=== PATIENT | male | born 1950 | race Caucasian/White ===

== ENCOUNTER 2018-08-04 08:08 | Day surgery (SDC) | payer OTHER ==
--- NOTE | 2018-08-01 14:08 | RAD REPORT ---
EXAM DESCRIPTION: RAD - Chest Pa And Lat (2 Views) - 08/01/2018 2:03 pm CLINICAL HISTORY: pre-op Chest pain. COMPARISON: ABDOMEN 1 VIEW KUB dated 06/11/2013 FINDINGS: A few small scattered benign granulomata are present. The lungs are otherwise clear. The h eart is mildly prominent size. No displaced fractures. IMPRESSION: No acute or concerning finding suspected.
[2018-08-01 14:10] LABS: Absolute Lymphocytes (CBC) 1.5 K/uL (0.7-4.9); Absolute Monocytes 0.4 K/uL (0.1-1.3); Absolute Neutrophil 3.7 K/uL (1.8-8.0); Basophils % 0.9 % (0-1.3); Eosinophils % 3.9 % (0-4.4); Hematocrit 36.4 % (39.6-49.0); Lymphocytes % 26.1 % (15.3-44.8); MCH 31.4 pg (27.0-35.0); MCV 89.2 fL (80-100); Monocytes % 7.3 % (3.3-12.3); RBC Red Blood Cell Count 4.08 M/uL (4.33-5.43)
[2018-08-01 14:17] LABS: Potassium 4.7 mmol/L (3.5-5.1)
--- NOTE | 2018-08-01 15:11 | EKG ---
Test Date: 2018-08-01 Test Time: 13:45:45 Newspaper Delivery Counselor: SILVIA MEASUREMENT RESULTS: Intervals: Rate: 79 MT: 166 QRSD: 104 QT: 386 QTc: 442 [place]: P: 55 MT: 166 QRS: 33 T: 47 INTERPRETIVE STATEMENTS: Normal sinus rhythm Normal ECG No previous ECG available for comparison Electronically Signed On 08-01-18 15:10:18 ELECTRONICS ENGINEERING TECHNICIAN by Brody Adams
[2018-08-04] MEDS ORDERED: CEFAZOLIN 1GM (PREMIX IV) 1 GM/50 ML BAG ONE (09:09)
[2018-08-04] MEDS ORDERED: NA CHLORIDE 0.9% 1,000 ML ONE (09:09)
[2018-08-04] MEDS ORDERED: PROPOFOL 200 MG/20 ML VIAL IV ONE (10:27)
[2018-08-04] MEDS ORDERED: FENTANYL CITR 100 MCG/2 ML ONE (10:28)
[2018-08-04] MEDS ORDERED: MIDAZOLAM HCL 2 MG/2 ML INJ ONE (10:28)
[2018-08-04] MEDS ORDERED: LIDOCAINE 2% MPF 5 ML VIAL ONE (10:28)
--- NOTE | 2018-08-04 11:31 | P.BOP ---
Preoperative diagnosis: infected back subcutaneous mass with abscess Postoperative diagnosis: same Primary procedure: Wide excision of infected back subcutaneous mass with abscess Estimated blood loss: <10cc Specimen: infected back subcutaneous mass with abscess Findings: infected back subcutaneous mass with abscess Anesthesia: General Complications: None Transferred to: Recovery Room Condition: Good
--- NOTE | 2018-08-20 12:36 | OP ---
Date of Procedure: 08/04/2018 Surgeon: Chad Winters MD Preoperative Diagnosis: Infected back subcutaneous mass with abscess. Postoperative Diagnosis: Infected back subcutaneous mass with abscess. Procedures: Wide excision of infected back subcutaneous mass with drainage of an abscess. Estimated Blood Loss: Less than 10 cc. Specimen: Infected back subcutaneous mass with pus. Findings: Infected back subcutaneous mass with abscess loculations. Anesthesia: General plus local. Indications: This is a case of a patient who comes to us with an infected back mass with cellulitis, purulent discharge, erythema, increased temperature. The patient was explained wide excision of inf ected subcutaneous mass with abscess drainage with benefits, alternatives, and risks including, but n ot limited to infection, bleeding, damage to adjacent structures, anesthesia complication, nonhealing of the wound, VT, and even . He also understands this may not relieve any symptoms. He might need more than one surgical intervention. He understands the possible need of packing in that area a nd the need for compliance with doctor's orders and antibiotics. He signed a consent. Description Of Procedure: The patient was brought to the operating room, placed in supine position. Anesthesia was done without complication. The patient was placed in lateral decubitus position in p ike protection. Previously in the holding room, this area of concern was marked. We prepped and d raped the area in the usual sterile fashion. A time-out was called. An incision was made on the ski n in a wedge fashion to include the devitalized skin all the way down to subcutaneous tissue. This g oes all way down to fascia of the muscle does not penetrate the muscle. Deep to this subcutaneous ma ss, there is an abscess cavity with loculations that was explored, opened, and drained. The area was profusely irrigated. Then, the area was packed with wet-to-dry dressing. The patient tolerated the procedure well. The patient was sent to Recovery in stable condition. DIMAS/ANNA Voice ID: [id number] Report ID: [id number]
--- NOTE | 2018-08-20 12:36 | DS ---
Date of Discharge: 08/04/2018 Diagnosis: Infected back subcutaneous mass with abscess. Procedure: Wide excision of infected back subcutaneous mass with drainage of an abscess. Disposition: Home. Discharge Instructions: Wet-to-dry dressing. Normal saline. Medications: See orders. Followup: Follow up in my office in 1 week. DIMAS/ANNA Voice ID: [id number] Report ID: [id number]
== END 2018-08-04 13:25 | disposition home or self-care (01) ==
LOC: OR 08:08
PROVIDERS: ATTEND Surgery
PROC: 0HB6XZZ Excision of Back Skin, External Approach (ICD-10-PCS; principal; 2018-08-04 10:30)
DX: L72.0 Epidermal cyst (principal); L02.212 Cutaneous abscess of back [any part, except buttock and flank]; E11.9 Type 2 diabetes mellitus without complications
CPT/HCPCS: 11406; 36415; 71046; 80048; 82962 ×2; 85025; 88304; 93005; J0690; J2250; J2704; J3010; J7030

== ENCOUNTER 2020-07-12 14:44 | Emergency (ER) | payer OTHER, BC ==
--- OUTSIDE RECORDS SUMMARY | 2020-07-12 14:47 | XMS REPORT | Clinical Summary ---
:1950 Author Organization [facility] Address [address] [place] [address] Care Team Providers Name Role Phone MD Sammi Primary Care Provider Allergies No Known Allergies Medications Medication Sig Dispensed Refills Start Date End Date Status insulin degludec Inject 60 Units 0 Active (Tresiba FlexTouch subcutaneously U-100) 100 unit/mL every morning . (3 mL) InPn pioglitazone (ACTOS) Take 30 mg by mouth 0 Active 30 MG tablet daily. lisinopriL Take 10 mg by mouth 0 Active (PRINIVIL,ZESTRIL) daily. 10 MG tablet metFORMIN Take 1,000 mg by 0 Act galileo (GLUCOPHAGE) 1000 MG mouth 2 (two) times tablet daily with breakfast and dinner. adult multiple Inject 0 Activ e vitamin (multiple intravenously. vitamin) 3,300 unit- 150 mcg/10 mL injection calcium Take 1 tablet by 0 Act galileo carbonate-vitamin D3 mouth daily. (OSCAL) 250-125 mg-unit Tab per tablet tamsulosin (FLOMAX) Take 1 capsule (0.4 10 capsule 0 0 Active 0.4 mg Cap 24 hr mg total) by mouth 0 capsule daily for 10 days. nitrofurantoin, Take 1 capsule (100 6 capsule 0 07/08/2020 macrocrystal-monohyd mg total) by mouth 0 rate, (MACROBID) 100 2 (two) times daily MG capsule for 3 days. phenazopyridine Take 1 tablet (100 10 tablet 0 07/08/202006/26 (PYRIDIUM) 100 MG mg total) by mouth 0 tablet 3 (three) times daily as needed for up to 3 days. Active Problems Problem Noted Date Bladder tumor 07/08/2020 Bladder cancer 07/08/2020 Encounters Date Type Specialty Care Team Description 07/08/2020 Surgery Nathanael Martin CYSTOSCOPY,EVA Hyman MD BIOPSY 07/08/2020 Anesthesia Event Yusuf Sim MD Fernandez, Cristina Margarita, MD 07/08/2020 - Hospital Encounter General Internal Nathanael Martin 07/10/2020 Medicine MD Ortiz 07/08/2020 Travel 07/06/2020 Hospital Encounter Pre-Admission Testing 07/06/2020 Travel after 07/12/2019 Social History Tobacco Use Types Packs/Day Years Used Date Former Smoker 1 12 Smokeless Tobacco: Never Used Comments: QUIT 35 YEARS AGO Alcohol Use Drinks/Week oz/Week Comments Yes OCCASIONAL Alcohol Habits Answer Date Recorded How often do you have a drink containing alcohol? Never 07/06/2020 How many drinks containing alcohol do you have on a typical Not asked day when you are drinking? How often do you have six or more drinks on one occasion? No t asked Sex Assigned at Date Recorded Not on file COVID-19 Exposure Response Date Recorded In the last month, have you been in contact with No / Unsure 07/08/2020 10:51 AM INSTALL TECHNICIAN someone who was confirmed or suspected to have Coronavirus / COVID-19? Last Filed Vital Signs Vital Sign Reading Time Taken Comments Blood Pressure 129/71 07/10/2020 11:24 AM INSTALL TECHNICIAN Pulse 89 07/10/2020 11:24 AM INSTALL TECHNICIAN Temperature 35.7 C (96.2 F) 07/10/2020 11:24 AM INSTALL TECHNICIAN Respiratory Rate 18 07/10/2020 11:24 AM INSTALL TECHNICIAN Oxygen Saturation 97% 07/10/2020 11:24 AM INSTALL TECHNICIAN Inhaled Oxygen Concentration - - Weight 103.7 kg (228 lb 9.6 oz) 07/08/2020 10:47 AM INSTALL TECHNICIAN Height 193 cm (6' 4") 07/08/2020 10:47 AM INSTALL TECHNICIAN Body Mass Index 27.83 07/08/2020 10:47 AM INSTALL TECHNICIAN Plan of Treatment Health Maintenance Due Date Last Done Comments COLON CANCER SCREENING COLONOSCOPY 1950 PNEUMOCOCCAL 65+ YRS (1 of 1 - [id number]) 01/11/2016 MEDICARE ANNUAL WELLNESS (YEAR 2 or FIRST YEAR if no 12/25/2016 IPPE) INFLUENZA VACCINE Completed 06/13/2020 Implants Implanted Type Area Nail Machine Operator Device Shelf Model / Identifier Expiration Serial / Date Lot Set Stent Injection 6x28cm [id number] - [id number] IMPLANTS Left: [place] 11/16/2021 [id number] / Implanted: Qty: 1 on 07/08/2020 by Nathanael Ash MD at [facility] [employer]:ONCOLOGY / [id number] Procedures Procedure Name Priority Date/Time Associated Comments Diagnosis POCT-GLUCOSE METER Routine 07/10/2020 11:26 Resul ts for this AM INSTALL TECHNICIAN procedure are i n the results section. POCT-GLUCOSE METER Routine 07/10/2020 7:32 Resul ts for this AM INSTALL TECHNICIAN procedure are i n the results section. CBC W/PLT COUNT & MARIAN 07/10/2020 5:47 Result s for this AUTO DIFFERENTIAL AM INSTALL TECHNICIAN procedure are in the results section. BASIC METABOLIC PANEL MARIAN 07/10/2020 5:47 Re sults for this (7) AM INSTALL TECHNICIAN procedure are i n the results section. CBC W/PLT COUNT & MARIAN 07/10/2020 5:47 Result s for this AUTO DIFFERENTIAL AM INSTALL TECHNICIAN procedure are in the results section. POCT-GLUCOSE METER Routine 07/09/2020 10:54 Resul ts for this PM INSTALL TECHNICIAN procedure are i n the results section. POCT-GLUCOSE METER Routine 07/09/2020 4:44 Resul ts for this PM INSTALL TECHNICIAN procedure are i n the results section. POCT-GLUCOSE METER Routine 07/09/2020 1:04 Resul ts for this PM INSTALL TECHNICIAN procedure are i n the results section. CBC W/PLT COUNT & MARIAN 07/09/2020 12:14 Result s for this AUTO DIFFERENTIAL PM INSTALL TECHNICIAN procedure are in the results section. BASIC METABOLIC PANEL MARIAN 07/09/2020 12:14 Re sults for this (7) PM INSTALL TECHNICIAN procedure are i n the results section. CBC W/PLT COUNT & MARIAN 07/09/2020 12:14 Result s for this AUTO DIFFERENTIAL PM INSTALL TECHNICIAN procedure are in the results section. POCT-GLUCOSE METER Routine 07/09/2020 8:17 Resul ts for this AM INSTALL TECHNICIAN procedure are i n the results section. POCT-GLUCOSE METER Routine 07/08/2020 9:33 Resul ts for this PM INSTALL TECHNICIAN procedure are i n the results section. POCT-GLUCOSE METER Routine 07/08/2020 5:28 Resul ts for this PM INSTALL TECHNICIAN procedure are i n the results section. FL FLUORO Routine 07/08/2020 4:04 Results for this NON-SPECIFIC UP TO 1 PM INSTALL TECHNICIAN procedu re are in HOUR the results section. TISSUE EXAM AP Routine 07/08/2020 3:03 Results for this PM INSTALL TECHNICIAN procedure are i n the results section. CYSTOSCOPY,INSERTION 07/08/2020 1:30 Malignant neopla sm URETERAL STENTS PM INSTALL TECHNICIAN of overlapping sites of bladder (HCC) CYSTOSCOPY,TURBT 07/08/2020 1:30 Malignant neoplasm PM INSTALL TECHNICIAN of overlapping sites of bladder (HCC) CYSTOSCOPY,BLADDER 07/08/2020 1:30 Malignant neoplasm BIOPSY PM INSTALL TECHNICIAN of overlapping sites of bladder (HCC) POCT-GLUCOSE METER Routine 07/08/2020 11:25 Resul ts for this AM INSTALL TECHNICIAN procedure are i n the results section. after 07/12/2019 Results POC-Glucose meter (07/10/2020 11:26 AM INSTALL TECHNICIAN)Only the most recent of9 results within the time period is included. POC-Glucose Meter 123 (H) 70 - 110 mg/dL [facility] Comment: [facility] : TESTED AT [address], [address] CENTER : Multiple Slide Operator/Welding Equipment Sales Representative ID = [id number] for JAMES DEGROOT Specimen Blood Performing Organization Address City/State/Zipcode Phone Number [address] [phone] CENTER CBC with platelet count + automated diff (07/10/2020 5:47 AM INSTALL TECHNICIAN)Only the most recent of2 resultswithin the time period is included. Pathologist Sig nature WBC 9.2 3.5 - 10.5 [facility] K/L [facility] [place] RBC 3.91 (L) 4.63 - 6.08 [facility] M/L [facility] [place] Hemoglobin 12.0 (L) 13.7 - 17.5 [facility] GM/DL [facility] [place] Hematocrit 37.4 (L) 40.1 - 51.0 % [facility] MCV 95.7 (H) 79.0 - 92.2 fL [facility] MCH 30.7 25.7 - 32.2 pg [facility] MCHC 32.1 (L) 32.3 - 36.5 [facility] GM/DL [facility] [place] RDW 14.6 (H) 11.6 - 14.4 % [facility] Platelets 203 150 - 450 K/CU [facility] MM [facility] [place] MPV 10.3 9.4 - 12.4 fL [facility] nRBC 0 0 - 0 /100 WBC [facility] % Neutros 74 % [facility] % Lymphs 15 % [facility] % Monos 9 % [facility] % Eos 2 % [facility] % Baso 0 % [facility] # Neutros 6.80 (H) 1.78 - 5.38 [facility] # Lymphs 1.37 1.32 - 3.57 [facility] # Monos 0.80 0.30 - 0.82 [facility] # Eos 0.21 0.04 - 0.54 [facility] # Baso 0.03 0.01 - 0.08 [facility] Immature 0 0 - 1 % [facility] Granulocytes-Relative [facility] [place] Specimen Blood Performing Organization Address City/State/Zipcode Phone Number [facility] [address] [place] [address] CENTER Basic Metabolic Panel (07/10/2020 5:47 AM INSTALL TECHNICIAN)Only the most recent of2 results within the time period is included. Sodium 139 136 - 145 meq/L [facility] Potassium 4.6 3.5 - 5.1 meq/L [facility] Chloride 109 (H) 98 - 107 meq/L [facility] CO2 25 22 - 29 meq/L [facility] BUN 22 (H) 7 - 21 mg/dL [facility] Creatinine 1.13 0.57 - 1.25 [facility] mg/dL [facility] [place] Glucose 102 70 - 105 mg/dL [facility] Calcium 8.5 8.4 - 10.2 [facility] mg/dL [facility] [place] EGFR 64Comment: ESTIMATED mL/min/1.73 sq [facility] GFR IS NOT m [facility] ACCURATE INDIANOLA CREATININE CLEARANCE IN PREDICTING GLOMERULAR FILTRATION RATE. ESTIMATED GFR IS NOT APPLICABLE FOR DIALYSIS PATIENTS. Specimen Blood Narrative Performed At Multiple Slide Operator ID - EDASI [facility] Performing Organization Address City/State/Zipcode Phone Number [facility] [address] [place] [address] CENTER FL fluoro non-specific up to 1 hour (07/08/2020 4:04 PM INSTALL TECHNICIAN) Specimen Narrative Performed At Fluoroscopic unit utilized for a procedure performed i n the OR. No GE RIS interpretation was requested. Refer to the operative report for findings. Refer to PACS for patient radiation dose i nformation. Procedure Note Interface, External Ris In - 07/08/2020 4:20 PM INSTALL TECHNICIAN Fluoroscopic unit utilized for a procedu re performed in the OR. No interpretation was requested. Refer to the operative r eport for findings. Refer to PACS for patient radiation dose information. Performing Organization Address City/State/Zipcode Phone Number GE RIS Tissue Exam (07/08/2020 3:03 PM INSTALL TECHNICIAN) Pathologist Sig nature Case Report Surgical Pathology Report Case: [id number] [facility] Authorizing Provider: Nathanael Maciel MD Collected: 07/08/2020 03:03 PM [facility] Ordering Location: [facility] PERIOPERATIVE Received: 07/08/2020 04:15 PM [facility] Pathologist: Harvey Caldwell MD Specimens: A) - Bladder T umor, 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 B) - Blad magdy Tumor, left trigone and left bladder neck C) - Blad magdy Tumor, 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) D) - Pros tatic, TUR prostatic urethra DIAGNOSIS A. 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 URINARY BLADDER, LEFT TRIGONE AND LEFT BLADDER NEC K, TURBT: - PAPILLARY UROTHELIAL CARCINOMA, HIGH GRADE (WHO GRADE 3), INVASIVE INTO MUSCULARIS [facility] - NEGATIVE FOR LYMPH/VASCULAR INVASION C. 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 PROSTATIC URETHRA, TUR BIOPSY: - FRAGMENTS OF BENIGN PROSTATIC STROMA WITH NO PATH OLOGIC CHANGES Signing Pathologist Direct Phone Line: CPT Code(s) 29509 X 3, [id number] [facility] CLINICAL HISTORY Preop diagnosis: [facility] Malignant neoplasm [facility] of overlapping site [facility] of bladder SPECIMEN SOURCE A to C: Bladder [facility] tumor; D. Prostatic [facility] GROSS DESCRIPTION A. Received in formalin labe led with the patient's name, accession number and "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" is a 5.3 x 2.0 x 0.4 cm aggregate of penny-pink rubbery tissue which is entirely submitted in A1-A3. [facility] B. Received in formalin labe led with the patient's name, accession number and "left trigone and left bladder neck tumor" is a 4.0 x 1.7 x 0.4 cm aggregate of penny-pink rubbery tissue which is entirely submitted in B1-B2. [facility] C. Received in formalin labe led with the patient's name, accession number and "low posterior wall bladder tumor with one piece of prostatic urethra" is a 1.9 x 0.7 x 0.3 cm aggregate of penny-pink rubbery tissue which is submitted in toto in C1. D. Received in formalin labe led with the patient's name, accession number and "prostatic urethral TUR" are two penny rubbery tissue measuring up to 0.8 cm in greatest dimension which are submitted in toto in D1. PA/pl MICROSCOPIC Performed. [facility] Specimen Tissue - Bladder Tumor Tissue specimen (specimen) - Bladder Jeannette or Tissue specimen (specimen) - Bladder Jeannette or Tissue specimen (specimen) - Prostatic u rethra stent (physical object) Performing Organization Address City/State/Zipcode Phone Number [facility] [address] [place] [address] CENTER after 07/12/2019 Insurance Payer Benefit Plan / Subscriber ID Effective Phone Address T ype Group Dates MEDICARE MEDICARE A B [id number] 2015-Prese Medicare nt BLUE BCBS INDEMNITY [id number] 2019-Prese [phone] PPO CROSS/BLUE [place] [id number] [place] [address] Advance Directives For more information, please contact: [phone] Code Status Date Activated Date Inactivated Comments Full Code 07/08/2020 9:39 PM 07/10/2020 2:27 PM This code status was determined by: Patient
--- OUTSIDE RECORDS SUMMARY | 2020-07-12 14:47 | XMS REPORT | Clinical Summary ---
:1950 Author Organization [facility] Address [address] [place] [address] Care Team Providers Name Role Phone MD Sammi Primary Care Provider Allergies No Known Active Allergies Medications Medication Sig Dispensed Refills Start Date End Date Status metFORMIN (GLUMETZA) Take 1,000 mg by 0 Active 1,000 mg 24 hr tablet mouth daily with breakfast. pioglitazone (ACTOS) 30 Take 30 mg by 0 Active MG tablet mouth daily. insulin degludec Inject under the 0 Active (TRESIBA FLEXTOUCH skin. U-100 SUBQ) atorvastatin (LIPITOR) Take 10 mg by 0 Active 10 MG tablet mouth daily. lisinopril Take 5 mg by 0 Active (PRINIVIL,ZESTRIL) 5 mg mouth daily. tablet Active Problems Problem Noted Date S/P lumbar laminectomy 04/21/2019 Encounters Date Type Specialty Care Team Description 01/27/2020 Office Visit Orthopedic Surgery Enrique Jones, Ri ght knee pain, unspecified chronicity (Primary Dx); Left knee pain, unspecified chronicity; Arthritis of kn ee, left; Arthritis of kn ee, right 01/27/2020 Travel 01/25/2020 Orders Only Orthopedic Surgery Amrita Sandhu Acut e pain of both MA knees (Primary Dx) 01/21/2020 Travel after 07/12/2019 Surgical History Surgery Date Site/Laterality Comments BACK SURGERY SHOULDER SURGERY Bilateral rotator cuff TONSILLECTOMY LAMINECTOMY, LUMBAR, WITH 04/21/2019 Back/Left Proced ure: REDO LUMBAR FORAMINOTOMY OR FACETECTOMY, 1 L AMINOTOMY, MEDIAL LEVEL FACETECTOMY AND FORAMINOTOMY FOR EXCISION OF SYNOVIAL CYST AT LEFT L4-L5; Surgeon: Isidro Scott MD; Location: [facility] OR ; Service: Neurosurgery; L aterality: Left; Medical History Medical History Date Comments Arthritis Cataract bilateral repair Diabetes mellitus (HCC) Type 2 diabetes mellitus (HCC) Hypercholesteremia Wears reading eyeglasses Wears dentures has implants asher vargas PONV (postoperative nausea and vomiting) once only Family History Medical History Relation Name Comments COPD Father Diverticulitis Father Heart disease Mother [place] Old age Mother 86 Relation Name Status Comments Father Mother Social History Tobacco Use Types Packs/Day Years Used Date Former Smoker 1 20 Quit: 1989 Smokeless Tobacco: Never Used Alcohol Use Drinks/Week oz/Week Comments Yes 2-3/month Sex Assigned at Date Recorded Male 04/18/2019 2:55 PM CDT Last Filed Vital Signs Vital Sign Reading Time Taken Comments Blood Pressure - - Pulse - - Temperature - - Respiratory Rate - - Oxygen Saturation - - Inhaled Oxygen Concentration - - Weight 104 kg (230 lb) 01/27/2020 1:10 PM CDT Height 162.6 cm (5' 4") 01/27/2020 1:10 PM CDT Body Mass Index 39.48 01/27/2020 1:10 PM CDT Plan of Treatment Health Maintenance Due Date Last Done Comments DIABETES: RETINAL EYE EXAM 1961 DIABETIC FOOT EXAM 1961 URINE MICROALBUMIN 1961 COLONOSCOPY SCREENING 2001 SHINGLES VACCINES (#1) 2001 65+ PNEUMOCOCCAL VACCINE (2 of 2 - PPSV23) 01/11/201610/17 INFLUENZA VACCINE 03/26/2020 Procedures Procedure Name Priority Date/Time Associated Comments Diagnosis MS ARTHROCENTESIS Routine 01/27/2020 2:15 Arthritis of knee, Results for this ASPIR&/INJ MAJOR PM CDT left procedure a re in JT/BURSA W/O US the results section. XR LEG LENGTH Routine 01/27/2020 1:12 Acute pain of both Resu lts for this EVALUATION PM CDT knees procedure are i n the results section. XR KNEE 4+ VW BILATERAL Routine 01/27/2020 1:11 Acute pain of both Results for this PM CDT knees procedure are i n the results section. after 07/12/2019 Results Large Joint Arthrocentesis: knee, L knee (01/27/2020 2:15 PM CDT) Narrative Performed At Enrique Jones MD 01/27/2020 2:11 PM Large Joint Arthrocentesis: knee, L knee Consent given by: patient Site marked: site marked Timeout: Immediately prior to procedure a time out was called to verify the correct patient, procedure, equipmen t, aviation support equipment repairer and site/side marked as required Supporting Documentation Indications: pain Procedure Details Preparation: Patient was prepped and rosalinda ped in the usual sterile fashion Ultrasound guided: no Platelet Rich Plasma Used: no PRP Used Location: knee - L knee Left side: Needle size: 22 G Approach: anterolateral Left knee medications administered: 2 mL bupivacaine 0 .5 % (5 mg/mL); 40 mg methylPREDNISolone acetate 40 mg/mL; 2 mL lidocaine 10 mg/mL (1 %) Patient tolerance: patient tolerated the procedure wel l with no immediate complications XR Leg Length Evaluation (01/27/2020 1:12 PM CDT) Specimen Narrative Performed At This result has an attachment that is no t available. Long leg radiographs demonstrate neutral alignment of the bilateral lower [facility] extremities. Performing Organization Address [facility] Phon e Number [facility] [address] [place] [address] XR Knee 4+ Vw Bilateral (01/27/2020 1:11 PM CDT) Specimen Narrative Performed At This result has an attachment that is no t available. Knee radiographs demonstrate severe knee arthritis, left worse than right, [facility] worse in the lateral views. There is medial compartmen t joint space narrowing, osteophytes, and sclerosis present. Performing Organization Address [facility] Phon e Number [facility] [address] [place] [address] after 07/12/2019 Insurance Payer Benefit Plan / Subscriber ID Effective Phone Address T ype Group Dates MEDICARE MEDICARE PART A [id number] 2015-Pres [place], [place] Medicare AND B ent BCBS COMMERCIAL BCBS MEDICARE [id number] 2019-Pres Commercial SUPPLEMENT ent Advance Directives For more information, please contact: [phone] Type Date Recorded Patient Pediatric Neuropsychologist Explanati on Advance Directives, Living Will 04/07/2019 2:18 PM and Medical Power of German Tutor
--- OUTSIDE RECORDS SUMMARY | 2020-07-12 14:48 | XMS REPORT | Summary of Care ---
:1950 Author Organization [facility] [place] [address] Care Team Providers Name Role Phone Unavailable Primary Care Provider Unavailable Reason for Referral Radiology Services (Routine) Status Reason Specialty Diagnoses / Referred By Contact Refe rred To Contact Procedures Pending Radiology Diagnoses Gross hematuria Nathanael Martin MD Procedures CT ABDOMEN PELVIS W WO CONTRAST [address] [place], [place] [address] Phone: Consult, Test & Treat (Routine) Status Reason Specialty Diagnoses / Referred By Contact Refe rred To Contact Procedures Pending Urology Diagnoses Gross hematuria [place] per Nathanael Montanez MD [facility] Procedures CYSTOSCOPY NM CYSTO,[id number], [address] [place], [place] [phone] Phone: Fax: Reason for Visit Reason Comments Initial Visit Encounter Details Date Type Department Care Team Description 06/16/2020 Office Visit [facility] Nathanael Martin MD Initial Visit Medicine Urology [address], [place] [address] [place] [address] [phone] Allergies No Known Allergiesdocumented as of this encounter (statuses as of 06/16/2020) Medications Medication Sig Dispensed Refills Start Date End Date Status TRESIBA FLEXTOUCH INJECT 60 UNITS 0 03/30/2020 Active 200 UNIT/ML SOPN SUBCUTANEOUSLY ONCE DAILY metformin TAKE 1 TABLET BY 0 03/29/2020 Ac tive (GLUCOPHAGE) 1000 MOUTH ONCE DAILY MG tablet pioglitazone Take 30 mg by mouth. 0 09/26/1999 Active (ACTOS) 30 MG tablet lisinopril Take 5 mg by mouth. 0 09/26/1999 Active (PRINIVIL, ZESTRIL) 5 MG tablet atorvastatin Take 10 mg by mouth. 0 Active (LIPITOR) 10 MG tablet metformin 0 09/26/1999 Active (GLUCOPHAGE) 500 MG tablet FLUAD QUADRIVALENT ADM 0.5ML IM UTD 0 06/13/2020 Active 0.5 ML PRSY documented as of this encounter (statuses as of 06/16/2020) Active Problems Problem Noted Date Diabetes mellitus (HCCode) documented as of this encounter (statuses as of 06/16/2020) Immunizations Name Administration Dates Next Due Influenza Hd 06/13/2020 documented as of this encounter Social History Tobacco Use Types Packs/Day Years Used Date Former Smoker 1 9 08/26/1970 - 0 08/26/1979 Smokeless Tobacco: Never Used Sex Assigned at Date Recorded Not on file documented as of this encounter Last Filed Vital Signs Vital Sign Reading Time Taken Comments Blood Pressure 129/71 06/16/2020 11:47 AM CDT Pulse 88 06/16/2020 11:47 AM CDT Temperature 36.8 C (98.2 F) 06/16/2020 11:47 AM CDT Respiratory Rate 16 06/16/2020 11:47 AM CDT Oxygen Saturation - - Inhaled Oxygen Concentration - - Weight 99.8 kg (220 lb) 06/16/2020 11:47 AM CDT Height 193 cm (6' 4") 06/16/2020 11:47 AM CDT Body Mass Index 26.78 06/16/2020 11:47 AM CDT documented in this encounter Patient Instructions Patient InstructionsStella Reilly RN - 06/16/2020 12:[address] appointment [address] scan. Once you know the date call the office to schedule the cystoscopy (you will probably have to speak to someone in the office) documented in this encounter Progress Notes Nathanael Martin MD - 06/16/2020 11:[address] Kirby Chapa Ronald Trinh is a 70 y.o. 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 No Known Allergies Current Outpatient Medications: atorvastatin (LIPITOR) 10 MG tablet, Take 10 mg by mouth., Disp: , Rfl: FLUAD QUADRIVALENT 0.5 ML PRSY, ADM 0.5ML IM UTD, Disp: , Rfl: lisinopril (PRINIVIL, ZESTRIL) 5 MG tablet, Take 5 mg by mouth., Disp: , Rfl: metformin (GLUCOPHAGE) 1000 MG tablet, TAKE 1 TABLET BY MOUTH ONCE DAILY, Disp: , Rfl: metformin (GLUCOPHAGE) 500 MG tablet, , Disp: , Rfl: pioglitazone (ACTOS) 30 MG tablet, Take 30 mg by mouth., Disp: , Rfl: TRESIBA FLEXTOUCH 200 UNIT/ML SOPN, INJECT 60 UNITS SUBCUTANEOUSLY ONCE DAILY, Disp: , Rfl: Past Medical History: Diagnosis Date Diabetes mellitus (HCCode) Prostate irregularity Past Surgical History: Procedure Laterality Date HX BACK SURGERY HX SHOULDER SURGERY ROS: GENERAL: Denies recent weight changes, fever, weakness, fatigue, headaches INTEGUMENTARY: Negative EYES: Negative EARS, NOSE, MOUTH AND THROAT: Negative MUSCULOSKELATAL: Negative RESPIRATORY: Negative NEUROLOGIC: Negative CARDIOVASCULAR: Negative ENDOCRINE: Negative GASTROINTESTINAL: Negative GENITOURINARY: As per HPI HEMATOLOGIC/LYMPHATIC: Negative PSYCHOLOGIC: Negative ALLERGY/IMMUNOLOGIC: Negative OTHER: Denies HIV/AIDS PE GENERAL: Well developed, well nourished, in no acute distress. BP 129/71 (BP Location: right arm, Patient Position: Sitting, Cuff Size: regular) | Pulse 88 | Temp 98.2 F (36.8 C) | Resp 16 | Ht 6' 4" (1.93 m) | Wt 220 lb (99.8 kg) | BMI 26.78 kg/m Impression: Gross hematuria Discussion: Disc: reviewed causes of hematuria including urinary tract cancer, stones, infection, inflammation, trauma and need for workup including CT and cystoscopy. I spent 30 minutes with patient, reviewing history and outside records and relevant imaging,conducting physical exam, plus discussion and coordination of care. More than 50% was spent counseling the patient on prognosis and treatment plan. Plan: BUN and creatinine CT Urogram at [facility] Office cystoscopy with cytology and FISH documented in this encounter Plan of Treatment Date Type Specialty Care Team Description 07/05/2020 Procedure visit Urology Nathanael Martin MD [address] [facility] [address] [place], [place] [address] [phone] Name Type Priority Associated Diagnoses Order S chedule CYSTOSCOPY Procedure Routine Gross hematuria 1 Occurrence s starting 2019 until 1 BUN Lab Routine Gross hematuria Ordered: CREATININE SERUM Lab Routine Gross hematuria Ordered: 06/16/2020 CT ABDOMEN PELVIS W Imaging Routine Gross hematuria 1 Occ urrences WO CONTRAST starting 2019 until 1 Health Maintenance Due Date Last Done Comments COLON CANCER SCREENING: COLONOSCOPY 1950 TETANUS SHOT (ADULT) 1966 HEPATITIS C SCREENING 1969 ZOSTER VACCINE (1 of 2) 2001 MEDICARE AWV (Initial) 12/25/2015 FALL SCREEN 01/11/2016 PNEUMOVAX >=65 (PPSV23) 01/11/2016 FLU VACCINE > 6 MONTHS Discontinued documented as of this encounter Results Not on filedocumented in this encounter Visit Diagnoses Diagnosis Gross hematuria - Primary documented in this encounter Insurance Payer Benefit Plan / Subscriber ID Effective Dates Phone Addre ss Type Group MEDICARE MEDICARE PART [id number] 2015-Pres[place] [address] [place] [id number] Medicare A & B - t [place], [place] MEDICARE [phone] BLUE CROSS OUT OF STATE [id number] 2019-Presen [address] [place] X [id number] PPO BLUE SHIELD BCBS - PPO - t [facility] [id number] documented as of this encounter
--- OUTSIDE RECORDS SUMMARY | 2020-07-12 14:48 | XMS REPORT | Continuity of Care Document ---
:1950 Author Organization [facility] t Address [address] [place] [place] [address] Care Team Providers Name Role Phone Sammi FERRARI Primary Care Physician ORTIZ GARCIA Attending Clinician Unavailable Ortiz Garcia MD Attending Clinician Korey Sim MD Attending Clinician Liana Phillips MD Attending Clinician Cecile Garcia MD Attending Clinician Michelle Jones MD Attending Clinician Edson JUNIOR Attending Clinician Unavailable ORTIZ GARCIA Admitting Clinician Unavailable Payers Payer Name Policy Type Policy Effective Date Expiration Date Sour ce Number MEDICAREMEDICARE A [id number] 2015 GRACE Martines [id number] 2015- 00:00:00 - M edical PresentMedicare Center BLUE CROSS/BLUE [id number] 2019 GRACE Germain ukes SHIELDBCBS INDEMNITY 1 00:00:00 - Me dical [place] [id number] [address], [place] [address]SVE MEDICAREMEDICARE PART [id number] 2015 Dustin Leiva AND 00:00:00 [facility] [id number] [place] 2019 [place] MED[place] 1 00:00:00 [facility] [id number] 2020-PresentComm ercial Problems Condition Condition Condition Status Onset Resolution Last Treating Co mments Source Name Details Category Date Date Treatment Clinician Date Bladder Bladder Disease Active 2019-[address] [facility] [place] Bladder Bladder Disease Active 2019-[address] [facility] cancer - [facility] Center S/P lumbar S/P lumbar Disease [place] laminectom laminectom 8-27 Me thodi y y 00:00: st 00 Allergies, Adverse Reactions, Alerts This patient has no known allergies or adverse reactions. Family History Family Member Diagnosis Comments Start Date Stop Date Source Natural father COPD [place] [facility] Natural father Diverticulitis [place] [facility] Natural mother Heart disease [place] [facility] Natural mother Old age [place] [facility] Social History Social Habit Start Date Stop Date Quantity Comments Source History of tobacco Current smoker [place] use [facility] History SDOH [facility] SD[facility] - Alcohol Binge Medical Anabela ter Sex Assigned At [facility] Exposure to Not sure [facility] - SARS-CoV-2 (event) [facility] Cigarettes smoked 2020-07-11 2020-07-[address] [facility] - current (pack per 00:00:00 00:00:00 Medical Center day) - Reported Cigarette 2020-07-11 2020-07-[address] [facility] - pack-years 00:00:00 00:00:00 [facility] Tobacco use and 2020-07-11 2020-07-[address] [facility] - exposure 00:00:00 00:00:00 [facility] Alcohol intake 2020-07-11 2020-07-11 [facility]00:00 of alcohol [facility] (finding) History SDOH 2020-07-06 2020-07-[address] [facility] - Alcohol Frequency 00:00:00 00:00:00 [facility] Tobacco Comment 2020-07-06 2020-07-06 QUIT [address] [facility] [facility] Center Alcohol Comment 2020-07-06 2020-07-[address] [facility] - 00:00:00 00:00:00 [facility] Smoking Status Start Date Stop Date Source Former smoker 2020-07-11 00:00:00 2020-07-11 00:00:[address] [facility] [facility] Center Medications Ordered Filled Start Stop Current Ordering Indication Dosage Frequency Signature Comments Components Source Medication Medication Date Date Medication? Clinician (SIG) Name Name insulin 2019-08 Yes 60U QD Inject 60 [facility] degludec 1-15 Units [facility] - (Tresiba 12:27: subcutaneo Med ical FlexTouch 03 usly every Cent er U-100) 100 morning . unit/mL (3 mL) InPn pioglitazon 2019-08 Yes 30mg QD Take [address] e (ACTOS) 1-15 by mouth [facility] - 30 MG 12:27: daily. Medical tablet 03 Center lisinopriL 2019-08 Yes 10mg QD Take [address] (PRINIVIL,Z 1-15 by mouth Luke s - ESTRIL) 10 12:27: daily. Medic al MG tablet 03 Center metFORMIN 2019-08 Yes 1000mg Take 1,[address] (GLUCOPHAGE 1-15 mg by [facility] - ) 1000 MG 12:27: mouth 2 Medic al tablet 03 (two) Center times daily with breakfast and dinner. adult 2019-[address] [facility] multiple 1-15 intravenou [facility] - vitamin 12:27: sly. Medical (multiple 03 Center vitamin) 3,300 unit- 150 mcg/10 mL injection calcium 2019-08 Yes 1{tbl} QD Take [address] carbonate-v 1-15 tablet by Andre es - itamin D3 12:27: mouth Medical (OSCAL) 03 daily. [place] 250-125 mg-unit Tab per tablet tamsulosin 2019-08 2020- Yes .4mg QD Take [address] (FLOMAX) 09-07 capsule [facility] - 0.4 mg Cap 00:00: 23:59 (0.4 mg Med ical 24 hr 00 :00 total) by Center capsule mouth daily for 10 days. nitrofurant 2019-08 2020- No 100mg Q.5D Take [address] oin, 09-07 capsule [facility] - macrocrysta 00:00: 23:59 (100 mg Me dical l-monohydra 00 :00 total) by [facility] ter te, mouth 2 (MACROBID) (two) 100 MG times capsule daily for 3 days. phenazopyri 2019-08 No 100mg Take [address] dine 09-07 tablet [facility] - (PYRIDIUM) 00:00: 23:59 (100 mg Med ical 100 MG 00 :00 total) by Center tablet mouth 3 (three) times daily as needed for up to 3 days. metFORMIN Yes 1000mg QD Take 1,000 [facility] (GLUMETZA) 8-28 mg by Methodi 1,000 mg 24 11:30: mouth st hr tablet 33 daily with breakfast. pioglitazon Yes 30mg QD Take 30 mg [facility] e (ACTOS) 8-28 by mouth Method i 30 MG 11:30: daily. st tablet 33 insulin Yes Inject [facility] degludec 8-28 under the Method i (TRESIBA 11:30: skin. st FLEXTOUCH 33 U-100 SUBQ) atorvastati Yes 10mg QD Take 10 mg [facility] n (LIPITOR) 8-28 by mouth Meth hesham 10 MG 11:30: daily. st tablet 33 lisinopril Yes 5mg QD Take 5 mg Ho mic[place]le (PRINIVIL,Z 8-28 by mouth Meth hesham ESTRIL) 5 11:30: daily. st mg tablet 33 Vital Signs Vital Name Observation Time Observation Value Comments Source Systolic blood 2020-07-10 11:24:00 129 mm[Hg] [facility] Diastolic blood 2020-07-10 11:24:00 71 mm[Hg] [facility] S [facility] Heart rate 2020-07-10 11:24:00 89 /min [facility] Body temperature 2020-07-10 11:24:00 35.67 Daniella [facility] Respiratory rate 2020-07-10 11:24:00 18 /min [facility] Oxygen saturation in 2020-07-10 11:24:00 97 /min [facility] Arterial blood by Medical Ce nter Pulse oximetry Body height 2020-07-08 10:47:[address] [facility] Body weight 2020-07-08 10:47:[address] [facility] BMI 2020-07-08 10:47:00 27.83 kg/m2 [facility] Body height 2020-01-27 13:10:00 162.6 cm [facility] Trin[facility] Body weight 2020-01-27 13:10:00 104.327 kg [facility] Trin[facility] BMI 2020-01-27 13:10:00 39.48 kg/m2 [facility] Procedures Procedure Date / Time Performing Clinician Source Performed POCT-GLUCOSE [facility]-07[facility]10 [facility] 2020-07-10 07:[facility]ABOLIC PANEL (7) 2020-07-10 05:47:00 Stepan Forrester [facility] CBC W/PLT COUNT & AUTO 2020-07-10 05:47:[address] [facility] S [facility] POCT-GLUCOSE METER 2020-07-09 22:54:[facility] POCT-[facility]UCOSE METER 2020-07-09 16:44:[facility] POCT-GLUCOSE METER 2020-07-09 13:04:00 Veronica [facility] BASIC METABOLIC PANEL (7) 2020-07-09 12:14:00 Stepan Forrester [facility] CBC W/PLT COUNT & AUTO 2020-07-09 12:14:00 Stepan Forrest[address] [facility] POCT-GLUCOSE METER 2020-07-09 08:17:00 Veronica [facility] POCT-GLUCOSE METER 2020-07-08 21:33:[facility] POCT-[facility]UCOSE METER 2020-07-08 17:28:[facility] [place] FLUORO NON-SPECIFIC UP 2020-07-08 16:04:00 [facility] TISSUE EXAM 2020-07-08 15:03:00 Veronica Nathanael Alcantar [facility] CYSTOSCOPY,BLADDER BIOPSY 2020-07-08 13:30:00 VeronicaSilash Ortiz [facility] CYSTOSCOPY,TURBT 2020-07-08 13:30:00 VeronicaNathanael [facility] CYSTOSCOPY,INSERTION 2020-07-08 13:30:00 Veronica Nathanael Ortiz [facility] S t [facility] - URETERAL STENTS [facility] POCT-GLUCOSE METER 2020-07-08 11:25:00 Veronica Nathanael Ortiz [facility] [place] ARTHROCENTESIS 2020-01-27 14:15:00 Enrique Jones ASPIR&/INJ MAJOR JT/BURSA W/O US XR LEG LENGTH EVALUATION 2020-01-27 13:12:00 Enrique Jones XR KNEE 4+ VW BILATERAL 2020-01-27 13:11:47 Enrique Jones Plan of Care Planned Activity Planned Date Details Comments Source Future Scheduled 2020-03-26 INFLUENZA VACCINE [place] [facility] Test 00:00:00 [code = INFLUENZA VACCINE] Future Scheduled 2016-12-[address] [facility] - Test 00:00:00 WELLNESS (YEAR 2 or Medical Center FIRST YEAR if no IPPE) [code = MEDICARE ANNUAL WELLNESS (YEAR 2 or FIRST YEAR if no IPPE)] Future Scheduled 2016-01-11 65+ PNEUMOCOCCAL [facility] Test 00:00:00 VACCINE (2 of 2 - PPSV23) [code = 65+ PNEUMOCOCCAL VACCINE (2 of 2 - PPSV23)] Future Scheduled 2016-01-11 PNEUMOCOCCAL 65+ [facility] - Test 00:00:00 (1 of 1 - Medical Center [id number] PCV13) [code = PNEUMOCOCCAL 65+ YRS (1 of 1 - [id number] PCV13)] Future Scheduled 2001 COLONOSCOPY SCREENING [place] [facility] Test 00:00:00 [code = COLONOSCOPY SCREENING] Future Scheduled 2001 SHINGLES VACCINES (#1) H [place] [facility] Test 00:00:00 [code = SHINGLES VACCINES (#1)] Future Scheduled 1961 DIABETES: RETINAL EYE [place] [facility] Test 00:00:00 EXAM [code = DIABETES: RETINAL EYE EXAM] Future Scheduled 1961 DIABETIC FOOT EXAM [place] [facility] Test 00:00:00 [code = DIABETIC FOOT EXAM] Future Scheduled 1961 URINE MICROALBUMIN [place] [facility] Test 00:00:00 [code = URINE MICROALBUMIN] Future Scheduled [address] [facility] - Test 00:00:00 malignant neoplasm of [facility] colon (procedure) [code = 151419718] Encounters Start End Encounter Admission Attending Care Care Encounter Source Date/Time Date/Time Type Type Clinicians Facility Department ID 2020-06-16 2020-06-16 Office CLEMENTE Garcia [id number] 10:07:46 13:28:37 Visit Nathanael Huber AMBULATOR [id number] Y [id number] 2020-01-27 2020-01-27 Outpatient INCAVO, [facility] [id number] [place] 00:00:00 00:00:[address] 2020-01-27 2020-01-27 Outpatient INCAVO, [facility] [id number] [place] 00:00:00 00:00:00 ENRIQUE [address] 2020-01-27 2020-01-27 Outpatient INCAVO, [facility] [id number] [address] [place] 00:00:00 00:00:00 ENRIQUE [address] Results Test Description Test Time Test Comments Results Result Comments Source Tissue Exam 2020-07-12 09:33:00 Test Item Value Reference Range Interpretation Comme nts Case Report (test code = 104) Surgical Pathology Report Case: [id number] Authorizing Provider: Nathanael Garcia MD Collected: 07/08/2020 03:03 PM Ordering Location: [facility] Received: 07/08/2020 04:15 PM SERVICES Pathologist: Harvey Caldwell MD Specimens: A) - Bladder Tumor, 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 B) - Bladder Tumor, left trigone and left bladder neck C) - Bladder Tumor, 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) D) - Prostatic, TUR prostatic urethra DIAGNOSIS (test code = 3220) c6grtKDoAGMng1wjEDAmqZIgQqDuJoHeRuFkYb pc dWMxIHtccnRmMVxlcGljOTIwMFxhbnNpXHNwbHRw V0RcsjndYBjjOS1fQH0vtMiweKWgfPBiKDYkDlVh y2khf082mZLpa9raFRPUfbdhjXx5vHyjR15of5P7 LpngY49pyENgCLhmoJGnesfgpyCzCUXwVPZLHdjX RBCWVDKCJFPGXPMbASKCQ8yLHXkVJVOTLIssZ9MP TCBBTkQgUklHSFQgQkxBRERFUiBORUNLLCBUVVJC JWlqgXUgGCOcKZ9bMJUYSMhLNSEHCZNBV1ANVNcW GNzoN7LTU6eLY11ZFDIBTFeAKJhTDPMMBUtIPB2p H0QTRITsSkezZSvhZWAiRNGfRXYzCDHtUS3RQPZV AqSfVL5PCmBGZSUENUbXGvrLBUVFR5EMWTCdbCNy FUCkAW6nSdYALYGSEkVvNy9AQOlWROVOI0NJJ9QO WHVSAHgZLxNJTK8UERDrbggdQWYmPq8xUIVBUV9Q BwinZoqWVQYYEwmgWKLABCJJMqhOA62QFKASYWYT ZIIDIQWQXEZEZKSvIiYKDvufQOIMZlE0WTZvhdUk ICAgLSBQQVBJTExBUlkgVVJPVEhFTElBTCBDQVJD VI4IDNFeFSmLH5ewD0QHPEHxEYhONqGVZgJETSHi AIqaPYGubzWkZDAlYXTuUPLZBqXHS2hBTNISAoAO YS7FG4BAQFLEHKCwOICIIBUPBRuvFNFnARAvYPHD KKdAAFjWFXOWO2VnEEuCJOpbArXHJ4HQFQKuKY7J OONDI10tkAPeKRYkecZVJeVaJBGZFjAPCGMCTZPN SMWPNIQJX9nxRV1NYIYUCF9HXByFCJhzYRiTBAlf J48DZXEJMBFOJH9XRHWBO4UQMPVPEoGUAiLUOBDS PGOOSZJHCMxmlGOvUOGsFD3lSZNJCFtRGFHVJFVF C6XDHMfFPTnhZ2DGH2xRB29OXPUMXYcFCPxWHHWX OSpDBS3jY1SXPKIwUtgfBUedFUWxMLTuEPIhCOXz IE5MRFOVNtSrXC6HRyIHSA3WIsSjINQXVETABJdv CZDeGKLeEPYNDPZWZCxWFphNKAPJC8JOGJIhHCHb Le0OHGLBPGZTSpBudTYeZBNqFS1dPpNDVLKNDlRq Ri3FJDvGQGSWP1UZS7WIFLBOXPlDAgEZEM3CDZWt ilWpZILdIZ1CWKNWZOcUYHBLSt9WFEAGZDRnB0DW C86GWRyGTCgaBl5zMNLWZX0YV2sGHxCSPDNUW7UQ UDNsiyyuKAYyNL5dZAZRU5FRVJLXVnXPNbGFLDDF LCBUVVIgQklPUFNZOlxwYXIgICAgLSBGUkFHTUVO RAIoJ5ZrStLOZYuOIMYKZ2CFXORTLaPUUEZGZFQx X8oMTKWLRaVJYWMSD7xRH0mVVSYFFA9GYCLwdYAf nVvzwsXoSTzjr6YqOFvvIQMyAI7olMdqHNZbLG0j UEClV8gloQ8hukd6WqTiGVPdNaQ6ERXlqoI0Sas7 RLKxETspx0xmu7NxTAUnVXc1eGgsNsLaYRPbw5qv llIcPaLwZHAiVDPnWOSziTVdT187a9yvl7wkqhSc jHC2WLIaUFI9MCtftrOzqqR1PYsexKCiQrE5PHun dhKcHJvjvaWpfsGiYta9VJFkD993HNC1iYyfw3qh JSE4JTTiYMPlElFzXk9hgGPwQ460KUKdWWUZEHKk mNu2DXPlbmGzagFefYNTw834A317d9dlYDEuozVd nHnOgeyqy4hwY818VKWrgLYjthDpPfOiTTVtdFWa qWP0UDXjIU0kytuyMVcpUKqwZMCgeoQ1FBYerRYd A9TnJQNqMK1slvfyTRV4RSqhFEFhIFZ0KjEtJYRr y8Wdhdg0ZaWsqy4feg13LUN0w6BtzOohKYA7EVH1 NeSlNm7qaIUmKQQcMY0rBfNehLTbRNYtee57fYqe OCutGWU0VKOwonZyo9Kzf2waWeBslrFyQ0cjA7Nt AXErNZKsWNCrIqHdyiDqu0Lfv2MleULcyFr8o5tc JOIlJTZonMscm7koJIT0RDLvmLIbF8jluG0xWWGc RF2brxswo4wqDMnwDJspDQSlsKG9toQ6MGCdeNTl R3DtjN9vOVUiFGkeAWJsevb1EpZwRx5izPSrzOkj MFxzYmtwYWdlXHBnbmNvbnRccGduZGVjXHBsYWlu XHBsYWluXGYwXGZzMjRccWxcbGFuZzEwMzNcaGlj sPulDHghTaQhWFHyCClmF9gkDcJmYuMuQtc2IEBt iEJjNPKzLzb7BEQpkLZzNVFCzPzbsO5eDUWyaWzi fC0wmNG4ZDEisfTgsCXKkM1gDIUOqZ9wWcQ9PgYo JoW7QNE7AOLmrVLzmS9= CPT Code(s) (test code = 3357) o2ftnRKnRIZavPP9YvRkVAYgg8iza6GquXXr cGFy AYzebGLbstYowa25rBZ0wW29OE3pHUDhIgL5BWEm yxK6Bax9TMMfEFTduKHpC574q0kyw6nvjvYtmEQ4 fVxwYXJkXHBsYWluXGZzMjAgODgzMDcgWCAzLCA4 ODMwNVxwYXJ9 CLINICAL HISTORY (test code = 3356) u1ztrSQzJTHaqFS4UlKoPCJcp6ame8K sdHBncGFy JFqmvNWpkeIctj07lDU9tK35FV1pTKCpIxU7OSKx ufR0Nsv4RHPuBSBylILtV527j3nzu1whnaKavNF6 yBkwZPGnKOUkMVduNMAeOuIdUPQdy9AmQQuxF56c j8hqFhXnCIWfcBadRH51EH5of9UbYNCnDT3lYP50 LGAtFYEmhP4pVDFzmUUfy0VaClxrYYGpvjztUOR3 SPECIMEN SOURCE (test code = 3377) q0ikvYYjVRSbxKU8XiIaEZKjx7ghv8Uq dHBncGFy NHgcgTIqtyFmun06fVS3aL33JZ5tQVYmIaC3UVHo nuS2Qdn4GPYeSRLzrPGaB654n3mid2jtfjOktXF4 rYopGCDeAHJaKQqqOZDcTjLkAYC4wbBQSnMNmINx YRGgTGS7sS7iJzNCSkXTyf3geZH2zXSymKSohA== GROSS DESCRIPTION (test code = 3366) l4sazMZxPDPabNE6GwGqDMWia1bba5 BsdHBncGFy QPpbvAEnhlUfij53gIA7jL74XE0uJMJlUtM9BXWu ieZ8Wuk0ANTwDYFxgUPqE497m1xaj3rioeOigNK1 rWfmVTZnRBBzZDrjDXSnNxSwNC3kDiQxOIg1USEa qD5vKx6mzTGmyA6ybPMpUBppAKK3eQUyCQZgZAZg IGMsDV18T2LdmlQaCMvzPJErYQCpsQ9qSV73nJEx nqZpivOaYmTiL3z8WAclgQLyQPbhj2GtkYLvbtDz exydzANsEjvzSEYuknXrXZMeMAG6xK3aFxOsvtXm MZMwDdW2NVNsMMC3KVDjVYSczFZyV4tvMDehnDLk w7EvaCMxKMVbhefviaTjZyIzeZA9oREzpPRik8vm B6vduQNqYU22yLHqtTkgx2KbuOl7iXKrYKzoVEEi LUEzLiBccGFyXHBhciBCLiBSZWNlaXZlZCBpbiBm j0RhDJffsaWxZPZhrJOhTAfstZvikTjgSZAofJpt luBqyvKgNR5eIAYjS5Bvd2Dpm60zgzYaVwXtHTZf YRLxnEXxjBS5pmvqg20yAUDrYRYkAOU8BWEmQNAd VDYcmvUstnB6hC8zvbJbkNHcQRD0CbNbgDTgYzuy hPEmEbRaT11uQChkbeBuMRMaYO6sVWEcai4xlN5d MJA2WfZiryixfIyjt8DcOQuhfLOwUWvaJVJpfPus ZAt1HHN9Ho9vqOAgUSOxyyQPDD0WCd0zSHKmarul GHRbKn7bClKkCSl5QEXybC9wXr5yrLXbtM8uhGCj WJgxKYY1wQArAHQlXHQvAHYwBK54A2LjccUiFDie VTBaIOPsxG6aWA12iZTvhaMucqAbItbiaaHkg7J9 NCQmv9Sux5EwaMHifQRuZCTvFAB1xI3cKFaitUev b71oHWFxIGTaKH1jVWWyc3M6JFAyElN5psC2zFPn YiBshvFwPUGtVUS0EHTdBsT3YRAdKmNbdLQqC5zs ILrqgCCad1EmuLBxBBYtwimelnKiQgZddWV4gRPs pVDki2akA9kuvQSrr6RfaQh7cMUtKEkmUSSgeS8m nQ1fJgXrGUvgFNPfkXFvMVJfINNmM6BmabKuUJbr VWRwmx1imSwzYDtaDdZnTYIkr2m8dGQ4sTVbpTA6 aZYxyRqhQH3gcXMnSEEzR0Nku0ynbwVjkT2iCVEu WK4lTLGsso2jlUR9gNTceSUdwPbyFKctFMQBQrQj zuXqyQisPLWiwtNodXBiJOC7SBHbw4E2UGMjUFJw kXSnqdurcIPvnI3tDX98MIKgHYfrXOgbHCZ0HTT1 OHTkgKTki5tzzzL9sWcnaVBfghRsp8YwdOr7aOLs QFgbQCZvnP9cyS9fKITsDCRUAP1kkCCikWAncE== MICROSCOPIC DESCRIPTION (test code = j0sxdRPvLJEttAH2AsTlIQCbp9eup4 BsdHBncGFy 3371) VDrspEOztxKlne22tDR8wC54EQ8nKIEyQfG5BTSw epY4Knz5NZWvAEQsoXHhS115h9odt6vimfYquCU8 sBtgHRKyWNJzIDtmKONuSjLrMNSuRu0uaLEgCwau YXJ9 [id number] 09:33:00Surgical Pathology Report Case: [id number] Authorizing Provider: Nathanael Garcia MD Collected: 07/08/2020 03:03 PM Ordering Location: [facility] Received: 07/08/2020 04:15 PM SERVICES Pathologist: Harvey Caldwell MD Specimens: A) -Bladder Tumor, 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 B) - Bladder Tumor, left trigone and left bladder neck C) - Bladder Tumor, 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) D) - Prostatic, TUR prostatic urethra A. URINARY BLADDER, RIGHT LATERAL WALL AND RIGHT BLADDER NECK, TURBT: - PAPILLARY UROTHELIAL CARCINOMA, HIGH GRADE (WHO GRADE 3), INVASIVE INTO MUSCULARIS PROPRIA - NEGATIVE FOR LYMPH/VASCULAR INVASIONB. URINARY BLADDER, LEFT TRIGONE AND LEFT BLADDER NECK, TURBT: - PAPILLARY UROTHELIAL CARCINOMA, HIGH GRADE (WHO GRADE 3), INVASIVE INTO MUSCULARIS PROPRIA - NEGATIVE FOR LYMPH/VASCULAR INVASIONC. URINARY BLADDER, LOW POSTERIOR WALL (WITH ONE PIECE OF PROSTATIC URETHRA, TURBT: - PAPILLARY UROTHELIAL CARCINOMA, HIGH GRADE (WHO GRADE 3), INVASIVE INTO LAMINA PROPRIA - MUSCULARIS PROPRIA IS NOT PRESENT - NEGATIVE FOR LYMPH/VASCULAR INVASION - ONE CHIP, PROSTATIC STROMA WITH NO PATHOLOGIC CHANGESD. PROSTATIC URETHRA, TUR BIOPSY: - FRAGMENTS OF BENIGN PROSTATIC STROMA WITH NO PATHOLOGIC CHANGES Signing Pathologist Direct Phone Line: [phone] signed by Harvey Caldwell MD on 07/12/2020 at 9:33 [id number], [id number] diagnosis: Malignant neoplasm of overlapping site of bladderA to C: Bladder tumor; D. ProstaticA. Received in formalin labeled with thepatient's name, accession number and "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" is a 5.3 x 2.0 x 0.4 cm aggregate of penny-pink rubbery tissue which is entirely submitted in A1-A3. B. Received in formalin labeled with the patient's name, accession number and "left trigone and left bladder neck tumor" is a 4.0 x 1.7 x 0.4 cm aggregate of penny-pink rubbery tissue which is entirely submitted in B1-B2 . C. Received in formalin labeled with the patient's name, accession number and "low posterior wall bladder tumor with one piece of prostatic urethra" is a 1.9 x 0.7 x 0.3 cm aggregate of penny-pink rubbery tissue which is submitted in toto in C1. D. Received in formalin labeled with the patient's name,accession number and "prostatic urethral TUR" are two penny rubbery tissue measuring up to 0.8 cm in greatest dimension which are submitted in toto in D1. PA/pl Performed.POC- Glucose [id number] 11:38:00 Test Item Value Reference Range Interpretation Comments POC-Glucose Meter (test 123 mg/dL 70-110 H : TE STED AT [facility] code = 1538) [address] [facility], 770 30: Dry Yard Worker/Techni lyn ID = [id number] for JAMES DEGROOT Lab Interpretation (test Abnormal code = 12876-4) [facility] [id number] 11:38:00 Test Item Value Reference Range Interpretation Comments POC-GLUCOSE METER 123 mg/dL 70-110 H [facility] (test code = [facility], 1538) [address]: Dry Yard Worker/Techni lyn ID = [id number] for JAMES URIARTE POCT-GLUCOSE [id number] 07:44:00 Test Item Value Reference Range Interpretation Comments POC-GLUCOSE METER 108 mg/dL 70-110 : [facility] ([facility] (test code = [facility], 1538) 18242: Dry Yard Worker/Techni lyn ID = [id number] for JAMES URIARTE Basic Metabolic [id number] 07:13:00 Test Item Value Reference Range Interpretation Comments Sodium (test code = 139 meq/L 288-001 0208-2) Potassium (test code = 4.6 meq/L 3.5-5.1 2823-3) Chloride (test code = 109 meq/L 98-107 H 2075-0) CO2 (test code = 25 meq/L 22-29 2028-9) BUN (test code = 22 mg/dL 7-21 H 3094-0) Creatinine (test code 1.13 mg/dL 0.57-1.25 = 2160-0) Glucose (test code = 102 mg/dL 70-105 2345-7) Calcium (test code = 8.5 mg/dL 8.4-10.2 47190-4) EGFR (test code = 64 mL/min/1.73 [place] [address]-8) NOT ACCURATE CREATININE CLEARANCE IN PREDICTING GLOMERULAR FILTRATION RATE . ESTIMATED GFR I S NOT APPLICABLE FOR DIALYSIS PATIENTS. ASHA (test code = ASHA) Dry Yard Worker ID - [id number] Lab Interpretation Abnormal (test code = 52845-8) [facility] [id number] 07:13:00 Test Item Value Reference Range Interpretation Comments SODIUM (BEAKER) 139 meq/L 136-145 (test code = 381) POTASSIUM (BEAKER) 4.6 meq/L 3.5-5.1 (test code = 379) CHLORIDE (BEAKER) 109 meq/L 98-107 H (test code = 382) CO2 (BEAKER) (test 25 meq/L 22-29 code = 355) BLOOD UREA NITROGEN 22 mg/dL 7-21 H (BEAKER) (test code = 354) CREATININE (BEAKER) 1.13 mg/dL 0.57-1.25 (test code = 358) GLUCOSE RANDOM 102 mg/dL 70-105 (BEAKER) (test code = 652) CALCIUM (BEAKER) 8.5 mg/dL 8.4-10.2 (test code = 697) EGFR (BEAKER) (test 64 mL/min/1.73 ESTIMA KUSHAL GFR IS code = 1092) sq m NOT ACCURATE CREATININE CLEARANCE IN PREDICTING GLOMERULAR FILTRATION RATE . ESTIMATED GFR I S NOT APPLICABLE FOR DIALYSIS PATIEN TS. Dry Yard Worker ID - [id number] with platelet count + automated [id number] 06:20:00 Test Item Value Reference Range Interpretation Comments WBC (test code = 6690-2) 9.2 3.5- 10.5 K/L RBC (test code = 789-8) 3.91 4.63- 6.08 M/L L MCHC (test code = 786-4) 32.1 32.3- 36.5 GM/DL L Hematocrit (test code = 4544-3) 37.4 % 40.1-51 L MCV (test code = 787-2) 95.7 fL 79-92.2 H MCH (test code = 785-6) 30.7 pg 25.7-32.2 RDW (test code = 788-0) 14.6 % 11.6-14.4 H Platelets (test code = 777-3) 203 150- 450 K/CU MM MPV (test code = 08306-6) 10.3 fL 9.4-12.4 nRBC (test code = 413) 0 0- 0 /100 WBC % Neutros (test code = 429) 74 % % Lymphs (test code = 430) 15 % % Monos (test code = 431) 9 % % Eos (test code = 432) 2 % % Baso (test code = 437) 0 % # Neutros (test code = 670) 6.80 1.78- 5.38 K/L H # Lymphs (test code = 414) 1.37 1.32- 3.57 K/L # Monos (test code = 415) 0.80 0.30- 0.82 K/L # Eos (test code = 416) 0.21 0.04- 0.54 K/L # Baso (test code = 417) 0.03 0.01- 0.08 K/L Immature Granulocytes-Relative 0 % 0-1 (test code = 2801) Lab Interpretation (test code = Abnormal 20851-6) [facility] W/PLT COUNT & AUTO [id number] 06:20:00 Test Item Value Reference Range Interpretation Comments WHITE BLOOD CELL COUNT (BEAKER) 9.2 K/ L 3.5-10.5 (test code = 775) RED BLOOD CELL COUNT (BEAKER) 3.91 M/ L 4.63-6.08 L (test code = 761) HEMOGLOBIN (BEAKER) (test code = 12.0 GM/DL 13.7-17.5 L 410) HEMATOCRIT (BEAKER) (test code = 37.4 % 40.1-51.0 L 411) MEAN CORPUSCULAR VOLUME (BEAKER) 95.7 fL 79.0-92.2 H (test code = 753) MEAN CORPUSCULAR HEMOGLOBIN 30.7 pg 25.7-32.2 (BEAKER) (test code = 751) MEAN CORPUSCULAR HEMOGLOBIN CONC 32.1 GM/DL 32.3-36.5 L (BEAKER) (test code = 752) RED CELL DISTRIBUTION WIDTH 14.6 % 11.6-14.4 H (BEAKER) (test code = 412) PLATELET COUNT (BEAKER) (test 203 K/CU MM 150-450 code = 756) MEAN PLATELET VOLUME (BEAKER) 10.3 fL 9.4-12.4 (test code = 754) NUCLEATED RED BLOOD CELLS 0 /100 WBC 0-0 (BEAKER) (test code = 413) NEUTROPHILS RELATIVE PERCENT 74 % (BEAKER) (test code = 429) LYMPHOCYTES RELATIVE PERCENT 15 % (BEAKER) (test code = 430) MONOCYTES RELATIVE PERCENT 9 % (BEAKER) (test code = 431) EOSINOPHILS RELATIVE PERCENT 2 % (BEAKER) (test code = 432) BASOPHILS RELATIVE PERCENT 0 % (BEAKER) (test code = 437) NEUTROPHILS ABSOLUTE COUNT 6.80 K/ L 1.78-5.38 H (BEAKER) (test code = 670) LYMPHOCYTES ABSOLUTE COUNT 1.37 K/ L 1.32-3.57 (BEAKER) (test code = 414) MONOCYTES ABSOLUTE COUNT (BEAKER) 0.80 K/ L 0.30-0.82 (test code = 415) EOSINOPHILS ABSOLUTE COUNT 0.21 K/ L 0.04-0.54 (BEAKER) (test code = 416) BASOPHILS ABSOLUTE COUNT (BEAKER) 0.03 K/ L 0.01-0.08 (test code = 417) IMMATURE GRANULOCYTES-RELATIVE 0 % 0-1 PERCENT (BEAKER) (test code = 2801) POCT-GLUCOSE [id number] 23:07:00 Test Item Value Reference Range Interpretation Comments POC-GLUCOSE METER 161 mg/dL 70-110 H : TESTED A T [facility] 6720 (BEAKER) (test code = [facility], 153) 13823: Dry Yard Worker/Techni lyn ID = [id number] for SE CATHERINE MRYA POCT-GLUCOSE [id number] 16:56:00 Test Item Value Reference Range Interpretation Comments POC-GLUCOSE METER 181 mg/dL 70-110 H : TESTED A T [facility] 6720 (BEAKER) (test code = [facility], 153) 26330: Dry Yard Worker/Techni lyn ID = [id number] for CA JAMES MUHAMMAD POCT-GLUCOSE [id number] 13:16:00 Test Item Value Reference Range Interpretation Comments POC-GLUCOSE METER 95 mg/dL 70-110 : TESTED A T [facility] 6720 (BEAKER) (test code = [facility], 153) 02740: Dry Yard Worker/Techni lyn ID = [id number] for ARCHIEJAMES SUNSHINE BASIC METABOLIC [id number] 13:11:00 Test Item Value Reference Range Interpretation Comments SODIUM (BEAKER) 135 meq/L 136-145 L (test code = 381) POTASSIUM (BEAKER) 4.7 meq/L 3.5-5.1 (test code = 379) CHLORIDE (BEAKER) 106 meq/L 98-107 (test code = 382) CO2 (BEAKER) (test 20 meq/L 22-29 L code = 355) BLOOD UREA NITROGEN 26 mg/dL 7-21 H (BEAKER) (test code = 354) CREATININE (BEAKER) 1.57 mg/dL 0.57-1.25 H (test code = 358) GLUCOSE RANDOM 156 mg/dL 70-105 H (BEAKER) (test code = 652) CALCIUM (BEAKER) 8.3 mg/dL 8.4-10.2 L (test code = 697) EGFR (BEAKER) (test 44 mL/min/1.73 ESTIMA KUSHAL GFR IS code = 1092) sq m NOT ACCURATE CREATININE CLEARANCE IN PREDICTING GLOMERULAR FILTRATION RATE . ESTIMATED GFR I S NOT APPLICABLE FOR DIALYSIS PATIEN TS. Dry Yard Worker ID - IVANIA [facility] W/PLT COUNT & AUTO [id number] 12:52:00 Test Item Value Reference Range Interpretation Comments WHITE BLOOD CELL COUNT (BEAKER) 13.6 K/ L 3.5-10.5 H (test code = 775) RED BLOOD CELL COUNT (BEAKER) 4.03 M/ L 4.63-6.08 L (test code = 761) HEMOGLOBIN (BEAKER) (test code = 12.4 GM/DL 13.7-17.5 L 410) HEMATOCRIT (BEAKER) (test code = 37.7 % 40.1-51.0 L 411) MEAN CORPUSCULAR VOLUME (BEAKER) 93.5 fL 79.0-92.2 H (test code = 753) MEAN CORPUSCULAR HEMOGLOBIN 30.8 pg 25.7-32.2 (BEAKER) (test code = 751) MEAN CORPUSCULAR HEMOGLOBIN CONC 32.9 GM/DL 32.3-36.5 (BEAKER) (test code = 752) RED CELL DISTRIBUTION WIDTH 14.2 % 11.6-14.4 (BEAKER) (test code = 412) PLATELET COUNT (BEAKER) (test 211 K/CU MM 150-450 code = 756) MEAN PLATELET VOLUME (BEAKER) 10.5 fL 9.4-12.4 (test code = 754) NUCLEATED RED BLOOD CELLS 0 /100 WBC 0-0 (BEAKER) (test code = 413) NEUTROPHILS RELATIVE PERCENT 82 % (BEAKER) (test code = 429) LYMPHOCYTES RELATIVE PERCENT 10 % (BEAKER) (test code = 430) MONOCYTES RELATIVE PERCENT 7 % (BEAKER) (test code = 431) EOSINOPHILS RELATIVE PERCENT 0 % (BEAKER) (test code = 432) BASOPHILS RELATIVE PERCENT 0 % (BEAKER) (test code = 437) NEUTROPHILS ABSOLUTE COUNT 11.10 K/ L 1.78-5.38 H (BEAKER) (test code = 670) LYMPHOCYTES ABSOLUTE COUNT 1.42 K/ L 1.32-3.57 (BEAKER) (test code = 414) MONOCYTES ABSOLUTE COUNT (BEAKER) 0.99 K/ L 0.30-0.82 H (test code = 415) EOSINOPHILS ABSOLUTE COUNT 0.03 K/ L 0.04-0.54 L (BEAKER) (test code = 416) BASOPHILS ABSOLUTE COUNT (BEAKER) 0.02 K/ L 0.01-0.08 (test code = 417) IMMATURE GRANULOCYTES-RELATIVE 0 % 0-1 PERCENT (BEAKER) (test code = 2801) POCT-GLUCOSE [id number] 08:29:00 Test Item Value Reference Range Interpretation Comments POC-GLUCOSE METER 187 mg/dL 70-110 H : TESTED A T [facility] 6720 [facility] (test code = [facility], 153) 80726: Dry Yard Worker/Techni lyn ID = [id number] for JAMES URIARTE POCT-GLUCOSE [id number] 21:48:00 Test Item Value Reference Range Interpretation Comments POC-GLUCOSE METER 124 mg/dL 70-110 H : TESTED A T [facility] 6720 ([employer]) (test code = [facility], 153) 34625: Dry Yard Worker/Techni lyn ID = [id number] for MYRA ADAMSON POCT-GLUCOSE [id number] 17:40:00 Test Item Value Reference Range Interpretation Comments POC-GLUCOSE METER 118 mg/dL 70-110 H : Notified RN/MD: (LORI) (test code = TESTED AT [facility] 6720 1538) [facility], [address]: Dry Yard Worker/Techni lyn ID = [id number] for Jannette Weeks res FL, FLUORO, NON-SPECIFIC, UP TO 1 [id number] 16:04:00Reason for exam:- >ureteral stent placement [facility] : 1950 Sex: MFluoroscopic unit utilized for a procedure performed in the OR. No interpretation was requested. Refer to the operative report for findings. Refer to PACS for patient radiation dose information.FL fluoro non-specific up to 1 [id number] 16:04:00 Interface, External Ris In - 07/08/2020 4:20 PM CSTFluoroscopic unit utilized for a procedure performed in the OR. No interpretation was requested. Refer to the operative report for findings. Referto PACS for patient radiation dose information.[facility] [id number] 11:36:00 Test Item Value Reference Range Interpretation Comments POC-GLUCOSE METER 90 mg/dL 70-110 : TESTED A T [facility] 6720 (LORI) (test code = MAURICIO Arias [facility], 1538) 59519: Dry Yard Worker/Techni lyn ID = [id number] for CHRISTA HERRERA Large Joint Arthrocentesis: knee, L [id number] 14:15:00Enrique Jones MD 01/27/2020 2:11 PMLarge Joint Arthrocentesis: knee, L kneeConsent given by: patientSite marked: site markedTimeout: Immediately prior to procedure a time out was called to verify the correct patient, procedure, equipment, business support manager and site/side marked as required Supporting DocumentationIndications: pain Procedure DetailsPreparation: Patient was prepped and draped in the usual sterile fashionUltrasound guided: noPlatelet Rich Plasma Used: no PRP UsedLocation: knee - L knee Left side:Needle size: 22 GApproach: anterolateralLeft knee medications administered: 2 mL bupivacaine 0.5 % (5 mg/mL); 40 mg methylPREDNISolone acetate 40 mg/mL; 2 mL lidocaine 10 mg/mL (1 %)Patient tolerance: patient tolerated the procedure well with no immediate complicationsChao Trinh
[2020-07-12] MEDS ORDERED: LIDOCAINE VISCOUS 2% SOLN 15 ML UDC ONE (15:32)
[2020-07-12] MEDS ORDERED: NA CHLORIDE 0.9% 1,000 ML ONE (15:46)
--- NOTE | 2020-07-12 16:47 | EDPHYS ---
Physician Documentation [facility] Name: Ronald Trinh Age: 70 yrs Sex: Male : 1950 Arrival Date: 07/12/2020 Time: 14:46 Bed 15 Private MD: Linwood Chapa ED Physician Indio Gaytan HPI: 07/12 18:14 This 70 yrs old Male presents to ER via Wheelchair with complaints of Urinary kdr Retention. 18:40 The patient presents with urinary symptoms, retention, The patient had his Azar kdr removed this morning and has not urinated since. Onset: The symptoms/episode began/occurred gradually, today. Modifying factors: The symptoms are alleviated by nothing, the symptoms are aggravated by movement, pressure. Associated signs and symptoms: The patient has no apparent associated signs or symptoms. Severity of symptoms: At their worst the symptoms were severe, incapacitating, in the emergency department the symptoms are unchanged. The patient has not experienced similar symptoms in the past. The patient has been recently seen by a physician: the patient's primary care provider. Historical: - Allergies: 14:53 No Known Allergies; ll1 - PMHx: 14:53 bladder CA; ll1 - Immunization history:: Flu vaccine is up to date. - Social history:: Smoking status: Patient denies any tobacco usage or history of. ROS: 18:40 Constitutional: Negative for fever, chills, and weight loss, Eyes: Negative for injury, kdr pain, redness, and discharge, ENT: Negative for injury, pain, and discharge, Neck: Negative for injury, pain, and swelling, Cardiovascular: Negative for chest pain, palpitations, and edema, Respiratory: Negative for shortness of breath, cough, wheezing, and pleuritic chest pain, Back: Negative for injury and pain, MS/Extremity: Negative for injury and deformity, Skin: Negative for injury, rash, and discoloration, Neuro: Negative for headache, weakness, numbness, tingling, and seizure activity. Psych: Negative for depression, anxiety, suicide ideation, homicidal ideation, and hallucinations, Allergy/Immunology: Negative for hives, rash, and allergies, Endocrine: Negative for neck swelling, polydipsia, polyuria, polyphagia, and marked weight changes, Hematologic/Lymphatic: Negative for swollen nodes, abnormal bleeding, and unusual bruising. 18:40 Abdomen/GI: Positive for abdominal pain, Negative for nausea, vomiting, and diarrhea. 18:40 : Positive for urinary symptoms, difficulty urinating. Exam: 18:40 Constitutional: This is a well developed, well nourished patient who is awake, alert, kdr and in no acute distress. Head/Face: Normocephalic, atraumatic. Eyes: Pupils equal round and reactive to light, extra-ocular motions intact. Lids and lashes normal. Conjunctiva and sclera are non-icteric and not injected. Cornea within normal limits. Periorbital areas with no swelling, redness, or edema. Neck: Trachea midline, no thyromegaly or masses palpated, and no cervical lymphadenopathy. Supple, full range of motion without nuchal rigidity, or vertebral point tenderness. No Meningismus. Chest/axilla: Normal chest wall appearance and motion. Nontender with no deformity. No lesions are appreciated. Cardiovascular: Regular rate and rhythm with a normal S1 and S2. No gallops, murmurs, or rubs. Normal PMI, no JVD. No pulse deficits. Respiratory: Lungs have equal breath sounds bilaterally, clear to auscultation and percussion. No rales, rhonchi or wheezes noted. No increased work of breathing, no retractions or nasal flaring. Back: No spinal tenderness. No costovertebral tenderness. Full range of motion. Skin: Warm, dry with normal turgor. Normal color with no rashes, no lesions, and no evidence of cellulitis. MS/ Extremity: Pulses equal, no cyanosis. Neurovascular intact. Full, normal range of motion. Neuro: Awake and alert, GCS 15, oriented to person, place, time, and situation. Cranial nerves II-XII grossly intact. Motor strength 5/5 in all extremities. Sensory grossly intact. Cerebellar exam normal. Normal gait. Psych: Awake, alert, with orientation to person, place and time. Behavior, mood, and affect are within normal limits. 18:40 Abdomen/GI: Inspection: abdomen appears normal, Bowel sounds: active, Palpation: soft, moderate abdominal tenderness, in the suprapubic area, mass, is not appreciated, rebound tenderness, is not appreciated. Vital Signs: 14:52 BP 145 / 83; Pulse 108; Resp 18; Temp 98.3; Pulse Ox 98% ; Pain 10/10; ll1 16:30 BP 138 / 78; Pulse 98; Resp 18; Pulse Ox 98% on R/A; em MDM: 16:46 Patient medically screened. kdr 18:40 Data reviewed: vital signs, nurses notes. Counseling: I had a detailed discussion with kdr the patient and/or guardian regarding: the historical points, exam findings, and any diagnostic results supporting the discharge/admit diagnosis, the presence of at least one elevated blood pressure reading (>120/80) during this emergency department visit, the need for outpatient follow up. ED course: The patient had complete relief after Azar was allowed to drain. He asked the the Azar be left in place until he could follow-up with his urologist tomorrow. Administered Medications: No medications were administered Disposition: 07/12/20 16:46 Discharged to Home. Impression: Urinary Retention: s/p bladder surgery on Saturday. - Condition is Stable. - Prescriptions for Tylenol- Codeine #3 300-30 mg Oral Tablet - take 2 tablets by ORAL route every 4-6 hours As needed; 12 tablet. Zofran 4 mg Oral Tablet - take 1 tablet by ORAL route every 4-6 hours As needed; 12 tablet. - Medication Reconciliation Form, Thank You Letter, Prescription Opioid Use form. - Follow up: Linwood Chapa MD; When: 2 - 3 days; Reason: If symptoms return, Further diagnostic work-up, Recheck today's complaints, Continuance of care, Re-evaluation by your physician. - Problem is an acute exacerbation. - Symptoms have improved. Signatures: Indio Gaytan MD MD [facility] Satish Albrecht, HILLARY RN Ara Quintero RN RN ll1 Corrections: (The following items were deleted from the chart) 15:29 14:53 Bladder Scanner ordered. kdr em 16:25 14:53 Urine Dipstick-Ancillary ordered. kdr em 17:22 16:46 07/12/2020 16:46 Discharged to Home. Impression: Urinary Retention: s/p bladder em surgery on Saturday. Condition is Stable. Forms are Medication Reconciliation Form, Thank You Letter, Antibiotic Education, Prescription Opioid Use. Follow up: Linwood Chapa; When: 2 - 3 days; Reason: If symptoms return, Further diagnostic work-up, Recheck today's complaints, Continuance of care, Re-evaluation by your physician. Problem is an acute exacerbation. Symptoms have improved. kdr
--- NOTE | 2020-07-12 16:47 | ER ---
Nurse's Notes [facility] Name: Ronald Trinh Age: 70 yrs Sex: Male : 1950 Arrival Date: 07/12/2020 Time: 14:46 Bed 15 Private MD: Linwood Chapa Diagnosis: Urinary Retention: s/p bladder surgery on Saturday Presentation: 07/12 14:52 Chief complaint: Patient states: Had bladder CA surgery last Saturday. Azar cath was ll1 removed today. Unable to urinate since, + pelvic pain/pressure. Coronavirus screen: Client denies travel out of the [place] in the last 14 days. At this time, the client does not indicate any symptoms associated with coronavirus-19. The client reports previous COVID testing was negative. Ebola Screen: Patient denies travel to an Ebola-affected area in the 21 days before illness onset. Initial Sepsis Screen: Does the patient meet any 2 criteria? HR > 90 bpm. No. Patient's initial sepsis screen is negative. Does the patient have a suspected source of infection? Yes: Dysuria/Frequency/Urgency/UTI. Risk Assessment: Do you want to hurt yourself or someone else? Patient reports no desire to harm self or others. Onset of symptoms was July 12, 2020. 14:52 Method Of Arrival: Wheelchair ll1 14:52 Acuity: SAVANA 2 ll1 Historical: - Allergies: 14:53 No Known Allergies; ll1 - PMHx: 14:53 bladder CA; ll1 - Immunization history:: Flu vaccine is up to date. - Social history:: Smoking status: Patient denies any tobacco usage or history of. Screenin:20 Abuse screen: Denies threats or abuse. Nutritional screening: No deficits noted. em Tuberculosis screening: No symptoms or risk factors identified. Fall Risk None identified. Assessment: 15:20 General: Appears uncomfortable, Behavior is calm, cooperative. Pain: Complains of pain em in pelvis Pain currently is 10 out of 10 on a pain scale. Pain began 0900 this morning. Neuro: Level of Consciousness is awake, alert, obeys commands, Oriented to person, place, time, situation, Appropriate for age. Cardiovascular: Capillary refill < 3 seconds Patient's skin is warm and dry. Respiratory: Airway is patent Respiratory effort is even, unlabored, Respiratory pattern is regular, symmetrical. GI: Reports nausea, Patient currently denies vomiting. : Reports inability to void, since 0900 this morning. Derm: Skin is intact, is healthy with good turgor, Skin is pink, warm \T\ dry. Musculoskeletal: Capillary refill < 3 seconds, Range of motion: intact in all extremities. 16:30 Reassessment: Patient appears in no apparent distress at this time. Patient and/or em family updated on plan of care and expected duration. Pain level reassessed. Patient is alert, oriented x 3, equal unlabored respirations, skin warm/dry/pink. Patient states symptoms have improved. 17:10 Reassessment: Patient appears in no apparent distress at this time. Patient is alert, em oriented x 3, equal unlabored respirations, skin warm/dry/pink. leg bag applied. Vital Signs: 14:52 BP 145 / 83; Pulse 108; Resp 18; Temp 98.3; Pulse Ox 98% ; Pain 10/10; ll1 16:30 BP 138 / 78; Pulse 98; Resp 18; Pulse Ox 98% on R/A; em ED Course: 14:46 Patient arrived in ED. ag5 14:46 Linwood Chapa MD is Private Physician. ag5 14:53 Triage completed. ll1 14:53 Indio Gaytan MD is Attending Physician. kdr 14:53 Arm band placed on Patient placed in an exam room, on a stretcher. ll1 14:56 Satish Albrecht, HILLARY is Primary Nurse. em 15:20 Patient has correct armband on for positive identification. Placed in gown. Bed in low em position. Call light in reach. Side rails up X2. Adult w/ patient. 15:20 3-way catheter inserted, using sterile technique, 20 Fr. Specimen obtained. em 16:02 Bladder irrigated via Azar with 1 liter normal saline returned clear fluid Patient em tolerated well. 16:45 Linwood Chapa MD is Referral Physician. kdr 17:18 No provider procedures requiring assistance completed. Patient did not have IV access em during this emergency room visit. Administered Medications: No medications were administered Outcome: 16:46 Discharge ordered by MD. kdr 17:18 Discharged to home ambulatory, with family. em 17:18 Condition: improved 17:18 Discharge instructions given to patient, family, Instructed on discharge instructions, follow up and referral plans. medication usage, Demonstrated understanding of instructions, follow-up care, medications, Prescriptions given X 2. 17:22 Patient left the ED. em Signatures: Indio Gaytan MD MD kdr Munoz, Edgar, RN RN Brady Duffy 5 Ara Quintero RN RN ll1
[2020-07-13 00:36] VITALS: TEMP 98.3; O2SAT 98
[2020-07-13 00:38] VITALS: BP 138/78
== END 2020-07-12 17:22 | disposition home or self-care (01) ==
LOC: ER 14:44
DX: R33.9 Retention of urine, unspecified (principal); Z98.890 Other specified postprocedural states; Z85.51 Personal history of malignant neoplasm of bladder
CPT/HCPCS: 51700; 99284; J7030

== ENCOUNTER 2020-10-01 19:30 | Emergency (ER) | payer OTHER, BC ==
--- OUTSIDE RECORDS SUMMARY | 2020-10-01 19:32 | XMS REPORT | Clinical Summary ---
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 L4-L5; Surgeon: Isidro Scott MD; Location: [facility] OR ; Service: Neurosurgery; L aterality: Left; Medical History Medical History Date Comments Arthritis Cataract bilateral repair Diabetes mellitus (HCC) Type 2 diabetes mellitus (HCC) Hypercholesteremia Wears reading eyeglasses Wears dentures has implants asher vargas PONV (postoperative nausea and vomiting) once only Family History Medical History Relation Name Comments COPD Father Diverticulitis Father Heart disease Mother [place] Old age Mother 86 Relation Name Status [...] DIABETIC FOOT EXAM 1961 URINE MICROALBUMIN 1961 COVID-19 VACCINE (1 of 2) 1967 HEPATITIS C SCREENING 1969 COLONOSCOPY SCREENING 2001 SHINGLES VACCINES (#1) 2001 65+ PNEUMOCOCCAL VACCINE (2 of 2 - PPSV23) 01/11/201610/17 INFLUENZA VACCINE 03/26/2020 Procedures Procedure Name Priority Date/Time Associated Comments Diagnosis ID ARTHROCENTESIS Routine 01/27/2020 2:15 Arthritis of knee, [...] are i n the results section. after 10/01/2019 Results Large Joint Arthrocentesis: knee, L knee (01/27/2020 2:15 PM CDT) Narrative Performed At Enrique Jones MD 01/27/2020 2:11 PM Large Joint Arthrocentesis: knee, L knee Consent given by: patient Site marked: site marked Timeout: Immediately prior to procedure a time out was called to verify the correct patient, procedure, equipmen t, instructional support services director and site/side marked as required Supporting Documentation [...] lower [facility] extremities. Performing Organization Address [facility] Phon e Number [facility] [address] [place] [address] XR Knee 4+ Vw Bilateral (01/27/2020 1:11 PM CDT) Specimen Narrative Performed At This result has an attachment that is no t available. Knee radiographs demonstrate severe knee arthritis, left worse than right, HM RADIANT worse in the lateral views. There is medial compartmen t joint space narrowing, osteophytes, and sclerosis present. Performing Organization Address [facility] Phon e Number [facility] [address] [place] [address] after 10/01/2019 Insurance Payer Benefit Plan / Subscriber ID Effective Phone Address T ype Group Dates MEDICARE MEDICARE PART A [id number] 2015-Pres [place], [place] Medicare AND B ent BCBS COMMERCIAL BCBS MEDICARE [id number] 2019-Pres Commercial SUPPLEMENT ent Advance Directives For more information, please contact: [phone] Type Date Recorded Patient Formwork Carpenter Explanati on Advance Directives, Living Will 04/07/2019 2:18 PM and Medical Power of Appliquer
--- OUTSIDE RECORDS SUMMARY | 2020-10-01 19:32 | XMS REPORT | Clinical Summary ---
:1950 Author Organization [facility] Address [address] [place] [address] Care Team Providers Name Role Phone MD [...] daily. (OSCAL) 250-125 mg-unit Tab per tablet nitrofurantoin, Take 1 capsule (100 6 capsule 0 07/08/2020 macrocrystal-monohyd mg total) by mouth 0 rate, (MACROBID) 100 2 (two) times daily MG capsule for 3 days. phenazopyridine Take 1 tablet (100 10 tablet 0 07/08/202006/26 (PYRIDIUM) 100 MG mg total) by mouth 0 tablet 3 (three) times daily as needed for up to 3 days. tamsulosin (FLOMAX) Take 1 capsule (0.4 10 capsule 0 0 0.4 mg Cap 24 hr mg total) by mouth 0 capsule daily for 10 days. Active Problems Problem Noted Date Bladder tumor 07/08/2020 Bladder cancer 07/08/2020 Encounters Date Type Specialty Care Team Description 07/08/2020 Surgery Nathanael Martin CYSTOSCOPY,EVA Hyman MD BIOPSY 07/08/2020 Anesthesia Event Yusuf Sim MD Fernandez, Cristina Margarita, MD 07/08/2020 - Hospital Encounter General Internal Nathanael Martin 07/10/2020 Medicine MD Ortiz 07/08/2020 Travel 07/06/2020 Hospital Encounter Pre-Admission Testing 07/06/2020 Travel after 10/01/2019 Social History Tobacco Use Types Packs/Day Years [...] Assigned at Date Recorded Not on file Last Filed Vital Signs Vital Sign Reading Time Taken Comments Blood Pressure 129/71 07/10/2020 11:24 [facility] Pulse 89 07/10/2020 11:24 [facility] Temperature 35.7 C (96.2 F) 07/10/2020 11:24 [facility] Respiratory Rate 18 07/10/2020 11:24 AM [facility] Oxygen Saturation 97% 07/10/2020 11:24 AM [facility] Inhaled Oxygen Concentration - - Weight 103.7 kg (228 lb 9.6 oz) 07/08/2020 10:47 [facility] Height 193 cm (6' 4") 07/08/2020 10:47 [facility] Body Mass Index 27.83 07/08/2020 10:47 AM [facility] Plan of Treatment Health Maintenance Due Date Last Done Comments COLON CANCER SCREENING COLONOSCOPY 1950 DTAP/TDAP/TD VACCINES (1 - Tdap) 1958 HEPATITIS C SCREENING 1969 PNEUMOCOCCAL 65+ YRS (1 of 1 - [id number]) 01/11/2016 MEDICARE ANNUAL WELLNESS (YEAR 2 or FIRST YEAR if no 12/25/2016 IPPE) DEPRESSION SCREENING (12+) 08/26/2020 INFLUENZA VACCINE Completed 06/13/2020 Implants Implanted Type Area Rn Mental Health Device Shelf Model / Identifier Expiration Serial / Date Lot Set Stent Injection 6x28cm [id number] - [id number] IMPLANTS Left: [employer] 11/16/2021 [id number] / Implanted: Qty: 1 on 07/08/2020 by Nathanael Ash MD at [facility] [employer]OG[employer] / [id number] Procedures Procedure Name Priority Date/Time Associated Comments Diagnosis POCT-GLUCOSE METER Routine 07/10/2020 11:26 Resul ts for this AM [facility] procedure are i n the results section. POCT-GLUCOSE METER Routine 07/10/2020 7:32 Resul ts for this AM [facility] procedure are i n the results section. CBC W/PLT COUNT & MARIAN 07/10/2020 5:47 Result s for this AUTO DIFFERENTIAL AM [facility] procedure are in the results section. BASIC METABOLIC PANEL MARIAN 07/10/2020 5:47 Re sults for this (7) AM [facility] procedure are i n the results section. CBC W/PLT COUNT & MARIAN 07/10/2020 5:47 Result s for this AUTO DIFFERENTIAL AM [facility] procedure are in the results section. POCT-GLUCOSE METER Routine 07/09/2020 10:54 Resul ts for this PM [facility]IST procedure are i n the results section. POCT-GLUCOSE METER Routine 07/09/2020 4:44 Resul ts for this PM [facility] procedure are i n the results section. POCT-GLUCOSE METER Routine 07/09/2020 1:04 Resul ts for this PM [facility] procedure are i n the results section. CBC W/PLT COUNT & MARIAN 07/09/2020 12:14 Result s for this AUTO DIFFERENTIAL PM [facility] procedure are in the results section. BASIC METABOLIC PANEL MARIAN 07/09/2020 12:14 Re sults for this (7) PM [facility] procedure are i n the results section. CBC W/PLT COUNT & MARIAN 07/09/2020 12:14 Result s for this AUTO DIFFERENTIAL PM [facility] procedure are in the results section. POCT-GLUCOSE METER Routine 07/09/2020 8:17 Resul ts for this AM [facility] procedure are i n the results section. POCT-GLUCOSE METER Routine 07/08/2020 9:33 Resul ts for this PM [facility] procedure are i n the results section. POCT-GLUCOSE METER Routine 07/08/2020 5:28 Resul ts for this PM [facility] procedure are i n the results section. FL FLUORO Routine 07/08/2020 4:04 Results for this NON-SPECIFIC UP TO 1 PM [facility] procedu re are in HOUR the results section. TISSUE EXAM AP Routine 07/08/2020 3:03 Results for this PM [facility] procedure are i n the results section. CYSTOSCOPY,INSERTION 07/08/2020 1:30 Malignant neopla sm URETERAL STENTS PM HE[facility] SPECIALIST of overlapping sites of bladder (HCC) CYSTOSCOPY,TURBT 07/08/2020 1:30 Malignant neoplasm PM [facility]IST of overlapping sites of bladder (HCC) CYSTOSCOPY,BLADDER 07/08/2020 1:30 Malignant neoplasm BIOPSY PM [facility]IST of overlapping sites of bladder (HCC) POCT-GLUCOSE METER Routine 07/08/2020 11:25 Resul ts for this AM [facility] procedure are i n the results section. after 10/01/2019 Results POC-Glucose meter (07/10/2020 11:26 AM HE[facility]IST)Only the most recent of9 results within the time period is included. POC-Glucose Meter 123 (H) 70 - 110 mg/dL [facility] Comment: [facility] [place] : TESTED AT [address], [address] CENTER : Senior Web Engineer/Auction Clerk ID = [id number] for JAMES DEGROOT Specimen Blood Performing Organization Address City/State/Zipcode Phone Number [place] [phone] CENTER CBC with platelet count + automated diff (07/10/2020 5:47 AM HEALTH SPECIALIST)Only the most recent of2 resultswithin the time period is included. Pathologist Sig nature WBC 9.2 3.5 - 10.5 [facility] K/L [facility] RBC 3.91 (L) 4.63 - 6.08 [facility] M/L [facility] Hemoglobin 12.0 (L) 13.7 - 17.5 [facility] GM/DL [facility] Hematocrit 37.4 (L) 40.1 - 51.0 % [facility] MCV 95.7 (H) 79.0 - 92.2 fL [facility] MCH 30.7 25.7 - 32.2 pg [facility] MCHC 32.1 (L) 32.3 - 36.5 [facility] GM/DL [facility] RDW 14.6 (H) 11.6 - 14.4 % [facility] Platelets 203 150 - 450 K/CU [facility] MM [facility] MPV 10.3 9.4 - 12.4 fL [facility] nRBC 0 0 - 0 /100 WBC [facility] % Neutros 74 % [facility] % Lymphs 15 % [facility] % Monos 9 % [facility] % Eos 2 % [facility] % Baso 0 % [facility] # Neutros 6.80 (H) 1.78 - 5.38 [facility] # Lymphs 1.37 1.32 - 3.57 [facility] # Monos 0.80 0.30 - 0.82 [facility] # Eos 0.21 0.04 - 0.54 [facility] # Baso 0.03 0.01 - 0.08 [facility] Immature 0 0 - 1 % [facility] Granulocytes-Relative [facility] Specimen Blood Performing Organization Address City/State/Zipcode Phone Number [facility] [address] [place] [address] CENTER Basic Metabolic Panel (07/10/2020 5:47 AM HEALTH SPECIALIST)Only the most recent of2 results within the time period is included. Sodium 139 136 - 145 meq/L [facility] Potassium 4.6 3.5 - 5.1 meq/L [facility] Chloride 109 (H) 98 - 107 meq/L [facility] CO2 25 22 - 29 meq/L [facility] BUN 22 (H) 7 - 21 mg/dL [facility] Creatinine 1.13 0.57 - 1.25 [facility] mg/dL [facility] Glucose 102 70 - 105 mg/dL [facility] Calcium 8.5 8.4 - 10.2 [facility] mg/dL [facility] EGFR 64Comment: ESTIMATED mL/min/1.[address] [facility] GFR IS NOT m [facility] [place] ACCURATE GOLDFIELD CREATININE CLEARANCE IN PREDICTING GLOMERULAR FILTRATION RATE. ESTIMATED GFR IS NOT APPLICABLE FOR DIALYSIS PATIENTS. Specimen Blood Narrative Performed At Senior Web Engineer ID - [facility] Performing Organization Address City/State/Zipcode Phone Number [facility] [address] [place] [address] CENTER FL fluoro non-specific up to 1 hour (07/08/2020 4:04 PM [facility]ALTH [facility]IST) Specimen Narrative Performed At Fluoroscopic unit utilized for a procedure performed i n the OR. No GE RIS interpretation was requested. Refer to the operative report for findings. Refer to PACS for patient radiation dose i nformation. Procedure Note Interface, External Ris In - 07/08/2020 4:20 PM HEALTH SPECIALIST Fluoroscopic unit utilized for a procedu re performed in the OR. No interpretation was requested. Refer to the operative r eport for findings. Refer to PACS for patient radiation dose information. Performing Organization Address City/State/Zipcode Phone Number GE RIS Tissue Exam (07/08/2020 3:03 PM HEALTH SPECIALIST) Pathologist Sig nature Case Report Surgical Pathology Report Case: [id number] [facility] Authorizing Provider: Nathanael Maciel MD Collected: 07/08/2020 03:03 PM [facility] Ordering Location: [facility] PERIOPERATIVE Received: 07/08/2020 04:15 PM [...] ATERAL WALL AND RIGHT BLADDER NECK, TURBT: 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 Malignant neoplasm [facility] of overlapping site [facility]ENTER of bladder SPECIMEN SOURCE A to C: Bladder [facility] tumor; D. [facility] GROSS DESCRIPTION A. Received in formalin labe led with the patient's name, accession number and "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" is a 5.3 x 2.0 x 0.4 cm aggregate of penny-pink rubbery tissue which is entirely submitted in A1-A3. [facility] B. Received in formalin labe led with [...] in toto in D1. PA/pl MICROSCOPIC Performed. [facility] CENTER Specimen Tissue - Bladder Tumor Tissue specimen (specimen) - Bladder Jeannette or Tissue specimen (specimen) - Bladder Jeannette or Tissue specimen (specimen) - Prostatic u rethra stent (physical object) Performing Organization Address City/State/Zipcode Phone Number [facility] [address] [place] [address] CENTER after 10/01/2019 Insurance Payer Benefit Plan / Subscriber ID Effective Phone Address T ype Group Dates MEDICARE MEDICARE A B [id number] 2015-Prese Medicare nt BLUE BCBS INDEMNITY [id number] 2019-Prese [phone] PPO CROSS/BLUE [place] OS nt 12 [id number] [place] [address] Advance Directives For more information, please contact: [phone] Code Status Date Activated Date Inactivated Comments Full Code 07/08/2020 9:39 PM 07/10/2020 2:27 PM This code status was determined by: Patient
--- OUTSIDE RECORDS SUMMARY | 2020-10-01 19:37 | XMS REPORT | Continuity of Care Document ---
:1950 Author Organization [facility] t Address [address] [place] [address] Care Team Providers Name Role Phone RYAN Primary Care Physician Unavailable SYSTEM, NOT IN Attending Clinician Unavailable RYAN Attending Clinician Unavailable MARCELLE Attending Clinician Unavailable Marcelle FERRARI Attending Clinician Autumn FERRARI Attending Clinician AUTUMN Attending Clinician Unavailable Arturo BOYLE Attending Clinician ARTURO Attending Clinician Unavailable Corey THORNTON, Enrique Attending Clinician Unavailable Karen THORNTON, Eg Attending Clinician Unavailable Cedrick FERRARI Attending Clinician ROMARIO Attending Clinician Unavailable Romario FERRARI Attending Clinician Tra THORNTON, W Attending Clinician Unavailable Gary THORNTON Attending Clinician Unavailable Bertha TRACEY Attending Clinician Unavailable Bertha Tracey MD Attending Clinician Lauri THORNTON, L Attending Clinician Unavailable Lenka VALLECILLO, K Attending Clinician Unavailable Bernard ALLEN Attending Clinician Ryan FERRARI Attending Clinician Hernán JUNIOR Attending Clinician Unavailable Bertha Shore MD Attending Clinician Uday Caldwell MD Attending Clinician Alistair THORNTON, RPrince Attending Clinician Unavailable ORTIZ GARCIA Attending Clinician Unavailable Ortiz Garcia MD Attending Clinician Korey Sim MD Attending Clinician Liana Phillips MD Attending Clinician Veronica FERRARI P Attending Clinician Michelle Jones MD Attending Clinician Edson JUNIOR Attending Clinician Unavailable RYAN Admitting Clinician Unavailable AUTUMN Admitting Clinician Unavailable MARCELLE Admitting Clinician Unavailable ORTIZ GARCIA Admitting Clinician Unavailable Payers Payer Name Policy Type Policy Effective Date Expiration Date Sour ce Number MEDICARE PART A AND B [id number] 2015 00:00:00 BCBS NON CONTRACTED [id number] 2019 1 00:00:00 MEDICAREMEDICARE A [id number] [facility] Samiayonatan [id number] 2015- 00:00:00 - M edical [facility]icare Center BLUE CROSS/BLUE [id number] 2019 [facility] Diallo L ukes SHIELDBCBS INDEMNITY 1 00:00:00 - Mi dical PA Center [id number] [id number], [place] [address]UIC MEDICAREMEDICARE PART [id number] michelle A AND 00:00:00 Gnosticist [id number] 2015- [facility] [place] COMMERCIALBCBS [id number] 2019 [place] MEDICARE 1 00:00:00 Gnosticist [id number] 2020-PresentComm ercial Problems Condition Condition Condition Status Onset Resolution Last Treating Co mments Source Name Details Category Date Date Treatment Clinician Date Hypomagnes Hypomagnes Disease Active M D emia emia 09-26 Anderso 00:00: n 00 Adverse Adverse Disease Active MD effect of effect of 1-20 Rick rso glucocorti glucocorti 00:00: n coids and coids and 00 synthetic synthetic analogues analogues Hyperkalem Hyperkalem Disease Active M D ia ia 1-20 Anderso 00:00: n 00 Hyposmolal Hyposmolal Disease Active M D ity and/or ity and/or 1-20 An derso hyponatrem hyponatrem 00:00: n ia ia 00 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 2-31 Gage o mellitus mellitus 00:00: n with with 00 hyperglyce hyperglyce blessing blessing Current Current Disease Active 2019-08 use of use of - Anderso insulin insulin 00:00: n 00 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 current - Anderso use of use of 00:00: n systemic systemic 00 steroid steroid Renal Renal Disease Active 2019-08 insufficie insufficie 2-22 An derso ncy ncy 00:00: n 00 Encounter Encounter Disease Active 2019-08 for for 2-16 Anderso chemothera chemothera 00:00: n py py 00 Gross Gross Disease Active 2019-08 hematuria hematuria 2-16 Rick rso 00:00: n 00 Urinary Urinary Disease Active 2019-08 tract tract 2-16 Anderso infection infection 00:00: n 00 Malignant Malignant Disease Active 2019-08 Overview: neoplasm neoplasm -23 Added Gage o of of 00:00: automatic n overlappin overlappin 00 ally from g sites of g sites of request bladder bladder for surgery [id number] Bladder Bladder Disease Active 2019-[address] [facility] [facility] Bladder Bladder Disease Active 2019-[address] [facility] [facility] 09[facility] S/P lumbar S/P lumbar Disease Active [place] laminectom laminectom 8-27 [facility]: st 00 Allergies, Adverse Reactions, Alerts This patient has no known allergies or adverse reactions. Family History Family Member Diagnosis Comments Start Date Stop Date Source Natural father COPD [place] [facility] Natural father Diverticulitis [place] Gn[facility] Natural mother Heart disease [place] [facility] Natural mother Old age [facility] thodist Social History Social Habit Start Date Stop Date Quantity Comments Source History SDOH [facility] Std Drinks [facility] History SDOH [facility] - Alcohol Binge Medical [address]abel[address] ter Sex Assigned At M MD [place] on Exposure to Not sure MD Luo SARS-CoV-2 (event) Cigarettes smoked 2020-09-26 2020-09-26 MD Rick henson current (pack per 00:00:00 00:00:00 day) - Reported Cigarette 2020-09-26 2020-09-26 MD Luo pack-years 00:00:00 00:00:00 Tobacco use and 2020-09-26 2020-09-26 Never used MD [place] on exposure 00:00:00 00:00:00 Alcohol intake 2020-09-26 2020-09-26 Ex-drinker MD Red ruby 00:00:00 00:00:00 (finding) Alcohol Comment 2020-08-02 2020-08-02 1 or 2 drinks a MD Cali romano 00:00:00 00:00:00 month History SDOH 2020-07-06 2020-07-[address] [facility] - Alcohol Frequency 00:00:00 00:00:00 [facility] Tobacco Comment 2020-07-06 2020-07-06 QUIT [address] [facility] - 00:00:00 00:00:00 AGO [facility] History of tobacco 1969-09-26 1983-12-25 Current smoker MD Luo use 00:00:00 00:00:00 Smoking Status Start Date Stop Date Source Former smoker 2020-09-26 00:00:00 2020-09-26 00:00:00 MD Sami begum Medications Ordered Filled Start Stop Current Ordering Indication Dosage Frequency Signature Comments Components Source Medication Medication Date Date Medication? Clinician (SIG) Name Name calcium Yes 1{tbl} Take 1 MD carbonate-v 2-05 tablet by And erso itamin D3 02:51: mouth n 250-125 40 daily. mg-unit tab mv,Ca,min-i Yes 1{tbl} Take 1 MD sharron-FA-lyco 2-05 tablet by And erso pene 8 mg 02:51: mouth n iron- 200 40 daily. mcg-600 mcg tab magnesium Yes Hypomagnese 500mg Take 1 MD oxide 500 2-04 blessing tablet Anderso mg tablet 00:00: (500 mg) n 00 by mouth twice daily. potassium 2021- Yes Hypokalemia 10meq Take 1 MD chloride 09-20 tablet (10 Rick rso (KLOR-CON) 00:00: 05:59 mEq) by n 10 mEq CR 00 :00 mouth tablet twice daily. amLODIPine Yes Hypertensio 5mg Take 1 MD (NORVASC) 5 09-16 n tablet (5 And erso mg tablet 00:00: mg) by n 00 mouth daily. insulin Yes Type 2 5U Inject MD aspart 09-15 diabetes 5-30 Units And erso U-100 00:00: mellitus under the n (NovoLOG 00 with skin 3 Flexpen hyperglycem (three) U-100 ia times a Insulin) day before 100 unit/mL meals. 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 unit/mL (3 mL) insulin pen magic Yes Malignant 10mL Swish and mouthwash 09-15 neoplasm of swallow 10 Anderso (sucralfate 00:00: overlapping mL 4 n /maalox/dip 00 sites of (four) henhydramin bladder times a e) day. (AMB-CMPD) blood sugar 2020- Yes Type 2 1{strip 1 strip by MD diagnostic 09-15 diabetes } miscellane Anderso (glucose 00:00: 05:59 mellitus ous route n blood) strp 00 :00 with 5 (five) hyperglycem times a ia day for 30 days. Check blood sugars before meals, at bedtime, and PRN hypoglycem ia ampicillin 2020- No Bladder 250mg Take 1 MD (PRINCIPEN) 09-10 cancer capsule An derso 250 mg 00:00: 05:59 (250 mg) n capsule 00 :00 by mouth 4 (four) times a day for 7 days. pantoprazol Yes Bladder 40mg Take 1 M D e 12 cancer tablet (40 Anderso (Protonix) 00:00: mg) by n 40 mg EC 00 mouth tablet daily with breakfast. dexamethaso 2020- No Malignant 4mg Take 1 MD ne 08-26 neoplasm of tablet (4 An derso (DECADRON) 00:00: 05:59 overlapping mg) by n 4 mg tablet 00 :00 sites of mouth bladder twice daily for 5 doses. insulin 2019-08- No Inject MD degludec 08-25 under the Sami so (TRESIBA 22:28: 00:00 skin n FLEXTOUCH 33 :00 daily. 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 mL) insulin See pen discharge instructio ns for steroid vs non-steroi d dosing. insulin 2019-08- No Inject 16 MD aspart 09-15 to Anderso U-100 00:00: 00:00 units with n (NovoLOG 00 :00 meals, Flexpen based on U-100 discharge Insulin) instructio 100 unit/mL ns. For (3 mL) days you insulin pen take steroids and the day after. acyclovir 2019-08- No Encounter 1{appli Apply 0.5 MD (ZOVIRAX) 09-02 for cation} inches (1 A nderso 5% ointment 00:00: 05:59 antineoplas applicatio n 00 :00 tic n) chemotherap topically y to affected area(s) 5 (five) times a day for 31 doses. insulin 2019-08- No [facility] Inject 16 MD lispro 08-25 current use to Rick rso (HumaLOG 00:00: 00:00 of systemic units with n KwikPen 00 :00 steroid meals, Insulin) based on 100 unit/mL discharge insulin pen instructio ns. For days you take steroids and the day after. sodium 2019-08 Yes Malignant 10mL Swish and M D chloride-so 2-16 neoplasm of spit 10 mL Anderso dium 00:00: overlapping 4 (four) n bicarbonate 00 sites of times a (SALT AND bladder day. Use SODA) 2 mouthwash teaspoonfu ls and dissolve in 1 quart (960 mL) of warm water. dexamethaso 2019-08 Yes Malignant 4mg Take 1 MD ne 2-16 neoplasm of tablet (4 And erso (DECADRON) 00:00: overlapping mg) by n 4 mg tablet 00 sites of mouth bladder twice daily. For 3 days starting the day after chemothera py. ondansetron 2019-08 Yes Malignant 8mg Dissolve 1 MD (ZOFRAN-ODT 2-16 neoplasm of tablet (8 Anderso ) 8 mg 00:00: overlapping mg) on the n disintegrat 00 sites of tongue ing tablet bladder every 8 (eight) hours as needed for nausea or vomiting. polyethylen 2019-08 Yes Malignant 17g Take 17 g MD e glycol 2-16 neoplasm of by mouth Anderso (Miralax) 00:00: overlapping daily as n 17 00 sites of needed gram/dose bladder (constipat powder ion). hyoscyamine 2019-08 Yes Painful .125mg Dissolve 1 MD sulfate 2-15 bladder tablet Anderso (ANASPAZ) 00:00: spasm (0.125 mg) n 0.125 mg 00 on the disintegrat tongue ing tablet every 6 (six) hours as needed for cramping. amoxicillin 2019-08 No Acute 875mg Take 1 M D -clavulanat 2-15 08-26 pyelonephri tablet Anderso e 00:00: 00:00 tis (875 mg) n (Augmentin) 00 :00 by mouth 875 mg-125 twice mg per daily. tablet For UTI. nitrofurant 2019-08- No Acute 100mg Take 1 M D oin 2-14 12-15 pyelonephri capsule Rick rso monohyd/m-c 00:00: 00:00 tis (100 mg) n ryst 00 :00 by mouth (Macrobid) twice 100 mg daily. capsule tamsulosin 2019-08 Yes .4mg Take 0.4 MD (FLOMAX) 1-24 mg by Anderso 0.4 mg 24 00:00: mouth n hr capsule 00 daily. insulin 2019-08 Yes 60U QD Inject 60 [facility]ec 1[facility]15 Units [facility] - (Tresiba 12:27: subcutaneo Med ical FlexTouch 03 usly every Cent er U-100) 100 morning . unit/mL (3 mL) InPn pioglitazon 2019-08 Yes 30mg QD Take [address] [facility] (ACTOS) 1-15 by mouth [facility] - 30 MG 12:27: daily. Medical tablet 03 [place] lisinopriL 2019-08 Yes 10mg QD Take [address] (PRINIVIL,Z 1-15 by mouth Luke s - ESTRIL) 10 12:27: daily. Medic al MG tablet 03 [place] metFORMIN 2019-08 Yes 1000mg Take 1,000 [facility] [...] [address] [facility] carbonate-v 1-15 tablet by [facility] es - itamin D3 12:27: mouth Medical (OSCAL) 03 daily. [place] 250-125 mg-unit Tab per tablet tamsulosin 2019-08 2020- No .4mg QD Take [address] (FLOMAX) 09-07 capsule [facility] - 0.4 mg Cap 00:00: 23:59 (0.4 mg Med ical 24 hr 00 :00 total) by [place] capsule mouth daily for 10 days. nitrofurant 2019-08 2020- No 100mg Q.5D Take [address] oin, 09-07 capsule [facility] - macrocrysta 00:00: 23:59 (100 mg Me dical l-monohydra 00 :00 total) by [facility] ter te, mouth 2 (MACROBID) (two) 100 MG times capsule daily for 3 days. phenazopyri 2019-08 2020- No 100mg Take [address] dine 09-07 tablet [facility] - (PYRIDIUM) 00:00: 23:59 (100 mg Med ical 100 MG 00 :00 total) by Center tablet mouth 3 (three) times daily as needed for up to 3 days. pioglitazon 2019-08 30mg Take 30 mg MD e (ACTOS) 08-27 by mouth Sami so 30 mg 00:00: 00:00 daily. n tablet 00 :00 metFORMIN 2019-08 No 1000mg Take 1,000 MD (GLUCOPHAGE 08-27 12-31 mg by Gage o ) 1000 mg 00:00: 00:00 mouth n tablet 00 :00 daily. pitavastati Yes 2mg Take 2 mg M D n calcium 08-26 by mouth [facility]age o (LIVALO 00:00: daily. n ORAL) 00 metFORMIN Yes 1000mg QD Take 1,000 [facility] [...] QD Take 10 mg [place] n (LIPITOR) 828 by mouth Meth hesham 10 MG 11:30: daily. st tablet 33 lisinopril Yes 5mg QD Take 5 mg [place] (PRINIVIL,Z 8-28 by mouth Meth hesham ESTRIL) 5 11:30: daily. st mg tablet 33 lisinopril 5mg Take 5 mg M D (PRINIVIL,Z -09-15 by mouth And erso ESTRIL) 5 00:00: 00:00 daily. n mg tablet 00 :00 Vital Signs Vital Name Observation Time Observation Value Comments Source WEIGHT 2020-09-29 05:32:08 104.9 kg HEIGHT 2020-09-27 18:25:00 187 cm WEIGHT 2020-09-29 05:32:08 104.9 kg HEIGHT 2020-09-27 18:25:00 187 cm WEIGHT 2020-09-27 11:21:00 105.7 kg HEIGHT 2020-09-27 11:20:00 185.5 cm WEIGHT 2020-09-27 11:21:00 105.7 kg HEIGHT 2020-09-27 11:20:00 185.5 cm WEIGHT 2020-09-26 18:45:26 105.4 kg WEIGHT 2020-09-26 18:45:26 105.4 kg WEIGHT 2020-09-20 08:38:51 102.8 kg WEIGHT 2020-09-20 08:38:51 102.8 kg WEIGHT 2020-09-15 06:19:00 103.9 kg HEIGHT 2020-09-13 10:28:00 185.5 cm WEIGHT 2020-09-15 06:19:00 103.9 kg HEIGHT 2020-09-13 10:28:00 185.5 cm HEIGHT 2020-09-13 07:37:00 186 cm WEIGHT 2020-09-13 07:37:00 103 kg HEIGHT 2020-09-13 07:37:00 186 cm WEIGHT 2020-09-13 07:37:00 103 kg WEIGHT 2020-09-06 15:10:14 104.5 kg WEIGHT 2020-09-06 15:10:14 104.5 kg HEIGHT 2020-09-06 11:55:00 186 cm WEIGHT 2020-09-06 11:55:00 104 kg HEIGHT 2020-09-06 11:55:00 186 cm WEIGHT 2020-09-06 11:55:00 104 kg WEIGHT 2020-08-30 17:31:35 103.5 kg WEIGHT 2020-08-30 17:31:35 103.5 kg WEIGHT 2020-08-26 04:03:54 107.5 kg HEIGHT 2020-08-23 17:48:00 186 cm WEIGHT 2020-08-26 04:03:54 107.5 kg HEIGHT 2020-08-23 17:48:00 186 cm HEIGHT 2020-08-23 11:06:00 185.5 cm WEIGHT 2020-08-23 11:06:00 103 kg HEIGHT 2020-08-23 11:06:00 185.5 cm WEIGHT 2020-08-23 11:06:00 103 kg WEIGHT 2020-08-11 04:51:10 106.6 kg HEIGHT 2020-08-09 19:18:00 185.5 cm WEIGHT 2020-08-11 04:51:10 106.6 kg HEIGHT 2020-08-09 19:18:00 185.5 cm HEIGHT 2020-08-09 08:51:00 193 cm WEIGHT 2020-08-09 08:51:00 106 kg HEIGHT 2020-08-09 08:51:00 193 cm WEIGHT 2020-08-09 08:51:00 106 kg HEIGHT 2020-08-02 09:02:00 193 cm WEIGHT 2020-08-02 09:02:00 103.42 kg HEIGHT 2020-08-02 09:02:00 193 cm WEIGHT 2020-08-02 09:02:00 103.42 kg Systolic blood 2020-09-30 01:45:31 151 mm[Hg] pressure Diastolic blood 2020-09-30 01:45:31 75 mm[Hg] MD Muñoz derson pressure Heart rate 2020-09-30 01:45:31 87 /min Sami begum Body temperature 2020-09-30 01:45:31 36.89 Daniella MD Leiva nderson Respiratory rate 2020-09-30 01:45:31 18 /min MD Cali javieron Oxygen saturation in 2020-09-30 01:45:31 98 /min MD Luo Arterial blood by Pulse oximetry Body weight 2020-09-29 11:32:08 104.9 kg Sami son BMI 2020-09-29 11:32:08 30.00 kg/m2 Sami kel Body height 2020-09-28 00:25:00 187 cm Sami begum Systolic blood 2020-07-10 11:24:00 129 mm[Hg] [facility] Diastolic blood 2020-07-10 11:24:00 71 mm[Hg] [facility] Heart rate 2020-07-10 11:24:00 89 /min [facility] Body temperature 2020-07-10 11:24:00 35.67 Daniella [facility] Respiratory rate 2020-07-10 11:24:00 18 /min [facility] Oxygen saturation in 2020-07-10 11:24:00 97 /min [facility] - Arterial blood by Medical Ce nter Pulse oximetry Body height 2020-07-08 10:47:00 193 cm [facility] Body weight 2020-07-08 10:47:00 103.692 kg [facility] BMI 2020-07-08 10:47:00 27.83 kg/m2 [facility] Body height 2020-01-27 13:10:00 162.6 cm Chao Trinh Body weight 2020-01-27 13:10:00 104.327 kg Chao Trinh BMI 2020-01-27 13:10:00 39.48 kg/m2 Chao Trinh Procedures Procedure Date / Time Performing Clinician Source Performed POC GLUCOSE SCREEN 2020-09-29 19:33:00 Tim Ibanez MD on POC GLUCOSE SCREEN 2020-09-29 12:56:00 Tim Ibanez MD on ELECTROLYTE PANEL 2020-09-29 10:33:00 Rose Morris MD BLOOD UREA NITROGEN 2020-09-29 10:33:00 Rose Morris MD son SERUM CREATININE 2020-09-29 10:33:00 Rose Morris MD GLUCOSE, RANDOM 2020-09-29 10:33:00 Rose Morris MD MAGNESIUM LEVEL 2020-09-29 10:33:00 Rose Morris MD PHOSPHORUS LEVEL 2020-09-29 10:33:00 Rose Morris MD SERUM CREATININE 2020-09-29 10:33:00 Rose Morris MD .GLOMERULAR FILTRATION RATE 2020-09-29 10:33:00 Rose Morris MD POC GLUCOSE SCREEN 2020-09-29 04:00:00 Tim Ibanez MD on POC GLUCOSE SCREEN 2020-09-29 01:26:00 Tim Ibanez MD on POC GLUCOSE SCREEN 2020-09-28 18:40:00 Tim Ibanez MD on POC GLUCOSE SCREEN 2020-09-28 13:28:00 Tim Ibanez MD on ELECTROLYTE PANEL 2020-09-28 10:03:00 Rose Morris MD BLOOD UREA NITROGEN 2020-09-28 10:03:00 Rose Morris MD son SERUM CREATININE 2020-09-28 10:03:00 Rose Morris MD GLUCOSE, RANDOM 2020-09-28 10:03:00 Rose Morris MD MAGNESIUM LEVEL 2020-09-28 10:03:00 Rose Morris MD PHOSPHORUS LEVEL 2020-09-28 10:03:00 Rose Morris MD SERUM CREATININE 2020-09-28 10:03:00 Rose Morris MD .GLOMERULAR FILTRATION RATE 2020-09-28 10:03:00 Rose Morris MD POC GLUCOSE SCREEN 2020-09-28 04:37:00 Tim Ibanez MD on POC GLUCOSE SCREEN 2020-09-28 01:53:00 Tim Ibanez MD on CT CHEST ABDOMEN PELVIS W 2020-09-26 23:45:45 Rose Morris MD CONTRAST COMPLETE BLOOD COUNT W/ 2020-09-26 20:40:00 Rose Morris MD DIFFERENTIAL COMPREHENSIVE METABOLIC 2020-09-26 20:40:00 Rose Morris MD nderson PANEL FREE THYROXINE 2020-09-26 20:40:00 Rose Morris MD MAGNESIUM LEVEL 2020-09-26 20:40:00 Rose Morris MD THYROID STIMULATING HORMONE 2020-09-26 20:40:00 Rose Morris MD Results CBC 2020-09-26 20:40:00 Rose Morris MD MANUAL DIFFERENTIAL 2020-09-26 20:40:00 Rose Morris MD GLUCOSE LEVEL 2020-09-26 20:40:00 Rose Morris MD BLOOD UREA NITROGEN 2020-09-26 20:40:00 Rose Morris MD son ELECTROLYTE PANEL 2020-09-26 20:40:00 Rose Morris MD SERUM CREATININE 2020-09-26 20:40:00 Rose Morris MD .GLOMERULAR FILTRATION RATE 2020-09-26 20:40:00 Rose Morris MD CALCIUM LEVEL TOTAL 2020-09-26 20:40:00 Rose Morris MD ALBUMIN LEVEL 2020-09-26 20:40:00 Rose Morris MD ALKALINE PHOSPHATASE 2020-09-26 20:40:00 Rose Morris MD rson ALANINE AMINOTRANSFERASE 2020-09-26 20:40:00 Rose Morris MD ASPARTATE AMINOTRANSFERASE 2020-09-26 20:40:00 Rose Morris TOTAL PROTEIN 2020-09-26 20:40:00 Rose Morris MD FRACTIONATED BILIRUBIN 2020-09-26 20:40:00 Rose Morris MD derson COMPLETE BLOOD COUNT W/ 2020-09-20 13:06:00 Rose Morris MD DIFFERENTIAL COMPREHENSIVE METABOLIC 2020-09-20 13:06:00 Rose Morris MD PANEL FREE THYROXINE 2020-09-20 13:06:00 Rose Morris MD MAGNESIUM LEVEL 2020-09-20 13:06:00 Rose Morris MD THYROID STIMULATING HORMONE 2020-09-20 13:06:00 Rose Morris MD Results CBC 2020-09-20 13:06:00 Rose Morris MD MANUAL DIFFERENTIAL 2020-09-20 13:06:00 Rose Morris MD son GLUCOSE LEVEL 2020-09-20 13:06:00 Rose Morris MD BLOOD UREA NITROGEN 2020-09-20 13:06:00 Rose Morris MD [facility] ELECTROLYTE PANEL 2020-09-20 13:06:00 Rose Morris MDo n SERUM CREATININE 2020-09-20 13:06:00 Rose Morris MD .GLOMERULAR FILTRATION RATE 2020-09-20 13:06:00 Rose Morris MD CALCIUM LEVEL TOTAL 2020-09-20 13:06:00 Rose Morris MD son ALBUMIN LEVEL 2020-09-20 13:06:00 Rose Morris MD ALKALINE PHOSPHATASE 2020-09-20 13:06:00 Rose Morris MD rson ALANINE AMINOTRANSFERASE 2020-09-20 13:06:00 Rose Morris MD ASPARTATE AMINOTRANSFERASE 2020-09-20 13:06:00 Rose Morris TOTAL PROTEIN 2020-09-20 13:06:00 Rose Morris MD FRACTIONATED BILIRUBIN 2020-09-20 13:06:00 Rose Morris MD POC GLUCOSE SCREEN 2020-09-15 18:29:00 Harry Doss MD on POC GLUCOSE SCREEN 2020-09-15 12:56:00 Harry Dossers on ELECTROLYTE PANEL 2020-09-15 09:14:00 Rose Morris MD BLOOD UREA NITROGEN 2020-09-15 09:14:00 Rose Morris MD Sami son SERUM CREATININE 2020-09-15 09:14:00 Rose Morris MD GLUCOSE, RANDOM 2020-09-15 09:14:00 Rose Morris MD MAGNESIUM LEVEL 2020-09-15 09:14:00 Rose Morris MD PHOSPHORUS LEVEL 2020-09-15 09:14:00 Rose Morris MD SERUM CREATININE 2020-09-15 09:14:00 Rose Morris MD .GLOMERULAR FILTRATION RATE 2020-09-15 09:14:00 Rose Morris MD POC GLUCOSE SCREEN 2020-09-15 03:53:00 Harry Doss MD on POC GLUCOSE SCREEN 2020-09-15 01:28:00 Harry Doss MD on POC GLUCOSE SCREEN 2020-09-14 18:59:00 Harry Doss MD on POTASSIUM LEVEL 2020-09-14 17:00:00 Laina Dumont MD POC GLUCOSE SCREEN 2020-09-14 13:39:00 Harry Doss MD on SODIUM LEVEL 2020-09-14 13:09:00 Isidro Azevedo MD Sami son POTASSIUM LEVEL 2020-09-14 13:09:00 Isidro Azevedo MD Sami son ELECTROLYTE PANEL 2020-09-14 09:36:00 Rose Morris MD BLOOD UREA NITROGEN 2020-09-14 09:36:00 Rose Morris MD Sami son SERUM CREATININE 2020-09-14 09:36:00 Rose Morris MD GLUCOSE, RANDOM 2020-09-14 09:36:00 Rose Morris MD MAGNESIUM LEVEL 2020-09-14 09:36:00 Rose Morris MD PHOSPHORUS LEVEL 2020-09-14 09:36:00 Rose Morris MD SERUM CREATININE 2020-09-14 09:36:00 Rose Morris MD .GLOMERULAR FILTRATION RATE 2020-09-14 09:36:00 Rose Morris MD POC GLUCOSE SCREEN 2020-09-14 04:12:00 Harry Doss MD on POC GLUCOSE SCREEN 2020-09-14 01:24:00 Harry Doss MD on POC GLUCOSE SCREEN 2020-09-13 19:05:00 Harry Doss MD on HEPATITIS C VIRUS ANTIBODY 2020-09-13 17:28:00 Rose Morris HEPATITIS C VIRUS AB SCREEN 2020-09-13 17:28:00 Rose Morris MD W/REFLEX HCV PCR INFLUENZA A/B + COVID-19 2020-09-13 16:58:00 Harry Doss MD ASYMPTOMATIC-L COMPLETE BLOOD COUNT W/ 2020-09-13 12:26:00 Rose Morris MD nderson DIFFERENTIAL COMPREHENSIVE METABOLIC 2020-09-13 12:26:00 Rose Morris MD nderson PANEL FREE THYROXINE 2020-09-13 12:26:00 Rose Morris MD MAGNESIUM LEVEL 2020-09-13 12:26:00 Rose Morris MD THYROID STIMULATING HORMONE 2020-09-13 12:26:00 Rose Morris MD Results CBC 2020-09-13 12:26:00 Rose Morris MD MANUAL DIFFERENTIAL 2020-09-13 12:26:00 Rose Morris MD GLUCOSE LEVEL 2020-09-13 12:26:00 Rose Morris MD BLOOD UREA NITROGEN 2020-09-13 12:26:00 Rose Morris MD son ELECTROLYTE PANEL 2020-09-13 12:26:00 Rose Morris MD SERUM CREATININE 2020-09-13 12:26:00 Rose Morris MD .GLOMERULAR FILTRATION RATE 2020-09-13 12:26:00 Rose Morris MD CALCIUM LEVEL TOTAL 2020-09-13 12:26:00 Rose Morris MD ALBUMIN LEVEL 2020-09-13 12:26:00 Rose Morris MD ALKALINE PHOSPHATASE 2020-09-13 12:26:00 Rose Morris MD james ALANINE AMINOTRANSFERASE 2020-09-13 12:26:00 Rose Morris MD ASPARTATE AMINOTRANSFERASE 2020-09-13 12:26:00 Rose Morris TOTAL PROTEIN 2020-09-13 12:26:00 Rose Morris MD FRACTIONATED BILIRUBIN 2020-09-13 12:26:00 Rose Morris MD EKG, 12-LEAD (PORTABLE) 2020-09-13 00:00:00 MD Valerio Garcia Anishia URINE CULTURE 2020-09-06 19:48:00 Rose Morris MD URINALYSIS WITH MICROSCOPIC 2020-09-06 19:48:00 Rose Morris MD IF INDICATED URINALYSIS MICROSCOPIC 2020-09-06 19:48:00 Rose Morris MD COMPLETE BLOOD COUNT W/ 2020-09-06 16:49:00 Rose Morris MDrson DIFFERENTIAL COMPREHENSIVE METABOLIC 2020-09-06 16:49:00 Rose Morris MD nderson PANEL FREE THYROXINE 2020-09-06 16:49:00 Rose Morris MD MAGNESIUM LEVEL 2020-09-06 16:49:00 Rose Morris MD THYROID STIMULATING HORMONE 2020-09-06 16:49:00 Rose Morris MD Results CBC 2020-09-06 16:49:00 Rose Morris MD MANUAL DIFFERENTIAL 2020-09-06 16:49:00 Rose Morris MD GLUCOSE LEVEL 2020-09-06 16:49:00 Rose Morris MD BLOOD UREA NITROGEN 2020-09-06 16:49:00 Rose Morris MD ELECTROLYTE PANEL 2020-09-06 16:49:00 Rose Morris MD SERUM CREATININE 2020-09-06 16:49:00 Rose Morris MD .GLOMERULAR FILTRATION RATE 2020-09-06 16:49:00 Rose Morris MD CALCIUM LEVEL TOTAL 2020-09-06 16:49:00 Rose Morris MD [facility] ALBUMIN LEVEL 2020-09-06 16:49:00 Rose Morris MD ALKALINE PHOSPHATASE 2020-09-06 16:49:00 Rose Morrise rson ALANINE AMINOTRANSFERASE 2020-09-06 16:49:00 Rose Morris MD ASPARTATE AMINOTRANSFERASE 2020-09-06 16:49:00 Rose Morris TOTAL PROTEIN 2020-09-06 16:49:00 Rose Morris MD FRACTIONATED BILIRUBIN 2020-09-06 16:49:00 Rose Morris MD COMPLETE BLOOD COUNT W/ 2020-08-30 15:34:00 Rose Morris MD nderson DIFFERENTIAL COMPREHENSIVE METABOLIC 2020-08-30 15:34:00 Rose Morris MD nderson PANEL MAGNESIUM LEVEL 2020-08-30 15:34:00 Rose Morris MD PHOSPHORUS LEVEL 2020-08-30 15:34:00 Rose Morris MD Results CBC 2020-08-30 15:34:00 Rose Morris MD MANUAL DIFFERENTIAL 2020-08-30 15:34:00 [facility] GLUCOSE LEVEL 2020-08-30 15:34:00 Rose Morris MD BLOOD UREA NITROGEN 2020-08-30 15:34:00 [facility] ELECTROLYTE PANEL 2020-08-30 15:34:00 Rose Morris MD SERUM CREATININE 2020-08-30 15:34:00 Rose Morris MD .GLOMERULAR FILTRATION RATE 2020-08-30 15:34:00 Rose Morris MD CALCIUM LEVEL TOTAL 2020-08-30 15:34:00 [facility] ALBUMIN LEVEL 2020-08-30 15:34:00 Rose Morris MD ALKALINE PHOSPHATASE 2020-08-30 15:34:00 Rose Morris MD fabijames ALANINE AMINOTRANSFERASE 2020-08-30 15:34:00 Rose Morris MD ASPARTATE AMINOTRANSFERASE 2020-08-30 15:34:00 Rose Morris TOTAL PROTEIN 2020-08-30 15:34:00 Rose Morris MD FRACTIONATED BILIRUBIN 2020-08-30 15:34:00 Rose Morris MD POC GLUCOSE SCREEN 2020-08-26 12:53:00 Chidi Tracey MD Sami kel ELECTROLYTE PANEL 2020-08-26 12:06:00 Rose Morris MD BLOOD UREA NITROGEN 2020-08-26 12:06:00 [facility] SERUM CREATININE 2020-08-26 12:06:00 Rose Morris MD GLUCOSE, RANDOM 2020-08-26 12:06:00 Rose Morris MD MAGNESIUM LEVEL 2020-08-26 12:06:00 Rose Morris MD PHOSPHORUS LEVEL 2020-08-26 12:06:00 Rose Morris MD SERUM CREATININE 2020-08-26 12:06:00 Rose Morris MD .GLOMERULAR FILTRATION RATE 2020-08-26 12:06:00 Rose Morris MD POC GLUCOSE SCREEN 2020-08-26 04:45:00 [facility] POC GLU[facility]SE SCREEN 2020-08-26 01:23:00 [facility] POC GLUCOSE SCREEN 2020-08-25 19:10:00 [facility] POC GLUCOSE SCREEN 2020-08-25 13:44:00 [facility] ELECTROLYTE PANEL 2020-08-25 10:17:00 Rose Morris MD BLOOD UREA NITROGEN 2020-08-25 10:17:00 [facility] SERUM CREATININE 2020-08-25 10:17:00 Rose Morris MD GLUCOSE, RANDOM 2020-08-25 10:17:00 Rose Morris MD MAGNESIUM LEVEL 2020-08-25 10:17:00 Rose Morris MD PHOSPHORUS LEVEL 2020-08-25 10:17:00 Rose Morris MD SERUM CREATININE 2020-08-25 10:17:00 Rose Morris MD .GLOMERULAR FILTRATION RATE 2020-08-25 10:17:00 Rose Morris MD POC GLUCOSE SCREEN 2020-08-25 06:10:00 [facility] POC GLU[facility]SE SCREEN 2020-08-25 04:15:00 [facility] POC GLUCOSE SCREEN 2020-08-25 01:13:00 [facility] POC GLUCOSE SCREEN 2020-08-24 19:26:00 [facility] POC GLUCOSE SCREEN 2020-08-24 14:09:00 [facility] ELECTROLYTE PANEL 2020-08-24 08:26:00 Rose Morris MD n BLOOD UREA NITROGEN 2020-08-24 08:26:00 Rose Morris MD [facility] SERUM CREATININE 2020-08-24 08:26:00 Rose Morris MD GLUCOSE, RANDOM 2020-08-24 08:26:00 Rose Morris MD MAGNESIUM LEVEL 2020-08-24 08:26:00 Rose Morris MD PHOSPHORUS LEVEL 2020-08-24 08:26:00 Rose Morris MD SERUM CREATININE 2020-08-24 08:26:00 Rose Morris MD .GLOMERULAR FILTRATION RATE 2020-08-24 08:26:00 Rose Morris MD POC GLUCOSE SCREEN 2020-08-24 05:23:00 Horace Leyva MD COMPLETE BLOOD COUNT W/ 2020-08-23 16:46:00 Rose Morris MDon DIFFERENTIAL COMPREHENSIVE METABOLIC 2020-08-23 16:46:00 Rose Morris MDrson PANEL FREE THYROXINE 2020-08-23 16:46:00 Rose Morris MD MAGNESIUM LEVEL 2020-08-23 16:46:00 Rose Morris MD THYROID STIMULATING HORMONE 2020-08-23 16:46:00 Rose Morris MD Results CBC 2020-08-23 16:46:00 Rose Morris MD MANUAL DIFFERENTIAL 2020-08-23 16:46:00 Rose Morris MD son GLUCOSE LEVEL 2020-08-23 16:46:00 Rose Morris MD BLOOD UREA NITROGEN 2020-08-23 16:46:00 Rose Morris MD Sami son ELECTROLYTE PANEL 2020-08-23 16:46:00 Rose Morris MDo n SERUM CREATININE 2020-08-23 16:46:00 Rose Morris MD .GLOMERULAR FILTRATION RATE 2020-08-23 16:46:00 Rose Morris MD CALCIUM LEVEL TOTAL 2020-08-23 16:46:00 Rose Morris MD [facility] ALBUMIN LEVEL 2020-08-23 16:46:00 Rose Morirs MD ALKALINE PHOSPHATASE 2020-08-23 16:46:00 Rose Morris MD Rick rson ALANINE AMINOTRANSFERASE 2020-08-23 16:46:00 Rose Morris MD ASPARTATE AMINOTRANSFERASE 2020-08-23 16:46:00 Rose Morris TOTAL PROTEIN 2020-08-23 16:46:00 Rose Morris MD FRACTIONATED BILIRUBIN 2020-08-23 16:46:00 Rose Morris MDson COMPLETE BLOOD COUNT W/ 2020-08-16 16:19:00 Rose Morris MDrson DIFFERENTIAL COMPREHENSIVE METABOLIC 2020-08-16 16:19:00 Rose Morris MD nderson PANEL FREE THYROXINE 2020-08-16 16:19:00 Rose Morris MD MAGNESIUM LEVEL 2020-08-16 16:19:00 Rose Morris MD THYROID STIMULATING HORMONE 2020-08-16 16:19:00 Rose Morris MD Results CBC 2020-08-16 16:19:00 Rose Morris MD MANUAL DIFFERENTIAL 2020-08-16 16:19:00 Rose Morris MD Sami son GLUCOSE LEVEL 2020-08-16 16:19:00 Rose Morris MD BLOOD UREA NITROGEN 2020-08-16 16:19:00 Rose Morris MD Sami son ELECTROLYTE PANEL 2020-08-16 16:19:00 Rose Morris MD SERUM CREATININE 2020-08-16 16:19:00 Rose Morris MD .GLOMERULAR FILTRATION RATE 2020-08-16 16:19:00 Rose Morris MD CALCIUM LEVEL TOTAL 2020-08-16 16:19:00 Rose Morris MD Sami son ALBUMIN LEVEL 2020-08-16 16:19:00 Rose Morris MD ALKALINE PHOSPHATASE 2020-08-16 16:19:00 Rose Morris MD Rick rson ALANINE AMINOTRANSFERASE 2020-08-16 16:19:00 Rose Morris MD ASPARTATE AMINOTRANSFERASE 2020-08-16 16:19:00 Rose Morris TOTAL PROTEIN 2020-08-16 16:19:00 Rose Morris MD FRACTIONATED BILIRUBIN 2020-08-16 16:19:00 Rose Morris MD POC GLUCOSE SCREEN 2020-08-11 13:44:00 Tim Ibanez MD on POC GLUCOSE SCREEN 2020-08-11 04:13:00 Tim Ibanez MD on POC GLUCOSE SCREEN 2020-08-11 01:21:00 Tim Ibanez MD on POC GLUCOSE SCREEN 2020-08-10 19:18:00 Horace Leyva MD Rick rson POC GLUCOSE SCREEN 2020-08-10 14:02:00 Horace Leyva MD Rick rson ELECTROLYTE PANEL 2020-08-10 10:12:00 Rose Morris MD BLOOD UREA NITROGEN 2020-08-10 10:12:00 Rose Morris MD Sami son SERUM CREATININE 2020-08-10 10:12:00 Rose Morris MD GLUCOSE, RANDOM 2020-08-10 10:12:00 Rose Morris MD MAGNESIUM LEVEL 2020-08-10 10:12:00 Rose Morris MD PHOSPHORUS LEVEL 2020-08-10 10:12:00 Rose Morris MD SERUM CREATININE 2020-08-10 10:12:00 Rose Morris MD .GLOMERULAR FILTRATION RATE 2020-08-10 10:12:00 Rose Morris MD COVID-19 (SARS-COV-2) 2020-08-10 04:17:00 Horace Leyva MD PCR-ASYMPTOMATIC MC ECHOCARDIOGRAM 2D COMPLETE 2020-08-09 19:40:40 Rose Morris COMPLETE BLOOD COUNT W/ 2020-08-09 13:30:00 Rose Morris MDon DIFFERENTIAL COMPREHENSIVE METABOLIC 2020-08-09 13:30:00 Rose Morris MDon PANEL FREE THYROXINE 2020-08-09 13:30:00 Rose Morris MD MAGNESIUM LEVEL 2020-08-09 13:30:00 Rose Morris MD THYROID STIMULATING HORMONE 2020-08-09 13:30:00 Rose Morris MD Results CBC 2020-08-09 13:30:00 Rose Morris MD MANUAL DIFFERENTIAL 2020-08-09 13:30:00 [facility] GLUCOSE LEVEL 2020-08-09 13:30:00 Rose Morris MD BLOOD UREA NITROGEN 2020-08-09 13:30:00 [facility] ELECTROLYTE PANEL 2020-08-09 13:30:00 Rose [facility] MD [facility] SERUM CREATININE 2020-08-09 13:30:00 Rose Morris MD .GLOMERULAR FILTRATION RATE 2020-08-09 13:30:00 Rose Morris MD CALCIUM LEVEL TOTAL 2020-08-09 13:30:00 Rose Morris MD Sami son ALBUMIN LEVEL 2020-08-09 13:30:00 Rose Morris MD ALKALINE PHOSPHATASE 2020-08-09 13:30:00 Rose Morris MD rson ALANINE AMINOTRANSFERASE 2020-08-09 13:30:00 Rose Morris MD ASPARTATE AMINOTRANSFERASE 2020-08-09 13:30:00 Rose Morris TOTAL PROTEIN 2020-08-09 13:30:00 Rose Morris MD FRACTIONATED BILIRUBIN 2020-08-09 13:30:[address] CHEST ABDOMEN PELVIS W 2020-08-02 23:31:00 Rose Morris MD WO CONTRAST PARTIAL THROMBOPLASTIN TIME 2020-08-02 21:41:00 Rose Morris MD XR CHEST 2 VW 2020-08-02 20:57:48 Daysi Wagner MD TOTAL PROTEIN 2020-08-02 18:49:00 Rose Morris MD ALBUMIN LEVEL 2020-08-02 18:49:00 Rose Morris MD CALCIUM LEVEL TOTAL 2020-08-02 18:49:00 Rose Morris MD son PHOSPHORUS LEVEL 2020-08-02 18:49:00 Rose Morris MD GLUCOSE, RANDOM 2020-08-02 18:49:00 Rose Morris MD BLOOD UREA NITROGEN 2020-08-02 18:49:00 Rose Morris MD son SERUM CREATININE 2020-08-02 18:49:00 Rose Morris MD URIC ACID 2020-08-02 18:49:00 Rose Morris MD FRACTIONATED BILIRUBIN 2020-08-02 18:49:00 Rose Morris MDson ALKALINE PHOSPHATASE 2020-08-02 18:49:00 Rose Morris MD rson ALANINE AMINOTRANSFERASE 2020-08-02 18:49:00 Rose Morris MD MAGNESIUM LEVEL 2020-08-02 18:49:00 Rose Morris MD ASPARTATE AMINOTRANSFERASE 2020-08-02 18:49:00 Rose Morris ELECTROLYTE PANEL 2020-08-02 18:49:00 Rose Morris MDo n HC BETA HCG TUMOR MARKER 2020-08-02 18:49:00 Rose Morris MD (BHCG T) CANCER ANTIGEN 125 2020-08-02 18:49:00 Rose Morris MD on PROTHROMBIN TIME 2020-08-02 18:49:00 Rose Morris MD CARCINOEMBRYONIC ANTIGEN 2020-08-02 18:49:00 Rose Morris MD CANCER ANTIGEN 19-9 2020-08-02 18:49:00 Rose Morris MD son SERUM CREATININE 2020-08-02 18:49:00 Rose Morris MD .GLOMERULAR FILTRATION RATE 2020-08-02 18:49:00 Rose Morris MD URINE CULTURE 2020-08-02 17:25:00 Constantine Ford MD COMPLETE BLOOD COUNT W/ 2020-08-02 17:25:00 Bernard, Daysi romano DIFFERENTIAL COMPREHENSIVE METABOLIC 2020-08-02 17:25:00 Daysi Wagner MD PANEL LACTATE DEHYDROGENASE 2020-08-02 17:25:00 Bernard, Daysi Jacob GUA 2020-08-02 17:25:00 Constantine Ford MD Results CBC 2020-08-02 17:25:00 Bernard, Daysi uLo MANUAL DIFFERENTIAL 2020-08-02 17:25:00 Bernard, Daysi FERRARI Sami son GLUCOSE LEVEL 2020-08-02 17:25:00 Bernard, Daysi Luo BLOOD UREA NITROGEN 2020-08-02 17:25:00 Bernard, Daysi FERRARI Sami begum ELECTROLYTE PANEL 2020-08-02 17:25:00 Bernard, Daysi Moon n SERUM CREATININE 2020-08-02 17:25:00 Daysi Wagner MD .GLOMERULAR FILTRATION RATE 2020-08-02 17:25:00 Daysi Wagner MD CALCIUM LEVEL TOTAL 2020-08-02 17:25:00 Bernard, Daysi FERRARI Sami begum ALBUMIN LEVEL 2020-08-02 17:25:00 Daysi Wagner MD ALKALINE PHOSPHATASE 2020-08-02 17:25:00 Bernard, Daysi henson ALANINE AMINOTRANSFERASE 2020-08-02 17:25:00 BernardDaysi membreno MD ASPARTATE AMINOTRANSFERASE 2020-08-02 17:25:00 Daysi Wagner TOTAL PROTEIN 2020-08-02 17:25:00 Daysi Wagner MD FRACTIONATED BILIRUBIN 2020-08-02 17:25:00 Daysi Wagner MD derson GUA MICROSCOPIC 2020-08-02 17:25:00 Constantine Ford MD COVID-19 (SARS-COV-2) 2020-07-31 17:38:00 Rhonda Dawn MD PCR-ASYMPTOMATIC MC POCT-GLUCOSE METER 2020-07-10 11:26:[facility] 2020-07-10 07:32:00 [facility] BASIC METABOLIC PANEL (7) 2020-07-10 05:47:00 Stepan Forrester [facility] CBC W/PLT COUNT & AUTO 2020-07-10 05:47:00 Stepan Forrester [facility] POCT-GLUCOSE METER 2020-07-09 22:54:00 [facility] PO[facility]UCOSE METER 2020-07-09 16:44:00 [facility] PO[facility]-GLUCOSE METER 2020-07-09 13:04:00 [facility] BASIC METABOLIC PANEL (7) 2020-07-09 12:14:00 Stepan Forrester [facility] CBC W/PLT COUNT & AUTO 2020-07-09 12:14:00 Stepan Forrester [facility] POCT-GLUCOSE METER 2020-07-09 08:17:00 [facility] PO[facility]-GLUCOSE METER 2020-07-08 21:33:00 [facility] POCT-GLUCOSE METER 2020-07-08 17:28:00 [facility] [place] FLUORO NON-SPECIFIC UP 2020-07-08 16:04:00 Veronica [facility] TISSUE EXAM 2020-07-08 15:03:00 [facility] CYSTOS[facility],BLADDER BIOPSY 2020-07-08 13:30:00 [facility] CYSTOS[facility],TURBT 2020-07-08 13:30:00 [facility] CYSTOSCOPY,INSERTION 2020-07-08 [facility]:30[facility] POCT-GLUCOSE METER 2020-07-08 11:25:00 [facility] PATHOLOGY OUTSIDE 2020-07-08 00:00:00 Harvey Caldwell MD [facility]SI CT ABDOMEN AND PELVIS 2020-06-24 21:38:54 Rose Morris MD O[facility] US RENAL 2020-06-06 21:39:18 Rose Morris MD [facility] MRI SPINE 2020-03-05 21:39:08 Rose Morris MD AL ARTHROCENTESIS 2020-01-27 14:15:00 Enrique Jones ASPIR&/INJ MAJOR JT/BURSA W/O US XR LEG LENGTH EVALUATION 2020-01-27 13:12:00 Enrique Jones XR KNEE 4+ VW BILATERAL 2020-01-27 13:11:47 Enrique Jones Plan of Care Planned Activity Planned Date Details Comments Source Future Scheduled 2020-08-[address] [facility] - Test 00:00:00 (12+) [code = Medical Center DEPRESSION SCREENING (12+)] Future Scheduled 2020-03-26 INFLUENZA VACCINE [place] [facility] 00:00:00 [code = INFLUENZA VACCINE] Future Scheduled 2016-12-[address] [facility] Test 00:00:00 WELLNESS (YEAR 2 or Medical Center FIRST YEAR if no IPPE) [code = MEDICARE ANNUAL WELLNESS (YEAR 2 or FIRST YEAR if no IPPE)] Future Scheduled 2016-01-11 65+ PNEUMOCOCCAL [place] [facility] 00:00:00 VACCINE (2 of 2 - PPSV23) [code = 65+ PNEUMOCOCCAL VACCINE (2 of 2 - PPSV23)] Future Scheduled 2016-01-11 PNEUMOCOCCAL 65+ YRS [facility] - Test 00:00:00 (1 of 1 - Medical Center [id number] PCV13) [code = PNEUMOCOCCAL 65+ YRS (1 of 1 - [id number] PCV13)] Future Scheduled 2001 COLONOSCOPY SCREENING [place] [facility] 00:00:00 [code = COLONOSCOPY SCREENING] Future Scheduled 2001 SHINGLES VACCINES (#1) [place] [facility] 00:00:00 [code = SHINGLES VACCINES (#1)] Future Scheduled 1969 Hepatitis C screening [place] [facility] 00:00:00 (procedure) [code = 287387105] Future Scheduled 1969 HEPATITIS C [facility]CRE[facility]ING [facility] 00:[facility]:00 [code = HEPATITIS C Medical Center SCREENING] Future Scheduled 1967 COVID-19 VACCINE (1 of [place] [facility] 00:00:00 2) [code = COVID-19 VACCINE (1 of 2)] Future Scheduled 1961 DIABETES: RETINAL EYE [place] [facility] 00:00:00 EXAM [code = DIABETES: RETINAL EYE EXAM] Future Scheduled 1961 DIABETIC FOOT EXAM [place] [facility] 00:00:00 [code = DIABETIC FOOT EXAM] Future Scheduled 1961 URINE MICROALBUMIN [place] [facility] 00:00:00 [code = URINE MICROALBUMIN] Future Scheduled 1958 DTAP/TDAP/TD VACCINES [facility] Test 00:[facility]:00 (1 - Tdap) [code = Medical C enter DTAP/TDAP/TD VACCINES (1 - Tdap)] Future Scheduled [address] [facility] 00:[facility]:00 malignant neoplasm of [facility]ica l Center colon (procedure) [code = 630893618] Encounters Start End Encounter Admission Attending Care Care Encounter Source Date/Time Date/Time Type Type Clinicians Facility Department ID 2020-09-05 Outpatient SYSTEM, LORI SANDOVAL [id number] 07:50:39 PROVIDER Gage ruby 2020-08-02 Outpatient SYSTEM, LORI SANDOVAL [id number] 08:51:13 PROVIDER Gage ruby 2020-07-28 [facility] [id number] 09:57:29 CONSTANTINE ruby 2020-09-27 2020-09-29 Outpatient [facility]ANDA IBANEZ [facility] [id number] 18:03:00 20:24:00 TIM ruby 2020-09-27 2020-09-27 Outpatient AMANDA IBANEZ MDA MDA [id number] 18:45:17 18:59:59 TIM ruby 2020-09-27 2020-09-27 Outpatient AMANDA AUTUMNLORI MDA [id number] 10:58:00 13:51:54 HORACE ruby 2020-09-26 2020-09-26 Outpatient AMANDA MORRIS MDA MDA [id number] 17:58:13 23:59:00 ROSE ruby 2020-09-26 2020-09-26 Outpatient AMANDA MORRIS, MDA MDA [id number] MD 14:26:43 17:57:00 ROSE Gage o n 2020-09-26 2020-09-26 Outpatient AMANDA MORRIS, MDA MDA [id number] MD 14:46:44 14:46:44 ROSE Gage o n 2020-09-20 2020-09-20 Outpatient AMANDA MORRIS, MDA MDA [id number] MD 06:57:31 23:59:00 ROSE Gage o n 2020-09-20 2020-09-20 Outpatient AMANDA MORRIS, MDA MDA [id number] MD 08:28:39 15:12:48 ROSE Rodriguezers o n 2020-09-13 2020-09-15 Inpatient AMANDA DOSS, [facility] [id number] 10:11:00 16:07:00 HARRY Rodriguezers o n 2020-09-13 2020-09-13 Inpatient AMANDA DOSS, MDA MDA [id number] MD 11:42:35 12:36:17 HARRY Rodriguezers o n 2020-09-13 2020-09-13 Outpatient AMANDA MORRIS, MDA MDA [id number] MD 06:15:38 10:10:00 ROSE Rodriguezers o n 2020-09-13 2020-09-13 Outpatient AMANDA MORRIS, MDA MDA [id number] MD 07:27:39 09:56:08 ROSE Rodriguezers o n 2020-09-06 2020-09-06 Outpatient AMANDA MORRIS, MDA MDA [id number] MD 14:19:36 23:59:00 ROSE Gage o n 2020-09-06 2020-09-06 Outpatient AMANDA MORRIS, MDA MDA [id number] MD 13:40:31 14:18:00 ROSE Rodriguezers o n 2020-09-06 2020-09-06 Outpatient AMANDA BARRYVIOS, MDA MDA [id number] MD 10:34:43 13:39:00 ROSE Rodriguezers o n 2020-09-06 2020-09-06 Outpatient AMANDA LEYVA, MDA MDA [id number] MD 11:29:34 13:21:37 HORACE Gallardo so n 2020-08-30 2020-08-30 Outpatient EL AUTUMN, MDA MDA [id number] 17:15:04 23:59:00 HORACE Gallardo so n 2020-08-30 2020-08-30 Outpatient EL NARVIOS, MDA MDA [id number] 09:21:02 17:14:00 ROSE ruby 2020-08-23 2020-08-26 Inpatient EL ALEXY, [facility] [id number] 17:35:00 12:30:00 CHIDI ruby 2020-08-23 2020-08-23 Outpatient EL AUTUMN, MDA MDA [id number] 23:32:39 23:49:09 HORACE Gallardo so flori 2020-08-23 2020-08-23 Outpatient EL NARVIOS, MDA MDA [id number] 10:24:48 17:34:00 ROSE ruby 2020-08-23 2020-08-23 Outpatient EL AUTUMN, MDA MDA [id number] 11:02:42 11:42:17 HORACE Gallardo so n 2020-08-16 2020-08-16 Outpatient EL NARVIOS, MDA MDA [id number] 09:45:00 23:59:00 ROSE ruby 2020-08-16 2020-08-16 Outpatient EL NARVIOS, MDA MDA [id number] 16:27:42 16:27:42 ROSE ruby 2020-08-09 2020-08-11 Outpatient EL IBANEZ, [facility] [id number] 18:29:00 08:11:00 TIM ruby 2020-08-09 2020-08-09 Outpatient EL AUTUMN, MDA MDA [id number] 20:28:12 21:02:23 HORACE Gallardo so flori 2020-08-09 2020-08-09 Outpatient EL NARVIOS, MDA MDA [id number] 11:24:03 18:28:00 ROSE ruby 2020-08-09 2020-08-09 Outpatient EL NARVIOS, MDA MDA [id number] 07:20:12 11:23:00 ROSE ruby 2020-08-09 2020-08-09 Outpatient EL AUTUMN, MDA MDA [id number] 08:41:36 10:34:28 HORACE augustine n 2020-08-05 2020-08-05 Outpatient NARVIOS, MDA MDA [id number] 13:41:56 13:41:56 ROSE villavicencio n 2020-08-05 2020-08-05 Outpatient NARVIOS, MDA MDA [id number] 13:41:54 13:41:54 ROSE villavicencio n 2020-08-05 2020-08-05 Outpatient NARVIOS, MDA MDA [id number] MD 13:41:52 13:41:52 ROSE Almonte o n 2020-08-02 2020-08-02 Outpatient EL RYAN, MDA MDA [id number] MD 14:56:45 23:59:00 CONSTANTINE villavicencio n 2020-08-02 2020-08-02 Outpatient RYAN, MDA MDA [id number] 14:27:27 14:55:00 CONSTANTINE villavicencio n 2020-08-02 2020-08-02 Outpatient EL ASHAVIOS, MDA MDA [id number] 13:11:17 14:26:00 ROSE ruby 2020-08-02 2020-08-02 Outpatient EL [facility], MDA MDA [id number] 11:26:32 12:41:59 HORACE augustine n 2020-08-02 2020-08-02 Outpatient [facility] MDA MDA [id number] 11:17:12 11:52:34 CONSTANTINE villavicencio n 2020-08-02 2020-08-02 Outpatient [facility], MDA MDA [id number] 08:52:06 11:33:00 CONSTANTINE villavicencio n 2020-08-02 2020-08-02 Outpatient MDA MDA [id number] 08:45:07 08:45:17 Gage o flroi 2020-07-31 2020-07-31 Outpatient RYAN, MDA MDA [id number] 11:30:23 12:16:19 CONSTANTINE villavicencio n 2020-06-16 2020-06-16 Office Veronica [facility] [id number] 10:07:46 13:28:37 Visit Nathanael P AMBULATOR [id number] 2020-01-27 2020-01-27 Outpatient INCAVO, [facility] [id number] [address] [place] 00:00:00 00:00:00 ENRIQUE [address] 2020-01-27 2020-01-27 Outpatient INCAVO, [facility] [id number] [address] [place] 00:00:00 00:00:00 ENRIQUE [address] 2020-01-27 2020-01-27 Outpatient INCAVO, [facility] [id number] [address] [place] 00:00:00 00:00:00 ENRIQUE [address] Results Test Description Test Time Test Comments Results Result Comments Source POC Glucose Screen 2020-09-29 21:13:04 Test Item Value Reference Range Interpretation Comme nts POC Glucose (test code = 140 mg/dL 70-99 H RN NotifiedCapillary blood samples, 20470-3) e.g. obtained b y fingerstick, may have inaccurate results in patients with decreased peripheral blood flow. Method de scription: All results are truong sured using Electrochemistr y test methodology. The glucose in the sample mixes with the reagen ts on the test strip. The reac tion produces an electric curren t. The amount of current produce d is proportional to the glucose con centration in the blood. PO Sample Type (test code = Capillary 9554) Lab Interpretation (test code = Abnormal 62065-2) MD LuoGlomerular Filtration [id number] 11:41:49 Test Item Value Reference Range Interpretation Comments eGFR-AA (test 86 >=60 mL/min/1.73 sq. Normal eGFR: >= 60 code = 8062) m mL/min/1.73 m2N ote: The eGFR is calcula tyrell using the CKD-EPI equ ation. The eGFR declines w ith age. eGFR <60 mL/min /1.73 m2 is considered as " decreased". This equation s hould only be used for pat ients 18 and older. Acco rding to the National Ki dney Foundation's dney Disease Outcome Quality Initiative (KDO QI) classification and 2012 Kidney Disease Improving Global Outcomes (KDIGO) Clinical Practi ce Guideline, the stage of CKD should be c ategorized based on estima tyrell GFR. Stage Descripti on GFR mL/min/1.73 m21 Normal or high GFR >=902 Mildly de creased GFR 60-893a Mildly to moder ately decreased GFR 45-593b Moderately to s everely decreased GFR 30-444 Severely decrea sed GFR 15-295 Kidney failure <15 eGFR-ASTON (test 75 >=60 mL/min/1.73 sq. Elsi l eGFR: >= 60 code = 8063) m mL/min/1.73 m2N ote: The eGFR is calcula tyrell using the CKD-EPI equ ation. The eGFR declines w ith age. eGFR <60 mL/min /1.73 m2 is considered as " decreased". This equation s hould only be used for pat ients 18 and older. Acco rding to the National Ki dney [employer]'s dney Disease Outcome Quality Initiative (KDO QI) classification and 2012 Kidney Disease Improving Global Outcomes (KDIGO) Clinical Practi ce Guideline, the stage of CKD should be c ategorized based on estima tyrell GFR. Stage Descripti on GFR mL/min/1.73 m21 Normal or high GFR >=902 Mildly de creased GFR 60-893a Mildly to moder ately decreased GFR 45-593b Moderately to s everely decreased GFR 30-444 Severely decrea sed GFR 15-295 Kidney failure <15 MD LuoGlucose, [id number] 11:41:48 Test Item Value Reference Range Interpretation Comments Glucose Random (test 190 mg/dL 70-199 Effecti ve 03/21/16, the code = 9360) glucose referen ce intervals have been updated based o n [place] [employer] rocael delines (Standards of M edical Care in Diabete s 2016. Diabetes Care 2 016; 39: S13-S22).Fastin g blood glucose:Normal: 70 99 mg/dLImpaire d fasting glucose (increa sed risk for diabetes or pre-diabetes): 100 125 mg/dLDiabet es mellitus: >/=1 26 mg/dL Random blood glucose:Normal: 70 199 mg/dLNote: Random glucose >100 mg /dL is associated with increased risk for diabetes MD LuoMagnesium [id number] 11:41:47 Test Item Value Reference Range Interpretation Comments Magnesium (test code = 6359) 1.3 mg/dL 1.6-2.6 L Lab Interpretation (test code = Abnormal 40620-7) MD LuoPhosphorus [id number] 11:41:46 Test Item Value Reference Range Interpretation Comments Phosphorus (test code = 6817) 3.0 mg/dL 2.5-4.5 MD Luo.Serum [id number] 11:41:45 Test Item Value Reference Range Interpretation Comments Creatinine (test code = 5399) 1.02 mg/dL 0.67-1.17 MD LuoElectrolyte [id number] 11:41:44 Test Item Value Reference Range Interpretation Comments Sodium Lvl (test code = 7355) 137 136- 145 mEq/L Potassium Lvl (test code = 6854) 4.1 3.5- 5.1 mEq/L Chloride (test code = 5279) 100 98- 107 mEq/L CO2 (test code = 5227) 22 22- 29 mEq/L Anion Gap (test code = 9325) 15 4- 14 mEq/L H Lab Interpretation (test code = Abnormal 95075-9) MD LuoBlood Urea [id number] 11:41:43 Test Item Value Reference Range Interpretation Comments BUN (test code = 5055) 13 mg/dL 6-23 MD LuoCT Chest Abdomen Pelvis with [id number] 16:23:35The mediastinal and abdominal adenopathy is seen on the prior study have resolved.Previously seen subcentimeter pulmonary nodules are unchanged. These are indeterminate and can be followedThe tumor along the left posterior bladder wall is unchanged. There is no evidence of extravesical extension. Mildwall thickening is seen in the wall of the left renal pelvis. This may be inflammatory due to the presence of the ureteric stent but it should be followed to exclude a metachronous urothelial neoplasm.No liver or bone metastases. Interface, Radiology Results In - 09/27/2020 10:25 AM CSTFULL RESULT:Exam ination: CT CHEST ABDOMEN PELVIS W CONTRAST, 09/26/2020 5:45 PMClinical History: Bladder cancerIndication: Response assessment - post-chemotherapy, induction, restagingComparison: 08/02/2020Technique: CT of the chest, abdomen, and pelvis was performed with intravenous contrast.Findings: CHEST:A calcifiedthyroid nodule is unchanged.There is no mediastinal or hilar adenopathy. A 7 mm left hilar node is smaller compared to the prior study.Multiple pulmonary bullae are seen consistent with COPD.5 mm nodules in the left upper lobe (4:64) and lingula (4:84) are stable and be followed.There are multiple subcentimeter calcified nodules that likely represent granulomata.ABDOMEN and PELVIS:There is focal thickening of the left posterior bladder wall is persistent with the primary tumor. This is unchanged.Theliver is unremarkable.The gallbladder and biliary tree is unremarkable.. Calcified splenic granulomata are seen. There is a left ureteric stent extending into the bladder. There is slight thickening of the renal pelvis wall with associated soft tissue stranding in the periureteric fat. This probably inflammatory due to the stent, but it should be followed to exclude urothelial neoplasm. There is no hydronephrosis. A left renal cyst is seen.No suspicious renal masses are seen are seen in the right kidney.The adrenals are mildly nodular, this is unchanged. The pancreas is unremarkable.There is no retroperitoneal or pelvic adenopathy. Previously seen enlarged and retroperitoneal pelvic nodes have resolved.The prostate is enlarged.Degenerative changes only are seen in the skeleton. No bone metastases are seen.IMPRESSION:The mediastinal and abdominal adenopathy is seen on the prior study have resolved.Previously seen subcentimeter pulmonary nodules are unchanged. These are indeterminate and can be followedThe tumor along the left posterior bladder wall is unchanged. There is no evidence of extravesical extension. Mild wall thickening is seen in the wall of the left renal pelvis. This may be inflammatory due to the presence of the ureteric stent but it should be followed to exclude a metachronousurothelial neoplasm.No liver or bone metastases.MD Terrazas [id number] 21:40:56 Test Item Value Reference Range Interpretation Comments T4 Free (test code 1.26 ng/dL 0.93-1.7 Testing P erformed at [facility] = 7502) Lab [facility]uene Operator Bld[facility], [address], [address], [place] [address] MD [id number] 21:40:55 Test Item Value Reference Range Interpretation Comments TSH (test code = 1.10 0.27- 4.20 mcunit/mL Not e: New Methodology 7578) and Reference R kenn change effectiv e 12/12/2017 at 14 00 Testing Performed at [facility] Lab Mononitrotoluene Operator [facility], [address], [place] [address] MD LuoFractionated [id number] 21:26:29 Test Item Value Reference Range Interpretation Comments Bili Total (test 0.3 mg/dL <=1.2 Indocyanine Green (ICG) code = 5096) may cause false ly elevated biliru bin results. Total and direct bilirubin must not be measured from s amples containing indo cyanine green. False el evation of total bilirubin can be seen in patient s with IgG concentrations above 28 g/L.Testing Per formed at [facility] Lab [facility], [address], [address], [place] [address] Bili Direct (test <0.2 <=0.3 mg/dL Indocyanin e Green (ICG) code = 5094) may cause false ly elevated biliru bin results. Total and direct bilirubin must not be measured from s amples containing indo cyanine green. Testing Performed at [facility] Lab Ambu latory [facility], [address] [facility] [[email or web address]], [address], [place] [address] Bili Indirect (test See Note 0-0.9 Unable t o calculate code = 5095) Indirect Biliru bin result due to some par ameters are outside rep ortable rangeTesting Pe rformed at [facility] Lab [facility], [address], [address], [place] [address] MD LuoTotal [id number] 21:26:27 Test Item Value Reference Range Interpretation Comments Total Protein (test 6.8 g/dL 6.4-8.3 Testing Performed at [facility] code = 7649) Lab Mononitrotoluene Operator [facility], [facility] [facility], [address], [place] [address] MD LuoCalcium [id number] 21:26:26 Test Item Value Reference Range Interpretation Comments Calcium Lvl (test code = 8.1 mg/dL 8.4-10.2 L Peyton ting Performed at 5258) [facility] Lab [facility], [address] [facility] [[email or web address]], [address], [place] [address] Lab Interpretation (test Abnormal code = 42038-4) MD LuoAlkaline [id number] 21:26:25 Test Item Value Reference Range Interpretation Comments Alk Phos (test code 104 U/L 40-129 Testing Performed at [facility] = 4768) Lab Mononitrotoluene Operator [facility], [address], [place] [address] MD LuoAlbumin [id number] 21:26:24 Test Item Value Reference Range Interpretation Comments Albumin Lvl (test code 3.8 3.5- 5.2 gm/dL Peyton ting Performed at [facility] = 4763) Lab Mononitrotoluene Operator [facility], [address], [place] [address] MD LuoAspartate [id number] 21:26:23 Test Item Value Reference Range Interpretation Comments AST (test code = 25 U/L <=40 Testing Per formed at [facility] 4731) Lab Mononitrotoluene Operator [facility], [address], [place] [address] MD [id number] 21:26:21 Test Item Value Reference Range Interpretation Comments ALT (test code = 30 U/L <=41 Testing Per formed at [facility] 4705) Lab Mononitrotoluene Operator [facility], [address], [place] [address] MD LuoGlucose [id number] 21:26:16 Test Item Value Reference Range Interpretation Comments Glucose Level (test code 274 mg/dL 70-99 H Eff ective 03/21/16, = 5699) the glucose reference inter vals have been updat ed based on [place] an Diabetes Associ ation guidelines (Standards of Medical Care in Diabetes 2016. Diabetes Care 2 016; 39: S13-S22).Fa sting blood glucose:Normal: 70 99 mg/dLImpaire d fasting glucose (increased risk for diabetes or pre-diabetes): 100 125 mg/dLDiabet es mellitus: >/=1 26 mg/dL Random bl ood glucose:Normal: 70 199 mg/dLNote: Random glucose >100 mg/dL is associ ated with increased risk for diabetes Te sting Performed at B Lab [facility]itrotoluene Operator [facility], [address], [address], [place], [place] [address] Lab Interpretation (test Abnormal code = 08082-7) MD [id number] 21:02:08 Test Item Value Reference Range Interpretation Comments Neutrophil % (test code 60.7 % 42-66 As p art of = 6491) Differential performed at [facility] Lab Mononitrotoluene Operator [facility], [address], [place] [address] Lymphocyte % (test code 20.6 % 24-44 L = 6194) Monocyte % (test code = 13.1 % 2-7 H 6422) Eosinophil % (test code 0.2 % 1-4 L = 5520) Basophil % (test code = 0.5 % 0-1 5068) IGRE % (test code = 4.9 % 0-0.4 H IGRE % c ount includes 5958) Metamyelocytes, Myelocytes, and Promyelocytes. As part of Differe ntial performed at [facility] Lab Mononitrotoluene Operator [facility], [address], [place] [address] Neutrophil Abs (test 3.44 K/uL 1.7-7.3 code = 6492) Lymphocyte Abs (test 1.17 K/uL 1-4.8 code = 6195) Monocyte Abs (test code 0.74 K/uL 0.08-0.7 H = 6423) Eosinophil Abs (test 0.01 K/uL 0.04-0.4 L code = 5521) Basophil Abs (test code 0.03 K/uL 0-0.1 = 5069) IG Abs (test code = 0.28 K/uL 0-0.04 H 5954) Lab Interpretation Abnormal (test code = 93633-6) MD Luo.[id number] 21:02:05 Test Item Value Reference Range Interpretation Comments WBC (test code = 8034) 5.7 K/uL 4-11 RBC (test code = 6932) 3.36 4.50- 6.00 M/uL L Hgb (test code = 5898) 10.1 14.0- 18.0 gm/dL L A s part of CBC or as an individual orderable testi ng performed at [facility] Lab Mononitrotoluene Operator [facility], [address], [place] [address] Hct (test code = 5860) 31.3 % 40-54 L As pa rt of CBC or as an individual orderable testi ng performed at [facility] Mononitrotoluene Operator [facility], [address], [place] [address] MCV (test code = 6222) 93 fL 82-98 MCH (test code = 6220) 30.1 pg 27-31 MCHC (test code = 6221) 32.3 31.0- 36.0 gm/dL RDW-SD (test code = 52.6 fL 35.1-46.3 H 6972) RDW-CV (test code = 16.6 % 12-15.5 H 6971) Platelet count (test 104 K/uL 140-440 L As part of CBC or as code = 6832) an individual orderable testi ng performed at [facility] Mononitrotoluene Operator [facility], [address], [place] [address] MPV (test code = 6282) 10.4 fL 4-10.4 INRBC (test code = 0.4 % <=0.0 H The INRBC (instrument 5974) NRBC) value ref lects the enumeration of nucleated red b lood cells contained in a 200uL sampleof whole blood analyzed by the instrument. Thi s value maydiffer from the NRBC value reported in a m anual differential,wh ich is based on a 100 cell differential. A s part of CBC testing performed at [facility] Mononitrotoluene Operator [address], [place] [address] Lab Interpretation Abnormal (test code = 84928-0) MD LuoPotassium [id number] 18:23:35 Test Item Value Reference Range Interpretation Comments Potassium Lvl (test code = 6854) 5.5 3.5- 5.1 mEq/L H Lab Interpretation (test code = Abnormal 77785-0) MD Luo Hepatitis C Virus Ab Screen, Reflex HCV [id number] 18:23:02 Test Item Value Reference Range Interpretation Comments HCV Ab Screen-[place] Negative Negative Signal-to -cutoff ratio is (test code = <1.00. Test Per formed 19530-9) by:[place] [address]Lab Director: Kurt Kirby M.D. Ph. D.; CLIA# [id number] MD LuoSodium [id number] 13:42:02 Test Item Value Reference Range Interpretation Comments Sodium Lvl (test code = 7355) 134 136- 145 mEq/L L Lab Interpretation (test code = Abnormal 12874-7) MD LuoInfluenza A/B + COVID-19 Asymptomatic- [id number] 18:30:46 Test Item Value Reference Range Interpretation Comments Influenza A (test Not Detected Not Detected code = 82105-8) Influenza B (test Not Detected Not Detected code = 21283-4) COVID19 Not Detected Not Detected (SARS-CoV-2) (test code = 83243-0) COVID19 SARS Inpatient Indication (test Admission code = 28865) Inf AB+Cov19 See Note The edmond SARS- CoV-2 Comment (test & Influenza A/ B code = 67897) nucleic acid t est for use on the al[place] s Annmarie System is a E-Generatorlex real-time RT-PC R assay intended for the simultaneou s, qualitative det ection and differentia l of SARS-CoV-2 (COVID-19), inf luenza A, and influenz a B viral RNA in nasopharyngeal swabs in transport me micheal from patients suspected of zuñiga ving a respiratory inf ection with one of the se viruses or poss ibly exposure to COV ID-19 by a healthcare provider. Resul ts must be interpr eted within the cont ext of all relevant cl inical and laboratory findings and sh ould not form the so le basis for a micheal gnosis or treatment decision. A fac t sheet for patie nts provided by the robotics testing technician ([employer]) can be rev iewed at: https://www.fda .gov/m edia/268329/rebeca nloadA fact sheet for Health Care providers is provided by the robotics testing technician ([employer]) and can be reviewed at: https://www.fda .gov/m edia/589999/rebeca nload Influenza A and Influenza B neg ative results should be considered presumptive in samples that zuñiga ve a positive SARS-C oV-2 result. If co-infection wi th influenza A or influenza B vir us is suspected in sa mples with a positive SARS-CoV-2 resu lts, the sample sandrau ld be re-tested with another approve d influenza test. This assay has been authorized by t FDA for use only un magdy Emergency Use Authorization ( EUA) in laboratories that have been CLIA-certified to perform moderate-comple xity and high-comple xity tests. The Microbiology Laboratory at [facility], CLIA Accreditation #[id number] and CAP Accreditation #[id number], verif ied the performance characteristics of this assay. Int ernal controls are us ed to monitor all sta ges of the test proces s. MD LuoHepatitis C Virus [id number] 18:22:54 Test Item Value Reference Range Interpretation Comments HCVAb Received (test See Note HCVAb w as sent to a code = 47641) reference lab for testing. Expec t results on Hepa titis C Virus Ab Screen w/Reflex HCV PC R within 96 hours. MD LuoUrinalysis w/Microscopic if [id number] 21:18:50 Test Item Value Reference Range Interpretation Comments UA Color (test code = Anna Yellow A 7877) UA Appear (test code = Cloudy Clear A 7868) UA Glucose (test code = 150 mg/dL NEG A 7881) UA Bili (test code = NEG NEG 7871) UA Ketones (test code = NEG NEG mg/dL 7884) UA Spec Grav (test code 1.015 1.002-1.035 = 7894) UA Blood (test code = Large NEG A 7872) UA pH (test code = 6.0 4.5-8.0 7909) UA Protein (test code = 100 mg/dL NEG A 7890) UA Urobilinogen (test NEG NEG code = 7903) UA Nitrite (test code = NEG NEG 7888) UA Leuk Est (test code Large NEG A = 7886) UA Comment (test code = See Comment Many WBC clumps 8512) seen in additio n to individual WBCs Lab Interpretation Abnormal (test code = 25000-5) MD LuoUrinalysis with [id number] 21:18:49 Test Item Value Reference Range Interpretation Comments UA WBC (test code = >182 0- 2 /HPF H 7904) UA RBC (test code = >182 0- 2 /HPF H 7891) UA Mucous (test code = TRACE TRACE /HPF 7887) UA Bacteria (test code 1+ NOT SEEN /HPF A = 7870) UA Squam Epi (test OCC OCC /HPF code = 7896) UA WBC Clump (test 4+ OCC /HPF A code = 7906) ASHA (test code = ASHA) Some reporting parameters within the Urinalysis test have changed due to the implementation of new instrumentation in the [facility] [place], allowing greater sensitivity of measurement. Urinalysis results reported by the [facility] using existing instrumentation, as well as Urinalysis testing performed manually or by backup methodology at the [facility] will remain relatively unchanged. New reporting parameters and units will now be reported for all campuses. Lab Interpretation Abnormal (test code = 60004-1) MD LuoCOVID-19 (SARS-CoV-2) PCR-Asymptomatic [id number] 20:30:06 Test Item Value Reference Range Interpretation Comments COVID19 (SARS Not Detected Not Detected This test is a CoV-2) Result qualitative (test code = reverse-transcr iptase 55392-0) polymerase supa n reaction (RT-PC R) developed for t he [employer] EDMOND 680 0 system and inte nded for the detecti on of SARS CoV-2 RNA in human nasophary ngeal specimens from patients who me et COVID-19 clinic al and/or epidemiological criteria. This assay has been approv ed by the FDA for use only under Emergency Use Authorization ( EUA) in laboratories that have been CLIA-certified to perform moderate-comple xity and high-comple xity tests. The performance characteristics of this assay were verified by the Microbiology Laboratory at [facility], CLIA Accreditation # : [id number] and CAP Accreditation # : [id number]. Result s must be interpreted within the context of all relevant clinic al and laboratory find ings and should not form the sole basis for a diagnosis or treatment decis ion. "Presumptive Positive" resul ts are due to partial amplification o f SARS-CoV-2 targ ets and indicates l ow amounts of viru s present in the specimen at or near the limit of detection. Regardless, individuals wit h "Presumptive Positive" resul ts should be manag ed per institutional guidelines as individuals pos itive for SARS-CoV-2 virus, including use o f appropriate inf ection control protoco ls. Internal contro ls are included to ass ess for possible amplification inhibitors. If inhibition is detected, testi ng is repeated and if inhibition is confirmed the specimen is res ulted as "Invalid". W hen an "Invalid" resul t occur, it is recommended to wait 3 days before submitting a ne w specimen for te sting if clinically indicated. 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 There is no comparison study available.Normal left ventricular size and systolic function.LV ejection fraction calculated using the bi-plane method of disks is 57 %.The right ventricle is normal in size and function.Right ventricular systolic pressure is normal.There is no pericardial effusion.Left Ventricle:Normal left ventricular size and systolic function. There is normal left ventricular wall thickness. LV ejection fraction calculated using the bi-plane method of disks is 57 %. The left ventricular wall motion is normal.I WMSI = 1.00 % Normal = 100 Segments SizeX - Cannot 2 - 1-2 smallInterpret 1 - Normal Hypokinetic 3 - Akinetic 4 - Dyskinetic3-5 moderate5 - Aneurysmal 6-14 large 15-16 ciuhuef7S imaginD volumes were not performed in this study.Cardiac Mechanics/Speckle Tracking Imaging:Normal global longitudinal peak systolic value. Strain Imaging was performed; GLPS avg = -19.2%. Apical sparing pattern is present.Diastology:Impaired LV relaxation pattern of diastolic dysfunction, Doppler suggests normal LA pressures.Right Ventricle:The right ventricle is normal in size and function. Normal RV systolic function using TAPSE criteria.Atria:Atria are normal in size.Mitral Valve:The mitral valve is grossly normal. There is mild mitral regurgitation.Tricuspid Valve:The tricuspid valve is not well visualized, but is grossly normal. Right ventricular systolic pressure is normal. There is trace tricuspid regurgitation.Aortic Valve:The aortic valve is trileaflet. The aortic valve opens well. Mild aortic valve calcification. No hemodynamically significant valvular aortic stenosis.Pulmonic Valve:The pulmonic valve is not well visualized.Great Vessels:The aortic root is normal size. The inferior vena cava demonstrates normal size and normal respiratory variation.Pericardium/Pleural: There is no pericardial effusion.MMode/2D Measurements IVSd: 1.2 cm LVIDd: 5.7 cm LVIDs: 4.6 cm LVPWd: 1.1 cmFS: 19.8 % LA dimension: 3.5 cmLVOT diam: 2.4 cm EDV(MOD-A4C): 118.6 mlLVOT area: 4.5 cm2 ESV(MOD-A4C): 51.8 ml EF(MOD-A4C): 56.4 %EDV(MOD-A2C): 108.5 mlESV(MOD-A2C): 42.2 ml EDV(MOD-bp): 115.6 mlEF(MOD-A2C): 61.0 % ESV(MOD-bp): 49.5 ml EF(MOD-bp): 57.2 %LAV(MOD-A2C): 52.0 ml EDV (MOD-bp) Index: 49.4 ml/m2LAV(MOD-A4C): 59.0 mlLAV(MOD-bp): 65.3 mlLAV(MOD-bp) Indexed: 27.9 ml/m2 TAPSE (>1.6): 2.7 cmESV (MOD-bp) Index: 21.1 ml/u7Ugzmmov Measurements MV E max chantal: 66.4 cm/sec MV V2 max: 87.1 cm/secMV A max chantal: 68.7 cm/sec MV max P.0 mmHgMV E/A: 0.97 MV V2 mean: 51.2 cm/sec MV mean P.2 mmHg MV V2 VTI: 19.4 cm MVA(VTI): 3.8 cm2MV dec time: 0.15 sec Ao V2 max: 192.2 cm/sec Ao max P.8 mmHg Ao V2 mean: 115.8 cm/sec Ao mean P.4 mmHg Ao V2 VTI: 35.1 cm LAUREN(I,D): 2.1 cm2 LAUREN(V,D): 2.3 cm2LV V1 max P.0 mmHg SV(LVOT): 74.4 mlLV V1 mean P.7 mmHgLV V1 max: 99.5 cm/secLV V1 mean: 59.0 cm/secLV V1 VTI: 16.7 cmPA V2 max: 97.5 cm/sec TR max chantal: 213.5 cm/secPA max P.8 mmHg TR max P.2 mmHgPA V2 mean: 56.7 cm/secPA mean P.6 mmHgPA V2 VTI: 17.3 cmAVA Index (I,D): 0.90 LAUREN Index (V,D): 0.99Dimensionless Index: 0.52 E/e' (avg): 9.1E/e' (lat): 8.8 E/e' (sept): 9.5 [facility] [id number] 22:39:26Study acquired at another institution. For comparison only. No [facility] originated interpretationrequested or available.MD [facility] MRI [id number] 22:39:14Study acquired at another institution. For comparison only. No [facility] originated interpretation requested or available.[facility] Abdomen and [id number] 22:39:00 Study acquired at another institution. For comparison only. No [facility] originated interpretationrequested or available.MD LuoUT Chest Abdomen Pelvis with and without [id number] 16:35:34 1. Masslike thickening and enhancement in the bladder base extending into the left posterolateral bl adder/UVJ and right bladder wall. Findings are most consistent with the patient's primary malignancy. 2. Left-sided ureteral stent in place. There is some minimal left-sided hydronephrosis. Some filling defects in the left renal pelvis and lower pole renal collecting system may represent some debris. Please see above. Findings can be best assessed with ureteroscopy. 3. Several calcified and non-specific noncalcified bilateral subcentimeter pulmonary nodules. 4. Nonspecifically prominent retroperitoneal and pelvic nodes. These could be reactive or secondary to metastasis. Interface, Radiology Results In - 08/03/2020 10:37 AM CSTFULL RESULT:Examination: CT CHEST ABDOMEN PELVIS W WO CONTRAST, 08/02/2020 5:31 PMClinical History: Bladder cancerIndication: restaging, rule out metastatic bladder cancerComparison: NoneTechnique: CT of the abdomen was performed without intravenous contrast followed by CT of the chest, abdomen, and pelvis with intravenous contrast.DISCUSSION : CHEST :Thyroid : Within the left thyroid lobe (image 11, series 5), there is a 0.7 cm calcification versus nodule. Findings couldbe best assessed with a thyroid ultrasound.Lungs: No pneumothorax or pleural effusion is seen. In the left upper lobe (image 59, series 6), there is a 0.2 cm nodule. In the lingula (image 70, series 6), there is a 0.5 cm noncalcified nodule. There are also several additional calcified pulmonary nodules/granulomata.Lymphatics: There is no axillary lymphadenopathy. There are some nonspecific prominenthilar and mediastinal nodes. Example, there is a left hilar node (image 61, series 5), measuring up to 1.5 x 1.4 cm. A subcarinal node (image 66, series 5), measures up to 1.0 x 1.4 cm. There are also some tiny prevascular nodes with a reference node (image 44, series 5), measuring up to 0.7 cm in short axis diameter.Mediastinum : No mediastinal masses.Bones/Soft tissue : Multilevel degenerative discchanges of the thoracic spine are seen.ABDOMEN/PELVIS :Hepatobiliary: The liver and gallbladder areunremarkable.Spleen : There are some splenic granulomata.Pancreas : UnremarkableGastrointestinal: The stomach and small bowel are within normal limits. There is colonic diverticulosis. The appendix is visualized and is within normal limits.Genitourinary: There is some nonspecific bilateral adrenal gland thickening. There are some bilateral renal subcentimeter too small to characterize renal hypodensities. A left-sided ureteral stent is in place. In the left renal pelvis (image 20, series 5), there is a small filling defect identified measuring up to 1.2 cm. An additional filling defect is seen in the left lower renal pole collecting system. These areas could represent debris. Of note, additional tumors cannot be entirely excluded. Findings should be correlated with ureteroscopy. There is some mild left renal hydronephrosis. There is some left-sided nonspecific periureteral edema. There is also some thickening of the bladder wall with some hyperenhancement and some pericystic edema. Some more focal areas of enhancement/thickening are at the bladder base extending into the left posterolateral bladder wall extending to the left ureterovesicular junction measuring up to 2.4 x 0.8 cm. An additional area of some focal masslike thickening is seen along the right lateral bladder wall (image 93, series 5), measuring up to 0.7 x 3.4 cm. The prostate gland is enlarged and heterogeneous containing areas of enhancement. Seminal vesicles are unremarkable.Lymphatics: There is no abdominal lymphadenopathy. There is a nonspecifically prominent right-sided external iliac node (image 272, series 5), measuring up to 1.0 x 1.5 cm. An additional nonspecifically prominent left-sided external iliac node is seen (image 276, series 5), measuring up to 1.1 x 0.8 cm. There are some nonspecific prominent retroperitoneal nodes. For example, there is a left para- aortic node (image 216, series 5), measuring up to 1.0 x 1.2 cm. Additional prominent retroperitoneal nodes are also seen. Metastatic involvement of these nodes cannot be excluded.Soft tissues/bones: Multi-level degenerative changes of the lumbar spine are seen.Other : No free air or free fluid is identified in the abdomen or pelvis.IMPRESSION:1. Masslike thickening and enhancement in the bladder base extending into the left posterolateral bladder/UVJand right bladder wall. Findings are most consistent with the patient's primary malignancy.2. Left-sided ureteral stent in place. There is some minimal left-sided hydronephrosis. Some filling defects in the left renal pelvis and lower pole renal collecting system may represent some debris. Please see above. Findings can be best assessed with ureteroscopy.3. Several calcified and non-specific noncalcified bilateral subcentimeter pulmonary nodules.4. Nonspecifically prominent retroperitoneal and pelvic nodes. These could be reactive or secondary to metastasis.MD LuoPartial Thromboplastin [id number] 22:07:38 Test Item Value Reference Range Interpretation Comments PTT (test code = 32.1 24.2- 36.0 second(s) Peyton ting Performed atACB 21932-9) Lab Mononitrotoluene Operator [id number] [facility] [address] [id number] Licen se: [id number] MD LuoX-ray Chest 2 [id number] 21:19:24No acute cardiac or pulmonary abnormality is detected. There are no radiographic findings of intrathoracic malignancy. Interface, Radiology Results In - 08/02/2020 3:21 PM CSTFULL RESULT:Examination: XR CHEST 2 VW, 08/02/2020 2:57 PM.Clinical History: Malignant neoplasm of overlapping sites of bladder [C67.8 (ICD-10-CM)].Indication: Staging.Comparison: None. Technique: Posteroanterior, lateral and dual-energy radiographs of the chest.Findings:1. There are no focal abnormal pulmonary opacities suspicious for acute infection or malignancy. There are multiple small calcified pulmonary nodules consistent with sequelae of prior infection.2. The mediastinal contours and cardiac silhouette are normal.IMPRESSION:No acute cardiac or pulmonary abnormality is detected. There are no radiographic findings of intrathoracic malignancy.MD LuoPathology Outside Interpretation 2020-07-27 05:50:00 Test Item Value Reference Range Interpretation Comments Materials Received (test y1nsjSPlSUVdvIVxOhYl code = 9973) TVYkTMVqn6pvPLWprDXe ZzEwMzNcZnRuYmpcdWMx TSLaDsFpr6zrl997cTTh c1rjMJSiCcE3yUEoGRPm wGOmF023SQHgCPkbf7ug i6SqWGCiiQGlf5N4HGLP gkbhkAm3lQvaI66ss2Q7 EmrzY6rvECIsDJRaJ2Oh YJ0mXEEwHpp2DLG7UQH3 NYTfBZZsX4MlHE4yNILn sVJzDPy6t7vciZwwGVRg XUI5d8ghNDbnubMlTN5k ms4xfTw8s4acknImCONv SVGifFCQFJUfI7UktCfn Jx4hwIs1hOxqDcytXPH5 Byb7KJ4npu37mcp8hZms CZIwkxzxDyO5ZWauIPFa agbdGEt1AKnaUNZlnMxr MFxtYXJncjcyMFxtYXJn uXE4MNOgkYMcT0JcPBSz FHrsLTPowrn8HcXdDi4r tTUskVrnWAbbs7evu4mf fHSrUmr1IVOxAhPlTsso ZOryy0Syj3aySVGedo1r TSO2bJGtfVkky6T4sKAf DWKnhNDctnYgCCVkcu31 fFMjePTgjTLerw5hjpKt vUVyzBNyFLL1oLEqflEw ADFytKLuCJJiPW1hfXRf NPUgnM0wjuwnZCMqKvQu prucELQhzXkhyuJjPn6j gGzlOZG9UHkmB1qlhJ2f JtY4OCinF2nvjL9rRCe9 SRgdqCG9TLXweA2xJG9d tvfbi7txJqTxLZ2ywnol f1qjWrMqYU7tboq7l7wd OCC3GVwiFTPqRbI2lbI2 NDBcaGVhZGVyeTcyMFxm o932UBG6SsGnYNHxd4Kb N0ChkLycI37dnWbiD11q RWFusClovU4qcCmnmK3h VtYmEbZwDZf1jg21MXp0 tmhorYqjACb4qxNuUQDa NLN2AWTmtCMlJOGgX2h8 teRaVGUvTLO9KTAlvHEx WVVyI7w6msZuKVM2CYd0 cnBhZGRmdDNcdHJwYWRk YjBcdHJwYWRkZmIzXHRy rZUmjYDhkYUxeJ5esRan BGGdaQMeqK0oIFO2UZMr cmgzMjBcdHJoZHJcbHRy nv15TEMcvpPzgTWiaFqb cZVxQWR7GFHdNTBtTJKp LEV4XAWfFbJgctOaMQpk bGJyZHJiXGJyZHJzXGJy ASE3VMWvByEvneYkGKmi bGJyZHJsXGJyZHJzXGJy PJW1RHDpReTmrtRpTAjv bGJyZHJyXGJyZHJzXGJy ZUQ4MGWwMgSqvkZhCPqs bHBhZHQxMFxjbHBhZGZ0 L7gvvHQjHNXsEIdtpHQw VNToE6zluLUaYBjtVTGe cGFkZmwzXGNscGFkYjBc O4hvAZBiNkVaH8PkoLn3 MDAwXGNsdmVydGFsdFxj kUWiEBH7MAExBKHmEEKk JOL1TJYjPmSmhiOvTYhv bGJyZHJiXGJyZHJzXGJy DOI9DQTiXyWiuaIvBTyt bGJyZHJsXGJyZHJzXGJy CSR0HPEyHqRyawXhMFrz bGJyZHJyXGJyZHJzXGJy ICN5ILRaFfVfueUfKTot bHBhZHQxMFxjbHBhZGZ0 O6pgrPTkCTMgPPmihYIq ZFXcK9mscDXnHFxpPXHq cGFkZmwzXGNscGFkYjBc S9ahAXApCdYrT4PylYt4 NjAwXGNsdmVydGFsdFxj vVBjNFD2XBVvBEPqBVLq RRZ6EWVfHaRkxpWmZLmk bGJyZHJiXGJyZHJzXGJy MQI7XWTtMcQoozYnVOce bGJyZHJsXGJyZHJzXGJy ESU2HZJkGyJdumZlRSdv bGJyZHJyXGJyZHJzXGJy QAM4IJZcTiMfmoPyLUwm bHBhZHQxMFxjbHBhZGZ0 A2aepPWfIGVyOYlnjMNk HIEyO1kkpKLjKExhZSXt cGFkZmwzXGNscGFkYjBc O2tzHVXhZzFzR4RzoIf2 AwKuLHDqigPzkH73Bvjm n9RoENAgTWS1NKwdEViv bFxwbGFpblxmMVxmczIw CFnqzcncIEKjEOoeA5ma NpSrPMDbgArcVJxuh7Gg XGYxXGNmMlxmczIwXGIg ECRtVHKhtQ3lUwljY7Up hC2sUNbeUaytL8wnWGJv c0NmjO1cWKwmvHUydvgn MVxmczIwXGxhbmcxMDMz FYlrX6tnKlRbTJOucZnc SIzqy6YkVCLnXFKgMbyl hdHaPQk0hsCwEXAhrJzu kWPhYOsslkSrbVxhp9Bw smRmoHopDVGtFYr4mwDq usnzxZv9xYXrqCyjWAPj fHmlrO6jXjXyKwLsGAba bGFpblxmMVxmczIwXGxh fnszHHLgMHugC7ooIbNp MSBikDldKGito9DfGKVu FCClNjvdnfIcAXViW47a bGVjdGVkXHBsYWluXGYx XGZzMjBcbGFuZzEwMzNc aGljaFxmMVxkYmNoXGYx XTgtO1ugIdQhX0YtLZTg ZtLzjAKkB8ihN8JrzLjl YXJkXGludGJsXHNzcGFy XHO9zIIitoLszTTopDMn KGWjUOtmKRO6kKIejknn xDXcopuwTTznjkU9RZZz YWluXGYxXGZzMjBcbGFu ZzEwMzNcaGljaFxmMVxk VaMbCFBiKIfpR0hfWrIg K8VyIXIgMfPeZrVUIFNn aXZlZFxwbGFpblxmMVxm czIwXGxhbmcxMDMzXGhp J2epCrEpMHMqfAhvEOul a2DxVJMtWBWzRfmqysMu PZj1yeOqLLPdsUbxyY60 Zhfssk02DXYgv5plTGZu A4TflNViEQDfeZCgTVww MDhcdHJwYWRkZmwzXHRy cGFkZHIxMDhcdHJwYWRk ZnIzXHRycGFkZHQwXHRy zANpKUZ4Z2i0jkMqWFIl DRa8xzPiHTXiBcOrpPSz NKK7BVh6JpefndZ7tLLy M7q0UcrrpeSfMXmmyOYf rh03NPPfqkDgiIHraHqw vNTdLQX4CZBaURRvKWBc TYX9TNWmRmBxilPpJFop bGJyZHJiXGJyZHJzXGJy SVF3OOVeDeVqdtFvTWph bGJyZHJsXGJyZHJzXGJy VKR7HEZsZrHbbjQxBAxe bGJyZHJyXGJyZHJzXGJy BPW0WZCbUbPhhqWrYIbj bHBhZHQxMFxjbHBhZGZ0 D8ntmCVnOBWlNRudoXQm DLSfW7jfhOPyOGevWEJd cGFkZmwzXGNscGFkYjBc A5twOEFpMyVtD9MpgIh8 MDAwXGNsdmVydGFsdFxj fRAlMWQ7ECYeOLNcILGs KPV6LNVmFdMsgzOcNJjo bGJyZHJiXGJyZHJzXGJy XUM9JLCzRdAlcdWxABop bGJyZHJsXGJyZHJzXGJy PEL2UXVlFpZjueHbYXaq bGJyZHJyXGJyZHJzXGJy AXW0WHSxEqDocyUuQJgx bHBhZHQxMFxjbHBhZGZ0 O7coqVQoKPIvUDbyzBOh UQRpO6qvuORkTZbqBGZx cGFkZmwzXGNscGFkYjBc X2oqBLUuScVsD2IvyDc3 NjAwXGNsdmVydGFsdFxj vFHjMSH0AHDbPDJnGQBm CDR3UVRxHnTvpcNhCJod bGJyZHJiXGJyZHJzXGJy JWK0SIYnOoSukiEeZPir bGJyZHJsXGJyZHJzXGJy ENU1DIZfSpQiolFfTKpd bGJyZHJyXGJyZHJzXGJy YSD9BYYxHmFbehMrEIjg bHBhZHQxMFxjbHBhZGZ0 L1qlvLFjRYXxBKoabYGn DYMjA6nzkVNtDBmmABJv cGFkZmwzXGNscGFkYjBc W4ybTYQtFmZcD0CvvQp1 WyItUMSthnWqfY37Kwbf f7HfSZYiJGR0CUgvISps bFxwbGFpblxmMFxmczI0 XHBsYWluXGYxXGZzMjBc bGFuZzEwMzNcaGljaFxm QEaqSwWePPUqRAggT4qv BhDmH3EpQFWaCmBiYE1s YoJwEBKpLgl2GCC5TWZS UFOdGSGDJ6GKVfgxJCGQ K7YfqFbvfE9mBrAzNhVc NLwyDN9aSIOpJ0svkSZt GPFfTQSkS4abTnNbcF4t aFxmMVxjZjJcZnMyMFxs dHJjaFxjZWxsXHBhcmRc yQ23Hkidj5HnVVUvWUD9 MFxzMFxxbFxwbGFpblxm IHpmmsU5ANIuPZoxCSXo XGZzMjBcbGFuZzEwMzNc aGljaFxmMVxkYmNoXGYx ORobR8kvIvPsJ4HxYKUe MjAgMTEvMTMvMjAyMFxw bGFpblxmMVxmczIwXGxh qvaxTFLiHPgcR3heVfLy JRSgyNznWQjev4KbKVWx ZUQfUlvpwvBvMVo2ocVm XGNlbGxccGFyZFxpbnRi bAhpe5NiilPqoQxwZIRi XHFsXHBsYWluXGYwXGZz QzRgzSmzlX1eHgPtXnEh ZQfnAI9aMDYuR3pfuSHl CVTgIVHvJ3xnCgDdlQ1t aFxmMVxjZjJcZnMyMCAx HX9zRX6sJZOeXJEnTEqq XGYxXGZzMjBcbGFuZzEw MzNcaGljaFxmMVxkYmNo JBZcQXpjO0zjPtCvT6Ah GJPcKwUvjURpU6ufD3Zg dAsvgmNeoNoze4epfBZw ZIwbv3ScjfMyqCfxWLGq XHFsXHBsYWluXGYwXGZz YdZqwQdvyY3jJvAbNfJx PZgxIU4sHCQtV9cxwHPu FQVvQXFcH5hpFbKhlD6r aFxmMVxmczIwXHBhcn0= Diagnosis (test code = a1ysaFNyWQEvxWS8EtXv 34) GAEun8gwp0WojZFbcDIh EPtndGKaqeZhrj33lRC8 bW25IK2lMZUbJtH7AJTw qlR1Dyg4VZLbOZNetGIp C104m6grp5qoxbSvlGV3 fVxwYXJkXHBsYWluXGZz ItJuT1S2i8cfZGPfGTOq GLfZAhEqFAH0ZWoeRElu F6BoZBAeCfrMS9jNELCo KMTPCvfjW45vpCUfcASs AK0hKEHyRoCuRdMxSmTf SoQIQHViN44jbRIyZEZk LNBnaOvxr7N5HWTzkjjo aTcyMFxyaTFcbGluNzIw XHBhciBBLiBVcmluYXJ5 QOYbRNVbZTAjRPNoC2i8 PBthhLEzSLbzd8NhdBSk bmQgcmlnaHQgYmxhZGRl ciBuZWNrLCBUVVJCVCAo QTEtQTMpOlxwYXJcflxw YXJcbGkyMTYwXGZpLTcy PYgeaH2iBDKtVZVVR2ZS BEkGOKflC3HFF6cXI63S LCBISUdILUdSQURFLCBF WFRFTlNJVkVMWSBJTlZB Q3xQKCPKHsSGEU5ZL4RV DSTLIOEjQBQXQAWZCR2s lPHxCP0bdQLoTQlNBIYY N5CRX5URDFGLDRuPKrWT AO3XWAiSEOWDUBOZAiIu XHBhclxwYXIgVVJPVEhF IEmGKRZKQLDAKU6NYHGi ZM2oV8tRDE9bqCLrAZ6i cGFyXGxpNzIwXGZpMFxs iK19QpKuUn2bHNHstkNc eSBibGFkZGVyLCBsZWZ0 FRYpqXrraqJcIK7xRJlc ZnQgYmxhZGRlciBuZWNr LCBUVVJCVCAoQjEtQjIp OlxwYXJcflxwYXJcflx+ PO4lkdx+SU8gult+XH5c flx+VVJPVEhFTElBTCBD BLTEWF3VEXBuLKgRT7dl P2KKNHXpKPuBXyKKARFF XQrRVC5cTTTCL2WKJAMK MvANPa5AKpbASavhWZXg flxwYXJcflx+EB7jvcs+ CR6dqeo+VH6gsyc+Tm8g DDBecM9rvKw3GBOvkH4o sD30OYRcsSedocVsidAs g8iqkwQaRSUwzBcamCVw AzDrrJZrSR3acAWnSONp CJUzpC1hjreyJgzzSFGx ntpzjI96ZFGpb5Pqrdto wnE1CYnfIHR4tGDxOW7a MBRizUBeYRCpOlJkzv9c oZK7bTZcfCAsgFsaZMgc VFVSQlQgKEMxKTpccGFy NA4miYIuFX2ngop+XH5c flx+GB7oqyd+RL6QXv3M LASMHPSGOJHYUfBNXp8T IIrxGDdGXO4RCyMFWKzn KL4OEAFRUdMaBI3VJxWJ GZ7NJgTzESGLIGHQXV6h eGNtOOzlVCnzdB4kQLOj chpawLV1RFChNvdjRgKs HPTkGKC3DPzkjL3dZGVg MPPulnW3IDYuEEClMWBk XBRyICXMC2WQTUiGEKdg N4KEF8rRD42GIQlPNQUH VFUuXHBhclxwYXJkXGxp KjWqGIXiMXpqqQ71ZwYi flxwYXJcflx+RF8bxtg+ QZ5blkz+XZ2zev44h5Q8 bGFyaXMgcHJvcHJpYSBp ifNffnNvKB01PFYvTHWx cvNhHP8eCMA4dE5xEley YXJcflxwYXJcflx+XH5c flx+DE9buis+PO6xen2l IGRlZmluaXRpdmUgbHlt xNoxtrZjZ2ZdMNUfkT40 BUWym28idZXstqDaCsyz ZW8oCOPrppk+ZN9nozv+ ID6ucur+CG3sixj+XH4g NKKoinRTKsHGud5ueYP2 aWMgdXJldGhyYSwgVFVS HYCsf3XcfHYbXYHhFlcg YXJcflxwYXJcbGkxNDQw MAXpJRhuTHczoR4nNBRk FY2zeab+IL6egfg+XH5c flx+VQ2lvcLgxeMrDRWt dXJvdGhlbGlhbCBtdWNv a3Xfb4s4fUYzv9VgxWQw bjPeMY7vDRVhx51gRZXf IKyxGbsrqw3soVHtnBgi qkB9vCXmxLGjAT7eWVTn z7Z7AFXoJzEvkJZjKGNo v0YnwyR1aY3xcqFtkaPj VG35GoeuHPYagSr5JcMq ZmkwXGxpbjcyMFx+XHBh clxsaTFcbGluMSAvTVox XHBhcn0= Disclaimer (test code = y1atdKDqNIDoqTHcVuXp 9844) FJBiXBKbp6ldNTFlwNYr ZzEwMzNcZnRuYmpcdWMx QVInNuPzw4xss762rHJv d7kaHCHlWhG8vPXeDUPm nNAhU176QSSxMNkmo2fw b1AlVUXvgBKgy2R2RQFK cudmqSo9oYkgZ32zq9U7 CkcsF1kbESPlBEMaP8Gj AT4aHINjDzp6TKV9WTC0 UQMiDKQtL3AkRV4vPHJo gQAzVVc5k0xszWukWXAy ACY2o9xqHHvxjmDsZL8c cw4wpXi1d1gavkYlWQTg OYFxnTYMPNRdN4FvoGdi Ai5kdOn5dIxbLareBDK7 Alh2ET1ojz52wuk4bKah HHYgjxbqOwX6UEguDJWa olvtFOo2AVebRHYspOD5 FCXvuTUpR5CgRQShCF0v rim2RTI1NPgoHXSgOxK2 NDBcaGVhZGVyeTcyMFxm d649DQO7LrKeAH4lQ4Bv t2L5aX7bpMSxATCyiACi SsEnWSFnce8vqGRuBMat q8WbPAD9lwJ6mSHleZUr DFGkTI50Peszi9EsBmxd EMC4QYLzjfHws9Hrj7es GuTnnrTfU2hiX8LvCQTs DPEnGEHlUyTijlHhs7Ao g6FoqQDiuMw2j9izWJHy BWLsfKcnw6ooIAT3OIRk V1Y5kCQps6yqAQvqXEYt bIX7kqC7JOIwtCSgY0Le nU1oDSTxFL2idkp9y2fb SSW4IMwzRORzUdW5xmZ2 NDBcaGVhZGVyeTcyMFxm k146DUO8FmPgNQPkm8Ib T1UxqYphB83uuZkgJ23v NMEpmOsbfJ1ouJsxlF1v ZjBcZnMyNFxxbFxwbGFp bzycOWhubxW0JYcgmemr XYCkGPfuK1fwQmJmQWIs bTmuLMtbv1JnAXQbXKIy AyuobzK2AIVVz32rTARa f6DcPKMezW3ndJUhZHpy nwNgnQR9RChejvMsYbSn lbYuHSFznL2xNDNwYC3e RHIjjyPhie4lxgQtLHEk AMRkK7CnbjmwxCnxkcDy MDBotp4hbxLqGSE3JTKK CI7CTETtGAAdi48fWBYn lPyhkS6apACzwbItUTOp l1RzaI2buXUECTNxE1ok RA1pLIuue6BgdADtlWCh kRP3MPLgd8ZqUyUsipGs zANqhGNtD5NzwUkkK1nt XKLcENVdzxDjqMXao3Kg UHNiaPL2iPIuLL5FPpGM n27uOXDeTBDNhiBnEZPn eYnvqFE9hgU4cR3bKyQN ZiBhcHBsaWNhYmxlLCBj a431mi3xfxF5HYVlMARy ckssb7RvJVZxOSQniB71 MNMdWDUwhz8civtmgPUb wfSxU6Yiyjd7fK0aFPLi YWluXGYxXGZzMjJcbGFu ZzEwMzNcaGljaFxmMVxk SjCqDEFbBPfdL6qxYfEs ZnMyMlxwYXJ9 MD Rodriguez [id number] 09:33:00 Test Item Value Reference Range Interpretation Comments Case Report (test code Surgical Pathology = 104) Report Case: [id number] Authorizing Provider: Nathanael Garcia MD Collected: 07/08/2020 03:03 PM Ordering Location: [facility] Received: 07/08/2020 04:15 PM SERVICES Pathologist: Harvey Caldwell MD Specimens: A) - Bladder Tumor, 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 B) - Bladder Tumor, left trigone and left bladder neck C) - Bladder Tumor, 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) D) - Prostatic, TUR prostatic urethra DIAGNOSIS (test code = r6wmvRLpSPMyx1zdGVFsoUH 3220) uZzEwMzNcZnRuYmpcdWMxIH tccnRmMVxlcGljOTIwMFxhb kMoYPUviFCcC4SubtogKWgl RN0iIJ4ocQptvZSizOIsFED bQbPwi1owz729bGDfb5egXO RFkjodlYj3gAcxB81uq3D0I twfD19cjJXsDYgxaSLyetuk czIwIEEuICBVUklOQVJZIEJ IRSIZEZZxOFTHW7nOUPpMRF YXZYnxB8BZWRFDQqMlBmlLP FQgQkxBRERFUiBORUNLLCBU UAZLLBkauDXpGXYiSQ0xPMS CYZtKXBFUYQEGO5IBHZmFIE xoV6ZDG7uFA88MYFQKMXwDX FcRHDXXUKhQTL8tZ4TVLLUn MyksIFxwYXIgICAgICAgICA xXN5CZAIAYfFyRS2NXaJJHP JMQUiFXryPTVRZW5YJDULvj XGjKHZbUP8uWeWYMLQDWcQn Wx7MTKvKOHGUV0GVR5LBSBR PONqBAwVAQF1KMUXdpmlyKT OiMb8nBDOZVL4PWqckMyrCD QNLVcoaKVMYDJBDJmcHL80T IEFORCBMRUZUIEJMQURERVI jFbJDRdelRIBPFpK2XGZiky AgICAgLSBQQVBJTExBUlkgV BGSRRiEHRdCLVOISAUPBH5K SYWbQPuEU1ofK1ZGJFMuUHc ITyBHUkFERSAzKSwgXHBhci VlSSMcRXAvWBVLCeRAS0jCD FUEIvOYJT7MZ5GDMBDUJVSd UFJPUFJJQVxwYXIgICAgLSB PVLrIAGmMARKHD9GnPKcDJC fsKcVFK8XKZXAuNJ0JHSKXI 05ccGFyXHBhciBDLiAgVVJJ EuWRTXXKMHLVPVWTGNWQK8j cYE0FOFMBZW4ZDWpVQQfyAG uYGQkiQ06GJIPMLGIGJQ1JL JFXJ6QWKJVEBlFICxOZIQJP LCBUVVJCVDpccGFyICAgIC0 gZBZEKJrEHSXLKPCJQ9VLPB kRGSgwD5HCU2rKI55TMHCUZ SxWAOeVFQRHVUpGKP5aP0GL REUgMyksIFxwYXIgICAgICA xDCSyVC6YPLOWRtDmGF3WVk MIPW6FTuAlIWPGYWRRWHhdB XIgICAgLSBNVVNDVUxBUklT LGUFR4TBBJAkZQGeEc3SHNY CCVNMWxBcoXBdLHBsGF0fNi OVYHTHOyCcCp9OMEhNWEOLN 8VGE4XURYSUTLdPGxHIJW8J KEFpjkSlKWXgKC5YCXTMYCz QTPKAWr8MCQVWXVCaD4MKO0 7PPJpQCJyjVv2cJRGUNK4DO 8pVJkYANBSGV0YLRHInhahm BUVgMF9xYZTZT1QZEUQYHyQ VUkVUSFJBLCBUVVIgQklPUF NZOlxwYXIgICAgLSBGUkFHT ORZNFDoW2PaMbBAJBpACAOO X5RJCEJBNmMYXIXMAMHwW8v VRGRLDeDVKBWMB4nLN9hGJB EKJB1JCOIdgIYugPfisbOmJ Bjve9PtDPfuXNCdRW2nkXjq OHHaWH0yZXCwL0exoR9oxux 5KlIkXMOnMpI8WHKpbzZ0Ao r0EHCoRNczy2djq5HsQVOjR Oa2bEzcJtBbGGPik6mdlbYk LiZoRAEpAXZjIVSlqGYfF98 8b5qyl7pfdiIhhDP5KFMxYK W7PVlathQiknY4QZzhvLPgN mS6OVcadcJjIDbckbMsewGi Nww1DKEaW945HLT9yLpbz7d uQNS2PKWfQGZbLrQaOf9ipB OtV316WGWrROYUZPJneKp1Z EKaqqAsazVxgEFSe415M052 r1xeMLHdjfIhqPgTnesdk8f sZ833GTPntLYlgaOpDmSqQI OigQZniXK8ONBwUX9arqeoP BfzIIslJBPtwgK3YYJicFPw F2ChNYRqLL3kmwfdCNF3IYg pHOHpZLN0FzFbIRYbo4Zrci m0ErWnof3qvx31KDS9u7Bjq CjeWQF2DDE3XzYfBd7njVNg NMBeNU4nFcDuqMEpIHHwpy9 5xHobGQoqDAM1UFFqvxBax5 Xda2nkMeBivhStJ0amL9YcJ WIgZZOcBBVrGoBxfvZcd7Fe g4ZwbVTykUw3l0wsCJSzMMZ ndXsmj1qmPRE0IZQwnVDiN9 ylfZ9pNOUtSK5fcdyvn3fmT WvvOIkbMCRxkJX5weZ1TCVh tQBoC7QimK2yRKQhRYxbTWW codc0TvQjYr1mwUKivHyhJI xzYmtwYWdlXHBnbmNvbnRcc GduZGVjXHBsYWluXHBsYWlu XGYwXGZzMjRccWxcbGFuZzE wMzNcaGljaFxmMVxkYmNoXG WePWvgW6znErFyRqNrIru2P WGkkFOrOSFlOxf1IYOhdAUg ACUIaIapaB1cSWOwwSnmvY7 gpEC5ZXFxirQzgUBUjC2iKC TFtF3oUsY5CgOqGlJ2LMI7K DJccGFyfX0= CPT Code(s) (test code v9ueaJTaLEQueNR4LuAtWBP = 3357) gx5mut8VjrWEqkARwDTqbeF SmxcCuhu41pMI5nN16SN3vW XXlXaR7HEPtfzO6Wqe4JZKa MYDllPPgR835i9xdk5ayuwG mxRF6uRqtKBNmGGBhVNubXS BzEmYvCBudDFruIDNxXQH6A DMwNVxwYXJ9 CLINICAL HISTORY (test g9yocCRySIQwdGY0RmTzYBX code = 3356) hu0lvi9GhlTCojCAnGAsamF IcqqAxux03sHU0cT47MP0hO LZbBbY9MLDiqsK7Iva2WONc TYQvpWGfM046k9duu3uijbL pnPO9xPeySNBrDAIgJQijTR EyZbWbOQAnn4PiXPpbE79mz 0zpJuEsHCWcfBmfLJ47MU0c e9UqNTAdOX2wLR15EWFlWBO hcT8aKHJbqPUbz0VnPdxlDU RlclxwYXJ9 SPECIMEN SOURCE (test a4pnjSPxHUDzpDY6HcDfGQG code = 3377) fr9pdp1HgzNQniWFgZJgriD GcnmJqmz07wVG5vS61DZ1fO EXzWvQ5WIXwahI1Hfq9HKDi BHVleIHzS003j1pia0bfhhP tlMM3zFjdUNFrDQMeBNffEU GiIiUxBRG8czMTSePZzQAyS SYzWQX5iB0pAxIMDfRDqv3k iJR3wNUueMTfkZ== GROSS DESCRIPTION e8pdqXQqDBUdkNA1WtBuKFZ (test code = 3366) fg6wvd6ItlLPmyCBnOXqejT EpjkOmfp23bPZ5hA35CN7pE OJqXrG6JRAwpmR0Jsw9IYAw YFAxqRXcK217j3poz0tgcuD scZA5rRumHAXtWQJdQOwsXO NjUrKqIP8wTpFdQVm6WXQga Y6dSn9akKNksF1whDYsPWcw XBD6mVQcCSMoHFDyLVBuBP9 6D3UiesZwKRquXUGzSTXwgB 1wIU31fUXwffIshhZePoCnW 0h9XOnroVHmIXmrn0NzyKYf bmQgcmlnaHQgYmxhZGRlciB rCILsKLM7wV9rEaYdurSsAT ThWjE5NPPvVWX1XNKxYPPnx UDfV6axDOeqpWGhm3PjzVVr DVUovbroqeJwIxGjuXQ9rXT hrPRgt0ukY1iegOWiXM80jI UslHuqt0NdtBt1gSQhTLdqD EExLUEzLiBccGFyXHBhciBC UfVWBACsjRZeOETntcDoe2A tYWxpbiBsYWJlbGVkIHdpdG ggdGhlIHBhdGllbnQncyBuY W6eEAYcT1Vbo2Zor72zufQa DlCiGNGhPZYwcHTksVR2lht ot44dFFVoUIVlVZJ0ASVnAA EkAPIjufNkavO0bO4ujsRen ECjONE8SyQbuFIaKkmzwGYl PuLxU77lDLgmopIbCVMqER7 cEMFdsh3cdX3gPHN1IfUlkx zruWiec0NvONvotKMeSAvoJ BWcdVowRLi0TTO0Fh0chIBe PAHzgoVQYG7CYc8tZFOjwck zOBCmTk7hXuJbUNo0EFGrdB 6iTw1dsMXjdI1hvKJdPChuQ LM6zLEpDVUgHQYeMASwXX86 C3PobqGaUTywPBYtMZRzmN7 qVT62xIUmhnRmxaSsZzrpum Gyk1Z6RAOjy9Obc9IdwTIam VQiUGFxDRF7zW3lEDefmVup g88bPQXlEIYhVY0jSMJtg3K 3XOMqAmC8omZ0kOKhRiEobw UjLQNjTHR0SUHgFpO6JMCjY dDvbNIdD2rzQOrjnTWug0Gp dGFuLXBpbmsgcnViYmVyeSB 4tBYlpXYct4moJ1pdaZKkn5 HzzTf8hYIxYPcnLJQdjW7do I5lQdNrDBrcSLMuxGSuJNDy SYWoE5WyixQnRPkyFUVdwg6 khCwiKSwkTtHpPZFfn4p4iP K5qPMasXX0rMGhvIhwVI6dk UWcEEMnU6Hnm2znrsQkzB4z KLGnHC4bGUOcla1smOU5sRZ gdXJldGhyYWwgVFVSIiBhcm OnzRtmKZXvhgRjeKFaAXS7E PAjt6B5PQHaVUHwsNSownwh uEPtzI7kKH77SBHgRLziDDg sUZL4JTK1EHPhaKIkf9qhnn P4yLbmpMJmoxPza9TjwGb1i PEvLWhqWEEblY0xnG6uIBOq LNOLCP0anKSkcROqeG== MICROSCOPIC f2ckhFHtLSBjtGH1FpGsBMP DESCRIPTION (test code hm9qms6QrgFNapKOjFBpewJ = 3371) NcldOuwh59zDD1vX32GR6mG GAfAcC9DXHwslV0Kcb9JBQv YJCfwSDbR367j7mlj2zkrmN gvFK5eYyxILXoBEQqPFxkCR IaLpXmBPBzCq1icDPhWgeyQ XJ9 [facility] Center[facility] [id number] 09:33:00Surgical Pathology Report Case: [id number] Authorizing Provider: Nathanael Garcia MD Collected: 07/08/2020 03:03 PM Ordering Location: [facility] Received: 07/08/2020 04:15 PM SERVICES Pathologist: [...] PATHOLOGIC CHANGES Signing Pathologist Direct Phone Line: [phone] signed by Harvey Caldwell MD on 07/12/2020 at 9:33 [id number] X 3, [id number] diagnosis: Malignant neoplasm of overlapping site of [...] in toto in D1. PA/pl Performed.POC- Glucose [id number] 11:38:00 Test Item Value Reference Range Interpretation Comments POC-Glucose Meter (test 123 mg/dL 70-110 H : TE STED AT [facility] code = 1538) [address] [place] [address], 770 30: Clock And Watch Assembler/Techni lyn ID = [id number] for JAMES DEGROOT Lab Interpretation (test Abnormal code = 75201-1) [facility] [id number] 11:38:00 Test Item Value Reference Range Interpretation Comments POC-GLUCOSE METER 123 mg/dL 70-110 H : TESTED A T [facility] [address] [facility] (test code = [facility], 1538) [address]: Clock And Watch Assembler/Techni lyn ID = [id number] for JAMES URIARTE POCT-GLUCOSE [id number] 07:44:00 Test Item Value Reference Range Interpretation Comments POC-GLUCOSE METER 108 mg/dL 70-110 : [facility] (test code = [facility], 1538) [address]: Clock And Watch Assembler/Techni lyn ID = [id number] for JAMES URIARTE Basic Metabolic [id number] 07:13:00 Test Item Value Reference Range Interpretation Comments Sodium (test code = 139 meq/L 564-798 3211-2) Potassium (test code = 4.6 meq/L 3.5-5.1 2823-3) Chloride (test code = 109 meq/L 98-107 H 2075-0) CO2 (test code = 25 meq/L 22-29 2028-9) BUN (test code = 22 mg/dL 7-21 H 3094-0) Creatinine (test code 1.13 mg/dL 0.57-1.25 = 2160-0) Glucose (test code = 102 mg/dL 70-105 2345-7) Calcium (test code = 8.5 mg/dL 8.4-10.2 82184-5) EGFR (test code = 64 mL/min/1.73 [place] [address]-2) NOT ACCURATE CREATININE CLEARANCE IN PREDICTING GLOMERULAR FILTRATION RATE . ESTIMATED GFR I S NOT APPLICABLE FOR DIALYSIS PATIENTS. ASHA (test code = ASHA) Clock And Watch Assembler ID - EDASI Lab Interpretation Abnormal (test code = 53249-4) [facility] CenterBASI METABOLIC [id number] 07:13:00 Test Item Value Reference Range Interpretation [...] 697) EGFR (BEAKER) (test 64 mL/min/1.73 ESTIMA TYRELL GFR IS code = 1092) sq m NOT ACCURATE CREATININE CLEARANCE IN PREDICTING GLOMERULAR FILTRATION RATE . ESTIMATED GFR I S NOT APPLICABLE FOR DIALYSIS PATIEN TS. Clock And Watch Assembler ID - EDASICBC with platelet count + automated [id number] 06:20:00 Test Item Value Reference Range Interpretation [...] 450 K/CU MM MPV (test code = 81168-5) 10.3 fL 9.4-12.4 nRBC (test code = [...] 2801) Lab Interpretation (test code = Abnormal 20443-1) [facility] W/PLT COUNT & AUTO [id number] 06:20:00 Test Item Value Reference Range Interpretation [...] PERCENT (BEAKER) (test code = 2801) POCT-GLUCOSE [id number] 23:07:00 Test Item Value Reference Range Interpretation Comments POC-GLUCOSE METER 161 mg/dL 70-110 H : TESTED A T [facility] 67[address] (BEAKER) (test code = [facility], 1538) [address]: Clock And Watch Assembler/Techni lyn ID = [id number] for MYRA ADAMSON POCT-GLUCOSE [id number] 16:56:00 Test Item Value Reference Range Interpretation Comments POC-GLUCOSE METER 181 mg/dL 70-110 H : TESTED A T [facility] 6720 (BEAKER) (test code = [facility], 1538) [address]: Clock And Watch Assembler/Techni lyn ID = [id number] for JAMES URIARTE POCT-GLUCOSE [id number] 13:16:00 Test Item Value Reference Range Interpretation Comments POC-GLUCOSE METER 95 mg/dL 70-110 : TESTED A T [facility] 6720 (BEAKER) (test code = [facility], 1538) 224[address]: Clock And Watch Assembler/Techni lyn ID = [id number] for JAMES MARIEE BASIC METABOLIC [id number] 13:11:00 Test Item Value Reference Range Interpretation [...] 697) EGFR (BEAKER) (test 44 mL/min/1.73 ESTIMA TYRELL GFR IS code = 1092) sq m NOT ACCURATE CREATININE CLEARANCE IN PREDICTING GLOMERULAR FILTRATION RATE . ESTIMATED GFR I S NOT APPLICABLE FOR DIALYSIS PATIEN TS. Clock And Watch Assembler ID - IVANIA [facility] W/PLT COUNT & AUTO [id number] 12:52:00 Test Item Value Reference Range Interpretation [...] PERCENT (BEAKER) (test code = 2801) POCT-GLUCOSE [id number] 08:29:00 Test Item Value Reference Range Interpretation Comments POC-GLUCOSE METER 187 mg/dL 70-110 H : [facility] T [facility] 67[address] [facility] (test code = [facility], 1538) [address]: Clock And Watch Assembler/Techni lyn ID = [id number] for JAMES URIARTE POCT-GLUCOSE [id number] 21:48:00 Test Item Value Reference Range Interpretation Comments POC-GLUCOSE METER 124 mg/dL 70-110 H : TESTED A T [facility] [address] ([facility]) (test code = [facility], 1538) 10[address]: Clock And Watch Assembler/Techni lyn ID = [id number] for MYRA ADAMSON POCT-GLUCOSE [id number] 17:40:00 Test Item Value Reference Range Interpretation Comments POC-GLUCOSE METER 118 mg/dL 70-110 H : Notified RN/MD: (LORI) (test code = TESTED AT [facility] 6720 1538) [facility], [address]: Clock And Watch Assembler/Techni lyn ID = [id number] for Jannette Weeks res [place], FLUORO, NON-SPECIFIC, UP TO 1 [id number] 16:04:00Reason for exam:- >[facility] : 1950 Sex: MFluoroscopic unit utilized for a procedure performed in the OR. No interpretation was requested. Refer to the operative report for findings. Refer to PACS for patient radiation dose information.FL fluoro non-specific up to 1 [id number] 16:04:00 Interface, External Ris In - 07/08/2020 4:20 PM CSTFluoroscopic unit utilized for a procedure performed in the OR. No interpretation was requested. Refer to the operative report for findings. Referto PACS for patient radiation dose information.[facility]PO[facility] [id number] 11:36:00 Test Item Value Reference Range Interpretation Comments POC-GLUCOSE METER 90 mg/dL 70-110 : TESTED Cali Garcia [facility] 6720 (LORI) (test code = MAURICIO GUIDRY PA, 1538) 24947: Clock And Watch Assembler/Techni lyn ID = [id number] for OCAI NCHRISTA Large Joint Arthrocentesis: knee, L [id number] 14:15:00Enrique Jones MD 01/27/2020 2:11 PMLarge Joint Arthrocentesis: knee, L kneeConsent given by: patientSite marked: site markedTimeout: Immediately prior to procedure a time out was called to verify the correct patient, procedure, equipment, system support technician and site/side marked as required Supporting DocumentationIndications: [...] the procedure well with no immediate complicationsChao Gnosticist
[2020-10-01] MEDS ORDERED: NA CHLORIDE 0.9% 1,000 ML ONE (22:47)
[2020-10-01] MEDS ORDERED: NA CHLORIDE 0.9% 100 ML ONE (22:47)
[2020-10-01] MEDS ORDERED: CEFEPIME 2 GM VIAL ONE (22:47)
[2020-10-01 22:57] LABS: Protime INR 1.83
[2020-10-01 23:11] LABS: Urine Blood 3+ (NEG); Urine Glucose NEGATIVE (NEG); Urine Protein 3+ (NEG); Urine Specific Gravity 1.025 (1.005-1.030); Urine pH 5.5 (5.0-7.0)
--- NOTE | 2020-10-01 23:14 | ER ---
Nurse's Notes [facility] Name: Ronald Trinh Age: 70 yrs Sex: Male : 1950 Arrival Date: 10/01/2020 Time: 19:40 Bed 13 Private MD: Diagnosis: Severe sepsis without septic shock;UTI;Hypocalcemia;acute renal failure Presentation: 10/01 19:43 Chief complaint: Patient states: Urinary bladder cancer on Chemotherapy. Fever started ca1 this morning. Htemp 103. Reports feeling tired and shaky, N/V. denies cough. Last chemo 09/29/2020. Coronavirus screen: Client denies travel out of the [place] in the last 14 days. fever, nausea, vomiting. Client presents with at least one sign or symptom that may indicate coronavirus-19. Standard/surgical mask placed on the client. Provider contacted for isolation considerations. Ebola Screen: Patient negative for fever greater than or equal to 101.5 degrees Fahrenheit, and additional compatible Ebola Virus Disease symptoms Patient denies exposure to infectious person. Patient denies travel to an Ebola-affected area in the 21 days before illness onset. No symptoms or risks identified at this time. Initial Sepsis Screen: Does the patient meet any 2 criteria? No. Patient's initial sepsis screen is negative. Does the patient have a suspected source of infection? No. Patient's initial sepsis screen is negative. Risk Assessment: Do you want to hurt yourself or someone else? Patient reports no desire to harm self or others. Onset of symptoms was October 01, 2020. 19:43 Method Of Arrival: Ambulatory ca1 19:43 Acuity: SAVANA 3 ca1 Historical: - Allergies: 19:47 No Known Allergies; ca1 - PMHx: 19:47 Bladder CA; Diabetes - IDDM; ca1 - PSHx: 19:47 shoulder surgery; back surgery; ca1 - Immunization history:: Pneumococcal vaccine is up to date, Flu vaccine is up to date. - Social history:: Smoking status: Patient denies any tobacco usage or history of. Screenin/07 00:26 Abuse screen: Denies threats or abuse. Denies injuries from another. Nutritional zb screening: No deficits noted. Tuberculosis screening: No symptoms or risk factors identified. Fall Risk None identified. Assessment: 10/01 21:30 General: Appears in no apparent distress. uncomfortable, Behavior is calm, cooperative, zb appropriate for age, Reports chills for >3 days, fever for > 3 days, feeling ill for > 3 days, fatigue for >3 days. Pain: Denies pain. Neuro: Level of Consciousness is awake, alert, obeys commands, Oriented to person, place, time, situation. Cardiovascular: Capillary refill < 3 seconds in bilateral fingers Patient's skin is warm and dry. Respiratory: Airway is patent Respiratory effort is even, unlabored, Respiratory pattern is regular, symmetrical. GI: Abdomen is round non-distended. : No signs and/or symptoms were reported regarding the genitourinary system. EENT: No signs and/or symptoms were reported regarding the EENT system. Derm: Skin is intact, is healthy with good turgor, Skin is dry, Skin is normal, Skin temperature is warm. Musculoskeletal: Capillary refill is > 3 seconds, in bilateral fingers. Range of motion: intact in all extremities. 22:30 Reassessment: Patient appears in no apparent distress at this time. Patient and/or zb family updated on plan of care and expected duration. Pain level reassessed. Patient is alert, oriented x 3, equal unlabored respirations, skin warm/dry/pink. pt state that he is chill. given warm blanket. 23:00 Reassessment: Patient appears in no apparent distress at this time. Patient and/or zb family updated on plan of care and expected duration. Pain level reassessed. Patient is alert, oriented x 3, equal unlabored respirations, skin warm/dry/pink. pt given PO no changes at this time. IV fluids infusing at this time. 10/02 00:00 Reassessment: Patient appears in no apparent distress at this time. Patient and/or zb family updated on plan of care and expected duration. Pain level reassessed. Patient is alert, oriented x 3, equal unlabored respirations, skin warm/dry/pink. IV fluids infusing at this time. 01:00 Reassessment: Patient and/or family updated on plan of care and expected duration. Pain ll2 level reassessed. Patient is alert, oriented x 3, equal unlabored respirations, skin warm/dry/pink. 02:00 Reassessment: No changes from previously documented assessment. Patient and/or family ll2 updated on plan of care and expected duration. Pain level reassessed. Patient is alert, oriented x 3, equal unlabored respirations, skin warm/dry/pink. no change in pt status, awake, alert and oriented. 03:00 Reassessment: Patient appears in no apparent distress at this time. Patient is alert, sg oriented x 3, equal unlabored respirations, skin warm/dry/pink. 04:27 Reassessment: Patient appears in no apparent distress at this time. Patient and/or sg family updated on plan of care and expected duration. Pain level reassessed. Patient is alert, oriented x 3, equal unlabored respirations, skin warm/dry/pink. 04:30 Reassessment: report given to HILLARY chatman. ll2 Vital Signs: 10/01 19:43 BP 104 / 56; Pulse 113; Resp 19 S; Temp 99.4(O); Pulse Ox 98% on R/A; Weight 103.42 kg ca1 (R); Height 6 ft. 4 in. (193.04 cm) (R); Pain 0/10; 22:00 BP 98 / 60; Pulse 116; Resp 20; Pulse Ox 97% on R/A; zb 23:00 BP 101 / 58; Pulse 115; Resp 18; Pulse Ox 96% on R/A; zb 02/07 00:00 BP 129 / 98; Pulse 117; Resp 19; Pulse Ox 96% on R/A; zb 02:00 BP 104 / 64; Pulse 117; Resp 17; Pulse Ox 96% on R/A; sg 03:00 BP 102 / 60; Pulse 118; Resp 18; Temp 103.5(TE); Pulse Ox 97% on R/A; sg 04:00 BP 92 / 55; Pulse 108; Resp 18; Temp 101.3; Pulse Ox 97% on R/A; sg 10/01 19:43 Body Mass Index 27.75 (103.42 kg, 193.04 cm) ca1 03:00 Dave LUGOP notified of pt VS, pt has been medicated for fever sg ED Course: 10/01 19:40 Patient arrived in ED. am4 19:46 Triage completed. ca1 19:47 Arm band placed on right wrist. ca1 21:31 Mike Robles PA is PHCP. cp 21:31 Jarrett Carrasco MD is Attending Physician. cp 21:33 Martha Espinal RN is Primary Nurse. zb 22:05 Chest Single View XRAY In Process Unspecified. EDMS 22:15 Inserted saline lock: 20 gauge in right forearm, using aseptic technique. Blood ds4 collected. 22:40 Urine Culture Sent. ds4 22:40 Urine Microscopic Only Sent. ds4 23:13 Deacon Mcgee DO is Hospitalizing Provider. cp 10/02 00:48 Patient has correct armband on for positive identification. surgical garment assembler on. Pulse zb ox on. NIBP on. Door closed. Noise minimized. Warm blanket given. Pillow given. 00:49 Inserted saline lock: 20 gauge in left antecubital area, using aseptic technique. Blood zb collected. 03:46 CT Abd/Pelvis - Without Contrast In Process Unspecified. EDMS 22:26 Urine Dipstick--Ancillary (enter results) Sent. zb Administered Medications: Discontinued: NS 0.9% 1000 ml IV at 1000 ml/hr Per protocol; 1000 mL bolus 10/01 23:00 Drug: Cefepime 2 grams Route: IVPB; Rate: 200 ml/hr; Infused Over: 30 mins; Site: right zb forearm; 10/02 00:46 Follow up: Response: No adverse reaction; IV Status: Completed infusion; IV Intake: zb 100ml 10/01 23:00 Drug: NS 0.9% 1000 ml Route: IV; Rate: 1000 ml/hr; Site: right forearm; zb 23:15 Drug: NS 0.9% (30 ml/kg) 30 ml/kg Route: IV; Rate: bolus; Site: right antecubital; zb 23:46 Drug: vancoMYCIN 1 grams Route: IVPB; Infused Over: 2 hrs; Site: right forearm; zb 10/02 00:52 Drug: Tylenol 1000 mg Route: PO; ll2 02:45 Drug: Calcium Gluconate 1 grams Route: IVPB; Infused Over: 60 mins; Site: right forearm;sg 04:20 Drug: NS 0.9% 1000 ml Route: IV; Rate: 125 ml/hr; Site: right forearm; sg Intake: 00:46 IV: 100ml; Total: 100ml. zb Outcome: 10/01 23:14 Decision to Hospitalize by Provider. cp 10/02 02:51 ER care complete, transfer ordered by MD. marinelli 05:00 Patient left the ED. tt3 Addendum: 10/05/2020 19:46 Addendum: Culture Results: Positive urine culture. Positive blood culture. attempt to i w call MD Luo , unable to get through at this time. 19:53 Addendum: Culture Results: Phone call Attempt #1 faxed culture results to MD Valerio copeland . Signatures: Dispatcher [employer] EDMS Bob Donald, RN HILLARY sg Rose Fine RN Tirso Connell ds4 Dave Munroe, MEMBER OF THE LEGISLATIVE ASSEMBLY-C MEMBER OF THE LEGISLATIVE ASSEMBLY-Cla1 Mike Robles PA PA cp Rosalva Cabrera RN RN ca1 Shannan Bob RN RN ll2 Aubrey Cornell tt3 Martha Espinal RN RN zb Martinez, Ashley am4 Corrections: (The following items were deleted from the chart) 10/01 19:48 19:43 Chief complaint: Patient states: Urinary bladder cancer on Chemotherapy. Fever ca1 started this morning. Htemp 103. Reports feeling tired and shaky. denies cough. Last chemo 09/29/2020. ca1 19:48 19:43 Coronavirus screen: Client denies travel out of the [place] in the last 14 days. ca1 fever, Client presents with at least one sign or symptom that may indicate coronavirus-19. Standard/surgical mask placed on the client. Provider contacted for isolation considerations. ca1
--- NOTE | 2020-10-01 23:14 | EDPHYS ---
Physician Documentation [facility] Name: Ronald Trinh Age: 70 yrs Sex: Male : 1950 Arrival Date: 10/01/2020 Time: 19:40 Bed 13 Private MD: ED Physician Jarrett Carrasco HPI: 10/01 22:01 This 70 yrs old Male presents to ER via Ambulatory with complaints of cp Nausea/Vomiting, Fever. 22:02 Associated signs and symptoms: Pertinent positives: chills, nausea and vomiting, cp Pertinent negatives: abdominal pain, constipation, diarrhea, dysuria, GI bleeding. The patient reports fever, that was measured at 102 degrees Fahrenheit. Onset: The symptoms/episode began/occurred this morning. Patient reports he is receiving IV chemo at [facility] for stage III bladder CA with last treatment 09-29-2020. Historical: - Allergies: 19:47 No Known Allergies; ca1 - PMHx: 19:47 Bladder CA; Diabetes - IDDM; ca1 - PSHx: 19:47 shoulder surgery; back surgery; ca1 - Immunization history:: Pneumococcal vaccine is up to date, Flu vaccine is up to date. - Social history:: Smoking status: Patient denies any tobacco usage or history of. ROS: 22:10 Constitutional: Positive for chills, poor PO intake, Negative for body aches, fever. cp 22:10 Eyes: Negative for injury, pain, redness, and discharge. cp 22:10 ENT: Negative for drainage from ear(s), ear pain, sore throat, difficulty swallowing, difficulty handling secretions. 22:10 Cardiovascular: Negative for chest pain, edema, palpitations. 22:10 Respiratory: Negative for cough, shortness of breath, wheezing. 22:10 Abdomen/GI: Positive for nausea and vomiting, Negative for abdominal pain, diarrhea, constipation. 22:10 Back: Negative for pain at rest, pain with movement. 22:10 Skin: Negative for rash. 22:10 Neuro: Negative for altered mental status, dizziness, headache, weakness. 22:10 All other systems are negative. Exam: 22:15 Constitutional: The patient appears in no acute distress, alert, awake, cp non-diaphoretic, non-toxic, well developed, well nourished. 22:15 Head/Face: Normocephalic, atraumatic. cp 22:15 Eyes: Periorbital structures: appear normal, Conjunctiva: normal, no exudate, no injection, Sclera: no appreciated abnormality, Lids and lashes: appear normal, bilaterally. 22:15 ENT: External ear(s): are unremarkable, Nose: is normal, Mouth: Lips: moist, Oral mucosa: pink and intact, moist, Posterior pharynx: Airway: no evidence of obstruction, patent. 22:15 Neck: ROM/movement: is normal, is supple, no meningismus, no nuchal rigidity. 22:15 Chest/axilla: Inspection: normal, Palpation: is normal, no crepitus, no tenderness. 22:15 Cardiovascular: Rate: tachycardic, Rhythm: regular, Edema: is not appreciated, JVD: is not appreciated. 22:15 Respiratory: the patient does not display signs of respiratory distress, Respirations: normal, no use of accessory muscles, no retractions, labored breathing, is not present, Breath sounds: are clear throughout, no decreased breath sounds, no stridor, no wheezing. 22:15 Abdomen/GI: Inspection: abdomen appears normal, Bowel sounds: active, all quadrants, Palpation: abdomen is soft and non-tender, in all quadrants. 22:15 Back: pain, is absent, ROM is normal. 22:15 Skin: cellulitis, is not appreciated, no rash present. 22:15 Neuro: Orientation: to person, place \T\ time. Mentation: is normal, Cerebellar function: is grossly normal, Motor: moves all fours, strength is normal, Sensation: is normal. 22:55 ECG was reviewed by the Attending Physician. cp Vital Signs: 19:43 BP 104 / 56; Pulse 113; Resp 19 S; Temp 99.4(O); Pulse Ox 98% on R/A; Weight 103.42 kg ca1 (R); Height 6 ft. 4 in. (193.04 cm) (R); Pain 0/10; 22:00 BP 98 / 60; Pulse 116; Resp 20; Pulse Ox 97% on R/A; zb 23:00 BP 101 / 58; Pulse 115; Resp 18; Pulse Ox 96% on R/A; zb /07 00:00 BP 129 / 98; Pulse 117; Resp 19; Pulse Ox 96% on R/A; zb 02:00 BP 104 / 64; Pulse 117; Resp 17; Pulse Ox 96% on R/A; sg 03:00 BP 102 / 60; Pulse 118; Resp 18; Temp 103.5(TE); Pulse Ox 97% on R/A; sg 04:00 BP 92 / 55; Pulse 108; Resp 18; Temp 101.3; Pulse Ox 97% on R/A; sg 10/01 19:43 Body Mass Index 27.75 (103.42 kg, 193.04 cm) ca1 03:00 Dave DANDY OPERATOR notified of pt VS, pt has been medicated for fever sg MDM: 10/01 21:41 Patient medically screened. cp 22:00 Differential diagnosis: viral Infection, bacterial infection, pneumonia UTI, cp meningitis, sepsis. 10/02 01:50 Data reviewed: vital signs, nurses notes, lab test result(s), EKG, radiologic studies, cp plain films. 01:50 Test interpretation: by ED physician or midlevel provider: ECG, plain radiologic cp studies. Response to treatment: the patient's symptoms have mildly improved after treatment. 10/01 21:45 Order name: Urine Culture cp 10/01 21:45 Order name: CPK cp 10/01 21:45 Order name: Basic Metabolic Panel cp / 21:45 Order name: Blood Culture Adult (2) cp / 21:45 Order name: CBC with Diff cp / 21:45 Order name: Lactate cp / 21:45 Order name: LFT's cp / 21:45 Order name: Lipase cp / 21:45 Order name: Procalcitonin cp / 21:45 Order name: Protime (+inr) cp 10/01 21:45 Order name: Ptt, Activated; Complete Time: 23:14 cp 10/01 21:45 Order name: Troponin (emerg Dept Use Only); Complete Time: 01:45 cp 10/01 21:45 Order name: Urine Microscopic Only; Complete Time: 00:06 cp 10/02 00:28 Interpretation: Normal except: UWBC TNTC; URBC 10-20; UBACT >50. cp 10/01 21:46 Order name: Urine Culture EDMS 10/01 21:46 Order name: Creatine Phosphokinase; Complete Time: 01:45 EDMS 10/01 21:46 Order name: Basic Metabolic Panel; Complete Time: 01:45 EDMS 10/02 01:57 Interpretation: Normal except: NA 132; CL 94; GLUC 220; BUN 41; CRE 2.62; GFR 24; CA cp 6.7. 02 21:46 Order name: Blood Culture EDMS 10/01 21:46 Order name: CBC with Automated Diff; Complete Time: 01:45 EDMS 10/01 21:46 Order name: Lactate; Complete Time: 23:14 EDMS 10/01 21:46 Order name: Liver (Hepatic) Function; Complete Time: 01:45 EDMS 10/01 21:46 Order name: Lipase; Complete Time: 01:45 EDMS 10/01 21:46 Order name: Procalcitonin; Complete Time: 01:45 EDMS 10/01 21:46 Order name: Protime (+INR); Complete Time: 23:14 EDMS 10/01 22:40 Order name: Urine Dipstick--Ancillary (enter results) ds4 02 22:40 Order name: Urine Dipstick-Ancillary; Complete Time: 23:14 EDMS 10/02 00:28 Interpretation: Normal except: UBLD 3+; UPROT 3+; UESTR 1+. cp 10/02 00:38 Order name: COVID-19/FLU A+B; Complete Time: 00:57 EDMS 10/02 01:03 Order name: Manual Differential; Complete Time: 01:45 EDMS 10/02 01:17 Order name: Lactate Sepsis 2 HR Follow-up; Complete Time: 01:45 EDMS 10/01 21:45 Order name: Chest Single View XRAY cp 10/01 21:45 Order name: Accucheck; Complete Time: 23:19 cp 10/01 21:45 Order name: Cardiac monitoring; Complete Time: 23:19 cp 10/01 21:45 Order name: EKG - Nurse/Tech; Complete Time: 23:18 cp 10/01 21:45 Order name: IV Saline Lock - Large Bore; Complete Time: 22:30 cp 10/01 21:45 Order name: Labs collected and sent; Complete Time: 22:30 cp 10/01 21:45 Order name: O2 Per Protocol; Complete Time: 22:30 cp 10/01 21:45 Order name: O2 Sat Monitoring; Complete Time: 22:30 cp 10/01 21:45 Order name: Urine Dipstick-Ancillary (obtain specimen); Complete Time: 22:40 cp 10/02 01:47 Order name: CT Abd/Pelvis - Without Contrast la1 EC/06 22:55 Rate is 120 beats/min. Rhythm is regular. [place] interval is normal. QRS interval is cp normal. QT interval is normal. T waves are Inverted in lead aVR. Interpreted by me. Reviewed by me. Administered Medications: Discontinued: NS 0.9% 1000 ml IV at 1000 ml/hr Per protocol; 1000 mL bolus 23:00 Drug: Cefepime 2 grams Route: IVPB; Rate: 200 ml/hr; Infused Over: 30 mins; Site: right zb forearm; 10/02 00:46 Follow up: Response: No adverse reaction; IV Status: Completed infusion; IV Intake: zb 100ml 10/01 23:00 Drug: NS 0.9% 1000 ml Route: IV; Rate: 1000 ml/hr; Site: right forearm; zb 23:15 Drug: NS 0.9% (30 ml/kg) 30 ml/kg Route: IV; Rate: bolus; Site: right antecubital; zb 23:46 Drug: vancoMYCIN 1 grams Route: IVPB; Infused Over: 2 hrs; Site: right forearm; b 10/02 00:52 Drug: Tylenol 1000 mg Route: PO; ll2 02:45 Drug: Calcium Gluconate 1 grams Route: IVPB; Infused Over: 60 mins; Site: right forearm;sg 04:20 Drug: NS 0.9% 1000 ml Route: IV; Rate: 125 ml/hr; Site: right forearm; Disposition: 05:34 Co-signature as Attending Physician, Jarrett Carrasco MD. [email or web address] Disposition: 10/02/20 02:51 Transfer ordered to Other Acute Care Facility. Diagnosis are Severe sepsis without septic shock, UTI, Hypocalcemia, acute renal failure. - Reason for transfer: Higher level of care. - Accepting physician is Dr. Deidre FERRARI Valerio ER to ER. - Condition is Fair. - Problem is new. - Symptoms have improved. Signatures: Dispatcher [employer] Bob Souza RN RN sg Dave Munroe, DANDY OPERATOR-C DANDY OPERATOR-Cla1 Mike Robles PA PA cp Acob, Cheryl, RN RN [facility] Shannan Bob RN RN ll2 Jarrett Carrasco MD MD 7 Kraig, Aubrey tt3 Martha Espinal RN RN zb Corrections: (The following items were deleted from the chart) 02 22:58 21:47 CORONAVIRUS+MR.LAB.BRZ ordered. EDMS EDMS 23:15 21:47 Influenza Screen (A \T\ B)+BA.LAB.BRZ ordered. EDLA EDMS 23:18 21:45 Azar ordered. cp zb 02/ 00:29 02 23:14 Hospitalization Ordered by Deacon Mcgee DO for Inpatient Admission. cp Preliminary diagnosis is Other sepsis. Bed requested for Telemetry/MedSurg (Inpatient). Status is Inpatient Admission. Condition is Stable. Problem is new. Symptoms have improved. cp 10/02 01:57 00:08 Abdomen Pelvis W Con+CT.RAD.BRZ ordered. EDLA EDMS 02:03 00:29 10/01/2020 23:14 Hospitalization Ordered by Deacon Mcgee DO for Inpatient cp Admission. Preliminary diagnosis is Other sepsis; Urinary tract infection, site not specified. Bed requested for Telemetry/MedSurg (Inpatient). Status is Inpatient Admission. Condition is Stable. Problem is new. Symptoms have improved. cp 02:48 02:03 10/01/2020 23:14 Hospitalization Ordered by Deacon Mcgee DO for Inpatient la1 Admission. Preliminary diagnosis is Other sepsis; Urinary tract infection, site not specified; Acute kidney failure. Bed requested for Telemetry/MedSurg (Inpatient). Status is Inpatient Admission. Condition is Stable. Problem is new. Symptoms have improved. cp 05:00 02:51 10/02/2020 02:51 Transfer ordered to Other Acute Care Facility. Diagnosis is tt3 Severe sepsis without septic shock; UTI; Hypocalcemia; acute renal failure. Reason for transfer: Higher level of care. Accepting physician is Dr. Deidre Luo ER to ER. Condition is Fair. Problem is new. Symptoms have improved. la1
[2020-10-01 23:39] LABS: Urine Bacteria >50 /HPF (NONE SEEN); Urine Mucus 2+ /HPF (NONE SEEN)
[2020-10-01] MEDS ORDERED: VANCOMYCIN 1 GM/VIAL ONE (23:45)
[2020-10-01] MEDS ORDERED: NA CHLORIDE 0.9% 2,000 ML ONE (23:45)
[2020-10-01] MEDS ORDERED: NA CHLORIDE 0.9% 250 ML ONE (23:45)
[2020-10-02 00:38] LABS: SARS-COV-2 RT PCR NEGATIVE (NEGATIVE)
[2020-10-02 00:54] LABS: Absolute Lymphocytes (CBC) 0.3 K/uL (0.7-4.9); Basophils % 0.1 % (0-1.3); Hematocrit 28.3 % (39.6-49.0); MPV 8.2 fL (7.6-11.3); RBC Red Blood Cell Count 3.21 M/uL (4.33-5.43)
[2020-10-02] MEDS ORDERED: ACETAMINOPHEN 500 MG TAB ONE (01:04)
[2020-10-02 01:28] LABS: Blood Morphology Comment NOT SEEN (NOT SEEN); Platelet Estimate ADEQ
[2020-10-02 01:30] LABS: Albumin 2.5 g/dL (3.4-5.0); Bilirubin Direct 0.4 mg/dL (0-0.2); Bilirubin Total 1.1 mg/dL (0.2-1.0); Protein, Total 6.1 g/dL (6.4-8.2); Troponin (Emerg Dept Use Only) 0.02 ng/mL (0.0-0.045)
[2020-10-02] MEDS ORDERED: CALCIUM GLUCONATE 1 GM IVPB 1 GM/50 ML BAG IV ONE (03:08)
[2020-10-02] MEDS ORDERED: NA CHLORIDE 0.9% 1,000 ML ONE (04:32)
[2020-10-02 05:11] VITALS: O2SAT 97
[2020-10-02 05:12] VITALS: BP 92/55; TEMP 101.3
--- NOTE | 2020-10-02 12:30 | RAD REPORT ---
EXAM DESCRIPTION: RAD - Chest Single View - 10/01/2020 10:03 pm CLINICAL HISTORY: FEVER Chest pain. COMPARISON: Chest Pa And Lat (2 Views) dated 08/01/2018; ABDOMEN 1 VIEW KUB dated 06/11/2013; Abdomen Pelvis Wo Contrast dated 10/02/2020; Abdomen Pelvis W/Wo Contrast dated 06/24/2020 FINDINGS: Portable technique limits examination quality. Tiny calcified nodules in the lungs likely granulomata. No focal infiltrate is seen. The heart is nor mal in size
--- NOTE | 2020-10-03 10:30 | RAD REPORT ---
EXAM DESCRIPTION: Abdomen Pelvis Wo Contrast CLINICAL HISTORY: 10 years Male, FEVER COMPARISON: June 24, 2020 TECHNIQUE: Contiguous axial CT images of the abdomen and pelvis were obtained. Sagittal and coronal reformats were reviewed. This exam was performed according to our departmental dose-optimization pr ogram, which includes automated exposure control, adjustment of the mA and/or kV according to patient size and/or use of iterative reconstruction technique. FINDINGS: Lung bases: 4 mm pulmonary nodule in the left lower lobe, stable. Tiny calcified granuloma lung bases also noted. Liver: Unremarkable. No focal liver lesion. Gallbladder: Unremarkable. No gallstones. No gallbladder wall thickening or pericholecystic fluid. Spleen: Unremarkable Pancreas: Pancreas is unremarkable. Adrenal glands: Within normal limits. Kidneys/ureters: Left double-J stent has been placed. There is mild left hydronephrosis. The left kid yumiko is edematous in appearance with surrounding fat stranding increased from previous exam. There is also slightly increased fat stranding surrounding the right kidney but no hydronephrosis on the right . Stomach/small bowel/colon: Stomach is unremarkable. Small bowel is unremarkable. Colon is unremar kable. Appendix: No evidence of appendicitis. Peritoneum: No free fluid. Vascular structures: within normal limits Lymph nodes: No abnormal lymph nodes. Bladder: Mildly distended but otherwise normal in appearance. Lobulated soft tissue mass seen on prev ious examination is not visualized on today's study.. Pelvic organs: No acute abnormality Bones: No acute osseous abnormality. Multilevel degenerative changes in the spine most pronounced at L4-5 and L5-S1. Soft tissues: Unremarkable.. IMPRESSION: There is mild left hydronephrosis. Left double-J stent is in place in good position but possibly obstructed. There is also perinephric inflammatory fat stranding bilaterally, left greater t gibson right. Cannot exclude possibility of superimposed infection. Correlate with urinalysis.. Electronically signed by: Miguelito Au DO 10/02/2020 4:13 AM SCHEDULING ASSISTANT Due to temporary technical issues with the PACS/Fluency reporting system, reports are being signed by the in house radiologist without review as a courtesy to ensure prompt reporting. The interpreting r adiologist is fully responsible for the content of the report.
== END 2020-10-02 05:00 ==
LOC: ER 19:30
DX: N17.9 Acute kidney failure, unspecified (principal); R65.20 Severe sepsis without septic shock; N39.0 Urinary tract infection, site not specified; E83.51 Hypocalcemia; C67.9 Malignant neoplasm of bladder, unspecified; Z20.822 Contact with and (suspected) exposure to COVID-19
CPT/HCPCS: 93005; 87040 ×2; 87088; 85025; 87086; 80048; 36415; 82550; 87205 ×2; 85610; 80076; 83605 ×2; 85730; 84484; 83690; 84145; 0240U; 74176; 71045; J3370; J0692; J0610; J7050; J7030 ×3; 81003; 81015; 87077; 87186; 99284

== ENCOUNTER 2023-04-08 15:49 | Emergency (ER) | payer OTHER, BC ==
--- OUTSIDE RECORDS SUMMARY | 2023-04-08 15:57 | XMS REPORT | Clinical Summary ---
:1950 Author Organization [facility] MD Gallardo [facility] Center Address [address] [place] [address] Care Team Providers Name Role Phone Constantine Ford MD Primary Care Provider Amy Zayas MD Unavailable Allergies No known active allergies Medications Medication Sig Dispensed Refills Start Date End Date Status cholecalciferol, Take 1 tablet 0 Active vitamin D3, (VITAMIN (4,000 Units) by D3) 4,000 units tab mouth daily. tablet Vitamin D Supplement. blood-glucose Use to monitor 1 each 1 08/08/2021 Active meter,continuous glucose (Dexcom G6 Code Official) continuously miscIndications: Type 2 diabetes mellitus with hyperglycemia, Current use of insulin blood-glucose sensor Use sensor every 10 3 Device 3 Active (Dexcom G6 Sensor) days for continuous deviIndications: Type glucose monitoring 2 diabetes mellitus with hyperglycemia, Current use of insulin blood-glucose Use for continuous 1 Device 3 08/08/2021 Active transmitter (Dexcom glucose monitoring G6 Transmitter) deviIndications: Type 2 diabetes mellitus with hyperglycemia, Current use of insulin pen needle, diabetic Use to inject 400 each 3 06/15/2022 Active 31 gauge x 5/16" insulin 4-6 times ndleIndications: Type daily. May 2 diabetes mellitus substitute with with hyperglycemia insurance preferred brand pitavastatin Take 2 mg by mouth 90 tablet 3 06/15/2022 Active magnesium (Zypitamag) daily. 2 mg tabIndications: Hyperlipidemia, not otherwise specified hydroxyzine HCl Take 1 tablet (25 60 tablet 0 09/04/2022 Active (ATARAX) 25 mg mg) by mouth every tabletIndications: 8 (eight) hours as Bladder cancer needed for itching. magnesium oxide Take 1 tablet (400 0 Active (MAOX) 400 mg tablet mg) by mouth as needed (Twice weekly as needed for low magnesium). Hold for diarrhea/loose stools. Take with meals. insulin degludec Inject 12 Units 30 mL 0 11/27/2022 Active (Tresiba FlexTouch under the skin U-200) 200 unit/mL (3 daily. mL) insulin penIndications: Type 2 diabetes mellitus with hyperglycemia insulin lispro Inject 1-23 Units 60 mL 0 11/27/2022 Active (HumaLOG KwikPen under the skin 3 Insulin) 100 unit/mL (three) times a day insulin before meals. penIndications: Type 2 diabetes mellitus with hyperglycemia fluocinonide (LIDEX) Apply topically to 60 mL 3 12/05/2022 Active 0.05% topical affected area(s) solutionIndications: twice daily. For Other specified scalp dermatitis triamcinolone Apply topically to 80 g 3 12/05/2022 Active (KENALOG) 0.1% affected area(s) creamIndications: twice daily. For Other specified body. Avoid on dermatitis face, underarms, and groin Additional Information Patient taking differently: topical As needed, For body. Avoid on face, underarms, and groin, Reason: Other, Reported on 03/26/2023 ondansetron Dissolve 1 30 tablet 1 03/05/2023 Active (ZOFRAN-ODT) 8 mg tablet (8 mg) disintegrating on the tongue tabletIndications: every 6 (six) Bladder cancer, Nausea hours as needed for nausea or vomiting. insulin degludec Inject 32 Units 15 mL 11 08/08/202106/15 Discontinued (Tresiba FlexTouch under the skin /2021 (Reorder) U-200) 200 unit/mL (3 daily. mL) insulin penIndications: Type 2 diabetes mellitus with hyperglycemia insulin aspart U-100 Inject 15-20 45 mL 11 08/08/202106/15 Discontinued (NovoLOG) 100 unit/mL Units under the /2 022 (Other ) (3 mL) insulin skin 3 (three) penIndications: Type 2 times a day diabetes mellitus with before meals. hyperglycemia Based on sliding scale and meal size triamcinolone (KENALOG) Apply topically 454 g 0 09/19/202112/05 Discontinued 0.5% creamIndications: to affected Rash area(s) 3 (three) times a day. pitavastatin magnesium Take 2 mg by 90 tablet 3 11/16/2021 Discontinued (Zypitamag) 2 mg mouth daily. (Reorder) tabIndications: Hyperlipidemia, not otherwise specified insulin aspart, Inject 20-30 90 mL 3 06/15/202208/10 Discontinued niacinamide, (Fiasp Units under the 2 (Other ) FlexTouch U-100 skin 3 (three) Insulin) 100 unit/mL (3 times a day mL) inpnIndications: before meals. Type 2 diabetes mellitus with hyperglycemia insulin degludec Inject 32 Units 30 mL 3 06/15/202211/27 Discontinued (Tresiba FlexTouch under the skin (Reorder) U-200) 200 unit/mL (3 at bedtime. mL) insulin penIndications: Type 2 diabetes mellitus with hyperglycemia insulin aspart U-100 Inject 5-25 0 06/15/202208/10 Discontinued (NovoLOG) 100 unit/mL Units under the 022 (Other ) (3 mL) insulin skin 3 (three) penIndications: Type 2 times a day diabetes mellitus with before meals. hyperglycemia Based on sliding scale and meal size nitrofurantoin Take 1 capsule 10 capsule 0 07/02/202207/07 monohyd/m-cryst (100 mg) by (Macrobid) 100 mg mouth twice capsuleIndications: daily for 5 Urinary tract days. infection, not otherwise specified insulin lispro (HumaLOG Inject 20 Units 60 mL 3 08/10/202211/27 Discontinued KwikPen Insulin) 100 under the skin 3 (Reorder) unit/mL insulin 3 (three) times penIndications: Type 2 a day before diabetes mellitus with meals. hyperglycemia amoxicillin-clavulanate Take 1 tablet 14 tablet 0 11/27/2022 0 12/28 Discontinued (AUGMENTIN) 875 mg-125 (875 mg) by (Therapy mg per mouth every 12 compl eted) tabletIndications: (twelve) hours. Fever, Bladder cancer Antibiotic. Take with meals. Take through completion of doses on 12/03/22. triamcinolone (KENALOG) Apply topically 30 g 2 12/04/202212/05 Discontinued 0.5 % to ointmentIndications: area(s) twice Rash and other daily. nonspecific skin eruption sulfamethoxazole-trimet Take 1 tablet 14 tablet 0 02/04/2023 0 03/28 Discontinued hoprim (BACTRIM DS) 800 by mouth twice 2022 (Therapy mg-160 mg per daily. comple tyrell) tabletIndications: History of ureteral obstruction NovoLOG FlexPen U-100 Sliding scale 0 01/05/2023 Discontinued Insulin 100 unit/mL ( (Therapy mL) insulin pen comp leted) Active Problems Patient Care Coordination Note Formatting of this note might be differe nt from the original. Patient is severely weak, please allow a family member to assist with his clinic visits. Problem Noted Date Obstruction of ureter 01/29/2023 Overview: Added automatically from request for mony maia [id number] Fatigue 05/15/2022 Pneumonia 11/06/2021 Multiple joint pain 09/22/2021 Rash 09/22/2021 Encounter for examination for normal comparison and co ntrol in clinical 09/22/2021 research program Itching 08/08/2021 Back pain 08/08/2021 Encounter for examination prior to antineoplastic chem otherapy 06/06/2021 Immunotherapy for cancer 02/28/2021 Diabetic peripheral neuropathy 10/07/2020 Discharge of eye 10/07/2020 Other secondary thrombocytopenia 10/04/2020 Fever 10/04/2020 Anemia in neoplastic disease 10/03/2020 Sepsis 10/02/2020 Lactic acidemia 10/02/2020 Sinus tachycardia 10/02/2020 Leukocytosis 10/02/2020 Hypomagnesemia 09/26/2020 Hyposmolality and/or hyponatremia 09/14/2020 Type 2 diabetes mellitus with hyperglycemia 08/25/2020 Current use of insulin 08/25/2020 Renal insufficiency 08/16/2020 Encounter for chemotherapy 08/10/2020 Bladder cancer 07/18/2020 Overview: Added automatically from request for mony carvalho [id number] Arthritis 09/26/1997 Recovery following surgery 01/24/1990 Overview: S/p cystectomy with ileal conduit 021 Urostomy present 01/24/1990 Overview: S/p cystectomy with ileal conduit 021 Stage 3b chronic kidney disease Encounters Date Type Specialty Care Team Description 03/26/2023 Infusion Infusion Services Buffy Marc, Bladder c ancer SET DECORATOR (Primary Dx) 03/26/2023 Follow-Up Genitourinary Erika, Bladder cancer Oncology MD Yandy (Primary Dx) 03/26/2023 Hospital Encounter Lab Buffy Marc, Bladder cancer SET DECORATOR 03/26/2023 Orders Only Genitourinary Erika, Oncology MD Yandy 03/26/2023 Orders Only Genitourinary Shreya Doss, Bladder cancer Oncology PharmD (Primary Dx) 03/26/2023 Travel 03/25/2023 Orders Only Radiology Milka Gurrola PA 03/21/2023 Orders Only Hearn, Obstruction of Deepak J Jr., ureter (Primar y Dx) PA 03/07/2023 Orders Only Nephrology Aaron Vasquez, Stage 3 chron ic MD kidney disease, not otherwise speci fied (Primary Dx) 03/05/2023 Infusion Infusion Services Buffy Marc, Bladder c ancer SET DECORATOR (Primary Dx) 03/05/2023 Follow-Up Genitourinary Erika, Bladder cancer (Primary Dx); Oncology MD Yandy Nausea 03/05/2023 Hospital Encounter Lab Buffy Marc, Bladder cancer SET DECORATOR 03/05/2023 Orders Only Genitourinary Erika, Oncology MD Yandy 03/05/2023 Orders Only Genitourinary Chad Amaya [facility] Oncology 03/05/2023 Travel 03/04/2023 Ancillary Procedure Radiology Bladder cancer; Malignant neopl asm of overlapping sites of bladder 02/12/2023 Orders Only Genitourinary Buffy Marc, Bladder cance r (Primary Dx); Oncology SET DECORATOR Malignant neopl asm of overlapping sites of bladder 02/07/2023 Surgery Ambulatory Surgery Amol Thompson PERCUT MICHELLE Tapia IV, MD NEPHROSCOPY, LE FT URETERAL BIOPSI ES 02/07/2023 Anesthesia Event Ambulatory Surgery Jeffrey Hui MD 02/07/2023 Ancillary Procedure Radiology 02/07/2023 Hospital Encounter Ambulatory Surgery Amol Thompson Obstruction of ureter (Primary Dx); Willie CANALES MD Bladder cancer; Hyposmolality a nd/or hyponatremia 02/07/2023 Travel 02/06/2023 Anesthesia Event Anesthesiology Javid Gamino RN 02/06/2023 POEM Appointments Anesthesiology Amol Thompson Histo ry of ureteral Willie CANALES MD obstruction 02/05/2023 Infusion Infusion Services Buffy Marc, Bladder c ancer SET DECORATOR (Primary Dx) 02/05/2023 Follow-Up Genitourinary Erika, Bladder cancer Oncology MD Yandy (Primary Dx) 02/05/2023 Hospital Encounter Lab Buffy Marc, Bladder cancer; SET DECORATOR Adenocarcinoma, NOS of prostate gland 02/05/2023 Orders Only Genitourinary Erika, Oncology MD Yandy 02/05/2023 Travel 02/04/2023 Orders Only Urology Dhiraj, History of uret eral Deepak Tapia Jr., obstruction (P rimary PA Dx) 01/30/2023 Follow-Up Orthopaedics Sheryl Todd Callosity on t oe (Primary Dx); DPM Type 2 diabetes mellitus with hyperglycemia; Hammer toe <Rig ht side> 01/30/2023 Travel 01/29/2023 Follow-Up Urology Amol Thompson Extrinsic ur eteral obstruction (Primary Dx); Willie CANALES MD Bladder cancer; History of uret eral obstruction; Adenocarcinoma, NOS of prostate gland 01/29/2023 Prep for Surgery Urology Inguillo, Obstruction of Rose, SET DECORATOR ureter (Primary Dx) 01/29/2023 Travel 01/28/2023 Orders Only Urology Amol Thompson IV, MD 01/24/2023 Hospital Encounter Radiology Buffy Marc, Bladder cancer SET DECORATOR Amish Stuart MD 01/24/2023 Hospital Encounter Lab Radha Cheema PA 01/24/2023 Travel 01/23/2023 Orders Only Radiology Clarita Dubois PA-Sunday 01/23/2023 Orders Only Radiology Radha Cheema PA 01/23/2023 Education Radiology Janae Bergeron MA 01/22/2023 Hospital Encounter Radiology Constantine Ford, Encount er for MD attention to Shellie Doss PA nephrostomy ( Primary Dx) 01/22/2023 Travel 01/22/2023 Orders Only Radiology Cheryl Tapia PA 01/15/2023 Infusion Infusion Services Ahmad, Buffy, Bladder c ancer SET DECORATOR (Primary Dx) 01/15/2023 Follow-Up Genitourinary Ahmad, Buffy, Bladder cance r Oncology SET DECORATOR (Primary Dx) 01/15/2023 Hospital Encounter Lab Buffy Marc, Bladder cancer SET DECORATOR 01/15/2023 Travel 01/08/2023 Orders Only Genitourinary Erika, Bladder cancer Oncology MD Yandy (Primary Dx) 01/01/2023 Telemedicine Genitourinary Erika, Bladder cancer Oncology MD Ynady (Primary Dx) 12/31/2022 Hospital Encounter Uro/Ortho/GI Buffy Marc, Bladder cancer - SET DECORATOR 01/01/2023 Enrique Kyle MD 12/31/2022 Travel 12/28/2022 Hospital Encounter Radiology Constantine Ford, Other h ydronephrosis (Primary Dx) Gala Quiroz PA 12/28/2022 Travel 12/28/2022 Orders Only Nephrology Aaron Vasquez, Stage 3 chron ic MD kidney disease, not otherwise speci fied (Primary Dx) 12/27/2022 Education Radiology China Lemons MA 12/26/2022 Hospital Encounter Lab Srinivas Tian Stage 3b chronic kidney disease; C, PA Bladder cancer 12/26/2022 Orders Only Genitourinary Ahmad, Buffy, Bladder cance r Oncology SET DECORATOR (Primary Dx) 12/25/2022 Infusion Infusion Services Ahmad, Buffy, Bladder c ancer SET DECORATOR (Primary Dx) 12/25/2022 Follow-Up Genitourinary Erika, Bladder cancer (Primary Dx); Oncology MD Yandy Stage 3b chronic kidney disease; Buffy Marc, Renal insuffic iency; SET DECORATOR Rash 12/25/2022 Orders Only Nephrology Aaron Vasquez, Stage 3b zuhair de paz MD kidney disease (Primary Dx) 12/25/2022 Orders Only Radiology Srinivas Tian PA 12/25/2022 Travel 12/25/2022 Orders Only Genitourinary Erika, Bladder cancer Oncology MD Yandy (Primary Dx) 12/24/2022 Ancillary Procedure Radiology Buffy Marc, Bladder cancer SET DECORATOR 12/24/2022 Hospital Encounter Lab Buffy Marc, Bladder cancer SET DECORATOR 12/24/2022 Ancillary Procedure Radiology Buffy Marc, Bladder cancer SET DECORATOR 12/24/2022 Travel 12/17/2022 Telemedicine Endocrinology Isamar Sosa Type 2 diab etes M, SET DECORATOR mellitus with Hunter Amanda, hyperglycemia SET DECORATOR 12/14/2022 Hospital Encounter Lab Isamar Sosa Hyperl ipidemia, not otherwise specified; M, SET DECORATOR Type 2 diabetes mellitus with hyperglycemia 12/05/2022 Consult Dermatology Floridalma Mota MD Other specif ied dermatitis (Primary Dx); Melanocytic nev us of trunk; Seborrheic pooja tosis; Senile angioma; Actinic keratos is; Bladder cancer 12/05/2022 Travel 12/04/2022 Infusion Infusion Services Buffy Marc, Bladder c ancer SET DECORATOR (Primary Dx) Polo Villa RN 12/04/2022 Follow-Up Genitourinary Erika, Bladder cancer (Primary Dx); Oncology MD Yandy Rash and other nonspecific skin eruption; Rash 12/04/2022 Hospital Encounter Lab Buffy Marc, Chronic pyelonephritis, not otherwise specified; SET DECORATOR Proteinuria, no t otherwise specified; Bladder cancer 12/04/2022 Orders Only Genitourinary Erika, Bladder cancer Oncology MD Yandy (Primary Dx) 12/04/2022 Travel 11/26/2022 Orders Only Genitourinary Buffy Marc, Bladder cance r Oncology SET DECORATOR (Primary Dx) 11/25/2022 Travel 11/24/2022 Hospital Encounter /GI Med Jacquie Durno MD Fever (Primary Dx); - [place] Type 2 diabe tejinder mellitus with hyperglycemia; 11/27/2022 , MD Santosh Fatigue; Cecilia Doss, Urinary tract infection; Bladder cancer; Renal insuffici ency 11/24/2022 Travel 11/06/2022 Infusion Infusion Services Buffy Marc, Bladder c ancer SET DECORATOR (Primary Dx) Polo Villa RN 11/06/2022 Follow-Up Genitourinary Buffy Marc, Bladder cance r Oncology SET DECORATOR (Primary Dx) 11/06/2022 Hospital Encounter Lab Buffy Marc, Bladder cancer SET DECORATOR 11/06/2022 Orders Only Genitourinary Erika, Bladder cancer Oncology MD Yandy (Primary Dx) 11/06/2022 Orders Only Genitourinary Jennifer Og Oncology [facility] 11/06/2022 Travel 11/05/2022 Telemedicine Nephrology Constantine Ford, Chronic pyelo nephritis, not otherwise specified (Primary Dx); Hyperkalemia; Aaron Vasquez, Metabolic bon e disease; Stage 3b chroni c kidney disease; Proteinuria, no t otherwise specified 10/16/2022 Infusion Infusion Services Buffy Marc, Bladder c ancer SET DECORATOR (Primary Dx) 10/16/2022 Follow-Up Genitourinary Erika, Bladder cancer Oncology MD Yandy (Primary Dx) 10/16/2022 Hospital Encounter Lab Buffy Marc, Bladder cancer SET DECORATOR 10/16/2022 Orders Only Genitourinary Erika, Bladder cancer Oncology MD Yandy (Primary Dx) 10/16/2022 [facility] 10/16/2022 Travel 09/25/2022 Infusion Infusion Services Buffy Marc, Bladder c ancer SET DECORATOR (Primary Dx) Jonathan Polo RN 09/25/2022 Follow-Up Genitourinary Erika, Bladder cancer Oncology MD Yandy (Primary Dx) 09/25/2022 Orders Only Genitourinary Erika, Bladder cancer Oncology MD Yandy (Primary Dx) 09/25/2022 Travel 09/24/2022 Ancillary Procedure Radiology Buffy Marc, Bladder cancer SET DECORATOR 09/24/2022 Hospital Encounter Radiology Monico Buffy, Bladder cancer SET DECORATOR 09/24/2022 Hospital Encounter Lab Camilleenrique Buffy, Bladder cancer SET DECORATOR 09/24/2022 Travel 09/05/2022 Follow-Up Orthopaedics PerezSheryl, Xerosis cutis (Primary Dx); DPM Type 2 diabetes mellitus with hyperglycemia; Hammer toe <Rig ht side>; Callosity on to e 09/05/2022 Travel 09/04/2022 Infusion Infusion Services Buffy Marc, Bladder c ancer SET DECORATOR (Primary Dx) Abida Rainey, RN 09/04/2022 Follow-Up Genitourinary Erika, Bladder cancer (Primary Dx); Oncology MD Yandy Itching; Renal insuffici ency 09/04/2022 Hospital Encounter Lab Buffy Marc, Bladder cancer SET DECORATOR 09/04/2022 Orders Only Genitourinary Erika, Bladder cancer Oncology MD Yandy (Primary Dx) 09/04/2022 Orders Only Genitourinary Jennifer Og Oncology K, [facility] 09/04/2022 Travel 08/24/2022 Refill Endocrinology Christa Chen, RN 08/14/2022 Infusion Infusion Services Buffy Marc, Bladder c ancer SET DECORATOR (Primary Dx) 08/14/2022 Follow-Up Genitourinary Buffy Marc, Bladder cance r Oncology SET DECORATOR (Primary Dx) 08/14/2022 Hospital Encounter Lab Buffy Marc, Bladder cancer; SET DECORATOR Chronic kidney disease, stage 4 (severe) 08/14/2022 Orders Only Genitourinary Star, Oncology MD Jorge 08/14/2022 Travel 08/10/2022 Telephone Endocrinology Christa Chen, RN 08/10/2022 Documentation Endocrinology Cristy Ferrari RN 08/10/2022 Orders Only Endocrinology Isamar Sosa Type 2 diab etrandy M, SET DECORATOR mellitus with hyperglycemia (Primary Dx) 07/25/2022 Orders Only Nephrology Aaron Vasquez Chronic kidne y MD disease, stage 4 (severe) (Prima ry Dx) 07/24/2022 Hospital Encounter Lab Buffy Marc, Bladder cancer SET DECORATOR 07/24/2022 Infusion Infusion Services Buffy Marc, Bladder c ancer SET DECORATOR (Primary Dx) 07/24/2022 Follow-Up Genitourinary Erika, Bladder cancer Oncology MD Yandy (Primary Dx) 07/24/2022 Hospital Encounter Lab Buffy Marc, Bladder cancer SET DECORATOR 07/24/2022 Orders Only Genitourinary Erika, Bladder cancer Oncology MD Yandy (Primary Dx) 07/24/2022 Orders Only Genitourinary Shreya Doss, Oncology PharmD 07/24/2022 Travel 07/02/2022 Orders Only Genitourinary Buffy Marc, Urinary tract Oncology SET DECORATOR infection, not otherwise speci fied (Primary Dx) 06/29/2022 Hospital Encounter Lab Monico Buffy, Bladder cancer SET DECORATOR 06/26/2022 Infusion Infusion Services Buffy Marc, Bladder c ancer SET DECORATOR (Primary Dx) Dandy Rosenthal RN 06/26/2022 Office Visit Genitourinary Erika, Bladder cancer Oncology MD Yandy (Primary Dx) 06/26/2022 Orders Only Genitourinary Erika, Bladder cancer Oncology MD Yandy (Primary Dx) 06/26/2022 Orders Only Genitourinary Shreya Doss, Oncology PharmD 06/26/2022 Travel 06/25/2022 Ancillary Procedure Radiology Buffy Marc, Bladder cancer SET DECORATOR 06/25/2022 Hospital Encounter Lab Monico Buffy, Bladder cancer; SET DECORATOR Stage 3b chroni c kidney disease; Metabolic bone disease 06/25/2022 Ancillary Procedure Radiology Monico Buffy, Bladder cancer SET DECORATOR 06/25/2022 Travel 06/15/2022 Office Visit Endocrinology Amy Zayas Type 2 diab etes mellitus with hyperglycemia; NMD Prince Current use of insulin; Isamar Sosa Hyperlipidem ia, not otherwise specified M, SET DECORATOR 06/15/2022 Hospital Encounter Lab Amy Zayas Type 2 diabetes mellitus with hyperglycemia; MD Jose Hyperlipidemia, not otherwise specified; Stage 3 chronic kidney disease, not otherwise specified 06/15/2022 Travel 06/04/2022 Telemedicine Nephrology Constantine Ford, Hyperkalemia (Primary Dx); Stage 3 chronic kidney disease, not othe rwise specified; Aaron Vasquez, Metabolic bon e disease; Stage 3b chroni c kidney disease 06/04/2022 Telephone Nephrology Sonal Fine RN 05/18/2022 Orders Only Nephrology Aaron Vasquez, Stage 3 chron ic kidney disease, not otherwise speci fied (Primary Dx) 05/18/2022 Orders Only Nephrology Aaron Vasquez, Stage 3 chron ic kidney disease, not otherwise speci fied (Primary Dx) 05/16/2022 Hospital Encounter Lab CamilledBuffy, Bladder cancer SET DECORATOR 05/15/2022 Infusion Infusion Services YvettemadBuffy, Bladder c ancer SET DECORATOR (Primary Dx) 05/15/2022 Office Visit Genitourinary Buffy Marc, Bladder cance r Oncology SET DECORATOR (Primary Dx) 05/15/2022 Hospital Encounter Lab Buffy Marc, Bladder cancer SET DECORATOR 05/15/2022 Travel 05/02/2022 Office Visit Orthopaedics Sheryl Todd Callosity on t oe (Primary Dx); DPM Type 2 diabetes mellitus with hyperglycemia; [place]; Hammer toe <Rig ht side> 05/02/2022 Travel 04/24/2022 Infusion Infusion Services CamilledBuffy, Bladder c ancer SET DECORATOR (Primary Dx) 04/24/2022 Office Visit Genitourinary Erika, Bladder cancer (Primary Dx); Oncology MD Yandy Renal insuffici ency 04/24/2022 Telephone Endocrinology Aym Zayas MD Palma, Denise A, FRANCIA 04/24/2022 Hospital Encounter Lab Buffy Marc, Bladder cancer SET DECORATOR 04/24/2022 Orders Only Genitourinary Aaron Olvera, Oncology 04/24/2022 Travel after 04/08/2022 Immunizations Name Administration Dates Next Due Influenza Split High Dose Preservative Free IM 06/13/2020 Influenza, Quadrivalent 06/13/2020 Moderna SARS-CoV-2 Vaccination 12/12/2020 Surgical History Surgery Date Site/Laterality Comments SHOULDER ARTHROSCOPY W08/26/2010 - Bilateral ROTATOR CUFF REPAIR 08/25/2011 TONSILLECTOMY HERNIA REPAIR Left Open as a child COLONOSCOPY 08/26/2016 CATARACT EXTRACTION 08/26/2001 Bilateral EXTRACAPSULAR W/ INTRAOCULAR LENS IMPLANTATION CYSTOSCOPY URETEROSCOPY 07/08/2020 SHOULDER SURGERY 02/23/1997 - 03/25/1997 LAMINECTOMY 08/26/2010 LAMINECTOMY 08/26/2018 NH CYSTECTOMY W/BI PELVIC 12/15/2020 Abdomen/N/A Proced ure: CYSTECTOMY, LYMPHADENECTOMY COMPLETE; WITH B ILATERAL PELVIC LYMPHADEN ECTOMY; Surgeon: Constantine Ford MD; Location: [facility] IN OR; Service: UROLOGY NH URETEROILEAL CONDUIT 12/15/2020 Abdomen/N/A Procedur e: URETEROILEAL W/INTESTINE ANASTOMOSIS CONDUIT (ILEAL BLADDER), INCLUDING INTEST INE ANASTOMOSIS (GLADYS CKER OPERATION); Surg boris: Amol Thompson IV, MD; Location: MAIN O R; Service: UROLOGY NH PERQ NL/PL LITHOTRP 02/07/2023 Ureter/Left Procedure : PERCUTANEOUS SIMPLE UP TO 2 CM 1 LOCATION NEP HROSCOPY, LEFT URETERAL BIOPSIE S; Surgeon: Amol Thompson IV, MD; L ocation: [facility] OR; Service : UROLOGY Medical History Medical History Date Comments Diabetes mellitus Hyperlipidemia 01/1990 Benign prostatic hyperplasia 08/2019 Arthritis 09/1997 Bladder cancer 05/2020 Postoperative nausea and vomiting Recovery following surgery 01/24/1990 S/p cystectom y with ileal conduit 12/15/2020 Urostomy present 01/24/1990 Exposure to asbestos x 3 years at age 24 . Family History Medical History Relation Name Comments -Other cancer Neg Hx Social History Tobacco Use Types Packs/Day Years Used Date Smoking Tobacco: Former Cigarettes 1 08/1969 - 12/25/1983 Smokeless Tobacco: Never Tobacco Cessation: Counseling Given: Not Answered Alcohol Use Standard Drinks/Week Comments Not Currently 1 (1 standard drink = 0.6 oz pure alcoho l) 1 or 2 drinks a month Sex Assigned at Date Recorded Male 07/22/2020 6:02 AM [employer] Job Start Date Occupation Industry Not on file Not on file Not on file Obstetrics History Last Filed Vital Signs Vital Sign Reading Time Taken Comments Blood Pressure 145/67 03/26/2023 10:44 AM CDT Pulse 89 03/26/2023 10:44 AM CDT Temperature 36.6 C (97.9 F) 03/26/2023 10:44 AM CDT Respiratory Rate 18 03/26/2023 10:44 AM CDT Oxygen Saturation 98% 03/26/2023 10:44 AM CDT Inhaled Oxygen Concentration - - Weight 94.5 kg (208 lb 5.4 oz) 03/26/2023 9:25 AM CDT Height 183 cm (6' 0.05") 03/26/2023 9:25 AM CDT Body Mass Index 28.22 03/26/2023 9:25 AM CDT Plan of Treatment Date Type Specialty Care Team Description 04/16/2023 Appointment Lab Jelly Lr APRN [address] [place], [place] [address] (Wo rk) 04/16/2023 Follow-Up Genitourinary Oncology Yandy James MD [facility] [place], [place] [address] (Wo rk) 04/16/2023 Infusion Infusion Services Clayton James MD [address] [place], [place] [address] (Wo rk) 04/24/2023 Appointment Radiology Amol Thompson IV, MD [facility] [place], [place] [address] (Wo rk) 04/25/2023 Telemedicine Nephrology Aaron Vasquez M D [address] [place] [address] Sarah Clark APRN,AGACNP [address] [place] [address] 06/19/2023 Follow-Up Orthopaedics Sheryl Todd DP M [address] [place], [place] [address] (Wo rk) 12/04/2023 Follow-Up Dermatology Floridalma Mota MD [id number] [place], [place] [address] (Wo rk) Health Maintenance Due Date Last Done Comments COVID-19 Vaccination (2 - Moderna risk series) 01/09/2021 0 12/12/2020 Procedures Procedure Name Priority Date/Time Associated Comments Diagnosis FRACTIONATED BILIRUBIN Routine 03/26/2023 8:17 Bladder cancer Results for this AM CDT procedure are i n the results section. TOTAL PROTEIN Routine 03/26/2023 8:17 Bladder cancer Results f or this AM CDT procedure are i n the results section. ASPARTATE Routine 03/26/2023 8:17 Bladder cancer Results fo r this AMINOTRANSFERASE AM CDT procedure a re in the results section. ALANINE AMINOTRANSFERASE Routine 03/26/2023 8:17 Bladder cance r Results for this AM CDT procedure are i n the results section. ALKALINE PHOSPHATASE Routine 03/26/2023 8:17 Bladder cancer Re sults for this AM CDT procedure are i n the results section. ALBUMIN LEVEL Routine 03/26/2023 8:17 Bladder cancer Results f or this AM CDT procedure are i n the results section. CALCIUM LEVEL TOTAL Routine 03/26/2023 8:17 Bladder cancer Res ults for this AM CDT procedure are i n the results section. .GLOMERULAR FILTRATION Routine 03/26/2023 8:17 Bladder cancer Results for this RATE AM CDT procedure are i n the results section. SERUM CREATININE Routine 03/26/2023 8:17 Bladder cancer Result s for this AM CDT procedure are i n the results section. ELECTROLYTE PANEL Routine 03/26/2023 8:17 Bladder cancer Resul ts for this AM CDT procedure are i n the results section. BLOOD UREA NITROGEN Routine 03/26/2023 8:17 Bladder cancer Res ults for this AM CDT procedure are i n the results section. GLUCOSE LEVEL Routine 03/26/2023 8:17 Bladder cancer Results f or this AM CDT procedure are i n the results section. MANUAL DIFFERENTIAL Routine 03/26/2023 8:17 Bladder cancer Res ults for this AM CDT procedure are i n the results section. Results CBC Routine 03/26/2023 8:17 Bladder cancer Results fo r this AM CDT procedure are i n the results section. PHOSPHORUS LEVEL Routine 03/26/2023 8:17 Bladder cancer Result s for this AM CDT procedure are i n the results section. MAGNESIUM LEVEL Routine 03/26/2023 8:17 Bladder cancer Results for this AM CDT procedure are i n the results section. COMPREHENSIVE METABOLIC Routine 03/26/2023 8:17 Bladder cancer PANEL AM CDT COMPLETE BLOOD COUNT W/ Routine 03/26/2023 8:17 Bladder cancer DIFFERENTIAL AM CDT FRACTIONATED BILIRUBIN Routine 03/05/2023 8:54 Bladder cancer Results for this AM CDT procedure are i n the results section. TOTAL PROTEIN Routine 03/05/2023 8:54 Bladder cancer Results f or this AM CDT procedure are i n the results section. ASPARTATE Routine 03/05/2023 8:54 Bladder cancer Results fo r this AMINOTRANSFERASE AM CDT procedure a re in the results section. ALANINE AMINOTRANSFERASE Routine 03/05/2023 8:54 Bladder cance r Results for this AM CDT procedure are i n the results section. ALKALINE PHOSPHATASE Routine 03/05/2023 8:54 Bladder cancer Re sults for this AM CDT procedure are i n the results section. ALBUMIN LEVEL Routine 03/05/2023 8:54 Bladder cancer Results f or this AM CDT procedure are i n the results section. CALCIUM LEVEL TOTAL Routine 03/05/2023 8:54 Bladder cancer Res ults for this AM CDT procedure are i n the results section. .GLOMERULAR FILTRATION Routine 03/05/2023 8:54 Bladder cancer Results for this RATE AM CDT procedure are i n the results section. SERUM CREATININE Routine 03/05/2023 8:54 Bladder cancer Result s for this AM CDT procedure are i n the results section. ELECTROLYTE PANEL Routine 03/05/2023 8:54 Bladder cancer Resul ts for this AM CDT procedure are i n the results section. BLOOD UREA NITROGEN Routine 03/05/2023 8:54 Bladder cancer Res ults for this AM CDT procedure are i n the results section. GLUCOSE LEVEL Routine 03/05/2023 8:54 Bladder cancer Results f or this AM CDT procedure are i n the results section. MANUAL DIFFERENTIAL Routine 03/05/2023 8:54 Bladder cancer Res ults for this AM CDT procedure are i n the results section. Results CBC Routine 03/05/2023 8:54 Bladder cancer Results fo r this AM CDT procedure are i n the results section. PHOSPHORUS LEVEL Routine 03/05/2023 8:54 Bladder cancer Result s for this AM CDT procedure are i n the results section. MAGNESIUM LEVEL Routine 03/05/2023 8:54 Bladder cancer Results for this AM CDT procedure are i n the results section. COMPREHENSIVE METABOLIC Routine 03/05/2023 8:54 Bladder cancer PANEL AM CDT COMPLETE BLOOD COUNT W/ Routine 03/05/2023 8:54 Bladder cancer DIFFERENTIAL AM CDT PETCT SUBSEQUENT Routine 03/04/2023 2:40 Bladder cancer Results for this TREATMENT STRATEGY PM CDT Malignant neoplasm pro cedure are in of overlapping the results sites of bladder section. POC GLUCOSE SCREEN Routine 03/04/2023 12:53 Resul ts for this PM CDT procedure are i n the results section. POC GLUCOSE SCREEN Routine 02/07/2023 8:44 Result s for this AM CDT procedure are i n the results section. FL PORTABLE FLUOROSCOPY Routine 02/07/2023 8:33 R esults for this AM CDT procedure are i n the results section. PATHOLOGY SURGICAL Routine 02/07/2023 8:11 Obstruction of Resu lts for this INTERPRETATION AM CDT ureter procedure are in the results section. CYTOLOGY NON-RAIL TRACK LAYER Routine 02/07/2023 8:09 Obstruction of Result s for this INTERPRETATION AM CDT ureter procedure are in the results section. CHANGE OF NEPHROSTOMY 02/07/2023 6:30 Obstruction of TUBE AM CDT ureter Special Needs SE@5:30A;NG;2FM PERCUTANEOUS NEPHROLITHOTOMY OR 02/07/2023 6:30 AM CDT Obstruction of ureter LITHOTRIPSY, SIMPLE (EG STONES) , UP TO 2CM IN SINGLE LOCATION OF KIDNEY Special Needs SE@5:30A;NG;2FM POC GLUCOSE SCREEN Routine 02/07/2023 6:21 Result s for AM CDT this procedure are in the results section. FRACTIONATED BILIRUBIN Routine 02/05/2023 8:33 Bladder cancer Results for AM CDT this procedure are in the results section. TOTAL PROTEIN Routine 02/05/2023 8:33 Bladder cancer Results f or AM CDT this procedure are in the results section. ASPARTATE AMINOTRANSFERASE Routine 02/05/2023 8:33 Bladder can cer Results for AM CDT this procedure are in the results section. ALANINE AMINOTRANSFERASE Routine 02/05/2023 8:33 Bladder cance r Results for AM CDT this procedure are in the results section. ALKALINE PHOSPHATASE Routine 02/05/2023 8:33 Bladder cancer Re sults for AM CDT this procedure are in the results section. ALBUMIN LEVEL Routine 02/05/2023 8:33 Bladder cancer Results f or AM CDT this procedure are in the results section. CALCIUM LEVEL TOTAL Routine 02/05/2023 8:33 Bladder cancer Res ults for AM CDT this procedure are in the results section. .GLOMERULAR FILTRATION Routine 02/05/2023 8:33 Bladder cancer Results for RATE AM CDT this procedure are in the results section. SERUM CREATININE Routine 02/05/2023 8:33 Bladder cancer Result s for AM CDT this procedure are in the results section. ELECTROLYTE PANEL Routine 02/05/2023 8:33 Bladder cancer Resul ts for AM CDT this procedure are in the results section. BLOOD UREA NITROGEN Routine 02/05/2023 8:33 Bladder cancer Res ults for AM CDT this procedure are in the results section. GLUCOSE LEVEL Routine 02/05/2023 8:33 Bladder cancer Results f or AM CDT this procedure are in the results section. MANUAL DIFFERENTIAL Routine 02/05/2023 8:33 Bladder cancer Res ults for AM CDT this procedure are in the results section. Results CBC Routine 02/05/2023 8:33 Bladder cancer Results fo r AM CDT this procedure are in the results section. PROSTATE SPECIFIC ANTIGEN Routine 02/05/2023 8:33 [place] ma, NOS Results for AM CDT of prostate gland this proce dure are in the results section. PHOSPHORUS LEVEL Routine 02/05/2023 8:33 Bladder cancer Result s for AM CDT this procedure are in the results section. MAGNESIUM LEVEL Routine 02/05/2023 8:33 Bladder cancer Results for AM CDT this procedure are in the results section. COMPREHENSIVE METABOLIC Routine 02/05/2023 8:33 Bladder cancer PANEL AM CDT COMPLETE BLOOD COUNT W/ Routine 02/05/2023 8:33 Bladder cancer DIFFERENTIAL AM CDT URINE CULTURE Routine 01/29/2023 10:31 Obstruction of Results for AM CDT ureter this procedure are in the results section. IR NEPHROSTOMY EXCHANGE 60 Routine 01/24/2023 1:18 Bladder can cer Results for PM CDT this procedure are in the results section. POC GLUCOSE SCREEN Routine 01/24/2023 12:35 Resul ts for PM CDT this procedure are in the results section. PROTHROMBIN TIME Routine 01/24/2023 11:49 Results for AM CDT this procedure are in the results section. FRACTIONATED BILIRUBIN Routine 01/15/2023 7:23 Bladder cancer Results for AM CDT this procedure are in the results section. TOTAL PROTEIN Routine 01/15/2023 7:23 Bladder cancer Results f or AM CDT this procedure are in the results section. ASPARTATE AMINOTRANSFERASE Routine 01/15/2023 7:23 Bladder can cer Results for AM CDT this procedure are in the results section. ALANINE AMINOTRANSFERASE Routine 01/15/2023 7:23 Bladder cance r Results for AM CDT this procedure are in the results section. ALKALINE PHOSPHATASE Routine 01/15/2023 7:23 Bladder cancer Re sults for AM CDT this procedure are in the results section. ALBUMIN LEVEL Routine 01/15/2023 7:23 Bladder cancer Results f or AM CDT this procedure are in the results section. CALCIUM LEVEL TOTAL Routine 01/15/2023 7:23 Bladder cancer Res ults for AM CDT this procedure are in the results section. .GLOMERULAR FILTRATION Routine 01/15/2023 7:23 Bladder cancer Results for RATE AM CDT this procedure are in the results section. SERUM CREATININE Routine 01/15/2023 7:23 Bladder cancer Result s for AM CDT this procedure are in the results section. ELECTROLYTE PANEL Routine 01/15/2023 7:23 Bladder cancer Resul ts for AM CDT this procedure are in the results section. BLOOD UREA NITROGEN Routine 01/15/2023 7:23 Bladder cancer Res ults for AM CDT this procedure are in the results section. GLUCOSE LEVEL Routine 01/15/2023 7:23 Bladder cancer Results f or AM CDT this procedure are in the results section. MANUAL DIFFERENTIAL Routine 01/15/2023 7:23 Bladder cancer Res ults for AM CDT this procedure are in the results section. Results CBC Routine 01/15/2023 7:23 Bladder cancer Results fo r AM CDT this procedure are in the results section. PHOSPHORUS LEVEL Routine 01/15/2023 7:23 Bladder cancer Result s for AM CDT this procedure are in the results section. MAGNESIUM LEVEL Routine 01/15/2023 7:23 Bladder cancer Results for AM CDT this procedure are in the results section. COMPREHENSIVE METABOLIC Routine 01/15/2023 7:23 Bladder cancer PANEL AM CDT COMPLETE BLOOD COUNT W/ Routine 01/15/2023 7:23 Bladder cancer DIFFERENTIAL AM CDT POC GLUCOSE SCREEN Routine 12/31/2022 8:46 Result s for PM CDT this procedure are in the results section. POC GLUCOSE SCREEN Routine 12/31/2022 3:05 Result s for PM CDT this procedure are in the results section. POC GLUCOSE SCREEN Routine 12/31/2022 11:30 Resul ts for AM CDT this procedure are in the results section. IR NEPHROSTOMY UNILATERAL Routine 12/31/2022 10:39 Bladder can cer Results for PLACEMENT 75 AM CDT this procedure are in the results section. TMP INTERPRETATION STAT 12/31/2022 9:20 Result s for ANTIBODY SCREEN NEGATIVE AM CDT thi s procedure are in the results section. CLOT EXPIRATION DATE STAT 12/31/2022 9:20 Resu lts for AM CDT this procedure are in the results section. ANTIBODY SCREEN STAT 12/31/2022 9:20 Results f or AM CDT this procedure are in the results section. ABORH STAT 12/31/2022 9:20 Results for AM CDT this procedure are in the results section. TYPE AND SCREEN STAT 12/31/2022 9:20 AM CDT POC GLUCOSE SCREEN Routine 12/31/2022 8:40 Result s for AM CDT this procedure are in the results section. CREATININE URINE, RANDOM Routine 12/26/2022 12:25 Stage 3b chr onic Results for PM CDT kidney disease this procedur e are in the results section. ALBUMIN LEVEL URINE Routine 12/26/2022 12:25 Stage 3b chronic Results for PM CDT kidney disease this procedur e are in the results section. URINE CULTURE Routine 12/26/2022 12:25 Bladder cancer Results for PM CDT this procedure are in the results section. URINALYSIS MICROSCOPIC Routine 12/26/2022 12:19 R esults for EXAM PM CDT this procedure are in the results section. URINALYSIS WITH Routine 12/26/2022 12:19 Bladder cancer Result s for MICROSCOPIC IF INDICATED PM CDT thi s procedure are in the results section. PROTHROMBIN TIME Routine 12/26/2022 12:11 Results for PM CDT this procedure are in the results section. PLATELET COUNT Routine 12/26/2022 12:11 Results f or PM CDT this procedure are in the results section. MRI ABDOMEN & PELVIS W AND Routine 12/24/2022 8:55 Bladder can cer Results for WO CONTRAST PM CDT this procedure are in the results section. FRACTIONATED BILIRUBIN Routine 12/24/2022 7:32 Bladder cancer Results for AM CDT this procedure are in the results section. TOTAL PROTEIN Routine 12/24/2022 7:32 Bladder cancer Results f or AM CDT this procedure are in the results section. ASPARTATE AMINOTRANSFERASE Routine 12/24/2022 7:32 Bladder can cer Results for AM CDT this procedure are in the results section. ALANINE AMINOTRANSFERASE Routine 12/24/2022 7:32 Bladder cance r Results for AM CDT this procedure are in the results section. ALKALINE PHOSPHATASE Routine 12/24/2022 7:32 Bladder cancer Re sults for AM CDT this procedure are in the results section. ALBUMIN LEVEL Routine 12/24/2022 7:32 Bladder cancer Results f or AM CDT this procedure are in the results section. CALCIUM LEVEL TOTAL Routine 12/24/2022 7:32 Bladder cancer Res ults for AM CDT this procedure are in the results section. .GLOMERULAR FILTRATION Routine 12/24/2022 7:32 Bladder cancer Results for RATE AM CDT this procedure are in the results section. SERUM CREATININE Routine 12/24/2022 7:32 Bladder cancer Result s for AM CDT this procedure are in the results section. ELECTROLYTE PANEL Routine 12/24/2022 7:32 Bladder cancer Resul ts for AM CDT this procedure are in the results section. BLOOD UREA NITROGEN Routine 12/24/2022 7:32 Bladder cancer Res ults for AM CDT this procedure are in the results section. GLUCOSE LEVEL Routine 12/24/2022 7:32 Bladder cancer Results f or AM CDT this procedure are in the results section. MANUAL DIFFERENTIAL Routine 12/24/2022 7:32 Bladder cancer Res ults for AM CDT this procedure are in the results section. Results CBC Routine 12/24/2022 7:32 Bladder cancer Results fo r AM CDT this procedure are in the results section. PHOSPHORUS LEVEL Routine 12/24/2022 7:32 Bladder cancer Result s for AM CDT this procedure are in the results section. MAGNESIUM LEVEL Routine 12/24/2022 7:32 Bladder cancer Results for AM CDT this procedure are in the results section. COMPREHENSIVE METABOLIC Routine 12/24/2022 7:32 Bladder cancer PANEL AM CDT COMPLETE BLOOD COUNT W/ Routine 12/24/2022 7:32 Bladder cancer DIFFERENTIAL AM CDT CT CHEST WO CONTRAST Routine 12/24/2022 7:09 Bladder cancer Re sults for AM CDT this procedure are in the results section. ALBUMIN LEVEL URINE Routine 12/14/2022 8:13 Type 2 diabetes Re sults for AM CDT mellitus with this procedure hyperglycemia are in the results section. MICROALBUMIN/CREATININE Routine 12/14/2022 8:13 Type 2 diabete s RATIO, URINE AM CDT mellitus with hyperglycemia HEMOGLOBIN A1C Routine 12/14/2022 8:09 Type 2 diabetes Results for AM CDT mellitus with this procedure hyperglycemia are in the results section. GLUCOSE, RANDOM Routine 12/14/2022 8:09 Type 2 diabetes Result s for AM CDT mellitus with this procedure hyperglycemia are in the results section. FREE THYROXINE Routine 12/14/2022 8:09 Type 2 diabetes Results for AM CDT mellitus with this procedure hyperglycemia are in the results section. THYROID STIMULATING Routine 12/14/2022 8:09 Type 2 diabetes Re sults for HORMONE AM CDT mellitus with this procedure hyperglycemia are in the results section. LIPID PANEL Routine 12/14/2022 8:09 Hyperlipidemia, not Resul ts for AM CDT otherwise specified this pro cedure are in the results section. ALBUMIN LEVEL URINE Routine 12/04/2022 8:56 Chronic Resul ts for AM CDT pyelonephritis, not this pro cedure otherwise specif ied are in the Proteinuria, not results otherwise specified section. FRACTIONATED BILIRUBIN Routine 12/04/2022 8:47 Bladder cancer Results for AM CDT this procedure are in the results section. TOTAL PROTEIN Routine 12/04/2022 8:47 Bladder cancer Results f or AM CDT this procedure are in the results section. ASPARTATE AMINOTRANSFERASE Routine 12/04/2022 8:47 Bladder can cer Results for AM CDT this procedure are in the results section. ALANINE AMINOTRANSFERASE Routine 12/04/2022 8:47 Bladder cance r Results for AM CDT this procedure are in the results section. ALKALINE PHOSPHATASE Routine 12/04/2022 8:47 Bladder cancer Re sults for AM CDT this procedure are in the results section. ALBUMIN LEVEL Routine 12/04/2022 8:47 Bladder cancer Results f or AM CDT this procedure are in the results section. CALCIUM LEVEL TOTAL Routine 12/04/2022 8:47 Bladder cancer Res ults for AM CDT this procedure are in the results section. .GLOMERULAR FILTRATION Routine 12/04/2022 8:47 Bladder cancer Results for RATE AM CDT this procedure are in the results section. SERUM CREATININE Routine 12/04/2022 8:47 Bladder cancer Result s for AM CDT this procedure are in the results section. ELECTROLYTE PANEL Routine 12/04/2022 8:47 Bladder cancer Resul ts for AM CDT this procedure are in the results section. BLOOD UREA NITROGEN Routine 12/04/2022 8:47 Bladder cancer Res ults for AM CDT this procedure are in the results section. GLUCOSE LEVEL Routine 12/04/2022 8:47 Bladder cancer Results f or AM CDT this procedure are in the results section. MANUAL DIFFERENTIAL Routine 12/04/2022 8:47 Bladder cancer Res ults for AM CDT this procedure are in the results section. Results CBC Routine 12/04/2022 8:47 Bladder cancer Results fo r AM CDT this procedure are in the results section. PHOSPHORUS LEVEL Routine 12/04/2022 8:47 Bladder cancer Result s for AM CDT this procedure are in the results section. MAGNESIUM LEVEL Routine 12/04/2022 8:47 Bladder cancer Results for AM CDT this procedure are in the results section. COMPREHENSIVE METABOLIC Routine 12/04/2022 8:47 Bladder cancer PANEL AM CDT COMPLETE BLOOD COUNT W/ Routine 12/04/2022 8:47 Bladder cancer DIFFERENTIAL AM CDT POC GLUCOSE SCREEN Routine 11/27/2022 11:52 Resul ts for AM CDT this procedure are in the results section. POC GLUCOSE SCREEN Routine 11/27/2022 8:09 Result s for AM CDT this procedure are in the results section. FRACTIONATED BILIRUBIN AM 11/27/2022 2:33 Re sults for AM CDT this procedure are in the results section. TOTAL PROTEIN AM 11/27/2022 2:33 Results for AM CDT this procedure are in the results section. ASPARTATE AMINOTRANSFERASE AM 11/27/2022 2:33 Results for AM CDT this procedure are in the results section. ALANINE AMINOTRANSFERASE AM 11/27/2022 2:33 Results for AM CDT this procedure are in the results section. ALKALINE PHOSPHATASE AM 11/27/2022 2:33 Resu lts for AM CDT this procedure are in the results section. ALBUMIN LEVEL AM 11/27/2022 2:33 Results for AM CDT this procedure are in the results section. CALCIUM IONIZED, VENOUS AM 11/27/2022 2:33 R esults for AM CDT this procedure are in the results section. .GLOMERULAR FILTRATION AM 11/27/2022 2:33 Re sults for RATE AM CDT this procedure are in the results section. SERUM CREATININE AM 11/27/2022 2:33 Results for AM CDT this procedure are in the results section. ELECTROLYTE PANEL AM 11/27/2022 2:33 Results for AM CDT this procedure are in the results section. BLOOD UREA NITROGEN AM 11/27/2022 2:33 Resul ts for AM CDT this procedure are in the results section. GLUCOSE LEVEL AM 11/27/2022 2:33 Results for AM CDT this procedure are in the results section. MANUAL DIFFERENTIAL AM 11/27/2022 2:33 Resul ts for AM CDT this procedure are in the results section. Results CBC AM 11/27/2022 2:33 Results for AM CDT this procedure are in the results section. BASIC METABOLIC PANEL, AM 11/27/2022 2:33 CALCIUM IONIZED AM CDT MAGNESIUM LEVEL AM 11/27/2022 2:33 Results f or AM CDT this procedure are in the results section. PHOSPHORUS LEVEL AM 11/27/2022 2:33 Results for AM CDT this procedure are in the results section. COMPLETE BLOOD COUNT W/ AM 11/27/2022 2:33 DIFFERENTIAL AM CDT POC GLUCOSE SCREEN Routine 11/26/2022 10:51 Resul ts for PM CDT this procedure are in the results section. POC GLUCOSE SCREEN Routine 11/26/2022 6:10 Result s for PM CDT this procedure are in the results section. POC GLUCOSE SCREEN Routine 11/26/2022 1:32 Result s for PM CDT this procedure are in the results section. POC GLUCOSE SCREEN Routine 11/26/2022 9:52 Result s for AM CDT this procedure are in the results section. POC GLUCOSE SCREEN Routine 11/26/2022 8:44 Result s for AM CDT this procedure are in the results section. CALCIUM IONIZED, VENOUS AM 11/26/2022 4:08 R esults for AM CDT this procedure are in the results section. .GLOMERULAR FILTRATION AM 11/26/2022 4:08 Re sults for RATE AM CDT this procedure are in the results section. SERUM CREATININE AM 11/26/2022 4:08 Results for AM CDT this procedure are in the results section. ELECTROLYTE PANEL AM 11/26/2022 4:08 Results for AM CDT this procedure are in the results section. BLOOD UREA NITROGEN AM 11/26/2022 4:08 Resul ts for AM CDT this procedure are in the results section. GLUCOSE LEVEL AM 11/26/2022 4:08 Results for AM CDT this procedure are in the results section. MANUAL DIFFERENTIAL AM 11/26/2022 4:08 Resul ts for AM CDT this procedure are in the results section. Results CBC AM 11/26/2022 4:08 Results for AM CDT this procedure are in the results section. GLUCOSE, FASTING Routine 11/26/2022 4:08 Results for AM CDT this procedure are in the results section. C-PEPTIDE Routine 11/26/2022 4:08 Results for AM CDT this procedure are in the results section. BASIC METABOLIC PANEL, AM 11/26/2022 4:08 CALCIUM IONIZED AM CDT MAGNESIUM LEVEL AM 11/26/2022 4:08 Results f or AM CDT this procedure are in the results section. PHOSPHORUS LEVEL AM 11/26/2022 4:08 Results for AM CDT this procedure are in the results section. COMPLETE BLOOD COUNT W/ AM 11/26/2022 4:08 DIFFERENTIAL AM CDT POC GLUCOSE SCREEN Routine 11/25/2022 9:59 Result s for PM CDT this procedure are in the results section. POC GLUCOSE SCREEN Routine 11/25/2022 5:56 Result s for PM CDT this procedure are in the results section. POC GLUCOSE SCREEN Routine 11/25/2022 12:16 Resul ts for PM CDT this procedure are in the results section. POC GLUCOSE SCREEN Routine 11/25/2022 7:28 Result s for AM CDT this procedure are in the results section. MANUAL DIFFERENTIAL Routine 11/25/2022 7:28 Resul ts for AM CDT this procedure are in the results section. Results CBC Routine 11/25/2022 7:28 Results for AM CDT this procedure are in the results section. FRACTIONATED BILIRUBIN Routine 11/25/2022 7:28 Re sults for AM CDT this procedure are in the results section. TOTAL PROTEIN Routine 11/25/2022 7:28 Results for AM CDT this procedure are in the results section. ASPARTATE AMINOTRANSFERASE Routine 11/25/2022 7:28 Results for AM CDT this procedure are in the results section. ALANINE AMINOTRANSFERASE Routine 11/25/2022 7:28 Results for AM CDT this procedure are in the results section. ALKALINE PHOSPHATASE Routine 11/25/2022 7:28 Resu lts for AM CDT this procedure are in the results section. ALBUMIN LEVEL Routine 11/25/2022 7:28 Results for AM CDT this procedure are in the results section. CALCIUM LEVEL TOTAL Routine 11/25/2022 7:28 Resul ts for AM CDT this procedure are in the results section. .GLOMERULAR FILTRATION Routine 11/25/2022 7:28 Re sults for RATE AM CDT this procedure are in the results section. SERUM CREATININE Routine 11/25/2022 7:28 Results for AM CDT this procedure are in the results section. ELECTROLYTE PANEL Routine 11/25/2022 7:28 Results for AM CDT this procedure are in the results section. BLOOD UREA NITROGEN Routine 11/25/2022 7:28 Resul ts for AM CDT this procedure are in the results section. GLUCOSE LEVEL Routine 11/25/2022 7:28 Results for AM CDT this procedure are in the results section. COMPLETE BLOOD COUNT W/ Routine 11/25/2022 7:28 DIFFERENTIAL AM CDT LACTATE DEHYDROGENASE Routine 11/25/2022 7:28 Res ults for AM CDT this procedure are in the results section. PHOSPHORUS LEVEL Routine 11/25/2022 7:28 Results for AM CDT this procedure are in the results section. MAGNESIUM LEVEL Routine 11/25/2022 7:28 Results f or AM CDT this procedure are in the results section. COMPREHENSIVE METABOLIC Routine 11/25/2022 7:28 PANEL AM CDT EKG, 12-LEAD (PORTABLE) Routine 11/25/2022 XR CHEST 1 VW Routine 11/24/2022 9:16 Results for PM CDT this procedure are in the results section. URINALYSIS MICROSCOPIC Routine 11/24/2022 9:16 Re sults for EXAM PM CDT this procedure are in the results section. URINALYSIS WITH Routine 11/24/2022 9:16 Results f or MICROSCOPIC IF INDICATED PM CDT thi s procedure are in the results section. URINE CULTURE Routine 11/24/2022 9:16 Results for PM CDT this procedure are in the results section. POC VENOUS BLOOD GAS + Routine 11/24/2022 9:11 Re sults for LACTATE PM CDT this procedure are in the results section. FRACTIONATED BILIRUBIN Routine 11/24/2022 8:56 Re sults for PM CDT this procedure are in the results section. TOTAL PROTEIN Routine 11/24/2022 8:56 Results for PM CDT this procedure are in the results section. ASPARTATE AMINOTRANSFERASE Routine 11/24/2022 8:56 Results for PM CDT this procedure are in the results section. ALANINE AMINOTRANSFERASE Routine 11/24/2022 8:56 Results for PM CDT this procedure are in the results section. ALKALINE PHOSPHATASE Routine 11/24/2022 8:56 Resu lts for PM CDT this procedure are in the results section. ALBUMIN LEVEL Routine 11/24/2022 8:56 Results for PM CDT this procedure are in the results section. CALCIUM LEVEL TOTAL Routine 11/24/2022 8:56 Resul ts for PM CDT this procedure are in the results section. .GLOMERULAR FILTRATION Routine 11/24/2022 8:56 Re sults for RATE PM CDT this procedure are in the results section. SERUM CREATININE Routine 11/24/2022 8:56 Results for PM CDT this procedure are in the results section. ELECTROLYTE PANEL Routine 11/24/2022 8:56 Results for PM CDT this procedure are in the results section. BLOOD UREA NITROGEN Routine 11/24/2022 8:56 Resul ts for PM CDT this procedure are in the results section. GLUCOSE LEVEL Routine 11/24/2022 8:56 Results for PM CDT this procedure are in the results section. MANUAL DIFFERENTIAL STAT 11/24/2022 8:56 Resul ts for PM CDT this procedure are in the results section. Results CBC STAT 11/24/2022 8:56 Results for PM CDT this procedure are in the results section. PROCALCITONIN Routine 11/24/2022 8:56 Results for PM CDT this procedure are in the results section. C REACTIVE PROTEIN Routine 11/24/2022 8:56 Result s for PM CDT this procedure are in the results section. LACTATE DEHYDROGENASE Routine 11/24/2022 8:56 Res ults for PM CDT this procedure are in the results section. PHOSPHORUS LEVEL Routine 11/24/2022 8:56 Results for PM CDT this procedure are in the results section. MAGNESIUM LEVEL Routine 11/24/2022 8:56 Results f or PM CDT this procedure are in the results section. COMPREHENSIVE METABOLIC Routine 11/24/2022 8:56 PANEL PM CDT COMPLETE BLOOD COUNT W/ Routine 11/24/2022 8:56 DIFFERENTIAL PM CDT RESPIRATORY MULTIPLEX PCR Routine 11/24/2022 8:56 Results for PANEL, NASOPHARYNGEAL SWAB PM CDT t his procedure are in the results section. BLOODCULTURE Routine 11/24/2022 8:56 Results for PM CDT this procedure are in the results section. BLOODCULTURE Routine 11/24/2022 8:56 Results for PM CDT this procedure are in the results section. URINALYSIS MICROSCOPIC Routine 11/06/2022 9:15 Re sults for EXAM AM CDT this procedure are in the results section. PROTEIN / CREATININE RATIO Routine 11/06/2022 9:15 Bladder can cer Results for URINE AM CDT this procedure are in the results section. EOSINOPHIL URINE Routine 11/06/2022 9:15 Bladder cancer Result s for AM CDT this procedure are in the results section. URINALYSIS WITH Routine 11/06/2022 9:15 Bladder cancer Results for MICROSCOPIC IF INDICATED AM CDT thi s procedure are in the results section. FRACTIONATED BILIRUBIN Routine 11/06/2022 8:57 Bladder cancer Results for AM CDT this procedure are in the results section. TOTAL PROTEIN Routine 11/06/2022 8:57 Bladder cancer Results f or AM CDT this procedure are in the results section. ASPARTATE AMINOTRANSFERASE Routine 11/06/2022 8:57 Bladder can cer Results for AM CDT this procedure are in the results section. ALANINE AMINOTRANSFERASE Routine 11/06/2022 8:57 Bladder cance r Results for AM CDT this procedure are in the results section. ALKALINE PHOSPHATASE Routine 11/06/2022 8:57 Bladder cancer Re sults for AM CDT this procedure are in the results section. ALBUMIN LEVEL Routine 11/06/2022 8:57 Bladder cancer Results f or AM CDT this procedure are in the results section. CALCIUM LEVEL TOTAL Routine 11/06/2022 8:57 Bladder cancer Res ults for AM CDT this procedure are in the results section. .GLOMERULAR FILTRATION Routine 11/06/2022 8:57 Bladder cancer Results for RATE AM CDT this procedure are in the results section. SERUM CREATININE Routine 11/06/2022 8:57 Bladder cancer Result s for AM CDT this procedure are in the results section. ELECTROLYTE PANEL Routine 11/06/2022 8:57 Bladder cancer Resul ts for AM CDT this procedure are in the results section. BLOOD UREA NITROGEN Routine 11/06/2022 8:57 Bladder cancer Res ults for AM CDT this procedure are in the results section. GLUCOSE LEVEL Routine 11/06/2022 8:57 Bladder cancer Results f or AM CDT this procedure are in the results section. MANUAL DIFFERENTIAL Routine 11/06/2022 8:57 Bladder cancer Res ults for AM CDT this procedure are in the results section. Results CBC Routine 11/06/2022 8:57 Bladder cancer Results fo r AM CDT this procedure are in the results section. PHOSPHORUS LEVEL Routine 11/06/2022 8:57 Bladder cancer Result s for AM CDT this procedure are in the results section. MAGNESIUM LEVEL Routine 11/06/2022 8:57 Bladder cancer Results for AM CDT this procedure are in the results section. COMPREHENSIVE METABOLIC Routine 11/06/2022 8:57 Bladder cancer PANEL AM CDT COMPLETE BLOOD COUNT W/ Routine 11/06/2022 8:57 Bladder cancer DIFFERENTIAL AM CDT FRACTIONATED BILIRUBIN Routine 10/16/2022 9:13 Bladder cancer Results for AM [employer] ASSISTANT this procedure are in the results section. TOTAL PROTEIN Routine 10/16/2022 9:13 Bladder cancer Results f or AM [employer] ASSISTANT this procedure are in the results section. ASPARTATE AMINOTRANSFERASE Routine 10/16/2022 9:13 Bladder can cer Results for AM [employer]BER[employer]S ASSISTANT this procedure are in the results section. ALANINE AMINOTRANSFERASE Routine 10/16/2022 9:13 Bladder cance r Results for AM [employer]UMBER[employer]S ASSISTANT this procedure are in the results section. ALKALINE PHOSPHATASE Routine 10/16/2022 9:13 Bladder cancer Re sults for AM [employer]UMBER[employer]S ASSISTANT this procedure are in the results section. ALBUMIN LEVEL Routine 10/16/2022 9:13 Bladder cancer Results f or AM [employer] ASSISTANT this procedure are in the results section. CALCIUM LEVEL TOTAL Routine 10/16/2022 9:13 Bladder cancer Res ults for AM [employer]UMBER[employer]S ASSISTANT this procedure are in the results section. .GLOMERULAR FILTRATION Routine 10/16/2022 9:13 Bladder cancer Results for RATE AM [employer] ASSISTANT this procedure are in the results section. SERUM CREATININE Routine 10/16/2022 9:13 Bladder cancer Result s for AM [employer] ASSISTANT this procedure are in the results section. ELECTROLYTE PANEL Routine 10/16/2022 9:13 Bladder cancer Resul ts for AM [employer]BER[employer] ASSISTANT this procedure are in the results section. BLOOD UREA NITROGEN Routine 10/16/2022 9:13 Bladder cancer Res ults for AM [employer] ASSISTANT this procedure are in the results section. GLUCOSE LEVEL Routine 10/16/2022 9:13 Bladder cancer Results f or AM [employer] ASSISTANT this procedure are in the results section. MANUAL DIFFERENTIAL Routine 10/16/2022 9:13 Bladder cancer Res ults for AM [employer] ASSISTANT this procedure are in the results section. Results CBC Routine 10/16/2022 9:13 Bladder cancer Results fo r AM [employer] ASSISTANT this procedure are in the results section. PHOSPHORUS LEVEL Routine 10/16/2022 9:13 Bladder cancer Result s for AM [employer] ASSISTANT this procedure are in the results section. MAGNESIUM LEVEL Routine 10/16/2022 9:13 Bladder cancer Results for AM [employer] ASSISTANT this procedure are in the results section. COMPREHENSIVE METABOLIC Routine 10/16/2022 9:13 Bladder cancer PANEL AM [employer] ASSISTANT COMPLETE BLOOD COUNT W/ Routine 10/16/2022 9:13 Bladder cancer DIFFERENTIAL AM [employer] ASSISTANT MRI ABDOMEN & PELVIS W AND Routine 09/24/2022 9:01 Bladder can cer Results for WO CONTRAST PM [employer] ASSISTANT this procedure are in the results section. CT CHEST WO CONTRAST Routine 09/24/2022 4:14 Bladder cancer Re sults for PM [employer] ASSISTANT this procedure are in the results section. FRACTIONATED BILIRUBIN Routine 09/24/2022 1:26 Bladder cancer Results for PM [employer] ASSISTANT this procedure are in the results section. TOTAL PROTEIN Routine 09/24/2022 1:26 Bladder cancer Results f or PM [employer] ASSISTANT this procedure are in the results section. ASPARTATE AMINOTRANSFERASE Routine 09/24/2022 1:26 Bladder can cer Results for PM [employer] ASSISTANT this procedure are in the results section. ALANINE AMINOTRANSFERASE Routine 09/24/2022 1:26 Bladder cance r Results for PM [employer] ASSISTANT this procedure are in the results section. ALKALINE PHOSPHATASE Routine 09/24/2022 1:26 Bladder cancer Re sults for PM [employer] ASSISTANT this procedure are in the results section. ALBUMIN LEVEL Routine 09/24/2022 1:26 Bladder cancer Results f or PM [employer] ASSISTANT this procedure are in the results section. CALCIUM LEVEL TOTAL Routine 09/24/2022 1:26 Bladder cancer Res ults for PM [employer] ASSISTANT this procedure are in the results section. .GLOMERULAR FILTRATION Routine 09/24/2022 1:26 Bladder cancer Results for RATE PM [employer] ASSISTANT this procedure are in the results section. SERUM CREATININE Routine 09/24/2022 1:26 Bladder cancer Result s for PM [employer] ASSISTANT this procedure are in the results section. ELECTROLYTE PANEL Routine 09/24/2022 1:26 Bladder cancer Resul ts for PM [employer] ASSISTANT this procedure are in the results section. BLOOD UREA NITROGEN Routine 09/24/2022 1:26 Bladder cancer Res ults for PM [employer] ASSISTANT this procedure are in the results section. GLUCOSE LEVEL Routine 09/24/2022 1:26 Bladder cancer Results f or PM [employer] ASSISTANT this procedure are in the results section. MANUAL DIFFERENTIAL Routine 09/24/2022 1:26 Bladder cancer Res ults for PM [employer] ASSISTANT this procedure are in the results section. Results CBC Routine 09/24/2022 1:26 Bladder cancer Results fo r PM [employer] ASSISTANT this procedure are in the results section. PHOSPHORUS LEVEL Routine 09/24/2022 1:26 Bladder cancer Result s for PM [employer] ASSISTANT this procedure are in the results section. MAGNESIUM LEVEL Routine 09/24/2022 1:26 Bladder cancer Results for PM [employer] ASSISTANT this procedure are in the results section. COMPREHENSIVE METABOLIC Routine 09/24/2022 1:26 Bladder cancer PANEL PM [employer] ASSISTANT COMPLETE BLOOD COUNT W/ Routine 09/24/2022 1:26 Bladder cancer DIFFERENTIAL PM [employer] ASSISTANT URINALYSIS MICROSCOPIC Routine 09/04/2022 7:20 Re sults for EXAM AM [employer] ASSISTANT this procedure are in the results section. URINALYSIS WITH Routine 09/04/2022 7:20 Bladder cancer Results for MICROSCOPIC IF INDICATED AM [employer] ASSISTANT thi s procedure are in the results section. FRACTIONATED BILIRUBIN Routine 09/04/2022 7:16 Bladder cancer Results for AM [employer] ASSISTANT this procedure are in the results section. TOTAL PROTEIN Routine 09/04/2022 7:16 Bladder cancer Results f or AM [employer] ASSISTANT this procedure are in the results section. ASPARTATE AMINOTRANSFERASE Routine 09/04/2022 7:16 Bladder can cer Results for AM [employer] ASSISTANT this procedure are in the results section. ALANINE AMINOTRANSFERASE Routine 09/04/2022 7:16 Bladder cance r Results for AM [employer]UMBER[employer] ASSISTANT this procedure are in the results section. ALKALINE PHOSPHATASE Routine 09/04/2022 7:16 Bladder cancer Re sults for AM [employer] ASSISTANT this procedure are in the results section. ALBUMIN LEVEL Routine 09/04/2022 7:16 Bladder cancer Results f or AM [employer] ASSISTANT this procedure are in the results section. CALCIUM LEVEL TOTAL Routine 09/04/2022 7:16 Bladder cancer Res ults for AM [employer] ASSISTANT this procedure are in the results section. .GLOMERULAR FILTRATION Routine 09/04/2022 7:16 Bladder cancer Results for RATE AM [employer] ASSISTANT this procedure are in the results section. SERUM CREATININE Routine 09/04/2022 7:16 Bladder cancer Result s for AM [employer]UMBER[employer] ASSISTANT this procedure are in the results section. ELECTROLYTE PANEL Routine 09/04/2022 7:16 Bladder cancer Resul ts for AM [employer] ASSISTANT this procedure are in the results section. BLOOD UREA NITROGEN Routine 09/04/2022 7:16 Bladder cancer Res ults for AM [employer] ASSISTANT this procedure are in the results section. GLUCOSE LEVEL Routine 09/04/2022 7:16 Bladder cancer Results f or AM [employer] ASSISTANT this procedure are in the results section. MANUAL DIFFERENTIAL Routine 09/04/2022 7:16 Bladder cancer Res ults for AM [employer] ASSISTANT this procedure are in the results section. Results CBC Routine 09/04/2022 7:16 Bladder cancer Results fo r AM [employer] ASSISTANT this procedure are in the results section. PHOSPHORUS LEVEL Routine 09/04/2022 7:16 Bladder cancer Result s for AM [employer]BER[employer] ASSISTANT this procedure are in the results section. MAGNESIUM LEVEL Routine 09/04/2022 7:16 Bladder cancer Results for AM [employer]UMBER[employer] ASSISTANT this procedure are in the results section. COMPREHENSIVE METABOLIC Routine 09/04/2022 7:16 Bladder cancer PANEL AM [employer] ASSISTANT COMPLETE BLOOD COUNT W/ Routine 09/04/2022 7:16 Bladder cancer DIFFERENTIAL AM [employer] ASSISTANT URINALYSIS MICROSCOPIC Routine 08/14/2022 7:56 Re sults for EXAM AM [employer] ASSISTANT this procedure are in the results section. ALBUMIN LEVEL URINE Routine 08/14/2022 7:56 Chronic kidney Res ults for AM [employer] ASSISTANT disease, stage 4 this proced ure (severe) are in the results section. URINALYSIS WITH Routine 08/14/2022 7:56 Bladder cancer Results for MICROSCOPIC IF INDICATED AM [employer] ASSISTANT thi s procedure are in the results section. EOSINOPHIL URINE Routine 08/14/2022 7:56 Bladder cancer Result s for AM [employer] ASSISTANT this procedure are in the results section. FRACTIONATED BILIRUBIN Routine 08/14/2022 7:45 Bladder cancer Results for AM [employer]BER[employer] ASSISTANT this procedure are in the results section. TOTAL PROTEIN Routine 08/14/2022 7:45 Bladder cancer Results f or AM [employer] ASSISTANT this procedure are in the results section. ASPARTATE AMINOTRANSFERASE Routine 08/14/2022 7:45 Bladder can cer Results for AM [employer]BER[employer] ASSISTANT this procedure are in the results section. ALANINE AMINOTRANSFERASE Routine 08/14/2022 7:45 Bladder cance r Results for AM [employer]UMBER[employer] ASSISTANT this procedure are in the results section. ALKALINE PHOSPHATASE Routine 08/14/2022 7:45 Bladder cancer Re sults for AM [employer]UMBER[employer]S ASSISTANT this procedure are in the results section. ALBUMIN LEVEL Routine 08/14/2022 7:45 Bladder cancer Results f or AM [employer] ASSISTANT this procedure are in the results section. CALCIUM LEVEL TOTAL Routine 08/14/2022 7:45 Bladder cancer Res ults for AM [employer]UMBER[employer] ASSISTANT this procedure are in the results section. .GLOMERULAR FILTRATION Routine 08/14/2022 7:45 Bladder cancer Results for RATE AM [employer] ASSISTANT this procedure are in the results section. SERUM CREATININE Routine 08/14/2022 7:45 Bladder cancer Result s for AM [employer]BER[employer] ASSISTANT this procedure are in the results section. ELECTROLYTE PANEL Routine 08/14/2022 7:45 Bladder cancer Resul ts for AM [employer] ASSISTANT this procedure are in the results section. BLOOD UREA NITROGEN Routine 08/14/2022 7:45 Bladder cancer Res ults for AM [employer]UMBER[employer] ASSISTANT this procedure are in the results section. GLUCOSE LEVEL Routine 08/14/2022 7:45 Bladder cancer Results f or AM [employer]UMBER[employer] ASSISTANT this procedure are in the results section. MANUAL DIFFERENTIAL Routine 08/14/2022 7:45 Bladder cancer Res ults for AM [employer]UMBER[employer] ASSISTANT this procedure are in the results section. Results CBC Routine 08/14/2022 7:45 Bladder cancer Results fo r AM [employer] ASSISTANT this procedure are in the results section. PHOSPHORUS LEVEL Routine 08/14/2022 7:45 Bladder cancer Result s for AM [employer]BER[employer] ASSISTANT this procedure are in the results section. MAGNESIUM LEVEL Routine 08/14/2022 7:45 Bladder cancer Results for AM [employer]BER[employer] ASSISTANT this procedure are in the results section. COMPREHENSIVE METABOLIC Routine 08/14/2022 7:45 Bladder cancer PANEL AM [employer] ASSISTANT COMPLETE BLOOD COUNT W/ Routine 08/14/2022 7:45 Bladder cancer DIFFERENTIAL AM [employer] ASSISTANT URINALYSIS MICROSCOPIC Routine 07/24/2022 2:37 Re sults for PM [employer] ASSISTANT this procedure are in the results section. URINALYSIS WITH Routine 07/24/2022 2:37 Bladder cancer Results for MICROSCOPIC IF INDICATED PM [employer] ASSISTANT thi s procedure are in the results section. URINE CULTURE Routine 07/24/2022 2:37 Bladder cancer Results f or PM [employer] ASSISTANT this procedure are in the results section. FRACTIONATED BILIRUBIN Routine 07/24/2022 8:47 Bladder cancer Results for AM [employer] ASSISTANT this procedure are in the results section. TOTAL PROTEIN Routine 07/24/2022 8:47 Bladder cancer Results f or AM [employer] ASSISTANT this procedure are in the results section. ASPARTATE AMINOTRANSFERASE Routine 07/24/2022 8:47 Bladder can cer Results for AM [employer]BER[employer] ASSISTANT this procedure are in the results section. ALANINE AMINOTRANSFERASE Routine 07/24/2022 8:47 Bladder cance r Results for AM [employer]UMBER[employer]S ASSISTANT this procedure are in the results section. ALKALINE PHOSPHATASE Routine 07/24/2022 8:47 Bladder cancer Re sults for AM [employer]BER[employer]S ASSISTANT this procedure are in the results section. ALBUMIN LEVEL Routine 07/24/2022 8:47 Bladder cancer Results f or AM [employer] ASSISTANT this procedure are in the results section. CALCIUM LEVEL TOTAL Routine 07/24/2022 8:47 Bladder cancer Res ults for AM [employer]BER[employer]S ASSISTANT this procedure are in the results section. .GLOMERULAR FILTRATION Routine 07/24/2022 8:47 Bladder cancer Results for RATE AM [employer] ASSISTANT this procedure are in the results section. SERUM CREATININE Routine 07/24/2022 8:47 Bladder cancer Result s for AM [employer]UMBER[employer]S ASSISTANT this procedure are in the results section. ELECTROLYTE PANEL Routine 07/24/2022 8:47 Bladder cancer Resul ts for AM [employer]BER[employer] ASSISTANT this procedure are in the results section. BLOOD UREA NITROGEN Routine 07/24/2022 8:47 Bladder cancer Res ults for AM [employer]BER[employer] ASSISTANT this procedure are in the results section. GLUCOSE LEVEL Routine 07/24/2022 8:47 Bladder cancer Results f or AM [employer]BER[employer] ASSISTANT this procedure are in the results section. MANUAL DIFFERENTIAL Routine 07/24/2022 8:47 Bladder cancer Res ults for AM [employer] ASSISTANT this procedure are in the results section. Results CBC Routine 07/24/2022 8:47 Bladder cancer Results fo r AM [employer] ASSISTANT this procedure are in the results section. FREE THYROXINE Routine 07/24/2022 8:47 Bladder cancer Results for AM [employer] ASSISTANT this procedure are in the results section. THYROID STIMULATING Routine 07/24/2022 8:47 Bladder cancer Res ults for HORMONE AM [employer] ASSISTANT this procedure are in the results section. PHOSPHORUS LEVEL Routine 07/24/2022 8:47 Bladder cancer Result s for AM [employer]BER[employer]S ASSISTANT this procedure are in the results section. MAGNESIUM LEVEL Routine 07/24/2022 8:47 Bladder cancer Results for AM [employer]UMBER[employer]S ASSISTANT this procedure are in the results section. COMPREHENSIVE METABOLIC Routine 07/24/2022 8:47 Bladder cancer PANEL AM [employer] ASSISTANT COMPLETE BLOOD COUNT W/ Routine 07/24/2022 8:47 Bladder cancer DIFFERENTIAL AM [employer] ASSISTANT URINALYSIS MICROSCOPIC Routine 06/29/2022 11:30 R esults for AM CDT this procedure are in the results section. URINALYSIS WITH Routine 06/29/2022 11:30 Bladder cancer Result s for MICROSCOPIC IF INDICATED AM CDT thi s procedure are in the results section. MRI ABDOMEN & PELVIS W AND Routine 06/25/2022 8:10 Bladder can cer Results for WO CONTRAST PM CDT this procedure are in the results section. FRACTIONATED BILIRUBIN Routine 06/25/2022 8:24 Bladder cancer Results for AM CDT this procedure are in the results section. TOTAL PROTEIN Routine 06/25/2022 8:24 Bladder cancer Results f or AM CDT this procedure are in the results section. ASPARTATE AMINOTRANSFERASE Routine 06/25/2022 8:24 Bladder can cer Results for AM CDT this procedure are in the results section. ALANINE AMINOTRANSFERASE Routine 06/25/2022 8:24 Bladder cance r Results for AM CDT this procedure are in the results section. ALKALINE PHOSPHATASE Routine 06/25/2022 8:24 Bladder cancer Re sults for AM CDT this procedure are in the results section. ALBUMIN LEVEL Routine 06/25/2022 8:24 Bladder cancer Results f or AM CDT this procedure are in the results section. CALCIUM LEVEL TOTAL Routine 06/25/2022 8:24 Bladder cancer Res ults for AM CDT this procedure are in the results section. .GLOMERULAR FILTRATION Routine 06/25/2022 8:24 Bladder cancer Results for RATE AM CDT this procedure are in the results section. SERUM CREATININE Routine 06/25/2022 8:24 Bladder cancer Result s for AM CDT this procedure are in the results section. ELECTROLYTE PANEL Routine 06/25/2022 8:24 Bladder cancer Resul ts for AM CDT this procedure are in the results section. BLOOD UREA NITROGEN Routine 06/25/2022 8:24 Bladder cancer Res ults for AM CDT this procedure are in the results section. GLUCOSE LEVEL Routine 06/25/2022 8:24 Bladder cancer Results f or AM CDT this procedure are in the results section. MANUAL DIFFERENTIAL Routine 06/25/2022 8:24 Bladder cancer Res ults for AM CDT this procedure are in the results section. Results CBC Routine 06/25/2022 8:24 Bladder cancer Results fo r AM CDT this procedure are in the results section. VITAMIN D 25 HYDROXY LEVEL Routine 06/25/2022 8:24 Metabolic b one Results for AM CDT disease this procedure are in the results section. PTH INTACT Routine 06/25/2022 8:24 Metabolic bone Results fo r AM CDT disease this procedure are in the results section. PHOSPHORUS LEVEL Routine 06/25/2022 8:24 Bladder cancer Result s for AM CDT this procedure are in the results section. MAGNESIUM LEVEL Routine 06/25/2022 8:24 Bladder cancer Result s for AM CDT this procedure are in the results section. COMPREHENSIVE METABOLIC Routine 06/25/2022 8:24 Bladder cancer PANEL AM CDT COMPLETE BLOOD COUNT W/ Routine 06/25/2022 8:24 Bladder cancer DIFFERENTIAL AM CDT FREE THYROXINE Routine 06/25/2022 8:24 Bladder cancer Results for AM CDT this procedure are in the results section. THYROID STIMULATING Routine 06/25/2022 8:24 Bladder cancer Res ults for HORMONE AM CDT this procedure are in the results section. URINE CULTURE Routine 06/25/2022 8:24 Stage 3b chronic Results for AM CDT kidney disease this procedur e are in the results section. CT CHEST WO CONTRAST Routine 06/25/2022 7:21 Bladder cancer Re sults for AM CDT this procedure are in the results section. URINALYSIS WITH Routine 06/15/2022 7:56 Results f or MICROSCOPIC IF INDICATED AM CDT thi s procedure are in the results section. .GLOMERULAR FILTRATION Routine 06/15/2022 7:56 Type 2 diabetes Results for RATE AM CDT mellitus with this procedure hyperglycemia are in the results section. SERUM CREATININE Routine 06/15/2022 7:56 Type 2 diabetes Resul ts for AM CDT mellitus with this procedure hyperglycemia are in the results section. EOSINOPHIL URINE Routine 06/15/2022 7:56 Stage 3 chronic Resul ts for AM CDT kidney disease, not this pro cedure otherwise specified are in t he results section. URINALYSIS MICROSCOPIC Routine 06/15/2022 7:56 Stage 3 chronic Results for AM CDT kidney disease, not this pro cedure otherwise specified are in t he results section. ALBUMIN LEVEL URINE Routine 06/15/2022 7:56 Stage 3 chronic Re sults for AM CDT kidney disease, not this pro cedure otherwise specified are in t he results section. LIPID PANEL Routine 06/15/2022 7:56 Type 2 diabetes Results f or AM CDT mellitus with this procedure hyperglycemia are in the Hyperlipidemia, not results otherwise specified section. GLUCOSE, FASTING Routine 06/15/2022 7:56 Type 2 diabetes Resul ts for AM CDT mellitus with this procedure hyperglycemia are in the results section. ELECTROLYTE PANEL Routine 06/15/2022 7:56 Type 2 diabetes Resu lts for AM CDT mellitus with this procedure hyperglycemia are in the results section. SERUM CREATININE Routine 06/15/2022 7:56 Type 2 diabetes AM CDT mellitus with hyperglycemia HEMOGLOBIN A1C Routine 06/15/2022 7:56 Type 2 diabetes Results for AM CDT mellitus with this procedure hyperglycemia are in the results section. ASPARTATE AMINOTRANSFERASE Routine 06/15/2022 7:56 Type 2 diab etes Results for AM CDT mellitus with this procedure hyperglycemia are in the results section. ALANINE AMINOTRANSFERASE Routine 06/15/2022 7:56 Type 2 diabet es Results for AM CDT mellitus with this procedure hyperglycemia are in the results section. ADRENOCORTICOTROPIC Routine 05/16/2022 7:09 Bladder cancer Res ults for HORMONE AM CDT this procedure are in the results section. CORTISOL Routine 05/16/2022 7:09 Bladder cancer Results fo r AM CDT this procedure are in the results section. FRACTIONATED BILIRUBIN Routine 05/15/2022 9:22 Bladder cancer Results for AM CDT this procedure are in the results section. TOTAL PROTEIN Routine 05/15/2022 9:22 Bladder cancer Results f or AM CDT this procedure are in the results section. ASPARTATE AMINOTRANSFERASE Routine 05/15/2022 9:22 Bladder can cer Results for AM CDT this procedure are in the results section. ALANINE AMINOTRANSFERASE Routine 05/15/2022 9:22 Bladder cance r Results for AM CDT this procedure are in the results section. ALKALINE PHOSPHATASE Routine 05/15/2022 9:22 Bladder cancer Re sults for AM CDT this procedure are in the results section. ALBUMIN LEVEL Routine 05/15/2022 9:22 Bladder cancer Results f or AM CDT this procedure are in the results section. CALCIUM LEVEL TOTAL Routine 05/15/2022 9:22 Bladder cancer Res ults for AM CDT this procedure are in the results section. .GLOMERULAR FILTRATION Routine 05/15/2022 9:22 Bladder cancer Results for RATE AM CDT this procedure are in the results section. SERUM CREATININE Routine 05/15/2022 9:22 Bladder cancer Result s for AM CDT this procedure are in the results section. ELECTROLYTE PANEL Routine 05/15/2022 9:22 Bladder cancer Resul ts for AM CDT this procedure are in the results section. BLOOD UREA NITROGEN Routine 05/15/2022 9:22 Bladder cancer Res ults for AM CDT this procedure are in the results section. GLUCOSE LEVEL Routine 05/15/2022 9:22 Bladder cancer Results f or AM CDT this procedure are in the results section. MANUAL DIFFERENTIAL Routine 05/15/2022 9:22 Bladder cancer Res ults for AM CDT this procedure are in the results section. Results CBC Routine 05/15/2022 9:22 Bladder cancer Results fo r AM CDT this procedure are in the results section. PHOSPHORUS LEVEL Routine 05/15/2022 9:22 Bladder cancer Result s for AM CDT this procedure are in the results section. MAGNESIUM LEVEL Routine 05/15/2022 9:22 Bladder cancer Results for AM CDT this procedure are in the results section. COMPREHENSIVE METABOLIC Routine 05/15/2022 9:22 Bladder cancer PANEL AM CDT COMPLETE BLOOD COUNT W/ Routine 05/15/2022 9:22 Bladder cancer DIFFERENTIAL AM CDT FREE THYROXINE Routine 05/15/2022 9:22 Bladder cancer Results for AM CDT this procedure are in the results section. THYROID STIMULATING Routine 05/15/2022 9:22 Bladder cancer Res ults for HORMONE AM CDT this procedure are in the results section. FRACTIONATED BILIRUBIN Routine 04/24/2022 10:25 Bladder cancer Results for AM CDT this procedure are in the results section. TOTAL PROTEIN Routine 04/24/2022 10:25 Bladder cancer Results for AM CDT this procedure are in the results section. ASPARTATE AMINOTRANSFERASE Routine 04/24/2022 10:25 Bladder ca ncer Results for AM CDT this procedure are in the results section. ALANINE AMINOTRANSFERASE Routine 04/24/2022 10:25 Bladder canc er Results for AM CDT this procedure are in the results section. ALKALINE PHOSPHATASE Routine 04/24/2022 10:25 Bladder cancer R esults for AM CDT this procedure are in the results section. ALBUMIN LEVEL Routine 04/24/2022 10:25 Bladder cancer Results for AM CDT this procedure are in the results section. CALCIUM LEVEL TOTAL Routine 04/24/2022 10:25 Bladder cancer Re sults for AM CDT this procedure are in the results section. .GLOMERULAR FILTRATION Routine 04/24/2022 10:25 Bladder cancer Results for RATE AM CDT this procedure are in the results section. SERUM CREATININE Routine 04/24/2022 10:25 Bladder cancer Resul ts for AM CDT this procedure are in the results section. ELECTROLYTE PANEL Routine 04/24/2022 10:25 Bladder cancer Resu lts for AM CDT this procedure are in the results section. BLOOD UREA NITROGEN Routine 04/24/2022 10:25 Bladder cancer Re sults for AM CDT this procedure are in the results section. GLUCOSE LEVEL Routine 04/24/2022 10:25 Bladder cancer Results for AM CDT this procedure are in the results section. MANUAL DIFFERENTIAL Routine 04/24/2022 10:25 Bladder cancer Re sults for AM CDT this procedure are in the results section. Results CBC Routine 04/24/2022 10:25 Bladder cancer Results f or AM CDT this procedure are in the results section. PHOSPHORUS LEVEL Routine 04/24/2022 10:25 Bladder cancer Resul ts for AM CDT this procedure are in the results section. MAGNESIUM LEVEL Routine 04/24/2022 10:25 Bladder cancer Result s for AM CDT this procedure are in the results section. COMPREHENSIVE METABOLIC Routine 04/24/2022 10:25 Bladder cance r PANEL AM CDT COMPLETE BLOOD COUNT W/ Routine 04/24/2022 10:25 Bladder cance r DIFFERENTIAL AM CDT FREE THYROXINE Routine 04/24/2022 10:25 Bladder cancer Results for AM CDT this procedure are in the results section. THYROID STIMULATING Routine 04/24/2022 10:25 Bladder cancer Re sults for HORMONE AM CDT this procedure are in the results section. after 04/08/2022 Results (ABNORMAL) .Serum Creatinine (03/26/2023 8:17 AM CDT)Only the most recent of20 resultswithin the time period is included. athologist Signature Creatinine 1.58 (H) 0.67 - 1.17 [facility] mg/dL Comment: Testing Performed at [facility], [address], [address], [place] [address] Specimen Anatomical Collection Method Collection Time Receive d Time (Source) Location / / Volume Laterality Blood 03/26/2023 8:17 AM 8:40 CDT AM CDT Buffy Marc APRN LAB BLOOD ORDERABLES Performing Organization Address City/State/ZIP Code Phon e Number [address] [place] [address] [address] (ABNORMAL) .CBC (03/26/2023 8:17 AM CDT)Only the most recent of19 resultswithin the time period is included. athologist Signature WBC 11.3 (H) 4.1 - 10.5 [facility] K/uL RBC 4.68 4.30 - 6.04 [facility] M/uL Hgb 14.0 13.3 - 17.4 [facility] gm/dL Comment: As part of CBC or as an individ ual orderable testing performed at [facility], [address] [place] [address] , [address], [place] [id number] Hct 42.3 39.5 - 51.8 % [facility] Comment: As part of CBC or as an individ ual orderable testing performed at [facility], [address] [place] [address] , [address], [place] [address] MCV 90 82 - 99 fL [facility] MCH 29.9 26.6 - 33.2 pg [facility] MCHC 33.1 31.1 - 35.2 gm/dL [facility] RDW-SD 47.6 37.5 - 49.7 fL [facility] RDW-CV 14.4 11.6 - 15.5 % [facility] Platelet count 313 160 - 397 K/uL [facility] Comment: As part of CBC or as an individ ual orderable testing performed at [facility], [address] [place] [address] , [address], [place] [address] MPV 10.6 9.1 - 12.6 fL [facility] INRBC 0.0 0.0 - 0.1 /100 WBC [facility] Comment: The INRBC (instrument NRBC) value reflec ts the enumeration of nucleated red blood cells contained i n a 200uL sample of whole blood analyzed by the instrumen t. This value may differ from the NRBC value reported in a manual differential, which is based on a 100 cell differentia l. As part of CBC testing performed at [address], [address], [place] [address] Specimen Anatomical Collection Method Collection Time Receive d Time (Source) Location / / Volume Laterality Blood 03/26/2023 8:17 AM 8:30 CDT AM CDT Buffy Marc APRN LAB BLOOD ORDERABLES Performing Organization Address City/State/ZIP Code Phon e Number [address] [place] [address] [address] (ABNORMAL) Glomerular Filtration Rate (03/26/2023 8:17 AM CDT)Only the most recent of20 resultswithin the time period is included. athologist Signature eGFR 46 (L) >=60 [facility] mL/min/1.73 sq. m Comment: The eGFRcr is calculated with the 2020 KD-EPI creatinine equation using creatinine, patient's age, and sex for adults 18 years of age and older. Other factors, especially muscle mass, may affect accuracy and need to be considered. According to the Kidney Disease: Improvi ng Global Outcomes (KDIGO) CKD Work Group 2012 Clinical Practice Guideline, chronic kidney disease (CKD) is defined as the abnormalities of kidney structure or function, present for more than 3 months, with implications for health. CKD should be c lassified by cause, GFR category, and albuminuria category. KDIGO guidelines provide the following GFR categories Stage Description GFR mL/min/1.73 m2 G1* Normal or high >= 90 G2* Mildly decreased 60-89 G3a Mildly to moderately decreased 45-59 G3b Moderately to severely decreased 30- 44 G4 Severely decreased 15-29 G5 Kidney failure <15 *In the absence of evidence of kidney da mage, neither G1 nor G2 fulfill criteria for CKD. Testing Performed at [facility], [address], [address], [place] [address] Specimen Anatomical Collection Method Collection Time Receive d Time (Source) Location / / Volume Laterality Blood 03/26/2023 8:17 AM 8:40 CDT AM CDT Buffy Marc [facility] LAB BLOOD ORDERABLES Performing Organization Address [facility] Phon e Number [facility] [address] [place] [address]. [place] [address] [address] Fractionated Bilirubin (03/26/2023 8:17 AM CDT)Only the most recent of18 results within the time period is included. athologist Signature Bili Total <0.3 <=1.2 mg/dL [facility] Comment: Direct and indirect bilirubin will not b e reported when Total bilirubin result is <0.3 mg/dL Indocyanine Green (ICG) may cause falsel y elevated bilirubin results. Total and direct bilirubin must not be measured from samples containing indocyanine green. False elevation of total bilirubin can b e seen in patients with IgG concentrations above 28 g/L. Testing Performed at [facility], [facility], [address], [place] [id number] Specimen Anatomical Collection Method Collection Time Receive d Time (Source) Location / / Volume Laterality Blood 03/26/2023 8:17 AM 3 8:40 CDT AM CDT Buffy Marc [facility] LAB BLOOD ORDERABLES Performing Organization Address [facility] Phon e Number [address] [place] [address] [address] (ABNORMAL) Differential (03/26/2023 8:17 AM CDT)Only the most recent of19 resultswithin the time period is included. athologist Signature Neutrophil % 73.5 (H) 43.2 - [facility] 72.7 % Comment: As part of Differential perform ed at [facility], [address], [address], [place] [phone] Lymphocyte % 13.4 (L) 16.8 - 46.2 % [facility] Monocyte % 6.5 5.1 - 12.5 % [facility] Eosinophil % 5.3 0.4 - 6.3 % [facility] Basophil % 0.9 0.2 - 1.4 % [facility] IGRE % 0.4 0.1 - 1.5 % [facility] Comment: IGRE % count includes Metamyelocytes, My elocytes, and Promyelocytes. As part of Differential performed at [facility], [address] [place] [address], [address], [place] [address] Neutrophil Abs 8.31 (H) 1.95 - 7.25 K/uL [facility] Lymphocyte Abs 1.52 1.01 - 3.24 K/uL [facility] Monocyte Abs 0.74 0.24 - 0.85 K/uL [facility] Eosinophil Abs 0.60 (H) 0.02 - 0.50 K/uL [facility] Basophil Abs 0.10 (H) 0.02 - 0.09 K/uL [facility] IG Abs 0.04 0.01 - 0.12 K/uL [facility] Specimen Anatomical Collection Method Collection Time Receive d Time (Source) Location / / Volume Laterality Blood 03/26/2023 8:17 AM 3 8:30 CDT AM CDT Buffy Obriend SET DECORATOR LAB BLOOD ORDERABLES Performing Organization Address City/State/ZIP Code Phon e Number [address] [place] [address] [address] (ABNORMAL) BUN (03/26/2023 8:17 AM CDT)Only the most recent of19 resultswithin the time period is included. P athologist Signature BUN 28 (H) 6 - 23 mg/dL [facility] Comment: Testing Performed at [facility], [address] [place] [address], [address], [place] [address] Specimen Anatomical Collection Method Collection Time Receive d Time (Source) Location / / Volume Laterality Blood 03/26/2023 8:17 AM 3 8:40 CDT AM CDT Buffytaylor Obriend SET DECORATOR LAB BLOOD ORDERABLES Performing Organization Address City/State/ZIP Code Phon e Number [address] [place] [address] [address] ALT (03/26/2023 8:17 AM CDT)Only the most recent of19 resultswithin the time period is included. P athologist Signature ALT 14 <=41 U/L [facility] Comment: Testing Performed at [facility], [address], [address], [place] [address] Specimen Anatomical Collection Method Collection Time Receive d Time (Source) Location / / Volume Laterality Blood 03/26/2023 8:17 AM 3 8:40 CDT AM CDT Buffy Ahmad SET DECORATOR LAB BLOOD ORDERABLES Performing Organization Address City/[facility]/ZIP Code Phon e Number [facility] [address] [place] [address] [address] Aspartate Aminotransferase (03/26/2023 8:17 AM CDT)Only the most recent of19 resultswithin the time period is included. P athologist Signature AST 24 <=40 U/L [facility] Comment: Testing Performed at [facility], [address], [address], [place] [address] Specimen Anatomical Collection Method Collection Time Receive d Time (Source) Location / / Volume Laterality Blood 03/26/2023 8:17 AM 3 8:40 CDT AM CDT Buffy Camilled SET DECORATOR LAB BLOOD ORDERABLES Performing Organization Address City/[facility] Phon e Number [facility] [address] [place] [address] [address] Total Protein (03/26/2023 8:17 AM CDT)Only the most recent of18 resultswithin the time period is included. P athologist Signature Total Protein 7.8 6.4 - 8.3 [facility] g/dL Comment: Testing Performed at [facility], [address], [address], [place] [address] Specimen Anatomical Collection Method Collection Time Receive d Time (Source) Location / / Volume Laterality Blood 03/26/2023 8:17 AM 3 8:40 CDT AM CDT Buffy Ahmad SET DECORATOR LAB BLOOD ORDERABLES Performing Organization Address [facility] Phon e Number [facility] [address] [place] [address] [address] Phosphorus Level (03/26/2023 8:17 AM CDT)Only the most recent of19 resultswithin the time period is included. P athologist Signature Phosphorus 3.1 2.5 - 4.5 [facility] mg/dL Comment: Testing Performed at [facility], [address], [address], [place] [address] Specimen Anatomical Collection Method Collection Time Receive d Time (Source) Location / / Volume Laterality Blood 03/26/2023 8:17 AM 3 8:40 CDT AM CDT Buffy Marc SET DECORATOR LAB BLOOD ORDERABLES Performing Organization Address [facility] e Number [facility] [address] [place] [address] [address] Alkaline Phosphatase (03/26/2023 8:17 AM CDT)Only the most recent of18 results within the time period is included. P athologist Signature Alk Phos 96 40 - 129 U/L [facility] Comment: Testing Performed at [facility], [address], [address], [place] [address] Specimen Anatomical Collection Method Collection Time Receive d Time (Source) Location / / Volume Laterality Blood 03/26/2023 8:17 AM 3 8:40 CDT AM CDT Buffy Marc SET DECORATOR LAB BLOOD ORDERABLES Performing Organization Address [facility] Phon e Number [facility] [address] [place] [address] [address] Magnesium Level (03/26/2023 8:17 AM CDT)Only the most recent of19 resultswithin the time period is included. P athologist Signature Magnesium 1.9 1.6 - 2.6 [facility] mg/dL Comment: Testing Performed at [facility], [address], [address], [place] [address] Specimen Anatomical Collection Method Collection Time Receive d Time (Source) Location / / Volume Laterality Blood 03/26/2023 8:17 AM 3 8:40 CDT AM CDT Buffy Marc SET DECORATOR LAB BLOOD ORDERABLES Performing Organization Address [facility]/ZIP [facility] e Number [facility] [address] [place] [address] [address] Glucose Level (03/26/2023 8:17 AM CDT)Only the most recent of19 resultswithin the time period is included. P athologist Signature Glucose Level 70 70 - 99 [facility] mg/dL Comment: Effective 03/21/16, the glucose reference intervals have been updated based on [place] [employer] guidelines (Standards of Medical Care in Diabetes 2016. Diabetes Care 2016; 39: S13-S22). Fasting blood glucose: Normal: 70-99 mg/dL Impaired fasting glucose (increased risk for diabetes or pre-diabetes): 100- 125 mg/dL Diabetes mellitus: >/=126 mg/dL Random blood glucose: Normal: 70-199 mg/dL Note: Random glucose >100 mg/dL is assoc iated with increased risk for diabetes Testing Performed at [facility] [employer] [facility], [address] [place] [address], [address], [place] [address] Specimen Anatomical Collection Method Collection Time Receive d Time (Source) Location / / Volume Laterality Blood 03/26/2023 8:17 AM 3 8:40 CDT AM CDT Buffy Marc SET DECORATOR LAB BLOOD ORDERABLES Performing Organization Address City/[facility]/ZIP [facility] e Number [facility] [address] [place] [address] [address] Calcium Level (03/26/2023 8:17 AM CDT)Only the most recent of17 resultswithin the time period is included. P athologist Signature Calcium Lvl 9.7 8.4 - 10.2 [facility] mg/dL Comment: Testing Performed at [facility], [address], [address], [place] [address] Specimen Anatomical Collection Method Collection Time Receive d Time (Source) Location / / Volume Laterality Blood 03/26/2023 8:17 AM 3 8:40 CDT AM CDT Buffytaylor Obriend SET DECORATOR LAB BLOOD ORDERABLES Performing Organization Address City/State/ZIP Code Phon e Number [facility] [address] [place] [address] [address] Albumin Level (03/26/2023 8:17 AM CDT)Only the most recent of18 resultswithin the time period is included. P athologist Signature Albumin Lvl 4.2 3.5 - 5.2 [facility] gm/dL Comment: Testing Performed at [facility], [address], [address], [place] [address] Specimen Anatomical Collection Method Collection Time Receive d Time (Source) Location / / Volume Laterality Blood 03/26/2023 8:17 AM 8:40 CDT AM CDT Buffy Marc SET DECORATOR LAB BLOOD ORDERABLES Performing Organization Address City/[facility] Code Phon e Number [facility] [address] [place] [address] [address] (ABNORMAL) Electrolyte Panel (03/26/2023 8:17 AM CDT)Only the most recent of20 resultswithin the time period is included. athologist Signature Sodium Lvl 135 (L) 136 - 145 [facility] mEq/L Comment: Testing Performed at [facility], [address], [address], [place] [address] Potassium Lvl 5.0 3.5 - 5.1 mEq/L [facility] Comment: Testing Performed at [facility], [address], [address], [place] [address] Chloride 100 98 - 107 mEq/L [facility] Comment: Testing Performed at [facility], [address], [address], [place] [address] CO2 23 22 - 29 mEq/L [facility] Comment: Testing Performed at [facility], [address], [address], [place] [address] Anion Gap 12 4 - 14 mEq/L [facility] Comment: Testing Performed at [facility], [address], [address], [place] [address] Specimen Anatomical Collection Method Collection Time Receive d Time (Source) Location / / Volume Laterality Blood 03/26/2023 8:17 AM 8:40 CDT AM CDT Buffy Marc SET DECORATOR LAB BLOOD ORDERABLES Performing Organization Address City/State/ZIP Code Phon e Number [facility] [address] [place] [address] [address] PETCT Subsequent Treatment Strategy (03/04/2023 2:40 PM CDT) Anatomical Region Laterality Modality Whole Body Positron Emission To mography (PET) Specimen (Source) Anatomical Collection Method Collection Time Re ceived Time Location / / Volume Laterality 03/05/2023 9:57 AM CDT Impressions 03/05/2023 10:57 AM CDT 1. Posttreatment changes from prior cyst oprostatectomy with right lower quadrant urinary conduit, and a hypermetabolic focus adjacent to surgical material just anterior to the right side of the bifurcat ion in the pelvis. While this finding is likely related to postsurgical changes, given focality, metastatic disease is not excluded. Recommend attention on follow-up. 2. Enlarging newly FDG avid left supracl avicular lymph node may represent a reactive node, however, metastatic disease is not excluded. 3. Small mildly avid scattered retroperi toneal lymph nodes are likely related to inflammatory changes from prior procedure. Recommend attention on follow-up to exclude metastatic disease. 4. Interval increase in FDG uptake in th e left parotid gland may represent a benign entity such as a Warthin's tumor. Recommend attention on follow-up. 5. Stable calcified and groundglass opac ities in the bilateral lungs with a few waxing and waning mildly FDG avid mediastinal lymph nodes, likely represents a prior infectious process. Recommend attention on follow-up. 6. Interval placement of a left percutan eous nephrostomy tube. 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 Comparison: FDG PET/CT 10/21/2020 ; MR domen/pelvis 12/24/2022 Technique: F-18 fluorodeoxyglucose (FDG) 9.4 mCi was administered intravenously via LAC. To allow for distribution and uptake of radiotracer, the patient was asked to rest quietly for approximately 60 -90 minutes. PET/CT imaging was perfor med from the Skull base to proximal thighs. CT scanning was done for attenuation correction, image registration, and diagnosis with scan parameters optimized to m inimize radiation exposure to the patien t. SUV measurements are reported as maximum SUV based on body weight unless otherwise specified. Findings: Head and Neck: There is no focal abnorma l FDG uptake in the visualized portions of the brain base. Sinuses are well aerated. Thyroid gland is unremarkable. There is a hypermetabolic left supraclav icular lymph node measuring approximately 1.6 x 1.7 cm, SUV 8.6 (image 58). Small hypermetabolic focus in the left deep parotid gland with an SUV of 6.2, image 21 (prior SUV 3.7, image 65). Chest: There is no significant pleural o r pericardial effusion. There are scattered small calcified nodules in the bilateral lungs which are stable compared to prior consistent with prior granulomatous process. Groundglass opacities with mild diffuse FDG uptake along the bilateral lung bases is likely inflammatory. No new suspicious pulmonary nodules. There are a few scattered FDG avid lymph nodes in the mediastinum and hui with interspersed small calcified non-FDG avid lymph nodes. For example a left anterior prevascular lymph node measures 1.1 x 1 0.9 cm, SUV 4.6 (image 70). A subcarina l lymph node measures 1.3 x 1.3 cm, SUV 4.5 (image 100). Abdomen and Pelvis: There is physiologic FDG excretion from the kidneys, ureters, bowel loops, and ileal urinary conduit. Interval placement of a percutaneous nephrostomy tube emanating from the left kidney. There is a nonspecific focus of increase d FDG uptake at the bifurcation to the left of midline which has an SUV of 13.9 (image 199), with adjacent hyperdense material which may be related to postsurgica l changes. A focus of metabolically acti ve disease is not entirely excluded. There are a few scattered lymph nodes in the abdomen and pelvis, some demonstrating mild associated FDG uptake. For example, a small paracaval node measures 1.0 x 0.8 cm, SUV 3.3 (image 160). Stable small splenic calcifications in k eeping with a prior inflammatory process. Otherwise evaluation of the unenhanced liver, spleen, pancreas, and adrenal glands is unremarkable. Musculoskeletal: There are no suspicious or FDG avid skeletal lesions. 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 Comparison: FDG PET/CT 10/21/2020 ; MR ab domen/pelvis 12/24/2022 Technique: F-18 fluorodeoxyglucose (FDG) 9.4 mCi was administered intravenously via LAC. To allow for distribution and uptake of radiotracer, the patient was asked to rest quietly for approximately 60-90 minutes. PET/CT imaging was performed fr om the Skull base to proximal thighs. CT scanning was done for attenuation correction, image registration, and diagnosis with scan parameters optimized to minimize radiation exposure to the patient. SUV m easurements are reported as maximum SUV based on body weight unless otherwise specified. Findings: Head and Neck: There is no focal abnorma l FDG uptake in the visualized portions of the brain base. Sinuses are well aerated. Thyroid gland is unremarkable. There is a hypermetabolic left supraclav icular lymph node measuring approximately 1.6 x 1.7 cm, SUV 8.6 (image 58). Small hypermetabolic focus in the left deep parotid gland with an SUV of 6.2, image 21 (prior SUV 3.7, image 65). Chest: There is no significant pleural o r pericardial effusion. There are scattered small calcified nodules in the bilateral lungs which are stable compared to prior consistent with prior granulomatous process. Groundglass opacities with mild diffuse FDG uptake a long the bilateral lung bases is likely inflammatory. No new suspicious pulmonary nodules. There are a few scattered FDG avid lymph nodes in the mediastinum and hui with interspersed small calcified non-FDG avid lymph nodes. For example a left anterior prevascular lymph node measures 1.1 x 1 0.9 cm, SUV 4.6 (image 70). A subcarinal lymph node sandy ures 1.3 x 1.3 cm, SUV 4.5 (image 100). Abdomen and Pelvis: There is physiologic FDG excretion from the kidneys, ureters, bowel loops, and ileal urinary conduit. Interval placement of a percutaneous nephrostomy tube emanating from the left kidney. There is a nonspecific focus of increase d FDG uptake at the bifurcation to the left of midline which has an SUV of 13.9 (image 199), with adjacent hyperdense material which may be related to postsurgical changes. A focus of metabolically active disease is not e ntirely excluded. There are a few scattered lymph nodes in the abdomen and pelvis, some demonstrating mild associated FDG uptake. For example, a small paracaval node measures 1.0 x 0.8 cm, SUV 3.3 (image 160). Stable small splenic calcifications in k eeping with a prior inflammatory process. Otherwise evaluation of the unenhanced liver, spleen, pancreas, and adrenal glands is unremarkable. Musculoskeletal: There are no suspicious or FDG avid skeletal lesions. IMPRESSION: 1. Posttreatment changes from prior cyst oprostatectomy with right lower quadrant urinary conduit, and a hypermetabolic focus adjacent to surgical material just anterior to the right side of the bifurcation in the pelvis. While this finding is likely related to postsurgical changes, given focality, metastatic disease is not excluded. Recommend attention on follow-up. 2. Enlarging newly FDG avid left supracl avicular lymph node may represent a reactive node, however, metastatic disease is not excluded. 3. Small mildly avid scattered retroperi toneal lymph nodes are likely related to inflammatory changes from prior procedure. Recommend attention on follow-up to exclude metastatic disease. 4. Interval increase in FDG uptake in th e left parotid gland may represent a benign entity such as a Warthin's tumor. Recommend attention on follow-up. 5. Stable calcified and groundglass opac ities in the bilateral lungs with a few waxing and waning mildly FDG avid mediastinal lymph nodes, likely represents a prior infectious process. Recommend attention on follow-up. 6. Interval placement of a left percutan eous nephrostomy tube. Buffy Marc SET DECORATOR IMG PETCT ORDERABLES POC Glucose Screen (03/04/2023 12:53 PM CDT)Only the most recent of19 results within the time period is included. P athologist Signature POC Glucose 82 70 - 99 POC [facility] mg/dL Comment: Capillary blood samples, e.g. obtained b y fingerstick, may have inaccurate results in patients with decreased peripheral blood flow. All POC Glucose screen test results, inc luding critical values, must be interpreted and evaluated in the context of the patients clinical findings. It is recommended to confirm any questionable test results by core lab methodology. Method description: All results are sandy ured using Electrochemistry test methodology. The glucose in the sample mixes with the reagents on the test strip. The reaction produces an electric current. The amount of current produced is proportion al to the glucose concentration in the blood. PO Sample Type Venous POC [facility] Performing Lab [facility] POC [facility] Comment: [facility] as MD [facility], [address] [place] [address] [id number]; [facility] House Supervisor: Farrukh Beach MD Specimen Anatomical Collection Method Collection Time Receive d Time (Source) Location / / Volume Laterality Blood 03/04/2023 12:53 03/04/2023 PM CDT 12:53 PM CDT Unknown Provider POCT ORDERABLES - DEVICE Performing Organization Address City/State/ZIP Code Phon e Number POC [facility] Unless otherwise noted, [place] [address] lab tests performed by: Division of Pathology and Laboratory Medicine [address] [place] [address] Portable Fluoroscopy (02/07/2023 8:33 AM CDT) Specimen (Source) Anatomical Location Collection Method / Collectio n Time Received Time / Laterality Volume Narrative Systemgenerated, Documentation - 023 8:34 AM CDT This procedure requires no interpretatio n from the radiologist. Amol Thompson IV, MD IMG FLUOROSCOPY ORDERABLES Pathology Surgical Interpretation (02/07/2023 8:11 AM CDT) Component Value Ref Test Analysis Performed Pathologis t Range Method Time At Signature Submitted Obstruction of 02/08/2023 [facility] Clinical ureter [N13.5] 9:44 AM History CDT Diagnosis A: Kidney, left, upper ureteral biopsy: 02/08/2023 [facility] Electronically Urothelial mucosa with granu lation tissue and acute and chronic inflammation, no tumor present. 9:44 AM signed by Sandra Weaver MD on NH/FLZ 02/08/2023 at 9:44 AM Gross A: 02/08/2023 [facility] Description Kidney, left, left upper ure teral biopsy - permanent acb or#6: 3 soft, minute, penny tissue fragments, 0.1 x 0.1 x 0.1 cm each, entirely submitted in A1. ET 9:44 AM CDT Biomarker N/A 02/08/2023 [facility] Block(s) 9:44 AM CDT Disclaimer "Some tests 02/08/2023 [facility] reported here may 9:44 AM have been CDT developed and performance characteristics determined by [facility] Laboratory Medicine. These tests have not been specifically cleared or approved by the U.S. Food and Drug Administration. If applicable, controls were reviewed and showed appropriate reactivity." Specimen Anatomical Collection Method Collection Time Receive d Time (Source) Location / / Volume Laterality Tissue (Kidney, 02/07/2023 8:11 AM 2022 8:43 Left) CDT AM CDT Amol Thompson IV, MD LAB PATHOLOGY ORDERABLES Performing Organization Address City/State/ZIP Code Phon e Number [facility] [place] [address] [address] [place] Cytology Non-Bridge Builder Interpretation (02/07/2023 8:09 AM CDT) Component Value Ref Test Analysis Performed Pathologis t Range Method Time At Signature Gross 1 Pap Stain Slides 02/11/2023 [facility] Description 20 ml. clear colorless fluid 2:14 PM Specimen processed by ThinPrep technique CDT Major [facility]/benign 02/11/2023 [facility] Elect ronically Classification 2:14 PM shahab d by Jonelle Tavares MD on 02/11/2023 at 2:14 PM Diagnosis Kidney, left upper ureter, brushin [facility] Electronically 2:14 PM signed by Jonelle Lin No malignant cells identified MARK Tavares MD on 02/11/2023 at 2:14 PM Informational Some tests 02/11/2023 [facility] Points reported here may 2:14 PM have been CDT developed and performance characteristics determined by [place] [facility]. These tests have not been specifically cleared or approved by the U.S. Food and Drug Administration. Specimen Anatomical Collection Method Collection Time Receive d Time (Source) Location / / Volume Laterality Brushing 02/07/2023 8:09 AM 3 (Kidney, Left) CDT 12:14 PM CDT Amol Thompson IV, MD LAB CYTOLOGY ORDERABLES Performing Organization Address City/[facility] Phon e Number [facility] [place] [place] [address] [address] [facility] Prostate Specific Antigen (PSA) Diagnostic (02/05/2023 8:33 AM CDT) athologist Signature PSA <0.1 0.0 - 4.0 [facility] ng/mL Comment: Results greater than 4519 ng/mL may not be reliable due to matrix effect with extended dilution as it exceeds the water sander's recommended limit. Caution should be exercised when interpreting such pastora ues and done in conjunction with clinica l context. Testing Performed at [facility] Lab Product Management Internship [facility], [address] [place] [address], [address], [place] [address] PSA Indication Diagnostic [facility] Specimen Anatomical Collection Method Collection Time Receive d Time (Source) Location / / Volume Laterality Blood 02/05/2023 8:33 AM 3 8:59 CDT AM CDT Amol Thompson IV, MD LAB BLOOD ORDERABLES Performing Organization Address [facility] Phon e Number [facility] [address] [place] [address]. [place] [address] [address] (ABNORMAL) Urine Culture (01/29/2023 10:31 AM CDT)Only the most recent of5 resultswithin the time period is included. Patholo gist Method Time Signature Final Report [id number] [place] cfu/ml [facility] Escherichia CANCER coli (A) CENTER Organism Escherichia [place] coli (A) [facility] [place] Specimen (Source) Anatomical Collection Method Collection Time Re ceived Time Location / / Volume Laterality Urine, Nephrostomy 01/29/2023 10:31 01/29 1:18 - Left AM CDT PM CDT Organism Antibiotic Method Susceptibility Escherichia coli *SOULEYMANE expressed in mcg/mL MINIMUM INHIBITORY SOULEYMANE : MINT CONCENTRATION Escherichia coli Ampicillin MINIMUM INHIBITORY 8: Susceptib le CONCENTRATION Escherichia coli Amoxicillin/Clavulanate MINIMUM INHIBITORY <=2: Susceptible CONCENTRATION Escherichia coli Ampicillin/Sulbactam MINIMUM INHIBITORY <=2: Reyez sceptible CONCENTRATION Escherichia coli Piperacillin/Tazobactam MINIMUM INHIBITORY <=4: Susceptible CONCENTRATION Escherichia coli Cefpodoxime MINIMUM INHIBITORY <=0.25: Susc eptible CONCENTRATION Escherichia coli Cefotaxime MINIMUM INHIBITORY <=0.25: Susc eptible CONCENTRATION Escherichia coli Ceftazidime MINIMUM INHIBITORY <=1: Suscept ible CONCENTRATION Escherichia coli Ceftriaxone MINIMUM INHIBITORY <=0.25: Susc eptible CONCENTRATION Escherichia coli Cefepime MINIMUM INHIBITORY <=0.12: Susc eptible CONCENTRATION Escherichia coli Aztreonam MINIMUM INHIBITORY <=1: Suscept ible CONCENTRATION Escherichia coli Ertapenem MINIMUM INHIBITORY <=0.12: Susc eptible CONCENTRATION Escherichia coli Imipenem MINIMUM INHIBITORY <=0.25: Susc eptible CONCENTRATION Escherichia coli Meropenem MINIMUM INHIBITORY <=0.25: Susc eptible CONCENTRATION Escherichia coli Amikacin MINIMUM INHIBITORY 2: Susceptib le CONCENTRATION Escherichia coli Gentamicin MINIMUM INHIBITORY <=1: Suscept ible CONCENTRATION Escherichia coli Tobramycin MINIMUM INHIBITORY <=1: Suscept ible CONCENTRATION Escherichia coli Ciprofloxacin MINIMUM INHIBITORY <=0.06: Susc eptible CONCENTRATION Escherichia coli Levofloxacin MINIMUM INHIBITORY <=0.12: Susc eptible CONCENTRATION Escherichia coli Nitrofurantoin MINIMUM INHIBITORY <=16: Suscep tible CONCENTRATION Escherichia coli Trimethoprim/Sulfa MINIMUM INHIBITORY <=20: Fátima ceptible CONCENTRATION Amol Thompson IV, MD MICROBIOLOGY - GENERAL ORDER ABDON Performing Organization Address City/State/ZIP Code Phon e Number [facility] Unless otherwise noted, [place] [address] [place] all lab tests performed by: Division of Pathology and Laboratory Medicine [facility]5 [facility] Nephrostomy Exchange (01/24/2023 1:18 PM CDT) Anatomical Region Laterality Modality Abdomen/Pelvis X-Ray Angiography Specimen (Source) Anatomical Location Collection Method / Collectio n Time Received Time / Laterality Volume Narrative 01/24/2023 2:56 PM CDT Table formatting from the original result was not included. Date of Procedure: 01/24/23 Attending Physician: Amish Stuart MD Bellows Assembler: Zohreh miles Pre Procedure Diagnosis: Bladder cance r Post Procedure Diagnosis: Unchanged Indication: Catheter malfunction Title of Procedure: Percutaneous Image-Guided Exchange of Ne phrostomy Catheter(s) Operative Findings: Percutaneous image-guided exchange of le ft nephrostomy catheter(s). Consent: The procedure, risks, indicat ions and alternatives were explained. All questions were answered a nd informed consent was obtained. I have reviewed the history and physical dictated by the mid-level practitioner / fellow. Sedation/Anesthesia: Moderate sedation for pain control and a nxiety was administered by a dedicated nurse under my supervision. There was continuous monitoring of oxygen saturation, heart rate and interm ittent monitoring of blood pressure during the procedure. Medicat ion given was midazolam and fentanyl. I was present for the admin istration of the medications indicated above. Procedure Events Event Event Time Sedation Start 01/24/2023 1:32 PM Sedation End 01/24/2023 1:54 PM Procedure in Detail: A time out was performed prior to the st art of the procedure and the correct patient, procedure, presence of consent, site, and side were confirmed with all members of the team. The patient was placed in a prone positi on on the fluoroscopy table and the catheter(s) and insertion site(s) we re prepped and draped in the usual sterile fashion. Lidocaine 1% was used f or local anesthesia. A durability engineer view was obtained of the cathete r. A left nephrostogram confirmed catheter position in the renal pelvis. The catheter was severed and exchanged over a wire for a new 10 Frenc h Mac-loc catheter. Repeat nephrostogram demonstrates adequate posi tion in the renal pelvis. The catheter was secured to the patient with suture. Additional Comments: None Estimated Blood Loss: Minimal Specimens Removed: No Immediate Complications: None Disposition: PACU Plan: Catheter to gravity drainage. Return for routine exchange in 3 jonathan hs. This draft note was prepared by the SANDY involved in the case; it was then reviewed and finalized by the attending physician. I certify my physical presence in the pr ocedure/control room at the time of the procedure. I personally reviewed the image(s) and the SANDY's interpretation and agree with the terrell ruby report. Enrique Kyle MD IMG IR ORDERABLES (ABNORMAL) Prothrombin Time (01/24/2023 11:49 AM CDT)Only the most recent of2 resultswithin the time period is included. P athologist Signature PT 15.6 (H) 11.9 - 14.1 [facility] second(s) Comment: Testing Performed at [facility] Lab Product Management Internship [facility] [address] [place] [address] INR 1.29 (H) 0.89 - 1.10 [facility] Comment: Testing Performed at [facility] Lab Product Management Internship dg [address] [place] [address] Specimen Anatomical Collection Method Collection Time Receive d Time (Source) Location / / Volume Laterality Blood 01/24/2023 11:49 01/24/2023 AM CDT 12:00 PM CDT Narrative [facility] - 01/24/2023 12:52 PM CDT This lab cannot be scheduled at the [facility] locations due to collection/proccessing restrictions: [facility] and [facility]. Radha ALLEN LAB BLOOD ORDERABLES Performing Organization Address City/State/ZIP Code Phon e Number [facility] [address] [place] [address] [address] IR NEPHROSTOMY UNILATERAL PLACEMENT 75 (12/31/2022 10:39 AM CDT) Anatomical Region Laterality Modality Abdomen/Pelvis X-Ray Angiography, U ltrasound Specimen (Source) Anatomical Location Collection Method / Collectio n Time Received Time / Laterality Volume Narrative 12/31/2022 4:03 PM CDT Table formatting from the original result was not included. Date of Procedure: 12/31/22 Attending Physician: Enrique Kyle MD Bellows Assembler: Miguel Ángel Melo Pre Procedure Diagnosis: Bladder cance r Post Procedure Diagnosis: Unchanged Indication: Ureteral obstruction from tumor Title of Procedure: Percutaneous Image-Guided Placement of N ephrostomy Catheter(s) Operative Findings: Percutaneous image-guided placement of l eft nephrostomy catheter(s). Consent: The procedure, risks, indicat ions and alternatives were explained. All questions were answered a nd informed consent was obtained. I have reviewed the history and physical dictated by the mid-level practitioner / fellow. Sedation/Anesthesia: Moderate sedation for pain control and a nxiety was administered by a dedicated nurse under my supervision. There was continuous monitoring of oxygen saturation, heart rate and interm ittent monitoring of blood pressure during the procedure. Medicat ion given was midazolam and fentanyl. I was present for the admin istration of the medications indicated above. Procedure Events Event Event Time Sedation Start 12/31/2022 9:52 AM Sedation End 12/31/2022 10:33 AM Procedure in Detail: A time out was performed prior to the st art of the procedure and the correct patient, procedure, presence of consent, site, and side were confirmed with all members of the team. The patient was placed in a prone positi on on the fluoroscopy table and the catheter(s) and insertion site(s) we re prepped and draped in the usual sterile fashion. Lidocaine 1% was used f or local anesthesia. Ultrasound Guided: Under real time ultra sound guidance, a 21 gauge needle was advanced into an appropriate posteri or calyx, confirmed by contrast administration. An image was obtained an d placed into the medical record. A Bk set was used to secure the access and a short 0.035 inch wire was advanced into the collecting system. T he tract was dilated to accept a 10 [place] Mac-loc catheter which was formed in the renal pelvis. The catheter was secured to the skin with suture and attached to gravity drainage. Additional Comments: None Estimated Blood Loss: Minimal Specimens Removed: No Immediate Complications: None Disposition: PACU Plan: Catheter to gravity drainage. Return for routine exchange in 3 [facility] hs. I certify my physical presence at the [facility] of the procedure. I personally reviewed the image(s) and the resident's /fellow's interpretation and agree with the written report. Buffy Marc APRN IMG IR ORDERABLES Clot Expiration Date (12/31/2022 9:20 AM CDT) [facility] gist Method Time Signature T & S 01/03/2023 [place] MD Expiration [facility] Specimen Anatomical Collection Method Collection Time Receive d Time (Source) Location / / Volume Laterality Blood 12/31/2022 9:20 AM 3 9:36 CDT AM CDT Milka ALLEN BLOOD BANK TEST ORDERABLES Performing Organization Address City/State/ZIP Code Phon e Number [facility] Unless otherwise noted, [address] all lab tests performed by: Division [facility] TMP Interpretation Antibody Screen Negative (12/31/2022 9:20 AM CDT) Patholo gist Method Time Signature TMP Auto Neg At the [facility] Interp [facility] CENTER patient plasma shows no evidence of RBC alloantibodi es. Comment: MD Joyce RIBEAR [id number] Dictated by: MD Joyce RIBERA 1200 [id number] Dictated Date/Time: 12.31.2022 12:25 PM CDT Transcribed Date/Time: 12.31.2022 12:25 PM CDT Electronically Signed By: MD Joyce GRULLON [id number] on 12.31.2022 12:25 PM Specimen Anatomical Collection Method Collection Time Receive d Time (Source) Location / / Volume Laterality Blood 12/31/2022 9:20 AM 9:36 CDT AM CDT Milka ALLEN BLOOD BANK TEST ORDERABLES Performing Organization Address City/[facility]/ZIP Code Phon e Number [facility] Unless otherwise noted, [address] all lab tests performed by: Division of Pathology and Laboratory Medicine [facility]5 Ysabel Guerrero ABORh (12/31/2022 9:20 AM CDT) P athologist Signature ABORh. A POS [facility] Specimen Anatomical Collection Method Collection Time Receive d Time (Source) Location / / Volume Laterality Blood 12/31/2022 9:20 AM 3 9:36 CDT AM CDT Milka ALLEN BLOOD BANK TEST ORDERABLES Performing Organization Address City/[facility]/ZIP Code Phon e Number [facility] Unless otherwise noted, [address] all lab tests performed by: Division of Pathology and Laboratory Medicine [facility]5 Ysabel Guerrero Antibody Screen (12/31/2022 9:20 AM CDT) athologist [facility] ABSC. Negative ABSC [facility] Specimen Anatomical Collection Method Collection Time Receive d Time (Source) Location / / Volume Laterality Blood 12/31/2022 9:20 AM 9:36 CDT AM CDT Milka ALLEN BLOOD BANK TEST ORDERABLES Performing Organization Address City/State/ZIP Code Phon e Number [facility] Unless otherwise noted, [address] all lab tests performed by: Division of Pathology and Laboratory Medicine [address] [place] (ABNORMAL) Albumin Level Urine (12/26/2022 12:25 PM CDT)Only the most recent of5 resultswithin the time period is included. [facility] Urine Albumin 1.92 mg/dL [facility] Comment: Normal range note available for collections less than 24 hours in duration. U Creatinine 46.4 40.0 - 278.0 mg/dL [facility] SERGIO [facility] Comment: The reference range listed is f or first morning urine collection. Albumin/Creatinine Ratio (ACR) 41 (H) <=29 mg/g [facility] Comment: Reference interval: <30 mg/g Interpretive comment: The presence of increased urinary albumi n excretion (albuminuria) is a clinically sensitive and predictive indicator of chronic kidney disease. Albuminuria is determined by urinary albumin to creatinine ratio (UACR) in a random spot urine or a 24-hour collection. Normal: <30 mg/g Moderately increased: 30-300 mg/g Severely increased: >300 mg/g Specimen Anatomical Collection Method Collection Time Receive d Time (Source) Location / / Volume Laterality Urine 12/26/2022 12:25 12/26/2022 2:06 PM CDT PM CDT Aaron Vasquez MD URINE ORDERABLES Performing Organization Address City/State/ZIP Code Phon e Number [facility] Unless otherwise noted, [address] all lab tests performed by: Division of Pathology and Laboratory Medicine [address] [place] Creatinine Urine (12/26/2022 12:25 PM CDT) [facility] U Creatinine 46.4 40.0 - [facility] 278.0 mg/dL [facility] Comment: The reference range listed is f or first morning urine collection. Specimen Anatomical Collection Method Collection Time Receive d Time (Source) Location / / Volume Laterality Urine 12/26/2022 12:25 12/26/2022 2:06 PM CDT PM CDT Aaron Vasquez MD URINE ORDERABLES Performing Organization Address City/[facility]/ZIP Code Phon e Number [facility] Unless otherwise noted, [address] all lab tests performed by: Division of Pathology and Laboratory Medicine [address] [place] [address] (ABNORMAL) Urinalysis Microscopic Exam (12/26/2022 12:19 PM CDT)Only the most recent of5 resultswithin the time period is included. athologist Signature UA WBC 96 (H) 0 - 2 /HPF [facility] Comment: Some reporting parameters within the Uri nalysis test have changed due to the implementation of new instrumentation in the [facility] [place], allowing greater sensitivity of measurement. Urinalysis results rep orted by the [facility] using existing instrumentation, as well as Urinalysis t esting performed manually or by backup methodology at the [facility] [place] will remain relatively unchanged. New reporting parameters and units will not be reported for all campuses. UA RBC 11 (H) 0 - 2 /HPF [facility] UA Mucous NOT SEEN Not Seen-Trace /HPF [facility] UA Bacteria 1+ (A) NOT SEEN /HPF [facility] UA Squam Epi NOT SEEN None-Occasional /HPF [facility] Specimen Anatomical Collection Method Collection Time Receive d Time (Source) Location / / Volume Laterality Urine 12/26/2022 12:19 12/26/2022 1:58 PM CDT PM CDT Buffy Marc APRN LAB BLOOD ORDERABLES Performing Organization Address City/State/ZIP Code Phon e Number [facility] Unless otherwise noted, [address] all lab tests performed by: Division of Pathology and Laboratory Medicine [address] [place] [address] [place] (ABNORMAL) Urinalysis w/Microscopic if Indicated (12/26/2022 12:19 PM CDT)Only the most recent of8 resultswithin the time period is included. [facility] Method Time Signature UA Color Straw Straw-Yel [facility] UA Appear Hazy (A) Clear [facility] UA Glucose NEG NEG mg/dL [facility] UA Bili NEG NEG [facility] UA Ketones NEG NEG mg/dL [facility] UA Spec Grav 1.008 1.003 - [place] MD 1.035 [facility] UA Blood Small (A) NEG [facility] UA pH 6.0 5.0 - 9.0 [facility] UA Protein 10 (A) NEG mg/dL [facility] UA Urobilinogen NEG NEG [facility] UA Nitrite NEG NEG [facility] UA Leuk Est Large (A) NEG [facility] Specimen Anatomical Collection Method Collection Time Receive d Time (Source) Location / / Volume Laterality Urine 12/26/2022 12:19 12/26/2022 1:58 PM CDT PM CDT Buffy Marc APRN URINE ORDERABLES Performing Organization Address City/[facility]/ZIP Code Phon e Number [facility] Unless otherwise noted, [place] [address] [place] all lab tests performed by: Division of Pathology and Laboratory Medicine [address] [place] [address] Plt Count (12/26/2022 12:11 PM CDT) P athologist Signature Platelet count 198 140 - 440 [facility] K/uL Comment: As part of CBC or as an individ ual orderable testing performed at [facility] Lab Product Management Internship [facility] [place], [facility]0 [facility] , [address], [place] [address] MPV 9.9 4.0 - 10.4 fL [facility] Specimen Anatomical Collection Method Collection Time Receive d Time (Source) Location / / Volume Laterality Blood 12/26/2022 12:11 12/26/2022 PM CDT 12:17 PM CDT Srinivas ALLEN LAB BLOOD ORDERABLES Performing Organization Address City/State/ZIP Code Phon e Number [facility] [address] [place] [address]. [place] [address] [address] MRI Abdomen & Pelvis with and without Contrast (12/24/2022 8:55 PM CDT)Only the most recent of3 resultswithin the time period is included. Anatomical Region Laterality Modality Abdomen Magnetic Resonance Specimen (Source) Anatomical Collection Method Collection Time Re ceived Time Location / / Volume Laterality 12/24/2022 8:57 PM CDT Impressions 12/24/2022 9:13 PM CDT Interval development of left hydronephro sis. The left renal pelvis and proximal ureter is dilated up to the transition p oint at the junction of the left proximal and mid distal ureter, best seen on the chantale nal T2-weighted sequences (series 4, image 29). While appearances may be related to stricture, tumor involvement is difficult to exclude completely. Recommend clinical c orrelation and this can be further evaluated with ureteroscopy or monitored, as clini gt warranted. Narrative 12/24/2022 9:13 PM CDT FULL RESULT: Examination: MRI ABDOMEN & PELVIS W AND WO CONTRAST on 12/24/2022 8:55 PM Clinical History: Bladder cancer Indication: restaging Comparison: 09/24/2022 Technique: MRI abdomen pelvis without an d with intravenous contrast Findings: No suspicious lesions in the liver. Spleen, pancreas and right adrenal gland are unremarkable. Stable nodular thickening/nodule in the left adrenal gland remains stable since prior study (for example series 26, image 53). No suspicious renal masses. No hydroneph rosis in the right kidney. There is mild prominence of the left renal pelvis, new finding since prior study. 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 Upper urinary tract underdistended limiting assessment. No obvious filling defect in the visualized opacified portions of the right upper uri nary tract. There is lack of contrast ex cretion in the left upper urinary tract.. The left renal pelvis and proximal ureter is dilated up to the transition point at the junction of the left proximal and mid distal ureter, best seen on the cor onal T2-weighted sequences (series 4, image 29). No enlarged upper abdominal nodes. No collections in the pelvis. No dilated bowel loops. No ascites. No enlarged pelvic nodes. Procedure Note Chapincito Zuluaga MD - 023 FULL RESULT: Examination: MRI ABDOMEN & PELVIS W AND WO CONTRAST on 12/24/2022 8:55 PM Clinical History: Bladder cancer Indication: restaging Comparison: 09/24/2022 Technique: MRI abdomen pelvis without an d with intravenous contrast Findings: No suspicious lesions in the liver. Spleen, pancreas and right adrenal gland are unremarkable. Stable nodular thickening/nodule in the left adrenal gland remains stable since prior study (for example series 26, image 53). No suspicious renal masses. No hydroneph rosis in the right kidney. There is mild prominence of the left renal pelvis, new finding since prior study. 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 Upper urinary tract underdistended limiting assessment. No obvious filling defect in the visualized opacified portions of the right upper urinary tract. There is lack of contrast excretion in the left u pper urinary tract.. The left renal pelvis and proximal ureter is dilated up to the transition point at the junction of the left proximal and mid distal ureter, best seen on the coronal T2-weighted sequences (series 4, image 29). No enlarged upper abdominal nodes. No collections in the pelvis. No dilated bowel loops. No ascites. No enlarged pelvic nodes. IMPRESSION: Interval development of left hydronephro sis. The left renal pelvis and proximal ureter is dilated up to the transition point at the junction of the left proximal and mid distal ureter, best seen on the coronal T2-weighted sequences (series 4, image 2 9). While appearances may be related to stricture, tumor involvement is difficult to exclude completely. Recommend clinical correlation and this can be further evaluated with ureteroscopy or monitored , as clinically warranted. Buffy Marc APRN [facility] MRI ORDERABLES CT Chest without Contrast (12/24/2022 7:09 AM CDT)Only the most recent of3 resultswithin the time period is included. Anatomical Region Laterality Modality Chest Computed Tomography Specimen (Source) Anatomical Collection Method Collection Time Re ceived Time Location / / Volume Laterality 12/25/2022 10:41 AM CDT Impressions 12/25/2022 10:49 AM CDT Granulomatous disease in the chest and f ibrosis/scarring in the lower lungs. No intrathoracic metastasis. Narrative 12/25/2022 10:49 AM CDT FULL RESULT: Examination: CT CHEST WO CONTRAST, 023 7:09 AM Clinical History: Bladder cancer Indication: Cancer staging or restaging Comparison: 09/24/2022 Technique: CT of the chest was performed without intravenous contrast. Findings: Borderline but enlarging left supraclavi cular lymph nodes. Cardiac chamber sizes are normal. Left anterior descending monitor moderate aortic valvular calcifications. There are numerous small to borderl ine mediastinal lymph nodes throughout t he mediastinum and both hui. No definitely enlarged lymph nodes and none have increased over the last 2 exams at least. Calcified granulomas in both lungs. A few tiny nodules are too small to assess fo r calcification. There is interstitial prominence and scarring in the lung bases. No pulmonary nodule suspicious for metastases. No pleural effusion. The visualiz ed upper abdomen is unremarkable. No fátima picious bone lesions. Procedure Note Timoteo Alfaro MD - 12/25/2022Formatt ing of this note might be different from the original. FULL RESULT: Examination: CT CHEST WO CONTRAST, 023 7:09 AM Clinical History: Bladder cancer Indication: Cancer staging or restaging Comparison: 09/24/2022 Technique: CT of the chest was performed without intravenous contrast. Findings: Borderline but enlarging left supraclavi cular lymph nodes. Cardiac chamber sizes are normal. Left anterior descending monitor moderate aortic valvular calcifications. There are numerous small to borderline mediastinal lymph nodes throughout the m ediastinum and both hui. No definitely enlarged lymph nodes and none have increased over the last 2 exams at least. Calcified granulomas in both lungs. A few tiny nodules are too small to assess for calcification. T here is interstitial prominence and scarring in the lung bases. No pulmonary nodule suspicious for metastases. No pleural effusion. The visualized upper abdomen is unremarkable. No suspicious bone lesions. IMPRESSION: Granulomatous disease in the chest and f ibrosis/scarring in the lower lungs. No intrathoracic metastasis. Buffy Marc SET DECORATOR IMG CT ORDERABLES Glucose, Random (12/14/2022 8:09 AM CDT) athologist Signature Glucose Random 99 70 - 199 [facility] mg/dL Comment: Effective 03/21/16, the glucose reference intervals have been updated based on [place] [employer] guidelines (Standards of Medical Care in Diabetes 2016. Diabetes Care 2016; 39: S13-S22) Fasting blood glucose: Normal: 70-99 mg/dL Impaired fasting glucose (increased risk for diabetes or pre-diabetes): 100-125 mg/dL Diabetes mellitus: >/= 126 mg/dL Random blood glucose: Normal: 70-199 mg/dL Note: Random glucose >100 mg/dL is assoc iated with increased risk for diabetes Testing Performed at [facility] Lab Product Management Internship [facility], [address] [facility], [address], [place] [address] Specimen Anatomical Collection Method Collection Time Receive d Time (Source) Location / / Volume Laterality Blood 12/14/2022 8:09 AM 3 8:26 CDT AM CDT Narrative [facility] - 12/14/2022 8:54 AM CDT Patient prefers video unless he is already on campus Perform at the same time as the C-Peptid e Isamar Sosa SET DECORATOR LAB BLOOD ORDERABLES Performing Organization Address City/[facility]/ZIP Code Phon e Number [facility] [address] [facility] [place] [address] [address] TSH (12/14/2022 8:09 AM CDT)Only the most recent of5 resultswithin the time period is included. athologist Signature TSH 1.41 0.27 - 4.20 [facility] mcunit/mL Comment: Note: New Methodology and Reference Ra nge change effective 12/12/2017 at 1400 Testing Performed at [facility] Product Management Internship [facility], [address] [facility], [address], [place] [address] Specimen Anatomical Collection Method Collection Time Receive d Time (Source) Location / / Volume Laterality Blood 12/14/2022 8:09 AM 3 8:26 CDT AM CDT [facility] - 12/14/2022 9:02 AM CDT Patient prefers video unless he is alrea dy on campus Isamar Sosa SET DECORATOR LAB BLOOD ORDERABLES Performing Organization Address City/State/ZIP Code Phon e Number [facility] [address] [facility] [place] [address] [address] Free T4 (12/14/2022 8:09 AM CDT)Only the most recent of5 resultswithin the time period is included. athologist Signature T4 Free 1.20 0.93 - 1.70 [facility] ng/dL Comment: Testing Performed at [facility], [address] [facility], [address], [place] [address] Specimen Anatomical Collection Method Collection Time Receive d Time (Source) Location / / Volume Laterality Blood 12/14/2022 8:09 AM 3 8:26 CDT AM CDT Narrative [facility] - 12/14/2022 9:01 AM CDT Patient prefers video unless he is alemmie james on campus Isamar Whartonagustin RAO LAB BLOOD ORDERABLES Performing Organization Address [facility]/ZIP [facility] Phon e Number [facility] [address] [facility] [place] [address] [address] (ABNORMAL) Hemoglobin A1c (12/14/2022 8:09 AM CDT)Only the most recent of2 resultswithin the time period is included. athologist Signature A1C 6.6 (H) 4.3 - 5.6 % [facility] Comment: HbA1c values >=6.5% are diagnostic of di abetes mellitus. Diagnosis should be confirmed by repeat testing. Therapeutic Action suggested: >8.0% HbA1 c; Goal of therapy: <7.0% HbA1c Specimen Anatomical Collection Method Collection Time Receive d Time (Source) Location / / Volume Laterality Blood 12/14/2022 8:09 AM 3 8:38 CDT AM CDT Narrative [facility] - 3 8:52 AM CDT Patient prefers video unless he is alemmie jacob on campus Isamar Lopez Sheila RAO LAB BLOOD ORDERABLES Performing Organization Address City/[facility] e Number [facility] Unless otherwise noted, [address] all lab tests performed by: Division of Pathology and Laboratory Medicine [address] [place] [address] Cesar (ABNORMAL) Lipid Panel (12/14/2022 8:09 AM CDT)Only the most recent of2 results within the time period is included. athologist Signature Chol 154 <=199 mg/dL [facility] Comment: ATP III Classification of Total Choleste rol Primary Target of Therapy (in mg/dL): <200 Desirable 200-239 Borderline high >=240 High Testing Performed at [facility] Lab Product Management Internship Bldg, [address] [facility], [address], [place] [address] Trig 151 (H) <=149 mg/dL [facility] Comment: ATP III Classification of Serum Triglyce rides Primary Target of Therapy (in mg/dL): <150 Normal 150-199 Borderline high 200-499 High >=500 Very high Non-fasting triglycerides >200 mg/dL may be followed up with a fasting Lipid Panel. Calculated LDL-C may be falsely decreased when non-fasting triglycerides >200 mg/dL. Testing Performed at [facility] Lab Product Management Internship [facility], [address] [facility], [address], [place] [address] HDL 38 (L) >=40 mg/dL [facility] Comment: Testing Performed at [facility] Lab [facility], [address], [place] [address] LDL 86 <=100 mg/dL [facility] Comment: ATP III Classification of LDL Cholestero l Primary Target of Therapy (in mg/dL): <100 Optimal 100-129 Near optimal/above optimal 130-159 Borderline high 160-189 High >=190 Very high Testing Performed at [facility] Lab Product Management Internship [facility], [address], [place] [address] VLDL 30 mg/dL [facility] Comment: Testing Performed at [facility] Lab Am [facility] Care [facility], [address], [place] [address] Specimen Anatomical Collection Method Collection Time Receive d Time (Source) Location / / Volume Laterality Blood 12/14/2022 8:09 AM 3 8:46 CDT AM CDT Narrative [facility] - 12/14/2022 9:12 AM CDT Patient prefers video unless he is holli james on campus Isamar Sosa APRN LAB BLOOD ORDERABLES Performing Organization Address City/State/ZIP Code Phon e Number [facility] [address] [facility] [place] [address] [address] Calcium Ionized, Venous (11/27/2022 2:33 AM CDT)Only the most recent of2 resultswithin the time period is included. P athologist Signature V Ion Ca 1.19 1.15 - 1.29 [facility] mmol/L [facility]ER CENTER Specimen Anatomical Collection Method Collection Time Receive d Time (Source) Location / / Volume Laterality Blood 11/27/2022 2:33 AM 3 2:38 CDT AM CDT Praful Valdez APRN LAB BLOOD ORDERABLES Performing Organization Address City/State/ZIP Code Phon e Number [facility] Unless otherwise noted, [address] all lab tests performed by: Division of Pathology and Laboratory Medicine [facility] [place] (ABNORMAL) Glucose, Fasting (11/26/2022 4:08 AM CDT)Only the most recent of2 resultswithin the time period is included. [facility] Glucose 113 (H) 70 - 99 [facility] Fasting mg/dL [facility] Comment: Impaired fasting glucose (increased risk for diabetes or prediabetes): 100-125 mg/dL Diabetes mellitus: >= 126 mg/dL Specimen Anatomical Collection Method Collection Time Receive d Time (Source) Location / / Volume Laterality Blood 11/26/2022 4:08 AM 3 4:31 CDT AM CDT Sana Ruvalcaba APRN LAB BLOOD ORDERABLES Performing Organization Address City/[facility]/ZIP Code Phon e Number [facility] Unless otherwise noted, [address] all lab tests performed by: Division of Pathology and Laboratory Medicine [facility] C Peptide (11/26/2022 4:08 AM CDT) [facility] C-Peptide 2.54 1.10 - 4.40 [facility] ng/mL [facility] Specimen Anatomical Collection Method Collection Time Receive d Time (Source) Location / / Volume Laterality Blood 11/26/2022 4:08 AM 3 4:38 CDT AM CDT Narrative [facility] - 3 5:03 AM CDT Check at the same time as Fasting Blood Sugar Sana Ruvalcaba APRN LAB BLOOD ORDERABLES Performing Organization Address City/[facility]/ZIP Code Phon e Number [facility] Unless otherwise noted, [address] all lab tests performed by: Division of Pathology and Laboratory Medicine [facility]5 [address] [place] LDH (11/25/2022 7:28 AM CDT)Only the most recent of2 resultswithin the time period is included. [facility] LDH 195 135 - 225 [facility] U/L [facility] Comment: Results greater than 1651 U/L m ay not be reliable due to matrix effect with extended dilution as it exceeds the manu facturer's recommended limit. Caution should be exercised when interpreting such valu es and done in conjunction with clinical context. Specimen Anatomical Collection Method Collection Time Receive d Time (Source) Location / / Volume Laterality Blood 11/25/2022 7:28 AM 7:46 CDT AM CDT Jacquie Duron MD LAB BLOOD ORDERABLES Performing Organization Address City/State/ZIP Code Phon e Number [facility] Unless otherwise noted, [place] [address] [place] all lab tests performed by: Division of Pathology and Laboratory Medicine [address] [place] EKG, 12-Lead (11/25/2022) Specimen (Source) Anatomical Location Collection Method / Collectio n Time Received Time / Laterality Volume Narrative This result has an attachment that is no t available. Praful Valdez APRN ECG ORDERABLES Performing Organization Address City/[facility]/ZIP Code Phon e Number [facility] X-ray Chest 1 View (11/24/2022 9:16 PM CDT) Anatomical Region Laterality Modality Chest Digital Radiography Specimen (Source) Anatomical Collection Method Collection Time Re ceived Time Location / / Volume Laterality 11/24/2022 9:41 PM CDT Impressions 11/24/2022 9:41 PM CDT No acute cardiopulmonary disease. Narrative 11/24/2022 9:41 PM CDT FULL RESULT: Examination: XR CHEST 1 VW. Date: 11/24/2022 9:16 PM. Clinical History: Bladder cancer. Indication: Fever. Technique: Single AP view of the chest w as obtained and submitted for interpretation. Comparison: CT scan of the chest dated 0 09/24/2022. Findings: Lines and Tubes: None. Lungs: The lungs are clear.. Pleura: There are no pleural effusions . Pneumothorax: There is no pneumothorax . Mediastinum: The cardiac silhouette is not enlarged. Soft tissues: The visualized soft tiss ues are unremarkable. Bones: No aggressive osseous lesions a re seen. Procedure Note Enriqueta Samano MD - 11/24/2022Formattin g of this note might be different from the original. FULL RESULT: Examination: XR CHEST 1 VW. Date: 11/24/2022 9:16 PM. Clinical History: Bladder cancer. Indication: Fever. Technique: Single AP view of the chest w as obtained and submitted for interpretation. Comparison: CT scan of the chest dated 0 09/24/2022. Findings: Lines and Tubes: None. Lungs: The lungs are clear.. Pleura: There are no pleural effusions. Pneumothorax: There is no pneumothorax. Mediastinum: The cardiac silhouette is n ot enlarged. Soft tissues: The visualized soft tissue s are unremarkable. Bones: No aggressive osseous lesions are seen. IMPRESSION: No acute cardiopulmonary disease. Jacquie Duron MD IMG DIAGNOSTIC IMAGING ORDER ABDON (ABNORMAL) POC VBG+Lac (11/24/2022 9:11 PM CDT) P athologist Signature POC VB pH 7.36 7.31 - POC TELCOR 7.41 POC VB pCO2 40 (L) 41 - 51 POC TELCOR mmHg POC VB pO2 29 mmHg POC TELCOR POC VB TCO2 24 24 - 29 POC [facility]EL[facility] mEq/L POC VB Bicarb 23 23 - 28 POC TEL[facility] mmol/L POC VB Base Ex -3 (L) -2 - 3 POC [facility] mmol/L POC VB O2 Sat 52 % POC TELCOR POC VB LAC 1.34 0.90 - POC TELCOR 1.70 mmol/L Comment: Method description: The i-STAT is an jose alfredo lyzer used for in vitro quantification of various analytes in whole blood. The device uses a single disposable cartridge which contains microfabricated sensors, a calibration solution, fluidics system, and a waste chamber. Each test cartridge contains ch emically sensitive biosensors on a silicon chip that are configured to perform specific tests. The microfabricated sensors measure analyte concentration by an electrochemical assay. POC Sample Type Venous POC TELCOR POC Clean Dev Yes POC TELCOR Performing Lab [facility] POC TELCO R Comment: [facility], [address] [place] [id number]; Lab Direct or: Rosalva Thomas MD; Waived Point of Care Testing - Zulema Beach MD Specimen Anatomical Collection Method Collection Time Receive d Time (Source) Location / / Volume Laterality Blood 11/24/2022 9:11 PM 3 9:11 CDT PM CDT Jacquie Duron MD POCT ORDERABLES - DEVICE Performing Organization Address City/State/ZIP Code Phon e Number POC TELCOR Unless otherwise noted, [place] [address] lab tests performed by: Division of Pathology and Laboratory Medicine [facility] Respiratory Multiplex PCR Panel, Nasopharyngeal Swab (11/24/2022 8:56 PM CDT) [facility] Method Time Signature Adenovirus Not Not [place] MD Detected Detected [facility] Coronavirus 229E Not Not [place] MD Detected Detected [facility] Coronavirus HKU1 Not Not [place] MD Detected Detected [facility] Coronavirus NL63 Not Not [place] MD Detected Detected [facility] Coronavirus OC43 Not Not [place] MD Detected Detected [facility] COVID19 Not Not [place] (SARS-CoV-2) Detected Detected [facility] Human Not Not [place] Metapneumovirus Detected Detected [facility] Human Not Not [place] MD Rhinovirus/Enterov Detected Detected [facility] Influenza A Not Not [place] MD Detected Detected [facility] Influenza A H1 Not Not [place] MD Detected Detected [facility] Influenza A H1 Not Not [place] 2008 Detected Detected [facility] Influenza A H3 Not Not [place] Detected Detected [facility] Influenza B Not Not [place] Detected Detected [facility] Parainfluenza 1 Not Not [place] Detected Detected [facility] Parainfluenza 2 Not Not [place] Detected Detected [facility] Parainfluenza 3 Not Not [place] Detected Detected [facility] Parainfluenza 4 Not Not [place] Detected Detected [facility] Respiratory Not Not [place] Syncytial Virus Detected Detected [facility] Bordetella Not Not [place] Parapertussis Detected Detected [facility] Bordetella Not Not [place] pertussis Detected Detected [facility] Chlamydiophila Not Not [place] pneumoniae Detected Detected [facility] Mycoplasma Not Not [place] pneumoniae Detected Detected [facility] Specimen (Source) Anatomical Collection Method Collection Time Re ceived Time Location / / Volume Laterality Nasopharyngeal Swab 11/24/2022 8:56 11/24 PM CDT 9:06 PM CDT Narrative [place] [facility] - 3 9:58 PM CDT Has patient had a positive for COVID-19 result in the last 3 months?->No The BioFire RP2.1 is a real-time, nested multiplexed polymerase chain reaction test designed to simultaneously identify nucleic acids from 22 different viruses and bacteria associated with respiratory tract infect ion, including SARS-CoV-2, from a single nasopharyngeal swab (EMBALMER/FUNERAL DIRECTOR) specimen obtained from individuals suspected of respiratory tract infections, including COVID-19. Results must be interpreted within the c ontext of all relevant clinical and laboratory findings and should not form the sole basis for a diagnosis or treatment decision. Positive results do not rule out coninfection with other organisms. Nega tive results in the setting of a respiratory illness may be due to infection with pathogens that are not detected by this panel, or a lower respiratory tract infection that may not be detected by an EMBALMER/FUNERAL DIRECTOR specimen. Internal controls are used to monitor al l stages of the test process and assess for possible amplification inhibitors. If inhibition is detected, testing is repeated and if inhibition is confirmed the s pecimen is resulted as "Invalid". When a n "Invalid" result occurs, it is recommended to wait 3 days before submitting a new specimen for testing if clinically indicated. This assay has been approved by the FDA for use in laboratories that have been CLIA-certified to perform moderate-complexity and high-complexity tests. [facility], CLIA Accreditation #[id number] and CAP Accreditation #[id number], verified the per formance characteristics of this assay. [facility] performs the assay using the [employer] Software System. Jacquie Duron MD MICROBIOLOGY - GENERAL ORDER ABDON Performing Organization Address City/State/ZIP Code Phon e Number [facility] CANCER Unless otherwise noted, [place] [address] [place] all lab tests performed by: Division of Pathology and Laboratory Medicine [address] [place] [address] Procalcitonin (PCT) (11/24/2022 8:56 PM CDT) athologist Signature Procalcitonin 0.08 <=0.08 [facility] ng/mL [facility] Comment: Procalcitonin > 2.00 ng/mL: Procalcit onin levels above 2.00 ng/mL are highly suggestive of a high risk for systematic bacterial infection/ severe sepsis and/or septic shock. Procalcitonin < 0.50 ng/mL: Procalcito nilson levels below 0.50 ng/mL are at low risk for progression to severe sepsis and/ or septic shock. Procalcitonin (ProCT) between 0.15 and 2 .0 ng/mL do not exclude infection, because localized infections (without systemic signs) may be associated with such low levels. Results greater than 400 ng/mL may not b e reliable due to the matrix effect with extended dilution as it exceeds the water sander's recommended limit. Caution should be exercised when interpreting such values and done in conjunction with clinical context. Specimen Anatomical Collection Method Collection Time Receive d Time (Source) Location / / Volume Laterality Blood 11/24/2022 8:56 PM 3 9:06 CDT PM CDT Jacquie Duron MD LAB BLOOD ORDERABLES Performing Organization Address [facility] Phon e Number [facility] Unless otherwise noted, [address] all lab tests performed by: Division of Pathology and Laboratory Medicine [address] [place] Blood culture (11/24/2022 8:56 PM CDT)Only the most recent of2 resultswithin the time period is included. athologist Signature Final Report No growth [facility] Specimen Anatomical Collection Method Collection Time Receive d Time (Source) Location / / Volume Laterality Blood 11/24/2022 8:56 PM 3 9:49 (Venipuncture-Le CDT PM CDT ft) Comment: lt arm Narrative [facility] - 3 11:10 PM CDT If patient has a Central Venous Catheter please draw a blood culture from the line. If no central line, draw a second periph eral culture. Jacquie Duron MD MICROBIOLOGY - GENERAL ORDER ABDON Performing Organization Address [facility] Phon e Number [facility] Unless otherwise noted, [address] all lab tests performed by: Division of Pathology and Laboratory Medicine [address] [place] CRP (C-reactive protein) (11/24/2022 8:56 PM CDT) athologist Signature CRP 72.59 mg/L [facility] Comment: Reference ranges for HS CRP assay are as follows: Reference ranges when used to assess car diac risk: <1.00 mg/L Low cardiovascular risk 1.00-3.00 mg/L Average cardiovascular risk >3.00 mg/L High cardiovascular risk. Reference ranges when used to assess inf lammatory responses: Less than or equal to 10.00 mg/L. Specimen Anatomical Collection Method Collection Time Receive d Time (Source) Location / / Volume Laterality Blood 11/24/2022 8:56 PM 3 9:06 CDT PM CDT Jacquie Duron MD LAB BLOOD ORDERABLES Performing Organization Address City/State/ZIP Code Phon e Number [facility] Unless otherwise noted, [address] all lab tests performed by: Division of Pathology and Laboratory Medicine [address] [place] (ABNORMAL) Eosinophil Urine (11/06/2022 9:15 AM CDT)Only the most recent of3 resultswithin the time period is included. athologist [facility] U Eos Many (A) None Seen [facility] Specimen Anatomical Collection Method Collection Time Receive d Time (Source) Location / / Volume Laterality Urine 11/06/2022 9:15 AM 3 CDT 10:16 AM CDT Buffy Marc SET DECORATOR URINE ORDERABLES Performing Organization Address City/[facility] Phon e Number [facility] Unless otherwise noted, [address] all lab tests performed by: Division of Pathology and Laboratory Medicine [address] [place] (ABNORMAL) Protein/Creatinine Ratio Urine (11/06/2022 9:15 AM CDT) athologist [facility] UTP Ran 18 mg/dL [facility] Comment: Normal range not available for collections less than 24 hours in duration. U Creatinine 73.3 40.0 - 278.0 mg/dL [place] MD SERGIO MERINO [facility] Comment: The reference range listed is f or first morning urine collection. U Prot/Creat 0.25 (H) <=0.14 g/g [place] MD [facility] Specimen Anatomical Collection Method Collection Time Receive d Time (Source) Location / / Volume Laterality Urine 11/06/2022 9:15 AM 3 9:53 CDT AM CDT Buffy Yvettemad SET DECORATOR URINE ORDERABLES Performing Organization Address City/[facility] Phon e Number [facility] Unless otherwise noted, [address] all lab tests performed by: Division of Pathology and Laboratory Medicine [address] [place] [address] (ABNORMAL) Urinalysis with Microscopic (07/24/2022 2:37 PM PLUMBER'S ASSISTANT)Only the most recent of3 resultswithin the time period is included. athologist Signature UA WBC 38 (H) 0 - 2 /HPF [facility] UA RBC 12 (H) 0 - 2 /HPF [facility] UA Mucous NOT SEEN Not [facility] Seen-Trace [facility] /HPF UA Bacteria NOT SEEN NOT SEEN [facility] UA Squam Epi NOT SEEN None-Occas [facility] ionid /[facility] Specimen Anatomical Collection Method Collection Time Receive d Time (Source) Location / / Volume Laterality Urine 07/24/2022 2:37 PM 2 3:08 PLUMBER'S ASSISTANT PM PLUMBER'S ASSISTANT Narrative [facility] - 2 4:23 PM PLUMBER'S ASSISTANT Some reporting parameters within the Urinalysis test have changed due to the implementation of new in strumentation in the Main [place], allowi ng greater sensitivity of measurement. Urinalysis results reported by the [facility] using existing instrumentation, as well as Urinalysis t esting performed manually or by backup methodology at the [facility] will remain relatively unchanged. New reporting parameters and units will now be reported for all campuses. Buffy Yvetteparul RAO URINE ORDERABLES Performing Organization Address [facility] Phon e Number [facility] Unless otherwise noted, [address] all lab tests performed by: Division of Pathology and Laboratory Medicine [address] [place] [address] PTH Intact (06/25/2022 8:24 AM CDT) athologist Signature PTH Intact 45.8 15.0 - 65.0 [facility] pg/mL [facility] Specimen Anatomical Collection Method Collection Time Receive d Time (Source) Location / / Volume Laterality Blood 06/25/2022 8:24 AM 2 9:22 CDT AM CDT Aaron Vasquez MD LAB BLOOD ORDERABLES Performing Organization Address City/[facility] Phon e Number [facility] Unless otherwise noted, [address] all lab tests performed by: Division of Pathology and Laboratory Medicine [address] [place] [address] Vitamin D 25OH (06/25/2022 8:24 AM CDT) athologist [facility] Vitamin D 25 OH 43 30 - 100 [facility] ng/mL [facility] Comment: Reference Range: Deficiency: <10 ng/mL Insufficiency: 10-29 ng/mL Sufficiency: 30-100 ng/mL Potential toxicity: >100 ng/mL Specimen Anatomical Collection Method Collection Time Receive d Time (Source) Location / / Volume Laterality Blood 06/25/2022 8:24 AM 2 9:00 CDT AM CDT Aaron Vasquez MD LAB BLOOD ORDERABLES Performing Organization Address [facility] Phon e Number [facility] Unless otherwise noted, [address] all lab tests performed by: Division of Pathology and Laboratory Medicine [address] [place] [address] ACTH (05/16/2022 7:09 AM CDT) athologist [facility] ACTH 38 7 - 63 [facility] pg/mL [facility] Comment: Results greater than 1826 pg/mL may not be reliable due to matrix effect with extended dilution as it exceeds the water sander's recommended limit. ACTH reference intervals are established for the morni ng hours from 7-10 am. Due to the circad gabrielle rhythm of ACTH levels in plasma, the sample col lection time must be noted. Caution should be exercised when interpreting such values and done in conjunction with clinical context. Specimen Anatomical Collection Method Collection Time Receive d Time (Source) Location / / Volume Laterality Blood 05/16/2022 7:09 AM 2 CDT 11:28 AM CDT Narrative [facility] - 2 11:51 AM CDT This lab cannot be scheduled at the following locations due to collection/proccessing restrictions: [place] - REG DI[facility] [place] - [facility] [place] - [facility] DIAG LAB CTR [facility] REG DA[facility] LAB [facility] [place] [facility] Buffy Marc SET DECORATOR LAB BLOOD ORDERABLES Performing Organization Address City/[facility]/ZIP Code Phon e Number [facility] Unless otherwise noted, [place] [address] [place] all lab tests performed by: Division of Pathology and Laboratory Medicine [address] [place] [address] [place] Cortisol, Total (05/16/2022 7:09 AM CDT) athologist Signature Cortisol, 17.37 4.80 - [facility] Total 19.50 DIAGNOSTIC mcg/dL CENTER Comment: Cortisol reference intervals are establi shed for the morning hours from 6-10 am and afternoon hours 4-8 pm. Due to circadian rhythm of cortisol levels in serum and plasma, the sample collection time must be noted. Caution should be exercised when interpreting such values and done in con junction with clinical context. Serum Cortisol Reference Ranges: Morning (6-10am) (4.8 - 19.5) Afternoon (4-8pm) (2.5 - 11.9) Specimen Anatomical Collection Method Collection Time Receive d Time (Source) Location / / Volume Laterality Blood 05/16/2022 7:09 AM 7:39 CDT AM CDT Buffy Marc SET DECORATOR LAB BLOOD ORDERABLES Performing Organization Address [facility] Phon e Number [facility] DIAGNOSTIC Unless otherwise noted, [place] [address] [place] all lab tests performed by: Division of Pathology and Laboratory Medicine [facility] Ysabel Cesar after 04/08/2022 Insurance Payer Benefit Plan / Subscriber ID Effective Phone Address T ype Group Dates MEDICARE MEDICARE PART [id number] 2015-Pres [phone] [facility] Medicare A AND B ent [id number] [employer] [address] [place] [address] BCBS NON BCBS NON [id number] 2019-Pres [address] CONTRACTED CONTRACTED ent [id number] [place] [address] Advance Directives Type Date Recorded 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 Advance Directives: 12/14/2020 Directive to Physicians Living Will and Family or Surrogates-Julia miles Will Advance Directives: 12/14/2020 Medical Eliz r of Critical Care Rn Medical Power of Critical Care Rn Code Status Date Activated Date Inactivated Comments Full Code 12/31/2022 1:03 PM 01/01/2023 2:46 PM Code Status Date Activated Date Inactivated Comments Full Code 11/25/2022 12:00 AM 11/27/2022 5:09 PM Full Code 11/04/2021 8:18 PM 11/06/2021 11:46 PM Full Code 12/15/2020 3:41 PM 12/19/2020 3:51 PM Full Code 11/07/2020 3:54 AM 11/11/2020 12:51 PM 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
--- OUTSIDE RECORDS SUMMARY | 2023-04-08 16:02 | XMS REPORT | Continuity of Care Document ---
:1950 Author Organization [facility] t Address [address] [place] [address] [place] [id number] Care Team Providers Name Role Phone [phone] Primary Care Physician Unavailable SYSTEM, PROVIDER NOT IN Attending Clinician Unavailable BONIFACIO MARTIN Attending Clinician Unavailable DAWN MOODY Attending Clinician Unavailable CONSTANTINE DAVIS Attending Clinician Unavailable CHERRY MARC Attending Clinician Unavailable Cherry Marc APRN Attending Clinician Horace Leyva MD Attending Clinician HORACE LEYVA Attending Clinician Unavailable Shreya Doss PharmD Attending Clinician Milka Javier Attending Clinician Deepak Nicole Attending Clinician Cristiano Vasquez MD Attending Clinician Chad Amaya RPH Attending Clinician AMOL THOMPSON IV Attending Clinician Unavailable Amol Thompson MD Attending Clinician Jeffrey Hui MD Attending Clinician Javid Gamino RN Attending Clinician Markel Todd DPM Attending Clinician MARKEL TODD Attending Clinician Unavailable Rose Argueta APRN Attending Clinician Narciso FERRARI, Amish Attending Clinician RADHA RAMOS Attending Clinician Unavailable Anette ALLEN, Radha Attending Clinician Silvino SOTO, Clarita [place] Attending Clinician Janae Bergeron MA Attending Clinician [phone] Ryan FERRARI, Constantine Attending Clinician Shellie Thao Attending Clinician Cheryl Livingston Attending Clinician ENRIQUE BAIRD Attending Clinician Unavailable Saroj FERRARI, Enrique Attending Clinician Gala Ackerman Attending Clinician China Lemons MA Attending Clinician SRINIVAS GREEN Attending Clinician Unavailable Srinivas Kidd Attending Clinician Isamar Siddiqi APRN Attending Clinician Amanda Harrison APRN Attending Clinician ISAMAR SIDDIQI Attending Clinician Unavailable Nakul FERRARI, Mari Attending Clinician MARI FABIAN Attending Clinician Unavailable Daisy THORNTON, Polo Attending Clinician Unavailable HARRY DOSS Attending Clinician Unavailable Jacquie Duron MD Attending Clinician Sumit FERRARI, Santosh Attending Clinician [phone] Harry Doss MD Attending Clinician Lenka [facility], Jennifer [place] Attending Clinician Unavailable Melani THORNTON, Jonathan Brand Attending Clinician Abida Rainey RN Attending Clinician Unavailable April THORNTON, Christa Attending Clinician Star FERRARI, Jorge Attending Clinician Vega THORNTON, Cristy Leiva Attending Clinician Unavailable Ariadna THORNTON, Dandy Nunez Attending Clinician Unavailable AMY VENEGAS Attending Clinician Unavailable Amy Venegas MD Attending Clinician Babatunde THORNTON, Yaw B Attending Clinician Unavailable Michaelle FELDMAN, Arabella Leiva Attending Clinician Unavailable Wade FERRARI, Cristiano Attending Clinician MERCEDES BERRY Attending Clinician Unavailable HAWK, ELROY T Attending Clinician Unavailable SIMEON MACDONALD Attending Clinician Unavailable SHELTON HUSAIN Attending Clinician Unavailable TIM IBANEZ Attending Clinician Unavailable CRISTIANO VASQUEZ Attending Clinician Unavailable ASHLI AYALA Attending Clinician Unavailable ROSE MORRIS Attending Clinician Unavailable NATA VALENZUELA Attending Clinician Unavailable SUMMER MELENDREZ Attending Clinician Unavailable FIDEL JERONIMO Attending Clinician Unavailable EULOGIO KONG Attending Clinician Unavailable AMOS MACDONALD Attending Clinician Unavailable BERNARDINO ROSSI Attending Clinician Unavailable CRISTIANO REDD Attending Clinician Unavailable PRAFUL HASSAN Attending Clinician Unavailable SULEMAN KABA Attending Clinician Unavailable CHIDI TRACEY Attending Clinician Unavailable ENRIQUE LOZANO Attending Clinician Unavailable BONIFACIO MARTIN Admitting Clinician Unavailable CONSTANTINE DAVIS Admitting Clinician Unavailable AMOL THOMPSON IV Admitting Clinician Unavailable ENRIQUE BAIRD Admitting Clinician Unavailable SANTOSH BARRIGA Admitting Clinician Unavailable ARNULFO GILES Admitting Clinician Unavailable KARY HATFIELD Admitting Clinician Unavailable HORACE LEYVA Admitting Clinician Unavailable TIM IBANEZ Admitting Clinician Unavailable Payers Payer Name Policy Type Policy Number Effective Date Expiration Date S sandro MEDICARE PART A AND [id number] 2015 B 00:00:00 BCBS NON CONTRACTED [id number] 2019 00:00:00 MEDICARE A B [id number] 2015 00:00:00 BCBS PPO POS EPO [id number] 2019 CHOICE 00:00:00 Problems Condition Condition Condition Status Onset Resolution Last Treating Co mments Source Name Details Category Date Date Treatment Clinician Date Obstructio Obstructio Disease Active Overview : Univers n of n of 06 Formattin ity of ureter ureter 00:00: g of this 00 note MD might be Red cordero n from the Cancer original. Center Added automatic ally from request for surgery [id number] Fatigue Fatigue Disease Active Univers 9-20 ity of 00:00: 00 MD Red ruby [facility] Pneumonia Pneumonia Disease Active Uni vers 3-14 ity of 00:00: MD Red ruby [facility] Multiple Multiple Disease Active Unive rs joint pain joint pain 1-28 it y of 00:00: MD Red ruby [facility] Rash Rash Disease Active Univers 1-28 ity of 00:00: MD Red ruby [facility] Encounter Encounter Disease Active Uni vers for for 1-28 [place] of examin[place] for 00 normal normal Anderso comparison comparison n and and Cancer control in control in Ce nter clinical clinical research research program program Itching Itching Disease Active 2020-08 Univers 2-14 ity of 00:00: MD Red ruby [facility] Back pain Back pain Disease Active 2020-08 Uni vers 2-14 ity of 00:00: MD Red ruby [facility] Encounter Encounter Disease Active 2020-08 Uni vers for for 0-12 [place]y of examinatio [place]in[place] n prior to 00 antineopla antineopla An derso stic stic n chemothera chemothera Ca ncer py py Center Immunother Immunother Disease Active U nivers apy for apy for 7-06 ity of cancer cancer 00:00: 00 MD Red ruby [facility] Center Diabetic Diabetic Disease Active Unive rs peripheral peripheral 2-12 it y of neuropathy [place] [facility] Center Discharge Discharge Disease Active Uni vers of eye of eye 2-12 ity of 00:00: 00 MD Red ruby [facility] 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 [place] openia openia 00 MD Red ruby [facility] Center Fever Fever Disease Active Univers 2-09 ity of 00:00: 00 MD Red ruby [facility] 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 2-08 it y of disease disease 00:00: 00 MD Red ruby [facility] Center Sepsis Sepsis Disease Active Univers 2-07 ity of 00:00: MD Red ruby [facility] Lactic Lactic Disease Active Univers acidemia acidemia 2-07 ity of 00:00: MD Red ruby [facility] Sinus Sinus Disease Active Univers tachycardi tachycardi 2-07 it y of a a 00:00: [place] MD Red ruby [facility] Leukocytos Leukocytos Disease Active U nivers is is 2-07 ity of 00:00: [place] 00 MD Red ruby [facility] Hypomagnes Hypomagnes Disease Active U nivalexi emia emia 2-01 ity of 00:00: MD Red ruby [facility] Hyposmolal Hyposmolal Disease Active U nivers ity and/or ity and/or 1-20 it y of hyponatrem hyponatrem 00:00: [place] 00 MD Red ruby [facility] Type 2 Type 2 Disease Active 2019-08 Univers diabetes diabetes 2-31 ity of mellitus mellitus 00:00: [place] with with 00 MD silvia vega An eddy [facility] Current Current Disease Active 2019-08 Univers use of use of 2-31 ity of insulin insulin 00:00: MD Red ruby [facility] Renal Renal Disease Active 2019-08 Univers insufficie insufficie 2-22 it y of ncy ncy 00:00: 00 MD Red ruby [facility] Encounter Encounter Disease Active 2019-08 Uni vers for for 2-16 ity of chemothera chemothera 00:00: [place] py py 00 MD Red ruby [facility] Bladder Bladder Disease Active 2019-08 Overview: Univ ers cancer cancer 1-23 Formattin ity of 00:00: g of this 00 note might be Red cordero n from the Cancer original. Center Added automatic ally from request for surgery [id number] Bladder Bladder Disease Recurre 2019-08 [facility] cancer cancer nce 1-13 [facility] 00:[facility]: [facility] 00 [place] Bladder Bladder Disease Active 2019-08 [facility] tumor tumor 1-13 [facility] 00[facility] Medical 00 Center S/P lumbar S/P lumbar Disease Active M ethodi laminectom laminectom 04-21 st y y 00:00: Hospita 00 l Arthritis Arthritis Disease Active Uni vers 09-26 ity of 00:00: 00 MD Red ruby [facility] Recovery Recovery Disease Active Overview: Un mauricio following following 01-24 Formattin i ty of surgery surgery 00:00: g of this note might be Andjesús different n from the Cancer original. Center S/p cystectom y with ileal conduit 12/15/2020 Urostomy Urostomy Disease Active Overview: Un mauricio present present 01-24 Formattin ity o f 00:00: g of this [place] note might be Andalexio different n from the Cancer original. Center S/p cystectom y with ileal conduit 12/15/2020 Stage 3b Stage 3b Disease Active Unive rs chronic chronic ity of kidney kidney [place] disease disease MD [facility] Allergies, Adverse Reactions, Alerts Allergy Allergy Status Severity Reaction(s) Onset Inactive Treating Comm ents Source Name Type Date Date Clinician NO KNOWN Allergy Active [facility] LIS[facility] Family History Family Member Diagnosis Comments Start Date Stop Date Source Natural father COPD [facility] Natural father Diverticulitis Method ist [facility] Natural mother Heart disease [facility] Natural mother Old age [facility] Social History Social Habit Start Date Stop Date Quantity Comments Source Gender identity 2019-04-18 Identifies as male M ethodist 14:55:22 gender (finding) Hospital Sexual orientation 2019-04-18 Heterosexual Meth odist 14:55:22 (finding) Hospital History SDOH [facility] Alcohol Std Drinks [facility] History SDOH [facility] Alcohol Binge Medical [address] Tobacco use and 2022-12-28 2022-12-28 Smokeless tobacco Un iversity of exposure 00:00:00 00:00:00 non-user Shree ashley [place] Alcohol intake 2020-07-11 2020-07-11 Current drinker of [facility] 00:[facility]:00 00:00:00 alcohol (finding) Medical Center Tobacco Comment 2020-07-06 2020-07-06 QUIT [facility] 00:00:00 00:00:00 [facility] Alcohol Comment 2020-07-06 2020-07-[address] [facility] 00:00:00 00:00:00 [facility] Cigarettes smoked 2020-07-06 2020-07-[address] [facility] current (pack per 00:00:00 00:00:00 Medical Center day) - Reported Cigarette 2020-07-06 2020-07-[address] [facility] pack-years 00:00:00 00:00:00 Medical Center History SDOH 2020-07-06 2020-07-[address] [facility] Alcohol Frequency 00:00:00 00:00:00 [facility] Center History of Social 2019-04-21 2019-04-[address] function 00:00:00 00:00:00 Hospital History of tobacco 1969-09-26 1983-12-25 Current smoker Un iversity of use 00:00:00 00:00:00 [place] Sex Assigned At [address] [facility] 00:00:00 00:00:00 [facility] Smoking Status Start Date Stop Date Source Ex-smoker 2022-12-28 00:00:00 2022-12-28 00:00:00 [place] [facility] Medications Ordered Filled Start Stop Current Ordering Indication Dosage Frequency Signature Comments Components Source Medication Medication Date Date Medication? Clinician (SIG) Name Name cholecalcif Yes 4000U Take 1 Uni vers lin, 03-26 tablet ity of vitamin D3, 09:40: (4,000 [place] (VITAMIN 03 Units) by D3) 4,000 mouth Anderso units tab daily. n tablet Vitamin D Cancer Supplement Center . magnesium Yes 400mg Take 1 Unive rs oxide 03-26 tablet ity of (MAOX) 400 09:40: (400 mg) [place] as mg tablet 03 by mouth MD as needed Anderso (Twice n weekly as Cancer needed for Center low magnesium) . Hold for diarrhea/l oose stools. Take with meals. ondansetron Yes Nausea 8mg Dissolve 1 Univers (ZOFRAN-ODT 7-11 tablet (8 ity of ) 8 mg 00:00: mg) on the [place] disintegrat 00 tongue MD ing tablet every 6 Gage o (six) n hours as Cancer needed for Center nausea or vomiting. sulfamethox 2022- No History of 1{tbl} Take 1 Univers azole-trime 02-04 ureteral tablet by ity of thoprim 00:00: 00:00 obstruction mouth [place] (BACTRIM 00 :00 twice MD DS) 800 daily. Anderso mg-160 mg n per tablet Cancer [place] NovoLOG 2022- No Sliding Univer s FlexPen 5-13 03-26 scale ity of U-100 00:00: 00:00 [place] Insulin 100 00 :00 MD unit/mL (3 Anderso mL) insulin n pen [facility] fluocinonid Yes Other Apply Univ ers e (LIDEX) 4-12 specified topically ity of 0.05% 00:00: dermatitis to [place] topical 00 affected MD solution area(s) Anderso twice n daily. For Cancer scalp Center [facility] Yes Other Apply Univ ers ne 12 specified topically ity o f (KENALOG) 00:00: [place]itis to [place] 0.1% cream 00 affected MD area(s) Anderso twice n daily. For Cancer body. Center Avoid on face, underarms, and groin triamcinolo 2022- No Rash and Apply Univers ne 4-11 04-12 other topically ity of (KENALOG) 00:00: 00:00 nonspecific to [place] 0.5 % 00 :00 skin affected MD ointment eruption area(s) Rick rso twice n daily. Cancer [place] insulin Yes Type 2 12U Inject 12 Uni vers degludec 4-04 diabetes Units ity of (Tresiba 00:00: mellitus under the [place] FlexTouch 00 with skin MD U-200) 200 hyperglycem daily. Anderso unit/mL (3 ia n mL) insulin Cancer pen [place] insulin Yes Type 2 1U [facility] lispro 4-04 diabetes 1-23 Units ity of (HumaLOG 00:00: mellitus under the [place] KwikPen 00 with skin 3 MD Insulin) hyperglycem (three) A nderso 100 unit/mL ia times a n insulin pen day before Ca ncer meals. Center amoxicillin 2022- No Bladder 875mg Take 1 Univers -clavulanat 11-27 05-05 cancer tablet ity of e 00:00: 00:00 (875 mg) [place] (AUGMENTIN) 00 :00 by mouth 875 mg-125 every 12 Sami so mg per (twelve) n tablet hours. Cancer Antibiotic Center . Take with meals. Take through completion of doses on 12/03/22. hydroxyzine Yes Bladder 25mg Take 1 U nivers HCl -10 cancer tablet (25 ity of (ATARAX) 25 00:00: mg) [place] mg tablet 00 mouth MD every 8 Anderso (eight) n hours as Cancer needed for Center itching. insulin 2021-08- No Type 2 20U Inject 20 Un mauricio lispro -16 -04 diabetes Units ity of (HumaLOG 00:00: 00:00 mellitus under the [place] KwikPen 00 :00 with skin 3 Insulin) hyperglycem (three) A nderso 100 unit/mL ia times a n insulin pen day before Ca ncer meals. Center nitrofurant 2021-08 No Urinary 100mg Take 1 Univers oin 09-01 11-13 tract capsule ity of monohyd/m-c 00:00: 05:59 infection, (100 mg) [place] ryst 00 :00 not by mouth (Macrobid) otherwise twice And erso 100 mg specified daily for n capsule 5 days. Cancer Center pen needle, 2021-08 Yes Type 2 Use to Un mauricio diabetic 31 0-21 diabetes inject it y of gauge x 00:00: mellitus insulin [place] as 01/08" ndle 00 with 4-6 times hyperglycem daily. May An derso ia substitute n with Cancer insurance Center preferred brand pitavastati 2021-08 Yes Hyperlipide 2mg Take 2 mg Univers n magnesium 0-21 blessing, not by mouth ity of (Zypitamag) 00:00: otherwise daily. [place] 2 mg tab 00 specified Andjesús n Cancer Center insulin 2021-08- No Type 2 32U Inject 32 Un mauricio degludec 0-21 04-04 diabetes Units ity o f (Tresiba 00:00: 00:00 mellitus under the Shree FlexTouch 00 :00 with skin at U-200) 200 hyperglycem bedtime. Anderso unit/mL (3 ia n mL) insulin Cancer pen Center insulin 2021-08- No Type 2 20U Inject Unive rs aspart, 0- 12-16 diabetes 20-30 ity of niacinamide 00:00: 00:00 mellitus Units Shree , (Fiasp 00 :00 with under the MD [place] hyperglycem skin 3 A nderso U-100 ia (three) n Insulin) times a Cancer 100 unit/mL day before Ce nter (3 mL) inpn meals. insulin 2021-08- No Type 2 5U Inject Unive rs aspart 0 12-16 diabetes 5-25 Units it y of U-100 00:00: 00:00 [place] the [place] (NovoLOG) 00 :00 with skin 3 MD 100 unit/mL hyperglycem (three) Anderso (3 mL) ia times a n insulin pen day before Ca ncer meals. Center Based on sliding scale and meal size pitavastati 2021- No Hyperlipide 2mg Take 2 mg Univers n magnesium 3-24 10-21 blessing, not by mouth ity of (Zypitamag) 00:00: 00:00 otherwise daily. [place] 2 mg tab 00 :00 specified MD Rde ruby [facility] triamcinolo 2022- No Rash Apply Univ ers ne 09-19 04-12 topically ity of (KENALOG) 00:00: 00:00 to [place] 0.5% cream 00 :00 affected area(s) 3 Anderso (three) n times a Cancer day. 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 blood-gluco 2020-08 Yes Current use Use sensor Univers se sensor 2-14 of insulin every 10 ity of (Dexcom G6 00:00: days for [place] as Sensor) 00 continuous MD gregorio glucose Anderso monitoring n [facility] blood-gluco 2020-08 Yes Current use Use for Univers se 2-14 of insulin continuous ity of transmitter 00:00: glucose [place] as (Dexcom G6 00 monitoring MD Transmitter Red ) jg n [facility] insulin 2020-08- No Type 2 32U Inject 32 Un mauricio degludec 2-14 10-21 diabetes Units ity o f (Tresiba 00:00: 00:00 mellitus under the [place] FlexTouch 00 :00 with skin U-200) 200 hyperglycem daily. Anderso unit/mL (3 ia n mL) insulin [facility] insulin 2020-08- No Type 2 15U Inject Unive rs aspart 2-14 10-21 diabetes 15-20 ity of U-100 00:00: 00:00 mellitus Units [place] (NovoLOG) 00 :00 with under the MD 100 unit/mL hyperglycem skin 3 Anderso (3 mL) ia (three) n insulin pen times a Cance r day before Center meals. Based on sliding scale and meal size insulin 2019-08 Yes 60U QD Inject 60 [facility] degludec 1-15 Units [facility] (Tresiba 12:27: subcutaneo Med ical FlexTouch 03 usly every Cent er U-100) 100 morning . unit/mL (3 mL) InPn pioglitazon 2019-08 Yes 30mg QD Take [address] [facility] (ACTOS) 1-15 by mouth [facility] 30 MG 12:27: daily. Medical tablet 03 Center lisinopriL 2019-08 Yes 10mg QD Take [address] (PRINIVIL,Z 1-15 by mouth Luke s ESTRIL) 10 12:27: daily. Medic al MG tablet 03 Center metFORMIN 2019-08 Yes 1000mg Take 1,[address] [facility] (GLUCOPHAGE 1-15 mg by [facility]ukes ) 1000 MG 12:27: mouth 2 Medic al tablet 03 (two) Center times daily with breakfast and dinner. adult 2019-[address] [facility] multiple 1-15 intravenou [facility] vitamin 12:27: sly. Medical (multiple 03 Center vitamin) 3,300 unit- 150 mcg/10 mL injection calcium 2019-08 Yes 1{tbl} QD Take [address] carbonate-v 1-15 tablet by Andre es itamin D3 12:27: mouth Medical (OSCAL) 03 daily. Center 250-125 mg-unit Tab per tablet metFORMIN Yes 1000mg QD Take 1,000 Methodi (GLUMETZA) 8-[address] 1,000 mg 24 11:30: mouth Hospi ta hr tablet 33 daily with l breakfast. pioglitazon Yes 30mg QD Take 30 mg Methodi e (ACTOS) 8-[address] 30 MG 11:30: daily. Hospita tablet 33 l insulin Yes Inject Methodi degludec 8-[address] (TRESIBA 11:30: skin. Hospita FLEXTOUCH 33 l U-100 SUBQ) atorvastati Yes 10mg QD Take 10 mg Methodi n (LIPITOR) [address] 10 MG 11:30: daily. Hospita tablet 33 l lisinopril Yes 5mg QD Take 5 mg Me thodi (PRINIVIL,Z 8-[address] ESTRIL) 5 11:30: daily. Hospit a mg tablet 33 l Immunizations Ordered Filled Immunization Date Status Comments Sour e Immunization Name Name Moderna SARS-CoV-2 2020-12-12 Completed Univer sity of Vaccination 00:00:00 Shree Cabrera [facility] Influenza, 2020-06-13 Completed University of Quadrivalent 00:00:00 Shree FERRARI [facility] Influenza Split 2020-06-13 Completed Universit y of High Dose 00:00:00 Shree begum [facility] IM Vital Signs Vital Name Observation Time Observation Value Comments Source WEIGHT 2020-07-08 10:47:00 103.692 kg HEIGHT 2020-07-08 10:47:00 193 cm HEIGHT 2020-07-06 10:39:00 193 cm WEIGHT 2020-07-06 10:39:00 102.059 kg WEIGHT 2021-02-07 08:37:00 100.3 kg WEIGHT 2021-01-24 09:48:00 99 kg HEIGHT 2020-12-16 12:24:00 183 cm WEIGHT 2020-12-16 12:24:00 103 kg WEIGHT 2020-12-06 10:18:00 100 kg WEIGHT 2020-11-11 04:09:33 97.4 kg HEIGHT 2020-11-07 03:56:00 183 cm HEIGHT 2020-10-25 13:47:00 183 cm WEIGHT 2020-10-25 13:47:00 99.2 kg WEIGHT 2020-10-18 08:53:00 99.3 kg HEIGHT 2020-10-02 12:31:00 187 cm WEIGHT 2020-10-02 12:31:00 106 kg WEIGHT 2020-09-29 05:32:08 104.9 kg HEIGHT 2020-09-27 18:25:00 187 cm WEIGHT 2020-09-27 11:21:00 105.7 kg HEIGHT 2020-09-27 11:20:00 185.5 cm WEIGHT 2020-09-26 18:45:26 105.4 kg WEIGHT 2020-09-20 08:38:51 102.8 kg WEIGHT 2020-09-15 06:19:00 103.9 kg HEIGHT 2020-09-13 10:28:00 185.5 cm HEIGHT 2020-09-13 07:37:00 186 cm WEIGHT 2020-09-13 07:37:00 103 kg WEIGHT 2020-09-06 15:10:14 104.5 kg HEIGHT [...] 193 cm WEIGHT 2020-08-02 09:02:00 103.42 kg WEIGHT 2020-07-08 10:47:00 103.692 kg HEIGHT 2020-07-08 10:47:00 193 cm HEIGHT 2020-07-06 10:39:00 193 cm WEIGHT 2020-07-06 10:39:00 102.059 kg Systolic blood 2023-03-26 15:44:01 145 mm[Hg] Univer sity of pressure [place] [facility] Diastolic blood 2023-03-26 15:44:01 67 mm[Hg] Unive rsity of pressure [place] MD [facility] Heart rate 2023-03-26 15:44:01 89 /min [facility] Body temperature 2023-03-26 15:44:01 36.61 Daniella [facility] MD [facility] Respiratory rate 2023-03-26 15:44:01 18 /min [facility] Oxygen saturation in 2023-03-26 15:44:01 98 /min [facility] Arterial blood by Shree romano Pulse oximetry Cancer Center Body height 2023-03-26 14:25:00 183 cm [facility] Body weight 2023-03-26 14:25:00 94.5 kg [facility] BMI 2023-03-26 14:25:00 28.22 kg/m2 [facility] Procedures Procedure Date / Time Performing Clinician Source Performed COMPLETE BLOOD COUNT W/ 2023-03-26 Monico [facility] DIFFERENTIAL 13:17:00 [facility] COMPREHENSIVE METABOLIC 2023-03-26 Monico [facility] PANEL 13:17:00 [facility] MAGNESIUM LEVEL 2023-03-[address] [facility] [place] 13:17:00 [facility] PHOSPHORUS LEVEL 2023-03-26 Monico [facility] [place] 13:17:00 [facility] Results CBC 2023-03-[address] [facility] [place] 13:17:00 [facility] MANUAL DIFFERENTIAL 2023-03-26 [facility] GLUCOSE LEVEL 2023-03-[address] [facility] [place] 13:17:00 [facility] BLOOD UREA NITROGEN 2023-03-26 [facility] 13:17:00 [facility] ELECTROLYTE PANEL 2023-03-26 Monico [facility] 13:17:00 [facility] SERUM CREATININE 2023-03-26 Monico [facility] [place] 13:17:00 [facility] .GLOMERULAR FILTRATION RATE 2023-03-26 Cherry Marc [facility] 13:17:00 [facility] CALCIUM LEVEL TOTAL 2023-03-26 [facility] 13:17:00 [facility] ALBUMIN LEVEL 2023-03-26 [facility] [place] 13:17:00 [facility] ALKALINE PHOSPHATASE 2023-03-26 Monico [facility] 13:17:00 [facility] ALANINE AMINOTRANSFERASE 2023-03-26 Cherry Marc [facility] 13:17:00 [facility] ASPARTATE AMINOTRANSFERASE 2023-03-26 Cherry Marc [facility] 13:17:00 [facility] TOTAL PROTEIN 2023-03-[address] [facility] xas 13:17:00 [facility] FRACTIONATED BILIRUBIN 2023-03-26 Cherry Marc [facility] 13:17:00 [facility] COMPLETE BLOOD COUNT W/ 2023-03-05 Cherry Marc [facility] DIFFERENTIAL 13:54:00 [facility] COMPREHENSIVE METABOLIC 2023-03-05 Monico [facility] PANEL 13:54:00 [facility] MAGNESIUM LEVEL 2023-03-[address] [facility] xas 13:54:00 [facility] PHOSPHORUS LEVEL 2023-03-05 Monico [facility] exas 13:54:00 [facility] Results CBC 2023-03-[address] [facility] xas 13:54:00 [facility] MANUAL DIFFERENTIAL 2023-03-05 Cherry Marc [facility] 13:54:00 [facility] GLUCOSE LEVEL 2023-03-05 Ahmad, [facility] xa 13:54:00 [facility] BLOOD UREA NITROGEN 2023-03-05 [facility] 13:54:00 [facility] ELECTROLYTE PANEL 2023-03-05 Monico [facility] 13:54:00 [facility] SERUM CREATININE 2023-03-05 [facility] 13:54[facility]00 [facility] .GLOMERULAR FILTRATION RATE 2023-03-05 Cherry Marc [facility] 13:54:00 [facility] CALCIUM LEVEL TOTAL 2023-03-05 [facility] 13:54:00 [facility] ALBUMIN LEVEL 2023-03-[address] [facility] xa 13:54:00 [facility] ALKALINE PHOSPHATASE 2023-03-05 Monico [facility] 13:54:00 [facility] ALANINE AMINOTRANSFERASE 2023-03-05 Cherry Marc [facility] 13:54:00 [facility] ASPARTATE AMINOTRANSFERASE 2023-03-05 [facility] 13:54:00 [facility] TOTAL PROTEIN 2023-03-[address] [facility] xa 13:54:00 [facility] FRACTIONATED BILIRUBIN 2023-03-05 [facility] 13:54:00 [facility] PETCT SUBSEQUENT TREATMENT 2023-03-04 Cherry Marc [facility] STRATEGY 19:40:00 [facility] POC GLUCOSE SCREEN 2023-03-04 Provider, [facility] 17:53:00 [facility] POC GLUCOSE SCREEN 2023-02-07 Amol Thompson [facility] 13:44:00 [facility] FL PORTABLE FLUOROSCOPY 2023-02-07 Amol Thompson [facility] 13:33:35 [facility] PATHOLOGY SURGICAL 2023-02-07 Amol Thompson [facility] INTERPRETATION 13:11:00 [facility] CYTOLOGY NON-MEDICARE INTERVIEWER 2023-02-07 Amol Thompson [facility] INTERPRETATION 13:09:00 [facility] PERCUTANEOUS NEPHROLITHOTOMY 2023-02-07 Amol Thompson [facility] OR LITHOTRIPSY, SIMPLE (EG 11:30:00 MD Wanda louis Cancer STONES) , UP TO 2CM IN Center SINGLE LOCATION OF KIDNEY CHANGE OF NEPHROSTOMY TUBE 2023-02-07 Amol Thompson [facility] 11:30:00 [facility] POC GLUCOSE SCREEN 2023-02-07 Amol Thompson [facility] 11:21:00 [facility] COMPLETE BLOOD COUNT W/ 2023-02-05 Monico [facility] DIFFERENTIAL 13:33:00 [facility] COMPREHENSIVE METABOLIC 2023-02-05 Monico [facility] PANEL 13:33:00 [facility] MAGNESIUM LEVEL 2023-02-[address] [facility] xa 13:33:00 [facility] PHOSPHORUS LEVEL 2023-02-05 Monico [facility] ex 13:33:00 [facility] PROSTATE SPECIFIC ANTIGEN 2023-02-05 Amol Thompson [facility] 13:33:00 [facility] Results CBC 2023-02-[address] [facility] xas 13:33:00 [facility] MANUAL DIFFERENTIAL 2023-02-05 [facility] 13:33:00 [facility] GLUCOSE LEVEL 2023-02-[address] [facility] xas 13:33:00 [facility] BLOOD UREA NITROGEN 2023-02-05 [facility] 13:33:00 [facility] ELECTROLYTE PANEL 2023-02-05 Monico [facility] 13:33:00 [facility] SERUM CREATININE 2023-02-05 Monico [facility] exas 13:33:00 [facility] .GLOMERULAR FILTRATION RATE 2023-02-05 Monico [facility] 13:33:00 [facility] CALCIUM LEVEL TOTAL 2023-02-05 Cherry Marc [facility] 13:33:00 [facility] ALBUMIN LEVEL 2023-02-05 [facility] 13:33:00 [facility] ALKALINE PHOSPHATASE 2023-02-05 [facility] 13:33:00 [facility] ALANINE AMINOTRANSFERASE 2023-02-05 Cherry Marc [facility] 13:33:00 [facility] ASPARTATE AMINOTRANSFERASE 2023-02-05 Cherry Marc [facility] 13:33:00 [facility] TOTAL PROTEIN 2023-02-[address] [facility] 13:33:00 [facility] FRACTIONATED BILIRUBIN 2023-02-05 Cherry Marc [facility] 13:33:00 [facility] URINE CULTURE 2023-01-29 Amol Thompson [facility] 15:31:00 [facility] IR NEPHROSTOMY EXCHANGE 60 2023-01-24 Lorie [facility] 18:18:13 [facility] POC GLUCOSE SCREEN 2023-01-24 Monico [facility] 17:35:00 [facility] PROTHROMBIN TIME 2023-01-24 Radha Ramos [facility] ex 16:49:00 [facility] COMPLETE BLOOD COUNT W/ 2023-01-15 Cherry Marc [facility] DIFFERENTIAL 12:23:00 [facility] COMPREHENSIVE METABOLIC 2023-01-15 [facility] 12:23[facility]00 [facility] MAGNESIUM LEVEL 2023-01-[address] [facility] xas 12:23:00 [facility] PHOSPHORUS LEVEL 2023-01-15 [facility] 12:23:00 [facility] Results CBC 2023-01-[address] [facility] x[facility] 12:23:00 [facility] MANUAL DIFFERENTIAL 2023-01-15 Cherry Marc [facility] 12:23:00 [facility] GLUCOSE LEVEL 2023-01-[address] [facility] 12:23:00 [facility] BLOOD UREA NITROGEN 2023-01-15 [facility] 12:23:00 [facility] ELECTROLYTE PANEL 2023-01-15 Monico [facility] 12:23:00 [facility] SERUM CREATININE 2023-01-15 Monico [facility] exas 12:23:00 [facility] .GLOMERULAR FILTRATION RATE 2023-01-15 Monico [facility] 12:23:00 [facility] CALCIUM LEVEL TOTAL 2023-01-15 Cherry Marc [facility] 12:23:00 [facility] ALBUMIN LEVEL 2023-01-[address] [facility] xa 12:23:00 [facility] ALKALINE PHOSPHATASE 2023-01-15 Monico [facility] 12:23:00 [facility] ALANINE AMINOTRANSFERASE 2023-01-15 Cherry Marc [facility] 12:23:00 [facility] ASPARTATE AMINOTRANSFERASE 2023-01-15 Cherry Marc [facility] 12:23:00 [facility] TOTAL PROTEIN 2023-01-[address] [facility] xa 12:23:00 [facility] FRACTIONATED BILIRUBIN 2023-01-15 Cherry Marc [facility] 12:23:00 [facility] POC GLUCOSE SCREEN 2023-01-01 Arona, [facility] 01:46:00 [facility] POC GLUCOSE SCREEN 2022-12-31 Saroj, [facility] 20:05:00 [facility] POC GLUCOSE SCREEN 2022-12-31 Saroj, [facility] 16:30:00 [facility] IR NEPHROSTOMY UNILATERAL 2022-12-31 Cherry Marc [facility] PLACEMENT 75 15:39:20 [facility] TYPE AND SCREEN 2022-12-31 Milka Gurrola [facility] xa 14:20:00 [facility] ABORH 2022-12-31 Milka Gurrola [facility] xa 14:20:00 [facility] ANTIBODY SCREEN 2022-12-31 Milka Gurrola [facility] xa 14:20:00 [facility] CLOT EXPIRATION DATE 2022-12-31 Milka Gurrola [facility] 14:20:00 [facility] TMP INTERPRETATION ANTIBODY 2022-12-31 Milka Gurrola [facility] SCREEN NEGATIVE 14:20:00 [facility] POC GLUCOSE SCREEN 2022-12-31 Cherry Marc [facility] 13:40:00 [facility] URINE CULTURE 2022-12-26 Cherry Marc [facility] xa 17:25:00 [facility] ALBUMIN LEVEL URINE 2022-12-26 [facility] 17:25:00 [facility] CREATININE URINE, RANDOM 2022-12-26 [facility] 17:25:00 [facility] URINALYSIS WITH MICROSCOPIC 2022-12-26 Cherry Marc [facility] IF INDICATED 17:19:00 [facility] URINALYSIS MICROSCOPIC EXAM 2022-12-26 Cherry Marc [facility] 17:19:00 [facility] PLATELET COUNT 2022-12-26 Srinivas Green [facility] 17:11:00 [facility] PROTHROMBIN TIME 2022-12-26 Srinivas Green [facility] 17:11:00 [facility] MRI ABDOMEN & PELVIS W AND 2022-12-25 Cherry Marc [facility] WO CONTRAST 01:55:00 [facility] COMPLETE BLOOD COUNT W/ 2022-12-24 Cherry Marc [facility] DIFFERENTIAL 12:32:00 [facility] COMPREHENSIVE METABOLIC 2022-12-24 Cherry Marc [facility] PANEL 12:32:00 [facility] MAGNESIUM LEVEL 2022-12-24 [facility] 12:32[facility]00 [facility] PHOSPHORUS LEVEL 2022-12-24 Monico [facility] ex 12:32:00 [facility] Results CBC 2022-12-24 Monico [facility] 12:32:00 [facility] MANUAL DIFFERENTIAL 2022-12-24 [facility] 12:32:00 [facility] GLUCOSE LEVEL 2022-12-24 Monico [facility] 12:32:00 [facility] BLOOD UREA NITROGEN 2022-12-24 [facility] 12:32:00 [facility] ELECTROLYTE PANEL 2022-12-24 Monico [facility] 12:32:00 [facility] SERUM CREATININE 2022-12-24 Monico [facility] 12:32:00 [facility] .GLOMERULAR FILTRATION RATE 2022-12-24 Cherry Marc [facility] 12:32:00 [facility] CALCIUM LEVEL TOTAL 2022-12-24 [facility] 12:32:00 [facility] ALBUMIN LEVEL 2022-12-24 Monico [facility] 12:32:00 [facility] ALKALINE PHOSPHATASE 2022-12-24 Monico [facility] 12:32:00 [facility] ALANINE AMINOTRANSFERASE 2022-12-24 Cherry Marc [facility] 12:32:00 [facility] ASPARTATE AMINOTRANSFERASE 2022-12-24 Monico [facility] 12:32:00 [facility] TOTAL PROTEIN 2022-12-[address] [facility] x[facility] 12:32:00 [facility] FRACTIONATED BILIRUBIN 2022-12-24 Cherry Marc [facility] 12:32:[address] [facility] [address] CHEST WO CONTRAST 2022-12-24 Monico [facility] 12:09:00 [facility] MICROALBUMIN/CREATININE 2022-12-14 Isamar Siddiqi [facility] RATIO, URINE 13:13:00 [facility] ALBUMIN LEVEL URINE 2022-12-14 Isamar Siddiqi [facility] 13:13:00 [facility] LIPID PANEL 2022-12-14 Isamar Siddiqi [facility] 13:09:00 [facility] THYROID STIMULATING HORMONE 2022-12-14 [facility] 13:09:00 [facility] FREE THYROXINE 2022-12-14 Isamar Siddiqi [facility] 13:09:00 [facility] GLUCOSE, RANDOM 2022-12-14 Isamar Siddiqi [facility] 13:09:00 [facility] HEMOGLOBIN A1C 2022-12-14 Isamar Siddiqi [facility] 13:09:00 [facility] ALBUMIN LEVEL URINE 2022-12-04 [facility] 13:56:00 [facility] COMPLETE BLOOD COUNT W/ 2022-12-04 Monico [facility] DIFFERENTIAL 13:47:00 [facility] COMPREHENSIVE METABOLIC 2022-12-04 Monico [facility] PANEL 13:47:00 [facility] MAGNESIUM LEVEL 2022-12-04 [facility] 13:47[facility]00 [facility] PHOSPHORUS LEVEL 2022-12-04 Monico [facility] exas 13:47:00 [facility] Results CBC 2022-12-[address] [facility] xas 13:47:00 [facility] MANUAL DIFFERENTIAL 2022-12-04 [facility] 13:47:00 [facility] GLUCOSE LEVEL 2022-12-04 [facility] 13:47:00 [facility] BLOOD UREA NITROGEN 2022-12-04 [facility] 13:47:00 [facility] ELECTROLYTE PANEL 2022-12-04 [facility] 13:47:00 [facility] SERUM CREATININE 2022-12-04 [facility] 13:47:00 [facility] .GLOMERULAR FILTRATION RATE 2022-12-04 Cherry Marc [facility] 13:47:00 [facility] CALCIUM LEVEL TOTAL 2022-12-04 [facility] [place] 13:47:00 [facility] ALBUMIN LEVEL 2022-12-04 [facility] 13:47:00 [facility] ALKALINE PHOSPHATASE 2022-12-04 [facility] 13:47:00 [facility] ALANINE AMINOTRANSFERASE 2022-12-04 [facility] 13:47:00 [facility] ASPARTATE AMINOTRANSFERASE 2022-12-04 [facility] 13:47:00 [facility] TOTAL PROTEIN 2022-12-04 [facility] 13:47:00 [facility] FRACTIONATED BILIRUBIN 2022-12-04 [facility] 13:47:00 [facility] POC GLUCOSE SCREEN 2022-11-27 [facility] 16:52:00 [facility] POC GLUCOSE SCREEN 2022-11-27 [facility] 13:09:00 [facility] COMPLETE BLOOD COUNT W/ 2022-11-27 Praful Hassan [facility] DIFFERENTIAL 07:33:00 [facility] PHOSPHORUS LEVEL 2022-11-27 Praful Hassan [facility] exas 07:33:00 [facility] MAGNESIUM LEVEL 2022-11-27 [facility] 07:33:00 [facility] BASIC METABOLIC PANEL, 2022-11-27 [facility] CAL[facility]ED 07:33:00 [facility] Results CBC 2022-11-27 [facility] 07:33:00 [facility] MANUAL DIFFERENTIAL 2022-11-27 [facility] 07:33:00 [facility] GLUCOSE LEVEL 2022-11-27 [facility] xas 07:33:00 [facility] BLOOD UREA NITROGEN 2022-11-27 [facility] 07:33:00 [facility] ELECTROLYTE PANEL 2022-11-27 [facility] 07:33:00 [facility] SERUM CREATININE 2022-11-27 [facility] ex 07:33:00 [facility] .GLOMERULAR FILTRATION RATE 2022-11-27 [facility] 07:33:00 [facility] CALCIUM IONIZED, VENOUS 2022-11-27 [facility] 07:33:00 [facility] ALBUMIN LEVEL 2022-11-27 [facility] ex 07:33:00 Santosh [facility] ALKALINE PHOSPHATASE 2022-11-27 [facility] 07:33:00 Santosh [facility] ALANINE AMINOTRANSFERASE 2022-11-27 [facility] 07:33:00 Santosh [facility] ASPARTATE AMINOTRANSFERASE 2022-11-27 [facility] 07:33:00 Santosh [facility] TOTAL PROTEIN 2022-11-27 [facility] ex 07:33:00 Santosh [facility] FRACTIONATED BILIRUBIN 2022-11-27 [facility] 07:33:00 Santosh [facility] POC GLUCOSE SCREEN 2022-11-[address] [facility] 03:51:00 [facility] POC GLUCOSE SCREEN 2022-11-[address] [facility] 23:10:00 [facility] POC GLUCOSE SCREEN 2022-11-[address] [facility] 18:32:00 [facility] POC GLUCOSE SCREEN 2022-11-[address] [facility] 14:52:00 [facility] POC GLUCOSE SCREEN 2022-11-[address] [facility] 13:44:00 [facility] COMPLETE BLOOD COUNT W/ 2022-11-26 [facility] 09:08:00 [facility] PHOSPHORUS LEVEL 2022-11-26 [facility] exas 09:08:00 [facility] MAGNESIUM LEVEL 2022-11-26 [facility] xas 09:08:00 [facility] BASIC METABOLIC PANEL, 2022-11-26 [facility] CALCIUM IONIZED 09:08:00 [facility] C-PEPTIDE 2022-11-26 Peg [facility] ex 09:08:00 [facility] GLUCOSE, FASTING 2022-11-26 Sana Ruvalcaba [facility] 09:08:00 [facility] Results CBC 2022-11-26 [facility] xa 09:08:00 [facility] MANUAL DIFFERENTIAL 2022-11-26 [facility] 09:08:00 [facility] GLUCOSE LEVEL 2022-11-26 [facility] xa 09:08:00 [facility] BLOOD UREA NITROGEN 2022-11-26 [facility] 09:08:00 [facility] ELECTROLYTE PANEL 2022-11-26 [facility] 09:08:00 [facility] SERUM CREATININE 2022-11-26 [facility] ex 09:08:00 [facility] .GLOMERULAR FILTRATION RATE 2022-11-26 [facility] 09:08:00 [facility] CALCIUM IONIZED, VENOUS 2022-11-26 [facility] 09:08:00 [facility] POC GLUCOSE SCREEN 2022-11-26 [facility] [place] 02:59:00 Santosh [facility] POC GLUCOSE SCREEN 2022-11-25 [facility] 22:56:00 Santosh [facility] POC GLUCOSE SCREEN 2022-11-25 [facility] 17:16:00 Santosh [facility] COMPREHENSIVE METABOLIC 2022-11-25 Jacquie Duron [facility] PANEL 12:28:00 [facility] MAGNESIUM LEVEL 2022-11-25 Oliverio [facility] xas 12:28:00 [facility] PHOSPHORUS LEVEL 2022-11-25 Oliverio [facility] exas 12:28:00 [facility] LACTATE DEHYDROGENASE 2022-11-25 Oliverio [facility] 12:28:00 [facility] COMPLETE BLOOD COUNT W/ 2022-11-25 Jacquie Duron [facility] DIFFERENTIAL 12:28:00 [facility] GLUCOSE LEVEL 2022-11-25 Oliverio [facility] 12:28:00 [facility] BLOOD UREA NITROGEN 2022-11-25 Oliverio [facility] 12:28:00 [facility] ELECTROLYTE PANEL 2022-11-25 Oliverio [facility] 12:28:00 [facility] SERUM CREATININE 2022-11-25 Oliverio [facility] ex 12:28:00 [facility] .GLOMERULAR FILTRATION RATE 2022-11-25 Jacquie Duron [facility] 12:28:00 [facility] CALCIUM LEVEL TOTAL 2022-11-25 Oliverio [facility] 12:28:00 [facility] ALBUMIN LEVEL 2022-11-25 Oliverio [facility] 12:28:00 [facility] ALKALINE PHOSPHATASE 2022-11-25 Oliverio [facility] 12:28:00 [facility] ALANINE AMINOTRANSFERASE 2022-11-25 Jacquie Duron [facility] 12:28:00 [facility] ASPARTATE AMINOTRANSFERASE 2022-11-25 Oliverio [facility] 12:28:00 [facility] TOTAL PROTEIN 2022-11-25 Jacquie Duron [facility] xas 12:28:00 [facility] FRACTIONATED BILIRUBIN 2022-11-25 Jacquie Duron [facility] 12:28:00 [facility] Results CBC 2022-11-25 Jacquie Duron [facility] xas 12:28:00 [facility] MANUAL DIFFERENTIAL 2022-11-25 Jacquie Duron [place] [facility] 12:28:00 [facility] POC GLUCOSE SCREEN 2022-11-25 [facility] [place] 12:28:00 Santosh [facility] XR CHEST 1 VW 2022-11-25 Jacquie Duron [facility] xas 02:16:21 [facility] URINE CULTURE 2022-11-25 Jacquie Duron [facility] xa 02:16:00 [facility] URINALYSIS WITH MICROSCOPIC 2022-11-25 Jacquie Duron [facility] IF INDICATED 02:16:00 [facility] URINALYSIS MICROSCOPIC EXAM 2022-11-25 Jacquie Duron [facility] 02:16:00 [facility] POC VENOUS BLOOD GAS + 2022-11-25 Jacquie Duron [facility] LACTATE 02:11:00 [facility] BLOODCULTURE 2022-11-25 Jacquie Duron [facility] xas 01:56:00 [facility] RESPIRATORY MULTIPLEX PCR 2022-11-25 Jacquie Duron [facility] PANEL, NASOPHARYNGEAL SWAB 01:56:00 [facility] COMPLETE BLOOD COUNT W/ 2022-11-25 Jacquie Duron [facility] DIFFERENTIAL 01:56:00 [facility] COMPREHENSIVE METABOLIC 2022-11-25 Jacquie Duron [facility] PANEL 01:56:00 [facility] MAGNESIUM LEVEL 2022-11-25 Jacquie Duron [facility] xas 01:56:00 [facility] PHOSPHORUS LEVEL 2022-11-25 Jacquie Duron [facility] exas 01:56:00 [facility] LACTATE DEHYDROGENASE 2022-11-25 [facility] 01:56:00 [facility] C REACTIVE PROTEIN 2022-11-25 [facility] 01:56:00 [facility] PROCALCITONIN 2022-11-25 [facility] 01:56:00 [facility] Results CBC 2022-11-25 [facility] 01:56:00 [facility] MANUAL DIFFERENTIAL 2022-11-25 [facility] 01:56:00 [facility] GLUCOSE LEVEL 2022-11-25 [facility] xa 01:56:00 [facility] BLOOD UREA NITROGEN 2022-11-25 [facility] 01:56:00 [facility] ELECTROLYTE PANEL 2022-11-25 [facility] 01:56:00 [facility] SERUM CREATININE 2022-11-25 [facility] exas 01:56:00 [facility] .GLOMERULAR FILTRATION RATE 2022-11-25 [facility] 01:56:00 [facility] CALCIUM LEVEL TOTAL 2022-11-25 [facility] 01:56:00 [facility] ALBUMIN LEVEL 2022-11-25 [facility] 01:56:00 [facility] ALKALINE PHOSPHATASE 2022-11-25 [facility] 01:56:00 [facility] ALANINE AMINOTRANSFERASE 2022-11-25 [facility] 01:56:00 [facility] ASPARTATE AMINOTRANSFERASE 2022-11-25 [facility] 01:56:00 [facility] TOTAL PROTEIN 2022-11-25 [facility] 01:56:00 [facility] FRACTIONATED BILIRUBIN 2022-11-25 [facility] 01:56:00 [facility] EKG, 12-LEAD (PORTABLE) 2022-11-25 Praful Hassan [facility] 00:00:00 [facility] URINALYSIS WITH MICROSCOPIC 2022-11-06 Cherry Marc [facility] IF INDICATED 14:15:00 [facility] EOSINOPHIL URINE 2022-11-06 Monico [facility] exas 14:15:00 [facility] PROTEIN / CREATININE RATIO 2022-11-06 Cherry Marc [facility] URINE 14:15:00 [facility] URINALYSIS MICROSCOPIC EXAM 2022-11-06 Cherry Marc [facility] 14:15:00 [facility] COMPLETE BLOOD COUNT W/ 2022-11-06 Monico [facility] DIFFERENTIAL 13:57:00 [facility] COMPREHENSIVE METABOLIC 2022-11-06 Monico [facility] PANEL 13:57:00 [facility] MAGNESIUM LEVEL 2022-11-[address] [facility] xas 13:57:00 [facility] PHOSPHORUS LEVEL 2022-11-06 Monico [facility] 13:57:00 [facility] Results CBC 2022-11-[address] [facility] 13:57:00 [facility] MANUAL DIFFERENTIAL 2022-11-06 Cherry Marc [facility] 13:57:00 [facility] GLUCOSE LEVEL 2022-11-[address] [facility] 13:57:00 [facility] BLOOD UREA NITROGEN 2022-11-06 [facility] 13:57:00 [facility] ELECTROLYTE PANEL 2022-11-06 Monico [facility] 13:57:00 [facility] SERUM CREATININE 2022-11-06 Monico [facility] 13:57:00 [facility] .GLOMERULAR FILTRATION RATE 2022-11-06 Cherry Marc [facility] 13:57:00 [facility] CALCIUM LEVEL TOTAL 2022-11-06 Ahmad[facility] 13:57:00 [facility] ALBUMIN LEVEL 2022-11-[address] [facility] 13:57:00 [facility] ALKALINE PHOSPHATASE 2022-11-06 Monico [facility] 13:57:00 [facility] ALANINE AMINOTRANSFERASE 2022-11-06 Monico [facility] 13:57:00 [facility] ASPARTATE AMINOTRANSFERASE 2022-11-06 Cherry Marc [facility] 13:57:00 [facility] TOTAL PROTEIN 2022-11-[address] [facility] 13:57:00 [facility] FRACTIONATED BILIRUBIN 2022-11-06 [facility] 13:57[facility]00 [facility] COMPLETE BLOOD COUNT W/ 2022-10-16 Monico [facility] DIFFERENTIAL 15:13:00 [facility] COMPREHENSIVE METABOLIC 2022-10-16 Monico [facility] PANEL 15:13:00 [facility] MAGNESIUM LEVEL 2022-10-[address] [facility] x[facility] 15:13:00 [facility] PHOSPHORUS LEVEL 2022-10-16 Monico [facility] 15:13:00 [facility] Results CBC 2022-10-[address] [facility] 15:13:00 [facility] MANUAL DIFFERENTIAL 2022-10-16 Cherry Marc [facility] 15:13:00 [facility] GLUCOSE LEVEL 2022-10-[address] [facility] 15:13:00 [facility] BLOOD UREA NITROGEN 2022-10-16 [facility] 15:13:00 [facility] ELECTROLYTE PANEL 2022-10-16 Monico [facility] 15:13:00 [facility] SERUM CREATININE 2022-10-16 Monico [facility] 15:13:00 [facility] .GLOMERULAR FILTRATION RATE 2022-10-16 Cherry Marc [facility] 15:13:00 [facility] CALCIUM LEVEL TOTAL 2022-10-16 Cherry Marc [facility] 15:13:00 [facility] ALBUMIN LEVEL 2022-10-16 [facility] 15:13:00 [facility] ALKALINE PHOSPHATASE 2022-10-16 Monico [facility] 15:13:00 [facility] ALANINE AMINOTRANSFERASE 2022-10-16 Cherry Marc [facility] 15:13:00 [facility] ASPARTATE AMINOTRANSFERASE 2022-10-16 Mon[facility] 15:13:00 [facility] TOTAL PROTEIN 2022-10-[address] [facility] 15:13:00 [facility] FRACTIONATED BILIRUBIN 2022-10-16 Cherry Marc [facility] 15:13:00 [facility] MRI ABDOMEN & PELVIS W AND 2022-09-25 Cherry Marc [facility] WO CONTRAST 03:01:[address] [facility] [address] CHEST WO CONTRAST 2022-09-24 [facility] COMPLETE BLOOD COUNT W/ 2022-09-24 Cherry Marc [facility] DIFFERENTIAL 19:26:00 [facility] COMPREHENSIVE METABOLIC 2022-09-24 Monico [facility] PANEL 19:26:00 [facility] MAGNESIUM LEVEL 2022-09-[address] [facility] 19:26:00 [facility] PHOSPHORUS LEVEL 2022-09-24 Monico [facility] 19:26:00 [facility] Results CBC 2022-09-[address] [facility] 19:26:00 [facility] MANUAL DIFFERENTIAL 2022-09-24 Cherry Marc [facility] 19:26:00 [facility] GLUCOSE LEVEL 2022-09-[address] [facility] 19:26:00 [facility] BLOOD UREA NITROGEN 2022-09-24 [facility] 19:26:00 [facility] ELECTROLYTE PANEL 2022-09-24 Monico [facility] 19:26:00 [facility] SERUM CREATININE 2022-09-24 Monico [facility] 19:26:00 [facility] .GLOMERULAR FILTRATION RATE 2022-09-24 Monico [facility] 19:26:00 [facility] CALCIUM LEVEL TOTAL 2022-09-24 [facility] 19:26:00 [facility] ALBUMIN LEVEL 2022-09-[address] [facility] 19:26:00 [facility] ALKALINE PHOSPHATASE 2022-09-24 Monico [facility] 19:26:00 [facility] ALANINE AMINOTRANSFERASE 2022-09-24 Cherry Marc [facility] 19:26:00 [facility] ASPARTATE AMINOTRANSFERASE 2022-09-24 [facility] 19:26:00 [facility] TOTAL PROTEIN 2022-09-[address] [facility] 19:26:00 [facility] FRACTIONATED BILIRUBIN 2022-09-24 [facility] 19:26:00 [facility] URINALYSIS WITH MICROSCOPIC 2022-09-04 [facility] 13:20:00 [facility] URINALYSIS MICROSCOPIC EXAM 2022-09-04 Monico [facility] 13:20:00 [facility] COMPLETE BLOOD COUNT W/ 2022-09-04 Monico [facility] DIFFERENTIAL 13:16:00 [facility] COMPREHENSIVE METABOLIC 2022-09-04 Monico [facility] PANEL 13:16:00 [facility] MAGNESIUM LEVEL 2022-09-04 Monico [facility] 13:16:00 [facility] PHOSPHORUS LEVEL 2022-09-04 Monico [facility] ex 13:16:00 [facility] Results CBC 2022-09-04 Monico [facility] 13:16:00 [facility] MANUAL DIFFERENTIAL 2022-09-04 [facility] 13:16:00 [facility] GLUCOSE LEVEL 2022-09-[address] [facility] 13:16:00 [facility] BLOOD UREA NITROGEN 2022-09-04 [facility] 13:16:00 [facility] ELECTROLYTE PANEL 2022-09-04 Monico [facility] 13:16:00 [facility] SERUM CREATININE 2022-09-04 Monico [facility] 13:16:00 [facility] .GLOMERULAR FILTRATION RATE 2022-09-04 Cherry Marc [facility] 13:16:00 [facility] CALCIUM LEVEL TOTAL 2022-09-04 [facility] 13:16:00 [facility] ALBUMIN LEVEL 2022-09-04 Monico [facility] 13:16:00 [facility] ALKALINE PHOSPHATASE 2022-09-04 Monico [facility] 13:16:00 [facility] ALANINE AMINOTRANSFERASE 2022-09-04 Cherry Marc [facility] 13:16:00 [facility] ASPARTATE AMINOTRANSFERASE 2022-09-04 Cherry Marc [facility] 13:16:00 [facility] TOTAL PROTEIN 2022-09-[address] [facility] 13:16:00 [facility] FRACTIONATED BILIRUBIN 2022-09-04 Cherry Marc [facility] 13:16:00 [facility] EOSINOPHIL URINE 2022-08-14 Monico [facility] ex 13:56:00 [facility] URINALYSIS WITH MICROSCOPIC 2022-08-14 Cherry Marc [facility] IF INDICATED 13:56:00 [facility] ALBUMIN LEVEL URINE 2022-08-14 Pedro Cristiano [facility] 13:56:00 [facility] URINALYSIS MICROSCOPIC EXAM 2022-08-14 Cherry Marc [facility] 13:56:00 [facility] COMPLETE BLOOD COUNT W/ 2022-08-14 [facility]:45[facility]00 [facility] COMPREHENSIVE METABOLIC 2022-08-14 Monico [facility] PANEL 13:45:00 [facility] MAGNESIUM LEVEL 2022-08-[address] [facility] 13:45:00 [facility] PHOSPHORUS LEVEL 2022-08-14 Monico [facility] 13:45:00 [facility] Results CBC 2022-08-[address] [facility] 13:45:00 [facility] MANUAL DIFFERENTIAL 2022-08-14 Cherry Marc [facility] 13:45:00 [facility] GLUCOSE LEVEL 2022-08-[address] [facility] 13:45:00 [facility] BLOOD UREA NITROGEN 2022-08-14 Cherry Marc [facility] 13:45:00 [facility] ELECTROLYTE PANEL 2022-08-14 Monico [facility] 13:45:00 [facility] SERUM CREATININE 2022-08-14 Monico [facility] 13:45:00 [facility] .GLOMERULAR FILTRATION RATE 2022-08-14 Monico [facility] 13:45:00 [facility] CALCIUM LEVEL TOTAL 2022-08-14 [facility] 13:45:00 [facility] ALBUMIN LEVEL 2022-08-[address] [facility] 13:45:00 [facility] ALKALINE PHOSPHATASE 2022-08-14 Monico [facility] 13:45:00 [facility] ALANINE AMINOTRANSFERASE 2022-08-14 Cherry Marc [facility] 13:45:00 [facility] ASPARTATE AMINOTRANSFERASE 2022-08-14 Cherry Marc [facility] 13:45:00 [facility] TOTAL PROTEIN 2022-08-[address] [facility] 13:45:00 [facility] FRACTIONATED BILIRUBIN 2022-08-14 [facility] 13:45:00 [facility] URINE CULTURE 2022-07-[address] [facility] 20:37:00 [facility] URINALYSIS WITH MICROSCOPIC 2022-07-24 [facility] 20:37:00 [facility] URINALYSIS MICROSCOPIC 2022-07-24 [facility] 20:37:00 [facility] COMPLETE BLOOD COUNT W/ 2022-07-24 Cherry Marc [facility] DIFFERENTIAL 14:47:00 [facility] COMPREHENSIVE METABOLIC 2022-07-24 Monico [facility] PANEL 14:47:00 [facility] MAGNESIUM LEVEL 2022-07-[address] [facility] 14:47:00 [facility] PHOSPHORUS LEVEL 2022-07-24 Cherry Marc [facility] exas 14:47:00 [facility] THYROID STIMULATING HORMONE 2022-07-24 Cherry Marc [facility] 14:47:00 [facility] FREE THYROXINE 2022-07-[address] [facility] 14:47:00 [facility] Results CBC 2022-07-[address] [facility] 14:47:00 [facility] MANUAL DIFFERENTIAL 2022-07-24 Cherry Marc [facility] 14:47:00 [facility] GLUCOSE LEVEL 2022-07-[address] [facility] 14:47:00 [facility] BLOOD UREA NITROGEN 2022-07-24 Cherry Marc [facility] 14:47:00 [facility] ELECTROLYTE PANEL 2022-07-24 Monico [facility] 14:47:00 [facility] SERUM CREATININE 2022-07-24 Cherry Marc [facility] exas 14:47:00 [facility] .GLOMERULAR FILTRATION RATE 2022-07-24 Cherry Marc [facility] 14:47:00 [facility] CALCIUM LEVEL TOTAL 2022-07-24 [facility] 14:47:00 [facility] ALBUMIN LEVEL 2022-07-[address] [facility] 14:47:00 [facility] ALKALINE PHOSPHATASE 2022-07-24 Monico [facility] 14:47:00 [facility] ALANINE AMINOTRANSFERASE 2022-07-24 Cherry Marc [facility] 14:47:00 [facility] ASPARTATE AMINOTRANSFERASE 2022-07-24 Cherry Marc [facility] 14:47:00 [facility] TOTAL PROTEIN 2022-07-[address] [facility] 14:47:00 [facility] FRACTIONATED BILIRUBIN 2022-07-24 [facility] 14:47:00 [facility] URINALYSIS WITH MICROSCOPIC 2022-06-29 Cherry Marc [facility] IF INDICATED 16:30:00 [facility] URINALYSIS MICROSCOPIC 2022-06-29 [facility] 16:30:00 [facility] MRI ABDOMEN & PELVIS W AND 2022-06-26 Cherry Marc [facility] WO CONTRAST 01:10:00 [facility] URINE CULTURE 2022-06-25 Pedro [facility] 13:24:00 [facility] THYROID STIMULATING HORMONE 2022-06-25 Cherry Marc [facility] 13:24:00 [facility] FREE THYROXINE 2022-06-[address] [facility] 13:24:00 [facility] COMPLETE BLOOD COUNT W/ 2022-06-25 [facility] 13:24[facility]00 [facility] COMPREHENSIVE METABOLIC 2022-06-25 Cherry Marc [facility] PANEL 13:24:00 [facility] MAGNESIUM LEVEL 2022-06-[address] [facility] 13:24:00 [facility] PHOSPHORUS LEVEL 2022-06-25 Monico [facility] 13:24:00 [facility] PTH INTACT 2022-06-25 [facility] 13:24:00 [facility] VITAMIN D 25 HYDROXY LEVEL 2022-06-25 [facility] 13:24:00 [facility] Results CBC 2022-06-[address] [facility] 13:24:00 [facility] MANUAL DIFFERENTIAL 2022-06-25 Cherry Marc [facility] 13:24:00 [facility] GLUCOSE LEVEL 2022-06-[address] [facility] 13:24:00 [facility] BLOOD UREA NITROGEN 2022-06-25 [facility] 13:24:00 [facility] ELECTROLYTE PANEL 2022-06-25 Monico [facility] 13:24:00 [facility] SERUM CREATININE 2022-06-25 Monico [facility] 13:24:00 [facility] .GLOMERULAR FILTRATION RATE 2022-06-25 Monico [facility] 13:24:00 [facility] CALCIUM LEVEL TOTAL 2022-06-25 [facility] 13:24:00 [facility] ALBUMIN LEVEL 2022-06-[address] [facility] 13:24:00 [facility] ALKALINE PHOSPHATASE 2022-06-25 [facility] 13:24[facility]00 [facility] ALANINE AMINOTRANSFERASE 2022-06-25 [facility] 13:24:00 [facility] ASPARTATE AMINOTRANSFERASE 2022-06-25 [facility] 13[facility]24:00 [facility] TOTAL PROTEIN 2022-06-25 [facility] xa 13:24:00 [facility] FRACTIONATED BILIRUBIN 2022-06-25 [facility] 13:24:[address] [facility] [address] CHEST WO CONTRAST 2022-06-25 [facility] 12:21:00 [facility] ALANINE AMINOTRANSFERASE 2022-06-15 [facility] 12:[facility] ASPARTATE AMINOTRANSFERASE 2022-06-15 [facility] 12:56[facility]00 [facility] HEMOGLOBIN A1C 2022-06-15 [facility] 12:56:00 [facility] SERUM CREATININE 2022-06-15 [facility] ex 12:56:00 [facility] ELECTROLYTE PANEL 2022-06-15 [facility] 12:56:00 [facility] GLUCOSE, FASTING 2022-06-15 [facility] ex 12:56:00 [facility] LIPID PANEL 2022-06-15 [facility] 12:56:00 [facility] ALBUMIN LEVEL URINE 2022-06-15 [facility] 12:56:00 [facility] URINALYSIS MICROSCOPIC 2022-06-15 [facility] 12:56:00 [facility] EOSINOPHIL URINE 2022-06-15 [facility] ex 12:56:00 [facility] SERUM CREATININE 2022-06-15 Amy Venegas [facility] [place] 12:56:00 [facility] .GLOMERULAR FILTRATION RATE 2022-06-15 Amy Venegas [facility] 12:56:00 [facility] URINALYSIS WITH MICROSCOPIC 2022-06-15 Cristiano Vasquez [facility] IF INDICATED 12:56:00 [facility] CORTISOL 2022-05-[address] [facility] 12:09:00 [facility] ADRENOCORTICOTROPIC HORMONE 2022-05-16 Monico [facility] 12:09:00 [facility] THYROID STIMULATING HORMONE 2022-05-15 Monico [facility] 14:22:00 [facility] FREE THYROXINE 2022-05-[address] [facility] 14:22:00 [facility] COMPLETE BLOOD COUNT W/ 2022-05-15 Monico [facility] DIFFERENTIAL 14:22:00 [facility] COMPREHENSIVE METABOLIC 2022-05-15 Monico [facility] PANEL 14:22:00 [facility] MAGNESIUM LEVEL 2022-05-[address] [facility] 14:22:00 [facility] PHOSPHORUS LEVEL 2022-05-15 Monico [facility] 14:22:00 [facility] Results CBC 2022-05-[address] [facility] 14:22:00 [facility] MANUAL DIFFERENTIAL 2022-05-15 Cherry Marc [facility] 14:22:00 [facility] GLUCOSE LEVEL 2022-05-[address] [facility] 14:22:00 [facility] BLOOD UREA NITROGEN 2022-05-15 [facility] 14:22:00 [facility] ELECTROLYTE PANEL 2022-05-15 Monico [facility] 14:22:00 [facility] SERUM CREATININE 2022-05-15 Monico [facility] 14:22:00 [facility] .GLOMERULAR FILTRATION RATE 2022-05-15 Cherry Marc [facility] 14:22:00 [facility] CALCIUM LEVEL TOTAL 2022-05-15 [facility] 14:22:00 [facility] ALBUMIN LEVEL 2022-05-[address] [facility] 14:22:00 [facility] ALKALINE PHOSPHATASE 2022-05-15 Monico [facility] 14:22:00 [facility] ALANINE AMINOTRANSFERASE 2022-05-15 Cherry Marc [facility] 14:22:00 [facility] ASPARTATE AMINOTRANSFERASE 2022-05-15 Mon[facility] 14:22:00 [facility] TOTAL PROTEIN 2022-05-[address] [facility] 14:22:00 [facility] FRACTIONATED BILIRUBIN 2022-05-15 [facility] 14:22:00 [facility] THYROID STIMULATING HORMONE 2022-04-24 [facility] 15:25[facility]00 [facility] FREE THYROXINE 2022-04-[address] [facility] xa 15:25:00 [facility] COMPLETE BLOOD COUNT W/ 2022-04-24 Monico [facility] DIFFERENTIAL 15:25:00 [facility] COMPREHENSIVE METABOLIC 2022-04-24 Monico [facility] PANEL 15:25:00 [facility] MAGNESIUM LEVEL 2022-04-[address] [facility] 15:25:00 [facility] PHOSPHORUS LEVEL 2022-04-24 Monico [facility] 15:25:00 [facility] Results CBC 2022-04-[address] [facility] 15:25:00 [facility] MANUAL DIFFERENTIAL 2022-04-24 Cherry Marc [facility] 15:25:00 [facility] GLUCOSE LEVEL 2022-04-[address] [facility] 15:25:00 [facility] BLOOD UREA NITROGEN 2022-04-24 [facility] 15:25:00 [facility] ELECTROLYTE PANEL 2022-04-24 Monico [facility] 15:25:00 [facility] SERUM CREATININE 2022-04-24 [facility] 15:25:00 [facility] .GLOMERULAR FILTRATION RATE 2022-04-24 [facility] 15[facility]25:00 [facility] CALCIUM LEVEL TOTAL 2022-04-24 [facility] 15:25:00 [facility] ALBUMIN LEVEL 2022-04-[address] [facility] xa 15:25:00 [facility] ALKALINE PHOSPHATASE 2022-04-24 Monico [facility] 15:25:00 [facility] ALANINE AMINOTRANSFERASE 2022-04-24 Mon[facility] 15:25:00 [facility] ASPARTATE AMINOTRANSFERASE 2022-04-24 Monico Cherry [facility] 15:25:00 [facility] TOTAL PROTEIN 2022-04-[address] [facility] 15:25:00 [facility] FRACTIONATED BILIRUBIN 2022-04-24 Cherry Marc [facility] 15:25:00 [facility] Plan of Care Planned Activity Planned Date Details Comments Source Future Scheduled 2023-04-26 Influenza Vaccine (#1) [facility] 00:00:00 [code = Influenza Medical Ce nter Vaccine (#1)] Future Scheduled 2023-04-08 [facility] 15:55:44 malignant neoplasm of colon (procedure) [code = 260747872] Future Scheduled 2023-04-08 [facility] 15:55:44 malignant neoplasm of colon (procedure) [code = 159217501] Future Scheduled 2023-04-08 [facility] 15:55:44 malignant neoplasm of colon (procedure) [code = [id number]] Future Scheduled 2023-04-08 COVID-19 VACCINE (#1) [facility] 15:55:44 [code = COVID-19 VACCINE (#1)] Future Scheduled 2023-04-08 [facility] 15:55:44 malignant neoplasm of colon (procedure) [code = [id number]] Future Scheduled 2023-04-08 [facility] 15:55:44 malignant neoplasm of colon (procedure) [code = [id number]] Future Scheduled 2023-04-08 SHINGLES VACCINES ([facility]:55:44 of 2) [code = SHINGLES VACCINES (1 of 2)] Future Scheduled 2023-04-08 65[facility] 15:55:44 VACCINE (2 - PPSV23 if available, else PCV20) [code = 65+ PNEUMOCOCCAL VACCINE (2 - PPSV23 if available, else PCV20)] Future Scheduled 2023-04-08 [facility]ACCINE [facility] 15:55:44 [code = INFLUENZA VACCINE] Future Scheduled 2023-04-04 COVID-19 Vaccination [facility] Test 08:22:28 (2 - Moderna risk MD Moon n Cancer series) [code = Center COVID-19 Vaccination (2 - Moderna risk series)] Future Scheduled 2022-08-[address] [facility] Test 00:00:00 (12+) [code = Medical Center DEPRESSION SCREENING (12+)] Future Scheduled 2022-08-26 FALLS RISK SCREENING [facility] Test 00:00:00 [code = FALLS RISK Medical C enter SCREENING] Future Scheduled 2021-07-[address] [facility] Test 00:00:00 Counseling and Medical Cente r Screening (12+) [code = Tobacco Cessation Counseling and Screening (12+)] Future Scheduled 2016-12-[address] [facility] Test 00:00:00 WELLNESS (YEAR 2 or Medical Center FIRST YEAR if no IPPE) [code = MEDICARE ANNUAL WELLNESS (YEAR 2 or FIRST YEAR if no IPPE)] Future Scheduled 2016-01-11 PNEUMOCOCCAL 65+ YRS [facility] Test 00:00:00 (1 - PCV) [code = Medical nter PNEUMOCOCCAL 65+ YRS (1 - PCV)] Future Scheduled 2001 SHINGLES VACCINES ([address] [facility] Test 00:00:00 of 2) [code = SHINGLES Medic al Center VACCINES (1 of 2)] Future Scheduled 1970 DTAP/TDAP/TD [facility]ACCINES [facility] Test 00:00:00 (1 - Tdap) [code = Medical C enter DTAP/TDAP/TD VACCINES (1 - Tdap)] Future Scheduled 1969 HEPATITIS C [facility]CRE[facility]ING [facility] Test 00:00:00 [code = HEPATITIS C Medical Center SCREENING] Future Scheduled 1951 COVID-19 VACCINE (#1) [facility] 00:00:00 [code = COVID-[address] VACCINE (#1)] Future Scheduled [address] [facility] Test 00:00:00 (combo) [code = CT Medical C enter Colonography (combo)] Future Scheduled [address] [facility] 00:[facility]:00 malignant neoplasm of Medica l Center colon (procedure) [code = 731710593] Future Scheduled [address] [facility] 00:00:00 malignant neoplasm of Medica l Center colon (procedure) [code = 771483838] Future Scheduled [address] [facility] 00:00:00 malignant neoplasm of Medica l Center colon (procedure) [code = 229816381] Future Scheduled [address] [facility] Test 00:00:00 malignant neoplasm of Medica l Center colon (procedure) [code = 617989663] Future Scheduled 1950 Sigmoidoscopy [code = [facility] Sigmoidoscopy] Medical Cente r Encounters Start End Encounter Admission Attending Care Care Encounter Source Date/Time Date/Time Type Type Clinicians Facility Department ID 2022-12-08 Outpatient SYSTEM, LORI SANDOVAL [id number] 18:07:51 PROVIDER Gage ruby 2021-11-07 Outpatient SYSTEM, LORI SANDOVAL [id number] 12:01:40 PROVIDER Gage ruby 2021-08-22 Outpatient SYSTEMLORI MDA [id number] 16:50:38 PROVIDER Gage ruby 2021-06-01 Outpatient [facility] Surgery [id number] SLEH 11:04:28 MARVIN 2020-10-05 Inpatient ER HEIDY, LORI SANDOVAL [id number] 13:58:13 KEYAWYSUJIT Jenniferjesús ruby 2020-10-05 Inpatient ER HEIDY, LORI SANDOVAL [id number] 07:59:14 MARGARITOSUJIT Jenniferjesús ruby 2020-09-05 Outpatient SYSTEM, LORI SANDOVAL [id number] 07:50:39 PROVIDER Gage o flori 2020-08-02 Outpatient SYSTEM, LORI SANDOVAL [id number] 08:51:13 PROVIDER Gage o flori 2020-07-28 Outpatient [facility], LORI Urology [id number] 09:57:29 CONSTANTINE Red 2023-03-26 2023-03-26 Outpatient LORI MARC MDA [id number] 08:06:18 23:59:00 CHERRY ruby 2023-03-26 2023-03-26 [facility], 1.2.840.1 [id number] [facility] 08:06:18 23:59:00 Encounter Cherry 04695.1.1 it y of 3.412.2.7 [place] .3.236796 .8 [facility] 2023-03-26 2023-03-26 [facility], 1.2.840.1 [id number] [facility] 13:30:00 13:30:00 Cherry 70857.1.1 ity of 3.412.2.7 [place] .3.452130 .8 [facility] 2023-03-26 2023-03-26 [facility] [id number] MD 10:31:07 12:25:07 CHERRY Almonte flori 2023-03-26 2023-03-26 Follow-Up [facility], 1.2.840.1 [id number] [facility] 10:20:00 10:34:09 Horace 59620.1.1 ity of 3.412.2.7 [place] .3.399562 .8 [facility] 2023-03-26 2023-03-26 [facility] [id number] MD 09:21:30 10:34:09 [facility] 2023-03-26 2023-03-26 Orders Autumn, 1.2.840.1 [id number] Univers 00:00:00 00:00:00 Only Horace 73694.1.1 ity of 3.412.2.7 [place] .3.835045 MD Wilkins [facility] 2023-03-26 2023-03-26 Orders Shreya Doss 1.2.840.1 [id number] Univers 00:00:00 00:00:00 Only 26970.1.1 ity of 3.412.2.7 [place] .3.426557 MD Wilkins [facility] 2023-03-26 2023-03-26 Travel 1.2.840.1 1.2.792.866 [id number] [id number] Univers 00:00:00 00:00:00 64773.1.1 350.1.13.41 ity of 3.412.2.7 [place]7.3.698 [place] .3.156546 084.8 MD Wilkins [facility] 2023-03-25 2023-03-25 Orders Izabela, 1.2.840.1 [id number] Univers 00:00:00 00:00:00 Only Milka Nunez 15290.1.1 ity of 3.412.2.7 [place] .3.740293 MD Wilkins [facility] 2023-03-21 2023-03-21 Orders Dhiraj, 1.2.840.1 [id number] Univers 00:00:00 00:00:00 Only Deepak Tapia 80679.1.1 ity of 3.412.2.7 [place] .3.237170 MD Wilkins [facility] 2023-03-07 2023-03-07 Orders Pedro, 1.2.840.1 [id number] Univers 00:00:00 00:00:00 Only Cristiano 89087.1.1 ity of 3.412.2.7 [place] .3.862267 MD Wilkins [facility] 2023-03-05 2023-03-05 Outpatient [facility] [id number] MD 08:40:28 23:59:00 CHERRY ruby 2023-03-05 2023-03-05 [facility], 1.2.840.1 [id number] Univers 08:40:28 23:59:00 Encounter Cherry 95648.1.1 it y of 3.412.2.7 [place] .3.002059 MD Morrison8 [facility] 2023-03-05 2023-03-05 [facility], 1.2.840.1 [id number] [facility] 14:00:00 14:50:15 Cherry 82051.1.1 ity of 3.412.2.7 [place] .3.090378 MD Morrison8 [facility] 2023-03-05 2023-03-05 Outpatient [facility] [id number] 12:39:35 14:50:15 CHERRY ruby 2023-03-05 2023-03-05 Follow-Up Autumn, 1.2.840.1 [id number] [facility] 11:00:00 12:34:00 Horace 30188.1.1 ity of 3.412.2.7 [place] .3.245190 MD Morrison8 [facility] 2023-03-05 2023-03-05 Outpatient [facility] [id number] 09:31:47 12:34:00 HORACE Gallardo so 2023-03-05 2023-03-05 Orders Autumn, 1.2.840.1 [id number] Univers 00:00:00 00:00:00 Only Horace 67624.1.1 ity of 3.412.2.7 [place] .3.215048 MD Wilkins [facility] 2023-03-05 2023-03-05 Orders Chad Amaya 1.2.840.1 [id number] Univers 00:00:00 00:00:00 Only 21207.1.1 ity of 3.412.2.7 [place] .3.451298 MD Morrison8 [facility] 2023-03-05 2023-03-05 Travel 1.2.840.1 1.2.330.790 7521 [id number] [facility] 00:00:00 00:00:00 55502.1.1 350.1.13.41 ity of 3.412.2.7 [place]7.3.698 [place] .3.328165 084.8 MD Morrison8 [facility] 2023-03-04 2023-03-04 Ancillary 1.2.840.1 [id number] [facility] 12:30:00 15:00:00 Procedure 42732.1.1 it y of 3.412.2.7 [place] .3.191279 MD Morrison8 [facility] 2023-03-04 2023-03-04 Outpatient [facility] LORI [id number] 12:16:26 12:16:26 Gage [facility] 2023-02-12 2023-02-12 Orders Ahmad, 1.2.840.1 [id number] Univers 00:00:00 00:00:00 Only Cherry 73407.1.1 ity of 3.412.2.7 [place] .3.779557 MD Wilkins [facility] 2023-02-07 2023-02-07 Outpatient AMANDA THOMPSON IV, [facility] Urology [id number] 05:45:00 10:55:00 AMOL ruby 2023-02-07 2023-02-07 [facility], 1.2.840.1 [id number] [facility] 05:45:00 10:55:00 Encounter Amol Klein50.1.1 ity of 3.412.2.7 [place] .3.847634 MD Wilkins [facility] 2023-02-07 2023-02-07 Surgery [facility], 1.2.840.1 [id number] [facility] 07:00:00 09:15:00 Amol Tapia 08344.1.1 it y of 3.412.2.7 [place] .3.326969 .8 [facility] 2023-02-07 2023-02-07 Anesthesia Ez, 1.2.840.1 [id number] Univers 06:56:00 08:43:00 Event Jeffrey 75076.1.1 ity of 3.412.2.7 [place] .3.680972 MD Morrison8 [facility] 2023-02-07 2023-02-07 Ancillary 1.2.840.1 [id number] [id number] Univers 06:25:00 07:25:00 Procedure 80478.1.1 it y of 3.412.2.7 [place] .3.551302 MD Morrison8 [facility] 2023-02-07 2023-02-07 Outpatient AMANDA SANDOVAL MDA [id number] 07:08:49 07:08:49 [facility] 2023-02-07 2023-02-07 Travel 1.2.840.1 1.2.364.919 [id number] [id number] Univers 00:00:00 00:00:00 03737.1.1 350.1.13.41 ity of 3.412.2.7 2.[place]7.3.698 [place]3.071568 084.8 MD Wilkins [facility] 2023-02-06 2023-02-06 Anesthesia Stevenson, 1.2.840.1 [id number] Univers 23:59:59 23:59:59 Event Olympia S 60086.1.1 ity of 3.412.2.7 [place] .3.288444 MD Wilkins [facility] 2023-02-06 2023-02-06 FELY Thompson, 1.2.840.1 [id number] Univers 16:30:00 17:00:00 Appointpeyton Tapia 58936.1.1 ity of ts 3.412.2.7 [place] .3.321743 MD Wilkins [facility] 2023-02-06 2023-02-06 Outpatient AMANDA THOMPSON IV, MDA MDA [id number] 07:38:59 07:38:59 AMOL ruby 2023-02-05 2023-02-05 Outpatient [facility] [id number] 08:22:22 23:59:00 CHERRY ruby 2023-02-05 2023-02-05 [facility], 1.2.840.1 [id number] Univers 08:22:22 23:59:00 Encounter Cherry 28602.1.1 it y of 3.412.2.7 [place] .3.935484 MD Morrison8 [facility] 2023-02-05 2023-02-05 Outpatient [facility] [id number] 11:16:25 13:44:02 CHERRY ruby 2023-02-05 2023-02-05 [facility], 1.2.840.1 [id number] Univers 10:30:00 13:44:02 Cherry 90489.1.1 ity of 3.412.2.7 [place] .3.780511 MD Morrison8 [facility] 2023-02-05 2023-02-05 Follow-Up [facility], 1.2.840.1 [id number] [facility] 10:00:00 11:09:47 Horace 61402.1.1 ity of 3.412.2.7 [place] .3.063662 MD Morrison8 [facility] 2023-02-05 2023-02-05 Outpatient [facility] [id number] 09:06:53 11:09:47 HORACE Gallardo so flori 2023-02-05 2023-02-05 Orders [facility], 1.2.840.1 [id number] Univers 00:00:00 00:00:00 Only Horace 42180.1.1 ity of 3.412.2.7 [place] .3.665466 MD Morrison8 [facility] 2023-02-05 2023-02-05 Travel 1.2.840.1 1.2.061.661 1456 [id number] Univers 00:00:00 00:00:00 71490.1.1 350.1.13.41 ity of 3.412.2.7 [place]7.3.698 [place] .3.437873 084.8 MD Wilkins [facility] 2023-02-04 2023-02-04 Orders Hearn, 1.2.840.1 [id number] Univers 00:00:00 00:00:00 Only Deepak Tapia 24952.1.1 ity of 3.412.2.7 [place] .3.322978 MD Wilkins [facility] 2023-01-30 2023-01-30 Follow-Up Perez, 1.2.840.1 [id number] [id number] Univers 13:00:00 13:47:38 Markel 68611.1.1 ity of 3.412.2.7 [place] .3.888724 MD Wilkins [facility] 2023-01-30 2023-01-30 Outpatient AMANDA TODD MDA MDA [id number] 11:53:27 13:47:38 MARKEL ruby 2023-01-30 2023-01-30 Travel 1.2.840.1 1.2.318.217 [id number] [id number] Univers 00:00:00 00:00:00 86066.1.1 350.1.13.41 ity of 3.412.2.7 2.[place].7.3.698 [place] .3.773922 084.8 MD Wlikins [facility] 2023-01-29 2023-01-29 Follow-Up Donna, 1.2.840.1 [id number] [id number] Univers 08:00:00 11:54:37 Amol Tapia 46809.1.1 it y of 3.412.2.7 [place] .3.188991 MD Wilkins [facility] 2023-01-29 2023-01-29 Outpatient AMANDA THOMPSON IV, MDA MDA [id number] 07:04:04 11:54:37 AMOL ruby 2023-01-29 2023-01-29 Prep for [place], 1.2.840.1 [id number] Univers 00:00:00 00:00:00 Surgery Rose 20380.1.1 ity of 3.412.2.7 [place] .3.512111 MD Morrison8 [facility] 2023-01-29 2023-01-29 Travel 1.2.840.1 1.2.300.904 2722 [id number] Univers 00:00:00 00:00:00 38554.1.1 350.1.13.41 ity of 3.412.2.7 2.2.7.3.698 [place] .3.068526 084.8 MD Morrison8 [facility] 2023-01-28 2023-01-28 Orders Donna, 1.2.840.1 [id number] Univers 00:00:00 00:00:00 Only Amol Tapia 86854.1.1 it y of 3.412.2.7 [place] .3.739485 MD Morrison8 [facility] 2023-01-24 2023-01-24 Outpatient AMANDA MARC MDA MDA [id number] MD 11:52:27 23:59:00 CHERRY Almonte [facility] 2023-01-24 2023-01-24 [facility] Cherry Marc 1.2.840.1 [id number] [facility] 11:52:27 23:59:00 Encounter Amish Stuart 09253.1.1 ity of 3.412.2.7 [place] .3.757033 MD Morrison8 [facility] 2023-01-24 2023-01-24 Outpatient LORI RAMOS MDA [id number] MD 11:42:43 11:51:00 RADHA ruby 2023-01-24 2023-01-24 [facility] Anette 1.2.840.1 [id number] [facility] 11:42:43 11:51:00 Encounter Radha 13320.1.1 it y of 3.412.2.7 [place] .3.640782 MD Wilkins [facility] 2023-01-24 2023-01-24 Travel 1.2.840.1 1.2.379.579 6434 [id number] Univers 00:00:00 00:00:00 43136.1.1 350.1.13.41 ity of 3.412.2.7 2.2.7.3.698 [place] .3.257255 084.8 MD Morrison8 [facility] 2023-01-23 2023-01-23 Orders Silvino, 1.2.840.1 [id number] [id number] Univers 00:00:00 00:00:00 Only Clarita Norwood 36478.1.1 ity of 3.412.2.7 [place] .3.921347 MD Morrison8 [facility] 2023-01-23 2023-01-23 Orders Anette, 1.2.840.1 [id number] Univers 00:00:00 00:00:00 Only Radha 27362.1.1 ity of 3.412.2.7 [place] .3.052807 MD Wilkins [facility] 2023-01-23 2023-01-23 Education Despaigne 1.2.840.1 [id number] Univers 00:00:00 00:00:00 Jazmin 93417.1.1 ity of Izvieta 3.412.2.7 [place] .3.304978 MD Wilkins [facility] 2023-01-22 2023-01-22 Outpatient [facility] [id number] 11:13:44 23:59:00 CONSTANTINE ruby 2023-01-22 2023-01-22 [facility] Constantine Davis 1.2.840.1 [id number] Univers 11:13:44 23:59:00 Encounter Shellie Doss 46190.1.1 ity of 3.412.2.7 [place] .3.234765 MD Wilkins [facility] 2023-01-22 2023-01-22 Travel 1.2.840.1 1.2.969.358 6462 [id number] Univers 00:00:00 00:00:00 87029.1.1 350.1.13.41 ity of 3.412.2.7 2.2.7.3.698 [place] .3.083237 084.8 MD Morrison8 [facility] 2023-01-22 2023-01-22 Orders Tapia, 1.2.840.1 [id number] Univers 00:00:00 00:00:00 Only Cheryl 70855.1.1 ity of 3.412.2.7 [place] .3.539119 MD Wilkins [facility] 2023-01-15 2023-01-15 Outpatient [place] [facility] LORI [id number] MD 06:45:00 23:59:00 CHERRY ruby 2023-01-15 2023-01-15 [facility], 1.2.840.1 [id number] Univers 06:45:00 23:59:00 Encounter Cherry 57876.1.1 it y of 3.412.2.7 [place] .3.697275 MD Wilkins [facility] 2023-01-15 2023-01-15 Infusion [facility], 1.2.840.1 [id number] Univers 10:00:00 13:00:00 Cherry 22264.1.1 ity of 3.412.2.7 [place] .3.089247 MD [facility] 2023-01-15 2023-01-15 Outpatient [place] [facility] LORI [id number] MD 10:06:44 10:06:44 CHERRY ruby 2023-01-15 2023-01-15 Follow-Up [facility], 1.2.840.1 [id number] [facility] 09:30:00 10:03:40 Cherry 47867.1.1 ity of 3.412.2.7 [place] .3.254521 MD [facility] 2023-01-15 2023-01-15 Outpatient [facility] LORI [id number] MD 08:32:21 10:03:40 CHERRY ruby 2023-01-15 2023-01-15 Travel 1.2.840.1 1.2.166.109 6572 [id number] Univers 00:00:00 00:00:00 63422.1.1 350.1.13.41 ity of 3.412.2.7 [place]7.3.698 [place] .3.760220 084.8 MD Wilkins [facility] 2023-01-08 2023-01-08 [facility], 1.2.840.1 [id number] Univers 00:00:00 00:00:00 Only Horace 43927.1.1 ity of 3.412.2.7 [place] .3.700541 MD Wilkins [facility] 2023-01-01 2023-01-01 Telemedici Autumn, 1.2.840.1 [id number] Univers 15:00:00 15:30:00 ne Horace 56831.1.1 ity of 3.412.2.7 [place] .3.215474 MD Wilkins [facility] 2022-12-31 2023-01-01 Outpatient AMANDA BAIRD MDA Inter Rad [id number] 10:40:00 12:41:00 ENRIQUE villavicencio 2022-12-31 2023[facility]-01 [facility] 1.2.840.1 [id number] [facility] 10:40:00 12:41:00 Enrique Orozco 27526.1.1 ity of 3.412.2.7 [place] .3.216196 MD Wilkins [facility] 2022-12-31 2022-12-31 Travel 1.2.840.1 1.2.433.491 6079 [id number] Univers 00:00:00 00:00:00 98354.1.1 350.1.13.41 ity of 3.412.2.7 2.2.7.3.698 [place] .3.223897 084.8 MD Wilkins [facility] 2022-12-28 2022-12-28 Outpatient AMANDA DAVIS MDA MDA [id number] 12:52:13 23:59:00 CONSTANTINE Rodriguez[facility] 2022-12-28 2022-12-28 [facility] Constantine Davis 1.2.840.1 [id number] [facility] 12:52:13 23:59:00 Encounter Gala Quiroz 45266.1.1 ity of 3.412.2.7 [place] .3.125595 MD Morrison8 [facility] 2022-12-28 2022-12-28 [facility] 1.2.840.1 1.2.692.319 [id number] [id number] Univers 00:00:00 00:00:00 15875.1.1 350.1.13.41 ity of 3.412.2.7 2.2.7.3.698 [place] .3.455436 084.8 MD Morrison8 [facility] 2022-12-28 2022-12-28 Galindo Vasquez 1.2.840.1 [id number] Univers 00:00:00 00:00:00 Only Cristiano 94041.1.1 ity of 3.412.2.7 [place] .3.082890 MD Morrison8 [facility] 2022-12-27 2022-12-27 Kyle Lemons, 1.2.840.1 [id number] [id number] Univers 00:00:00 00:00:00 China Brand 55818.1.1 i ty of 3.412.2.7 [place] .3.446024 MD Morrison8 [facility] 2022-12-26 2022-12-26 Outpatient AMANDA GREEN MDA MDA [id number] 11:34:50 23:59:00 SRINIVAS ruby 2022-12-26 2022-12-26 [facility] Jaylan 1.2.840.1 [id number] [facility] 11:34:50 23:59:00 Encounter Srinivas Brand 65890.1.1 i ty of 3.412.2.7 [place] .3.021748 MD Wilkins [facility] 2022-12-26 2022-12-26 Galindo Marc 1.2.840.1 [id number] Univers 00:00:00 00:00:00 Only Cherry 33986.1.1 ity of 3.412.2.7 [place] .3.094618 MD Morrison8 [facility] 2022-12-25 2022-12-25 Infusion Monico, 1.2.840.1 [id number] Univers 14:00:00 17:00:00 Cherry 57699.1.1 ity of 3.412.2.7 [place] .3.567833 MD Morrison8 [facility] 2022-12-25 2022-12-25 Outpatient AMANDA MARC MDA MDA [id number] 11:56:13 11:56:13 CHERRY [facility] 2022-12-25 2022-12-25 Follow-Up Horace Leyva 1.2.840.1 [id number] [facility] 11:00:00 11:49:28 Cherry Marc 13807.1.1 ity of 3.412.2.7 [place] .3.840689 MD Morrison8 [facility] 2022-12-25 2022-12-25 Outpatient AMANDA LEYVA MDA [facility] [id number] 10:27:06 11:49:28 HORACE [facility] 2022-12-25 2022-12-25 Orders Pedro, 1.2.840.1 [id number] Univers 00:00:00 00:00:00 Only Cristiano 97361.1.1 ity of 3.412.2.7 [place] .3.877813 MD Morrison8 [facility] 2022-12-25 2022-12-25 Orders Jaylan, 1.2.840.1 [id number] Univers 00:00:00 00:00:00 Only Srinivas Brand 35930.1.1 ity of 3.412.2.7 [place] .3.126718 MD Morrison8 [facility] 2022-12-25 2022-12-25 Travel 1.2.840.1 1.2.901.898 2445 [id number] Univers 00:00:00 00:00:00 69108.1.1 350.1.13.41 ity of 3.412.2.7 2.2.7.3.698 [place] .3.944630 084.8 MD Morrison8 [facility] 2022-12-25 2022-12-25 Orders Autumn, 1.2.840.1 [id number] Univers 00:00:00 00:00:00 Only Horace 10902.1.1 ity of 3.412.2.7 [place] .3.690384 MD Morrison8 [facility] 2022-12-24 2022-12-24 Outpatient AMANDA MARC MDA MDA [id number] 07:22:29 23:59:00 CHERRY Almonte [facility] 2022-12-24 2022-12-24 [facility] Monico, 1.2.840.1 [id number] [facility] 07:22:29 23:59:00 Encounter Cherry 58517.1.1 it y of 3.412.2.7 [place] .3.807617 MD Morrison8 [facility] 2022-12-24 2022-12-24 [facility] Monico, 1.2.840.1 [id number] [id number] [facility] 20:15:00 23:00:00 Procedure Cherry 75887.1.1 it y of 3.412.2.7 [place] .3.464395 MD Morrison8 [facility] 2022-12-24 2022-12-24 Outpatient AMANDA MARC MDA MDA [id number] 19:11:56 19:11:56 CHERRY Almonte [facility] 2022-12-24 2022[facility]12-24 [facility] 1.2.840.1 [id number] [facility] 06:35:00 08:00:00 Procedure Cherry 18574.1.1 it y of 3.412.2.7 [place] .3.523568 MD Morrison8 [facility] 2022-12-24 2022-12-24 Outpatient AMANDA MARC MDA MDA [id number] 06:19:36 06:19:36 CHERRY ruby 2022-12-24 2022-12-24 Travel 1.2.840.1 1.2.507.043 [id number] [place] [facility] 00:00:00 00:00:00 42058.1.1 350.1.13.41 ity of 3.412.2.7 [place].3.698 [place] .[place].47[place] 084.8 .8 [facility] 2022-12-17 [facility]22[facility]12-17 [facility] 1.2.840.1 [id number] [place] [facility] 15:30:00 16:00:00 Amanda Christine 54829.1.1 ity of 3.412.2.7 [place] .3.611229 MD Morrison8 [facility] 2022-12-17 2022-12-17 Outpatient [facility] [id number] [place] 15:19:08 15:38:57 ISAMAR ruby 2022-12-14 2022-12-14 Outpatient [facility] MDA [id number] [place] 07:00:00 23:59:00 ISAMAR ruby 2022-12-14 2022-12-14 [facility] 1.2.840.1 [id number] [place] [facility] 07:00:00 23:59:00 [facility] Isamar John 93553.1.1 it y of 3.412.2.7 [place] .3.230763 MD Morrison8 [facility] 2022-12-05 2022-12-05 Mari Miller 1.2.840.1 [id number] [facility] 09:45:00 11:37:42 89152.1.1 ity of 3.412.2.7 [place] .3.318314 MD Franky ruby [facility] 2022-12-05 2022-12-05 Outpatient MARI LAFLEUR MDA MDA [id number] 08:59:08 11:37:42 Gage ruby 2022-12-05 2022-12-05 Travel 1.2.840.1 1.2.271.265 [id number] [facility] 00:00:00 00:00:00 65713.1.1 350.1.13.41 ity of 3.412.2.7 [place].3.698 [place] .3.787[place] 084.8 .8 [facility] 2022-12-04 2022-12-04 Outpatient YVETTEAZEnrique [facility] LORI [id number] 08:32:36 23:59:00 CHERRY ruby 2022-12-04 2022-12-04 [facility], 1.2.840.1 [id number] [place] [facility] 08:32:36 23:59:00 Encounter Cherry 48098.1.1 it y of 3.412.2.7 [place] .3.452140 MD Morrison8 [facility] 2022-12-04 [facility]22[facility]12-04 [facility]1 [id number] [facility] 12:00:00 14:17:39 Polo iVlla 06980.1.1 ity of 3.412.2.7 [place] .3.275600 .8 [facility] 2022-12-04 2022-12-04 Outpatient [facility] LORI [id number] MD 11:50:23 14:17:39 CHERRY ruby 2022-12-04 2022-12-04 Follow-Up [facility], 1.2.840.1 [id number] [facility] 10:50:00 11:43:40 Horace 36611.1.1 ity of 3.412.2.7 [place] .3.261719 .8 [facility] 2022-12-04 2022-12-04 Outpatient [facility] [id number] [place] 09:37:04 11:43:40 HORACE ruby 2022-12-04 2022-12-04 Orders [facility], 1.2.840.1 [id number] [place] [facility] 00:00:00 00:00:00 Only Horace 24491.1.1 ity of 3.412.2.7 [place] .3.360551 MD Wilkins [facility] 2022-12-04 2022-12-04 Travel 1.2.840.1 1.2.294.195 [id number] [facility] 00:00:00 00:00:00 38273.1.1 350.1.13.41 ity of 3.412.2.7 2.[place]7.3.698 [place] .3.484[place] 084.8 MD Wilkins [facility] 2022-11-24 2022-11-[address] [facility] Oncology [id number] 20:28:00 14:58:00 HARRY Almonte [facility] 2022-11-24 2022-11-27 [facility] [place] 1.2.840.1 [id number] [facility] 20:28:00 14:58:00 [facility] Santosh Barriga 99003.1.1 ity of [place].2.7 [place] .3.868604 MD Wilkins [facility] 2022-11-26 2022-11-26 Orders Monico, 1.2.840.1 [id number] Univers 00:00:00 00:00:00 Only Cherry 98667.1.1 ity of 3.412.2.7 [place] .3.601897 MD Wilkins [facility] 2022-11-25 2022-11-25 Travel 1.2.840.1 1.2.812.178 3453 [id number] Univers 00:00:00 00:00:00 41683.1.1 350.1.13.41 ity of 3.412.2.7 2.[place].7.3.698 [place] .3.798654 084.8 MD Wilkins [facility] 2022-11-24 2022-11-24 Travel 1.2.840.1 1.2.519.753 3131 [id number] Univers 00:00:00 00:00:00 44387.1.1 350.1.13.41 ity of 3.412.2.7 2.[place].7.3.698 [place] .3.600749 084.8 MD Morrison8 [facility] 2022-11-06 2022-11-06 Outpatient [facility] MDA [id number] MD 08:30:00 23:59:00 CHERRY ruby 2022-11-06 2022-11-06 [facility], 1.2.840.1 [id number] [facility] 08:30:00 23:59:00 Encounter Cherry 60499.1.1 it y of 3.412.2.7 [place] .3.527982 MD Morrison8 [facility] 2022-11-06 2022-11-06 [facility] 1.2.840.1 [id number] [facility] 16:45:00 16:45:00 [place] 33706.1.1 ity of 3.412.2.7 [place] .3.721407 MD Morrison8 [facility] 2022-11-06 2022-11-06 Outpatient [facility] [id number] MD 10:54:35 13:57:09 CHERRY ruby 2022-11-06 2022-11-06 Follow-Up [facility] 1.2.840.1 [id number] [facility] 10:30:00 10:51:18 Cherry 68652.1.1 ity of 3.412.2.7 [place] .3.509651 MD Morrison8 [facility] 2022-11-06 2022-11-06 Outpatient [facility] MDA [id number] MD 09:45:06 10:51:18 CHERRY ruby 2022-11-06 2022-11-06 [facility], 1.2.840.1 [id number] [facility] 00:00:00 00:00:00 Only Horace 80291.1.1 ity of 3.412.2.7 [place] .3.778895 MD [facility]8 [facility] 2022-11-06 2022-11-06 Orders Lenka, 1.2.840.1 [id number] Univers 00:00:00 00:00:00 Only Jennifer Cuco 37478.1.1 it y of 3.412.2.7 [place] .3.970282 MD Wilkins [facility] 2022-11-06 2022-11-06 Travel 1.2.840.1 1.2.872.674 1724 [id number] Univers 00:00:00 00:00:00 65943.1.1 350.1.13.41 ity of 3.412.2.7 2.2.7.3.698 [place] .3.066376 084.8 MD Morrison8 [facility] 2022-11-05 2022-11-05 Telemedici Constantine Davis 1.2.840.1 [id number] Univers 15:00:00 15:17:31 Cristiano Guy 36473.1.1 ity of 3.412.2.7 [place] .3.132676 MD Wilkins [facility] 2022-11-05 2022-11-05 Outpatient AMANDA DAVIS MDA MDA [id number] 14:53:18 15:17:31 CONSTANTINE ruby 2022-10-16 2022-10-16 Outpatient AMANDA MARC MDA MDA [id number] 09:00:00 23:59:00 CHERRY ruby 2022-10-16 2022-10-16 [facility], 1.2.840.1 [id number] Univers 09:00:00 23:59:00 Encounter Cherry 34903.1.1 it y of 3.412.2.7 [place] .3.618531 MD Morrison8 [facility] 2022-10-16 2022-10-16 [facility], 1.2.840.1 [id number] Univers 12:30:00 13:26:20 Cherry 26755.1.1 ity of 3.412.2.7 [place] .3.203141 MD Wilkins [facility] 2022-10-16 2022-10-16 Outpatient AMANDA MARC LORI [facility] [id number] 10:57:02 13:26:20 CHERRY Al[facility] 2022-10-16 2022-10-16 Follow-Up Autumn, 1.2.840.1 [id number] [facility] 11:30:00 11:30:00 Horace 58063.1.1 ity of 3.412.2.7 [place] .3.823833 MD Wilkins [facility] 2022-10-16 2022-10-16 Outpatient EL [facility]UMN [facility] [id number] 09:45:06 10:55:28 [facility] 2022-10-16 2022-10-16 Orders Autumn, 1.2.840.1 [id number] Univers 00:00:00 00:00:00 Only Horace 91596.1.1 ity of 3.412.2.7 [place] .3.545824 MD Wilkins [facility] 2022-10-16 2022-10-16 Orders Chad Amaya 1.2.840.1 [id number] Univers 00:00:00 00:00:00 Only 56729.1.1 ity of 3.412.2.7 [place] .3.979150 MD Wilkins [facility] 2022-10-16 2022-10-16 Travel 1.2.840.1 1.2.548.437 2844 [id number] Univers 00:00:00 00:00:00 91425.1.1 350.1.13.41 ity of 3.412.2.7 2.2.7.3.698 [place] .3.896971 084.8 MD Wilkins [facility] 2022-09-25 2022-09-25 Infusion Cherry Marc 1.2.840.1 [id number] Univers 13:30:00 15:31:37 Jonathan Polo 15313.1.1 ity of 3.412.2.7 [place] .3.313120 MD Morrison8 [facility] 2022-09-25 2022-09-25 Outpatient [facility] [id number] MD 13:03:21 15:31:37 CHERRY ruby 2022-09-25 2022-09-25 Follow-Up [facility], 1.2.840.1 [id number] [facility] 11:30:00 12:57:26 Horace 50685.1.1 ity of 3.412.2.7 [place] .3.919167 MD Morrison8 [facility] 2022-09-25 2022-09-25 Outpatient [facility] [id number] [place] 10:22:14 12:57:26 HORACE Gallardo so flori 2022-09-25 2022-09-25 Travel 1.2.840.1 1.2.143.480 4210 [id number] Univers 00:00:00 00:00:00 16899.1.1 350.1.13.41 ity of 3.412.2.7 2.2.7.3.698 [place] .3.618511 084.8 .8 [facility] 2022-09-25 2022-09-25 [facility], 1.2.840.1 [id number] [facility] 00:00:00 00:00:00 Only Horace 14212.1.1 ity of 3.412.2.7 [place] .3.947111 MD Morrison8 [facility] 2022-09-24 2022-09-24 [facility] MDA [id number] MD 13:50:58 23:59:00 CHERRY ruby 2022-09-24 2022-09-24 [facility], 1.2.840.1 [id number] [facility] 13:50:58 23:59:00 Encounter Cherry 25385.1.1 it y of 3.412.2.7 [place] .3.234694 MD Morrison8 [facility] 2022-09-24 2022-09-24 [facility], 1.2.840.1 [id number] [id number] [facility] 20:15:00 23:00:00 Procedure Cherry 63663.1.1 it y of 3.412.2.7 [place] .3.681176 MD Wilkins [facility] 2022-09-24 2022-09-24 Outpatient AMANDA MARC MDA MDA [id number] 18:49:19 18:49:19 CHERRY ruby 2022-09-24 2022-09-24 [facility], 1.2.840.1 [id number] [facility] 13:19:11 13:49:00 Encounter Cherry 08132.1.1 it y of 3.412.2.7 [place] .3.702035 MD Wilkins [facility] 2022-09-24 2022-09-24 Outpatient AMANDA MARC MDA MDA [id number] [place] 13:19:11 13:49:00 CHERRY ruby 2022-09-24 2022-09-24 Travel 1.2.840.1 1.2.802.285 3931 [id number] Univers 00:00:00 00:00:00 74135.1.1 350.1.13.41 ity of 3.412.2.7 2.2.7.3.698 [place] .3.763253 084.8 MD Wilkins [facility] 2022-09-05 2022-09-05 Follow-Up Perez 1.2.840.1 [id number] [facility] 13:00:00 13:00:00 Markel 70434.1.1 ity of 3.412.2.7 [place] .3.022248 MD Wilkins [facility] 2022-09-05 2022-09-05 Outpatient AMANDA TODD MDA [facility] [id number] 10:27:51 11:41:59 MARKEL ruby 2022-09-05 2022-09-05 Travel 1.2.840.1 1.2.681.506 9407 [id number] Univers 00:00:00 00:00:00 70337.1.1 350.1.13.41 ity of 3.412.2.7 2.2.7.3.698 [place] .3.877898 084.8 .8 [facility] 2022-09-04 2022-09-04 [facility], 1.2.840.1 [id number] [facility] 07:08:43 23:59:00 Encounter Cherry 91731.1.1 it y of 3.412.2.7 [place] .3.527802 .8 [facility] 2022-09-04 2022-09-04 Outpatient [facility] MDA [id number] MD 07:08:43 23:59:00 CHERRY [facility] 2022-09-04 2022-09-04 Outpatient [facility] MDA [id number] MD 10:29:29 12:52:16 CHERRY [facility] 2022-09-04 2022-09-04 [facility] 1.2.840.1 [id number] [facility] 10:00:00 12:52:16 Abida Rainey 21441.1.1 ity of 3.412.2.7 [place] .3.714484 MD Morrison8 [facility] 2022-09-04 2022-09-04 Follow-Up Autumn, 1.2.840.1 [id number] Univers 09:30:00 10:25:21 Horace 23674.1.1 ity of 3.412.2.7 [place] .3.959743 MD Morrison8 [facility] 2022-09-04 2022-09-04 Outpatient [facility] MDA [id number] MD 08:12:59 10:25:21 HORACE Gallardo so 2022-09-04 2022-09-04 Orders Autumn, 1.2.840.1 [id number] [facility] 00:00:00 00:00:00 Only Horace 46954.1.1 ity of 3.412.2.7 [place] .3.848267 MD Morrison8 [facility] 2022-09-04 2022-09-04 Orders Lenka, 1.2.840.1 [id number] Univers 00:00:00 00:00:00 Only Jennifer Norwood 35497.1.1 it y of 3.412.2.7 [place] .3.243967 MD Wilkins [facility] 2022-09-04 2022-09-04 Travel 1.2.840.1 1.2.874.252 6793 [id number] Univers 00:00:00 00:00:00 59626.1.1 350.1.13.41 ity of 3.412.2.7 2.2.7.3.698 [place] .3.030421 084.8 MD Morrison8 [facility] 2022-08-24 2022-08-24 Refdavis Chen, 1.2.840.1 [id number] Univers 00:00:00 00:00:00 Christa 03446.1.1 ity of 3.412.2.7 [place] .3.778031 MD Wilkins [facility] 2022-08-14 2022-08-14 [facility], 1.2.840.1 [id number] Univers 07:16:28 23:59:00 Encounter Cherry 43609.1.1 it y of 3.412.2.7 [place] .3.507358 MD Wilkins [facility] 2022-08-14 2022-08-14 Outpatient AMANDA MARC MDA MDA [id number] 07:16:28 23:59:00 CHERRY ruby 2022-08-14 2022-08-14 [facility] 1.2.840.1 [id number] Univers 12:30:00 12:30:00 Cherry 89191.1.1 ity of 3.412.2.7 [place] .3.456853 MD Wilkins [facility] 2022-08-14 2022-08-14 Outpatient AMANDA MARC MDA MDA [id number] MD 09:36:30 11:11:26 CHERRY ruby 2022-08-14 2022-08-14 Follow-Up Camilleenrique, 1.2.840.1 [id number] Univers 09:00:00 09:42:05 Cherry 78570.1.1 ity of 3.412.2.7 [place] .3.196453 MD Wilkins [facility] 2022-08-14 2022-08-14 Outpatient EL MONICO, [facility] [id number] 08:22:02 09:42:05 CHERRY villavicencio 2022-08-14 2022-08-14 Orders Star, 1.2.840.1 [id number] Univers 00:00:00 00:00:00 Only Jorge 09105.1.1 ity of 3.412.2.7 [place] .3.489842 MD Wilkins [facility] 2022-08-14 2022-08-14 Travel 1.2.840.1 1.2.079.137 2156 [id number] Univers 00:00:00 00:00:00 13519.1.1 350.1.13.41 ity of 3.412.2.7 2.2.7.3.698 [place] .3.319044 084.Rohan Wilkins [facility] 2022-08-10 2022-08-10 Telephone April, 1.2.840.1 [id number] Univers 00:00:00 00:00:00 Anespike 46954.1.1 ity of 3.412.2.7 [place] .3.065479 MD Wilkins [facility] 2022-08-10 2022-08-10 Documentat Ferrari, 1.2.840.1 [id number] Univers 00:00:00 00:00:00 ion Cristy Leiva 14629.1.1 i ty of 3.412.2.7 [place] .3.823429 MD Wilkins [facility] 2022-08-10 2022-08-10 Orders Neeru, 1.2.840.1 [id number] Univers 00:00:00 00:00:00 Only Isamar M 75506.1.1 ity of 3.412.2.7 [place] .3.691816 .8 [facility] 2022-07-25 2022-07-25 [facility], 1.2.840.1 [id number] Univers 00:00:00 00:00:00 Only Cristiano 61162.1.1 ity of 3.412.2.7 [place] .3.199582 MD Morrison8 [facility] 2022-07-24 2022-07-24 [facility], 1.2.840.1 [id number] [facility] 14:30:31 23:59:00 Encounter Cherry 05015.1.1 it y of 3.412.2.7 [place] .3.095114 MD Morrison8 [facility] 2022-07-24 2022-07-24 Outpatient [facility] [id number] [place] 14:30:31 23:59:00 CHERRY ruby 2022-07-24 2022-07-24 [facility], 1.2.840.1 [id number] [facility] 13:30:00 14:35:23 Cherry 01031.1.1 ity of 3.412.2.7 [place] .3.668196 MD Morrison8 [facility] 2022-07-24 2022-07-24 Outpatient [facility] [id number] [place] 12:01:23 14:35:23 CHERRY ruby 2022-07-24 2022-07-24 [facility], 1.2.840.1 [id number] [facility] 08:25:25 14:29:00 Encounter Cherry 17967.1.1 it y of 3.412.2.7 [place] .3.049554 MD Morrison8 [facility] 2022-07-24 2022-07-24 Outpatient [facility] [id number] [place] 08:25:25 14:29:00 CHERRY ruby 2022-07-24 2022-07-24 Follow-Up [facility], 1.2.840.1 [id number] Univers 10:30:00 11:00:00 Horace 97526.1.1 ity of 3.412.2.7 [place] .3.433931 MD Wilkins [facility] 2022-07-24 2022-07-24 Outpatient AMANDA LEYVA, [facility] [id number] 09:23:23 09:23:23 HORACE Sami [facility] 2022-07-24 2022-07-24 Orders Autumn, 1.2.840.1 [id number] Univers 00:00:00 00:00:00 Only Horace 84173.1.1 ity of 3.412.2.7 [place] .3.317533 MD Wilkins [facility] 2022-07-24 2022-07-24 [facility] Shreya Doss 1.2.840.1 [id number] Univers 00:00:00 00:00:00 Only 03899.1.1 ity of 3.412.2.7 [place] .3.742682 MD Wilkins [facility] 2022-07-24 2022-07-24 Travel 1.2.840.1 1.2.780.847 2639 [id number] Univers 00:00:00 00:00:00 53995.1.1 350.1.13.41 ity of 3.412.2.7 2.2.7.3.698 [place] .3.831002 084.8 MD Wilkins [facility] 2022-07-02 2022-07-02 [facility] Monico 1.2.840.1 [id number] Univers 00:00:00 00:00:00 Only Cherry 56871.1.1 ity of 3.412.2.7 [place] .3.784335 MD Wilkins [facility] 2022-06-29 2022-06-29 [facility] 1.2.840.1 [id number] Univers 08:15:00 23:59:00 Encounter Cherry 77077.1.1 it y of 3.412.2.7 [place] .3.535186 MD Morrison8 [facility] 2022-06-29 2022-06-29 Outpatient AMANDA CARRENOEnrique [facility] [id number] 08:15:00 23:59:00 CHERRY Almonte flori 2022-06-26 2022-06-26 Infusion Cherry Marc 1.2.840.1 [id number] [facility] 12:15:00 15:15:00 Dandy Rosenthal 16977.1.1 ity of 3.412.2.7 [place] .3.837660 .8 [facility] 2022-06-26 2022-06-26 Outpatient AMANDA YVETTEDENITA [facility] [id number] 12:33:20 12:33:20 CHERRY Almonte flori 2022-06-26 2022-06-26 Office Autumn 1.2.840.1 [id number] [facility] 11:30:00 12:26:57 Visit Horace 39889.1.1 ity of 3.412.2.7 [place] .3.857831 .8 [facility] 2022-06-26 2022-06-26 Outpatient AMANDA AUTUMN, [facility] [id number] 10:57:46 12:26:57 HORACE Sami [facility] 2022-06-26 2022-06-26 Orders Autumn, 1.2.840.1 [id number] Univers 00:00:00 00:00:00 Only Horace 81259.1.1 ity of 3.412.2.7 [place] .3.051749 .8 [facility] 2022-06-26 2022-06-26 Orders Shreya Doss 1.2.840.1 [id number] Univers 00:00:00 00:00:00 Only 98830.1.1 ity of 3.412.2.7 [place] .3.137980 MD Morrison8 [facility] 2022-06-26 2022-06-26 Travel 1.2.840.1 1.2.590.347 1116 [id number] Univers 00:00:00 00:00:00 50686.1.1 350.1.13.41 ity of 3.412.2.7 2.2.7.3.698 [place] .3.340905 084.8 MD Morrison8 [facility] 2022-06-25 2022-06-25 Outpatient [facility] [id number] MD 07:51:29 23:59:00 CHERRY ruby 2022-06-25 2022-06-25 [facility], 1.2.840.1 [id number] Univers 07:51:29 23:59:00 Encounter Cherry 85031.1.1 it y of 3.412.2.7 [place] .3.721031 MD Morrison8 [facility] 2022-06-25 2022-06-25 [facility], 1.2.840.1 [id number] Univers 19:15:00 22:00:00 Procedure Cherry 44863.1.1 it y of 3.412.2.7 [place] .3.087517 MD Morrison8 [facility] 2022-06-25 2022-06-25 Outpatient [facility] [id number] 18:35:01 18:35:01 CHERRY Gagealexi ruby 2022-06-25 2022-06-25 [facility], 1.2.840.1 [id number] [id number] Univers 06:50:00 08:15:00 Procedure Cherry 28541.1.1 it y of 3.412.2.7 [place] .3.160341 .8 [facility] 2022-06-25 2022-06-25 Outpatient [facility] [id number] MD 06:33:41 06:33:41 CHERRY ruby 2022-06-25 2022-06-25 Travel 1.2.840.1 1.2.027.851 1322 [id number] [facility] 00:00:00 00:00:00 74369.1.1 350.1.13.41 ity of 3.412.2.7 2.2.7.3.698 [place] .3.557927 084.8 MD [facility]kins [facility] [place] 2022-06-15 2022-06-15 Outpatient [facility] MDA [id number] [place] 07:42:55 23:59:00 AMY Gage o n 2022-06-15 2022-06-15 [facility] 1.2.840.1 [id number] [facility] 07:42:55 23:59:00 Encounter Amy Garcia 75736.1.1 ity of 3.412.2.7 [place] .3.016593 MD Morrison8 [facility] 2022-06-15 2022-06-15 [facility] Jose 1.2.840.1 [id number] [facility] 09:45:00 10:24:26 Visit Isamar Siddiqi 32395.1.1 ity of 3.412.2.7 [place] .3.690466 MD Morrison8 [facility] 2022-06-15 2022-06-15 Outpatient [facility] MDA [id number] [place] 08:59:51 10:24:26 AMY Gage o flori 2022-06-15 2022-06-15 Travel 1.2.840.1 1.2.426.741 [id number] [facility] 00:00:00 00:00:00 32049.1.1 350.1.13.41 ity of 3.412.2.7 2.2.7.3.698 [place] .3.875685 084.8 MD Morrison8 [facility] 2022-06-04 2022-06-04 TelemedicConstantine Mirza 1.2.840.1 [id number] [facility] 14:30:00 14:30:00 Cristiano Guy 64065.1.1 ity of 3.412.2.7 [place] .3.474607 MD Wilkins [facility] 2022-06-04 2022-06-04 Outpatient [facility] MDA [id number] [place] 14:11:00 14:29:24 CONSTANTINE Rodriguezalexi ruby 2022-06-04 2022-06-04 Telephone Babatunde, 1.2.840.1 [id number] Univers 00:00:00 00:00:00 Yaw B 47620.1.1 i ty of 3.412.2.7 [place] .3.554568 MD Morrison8 [facility] 2022-05-18 2022-05-18 Orders [facility], 1.2.840.1 [id number] Univers 00:00:00 00:00:00 Only Cristiano 11960.1.1 ity of 3.412.2.7 [place] .3.233632 MD Morrison8 [facility] 2022-05-18 2022-05-18 Orders [facility], 1.2.840.1 [id number] Univers 00:00:00 00:00:00 Only Cristiano 41294.1.1 ity of 3.412.2.7 [place] .3.741837 MD [facility]kins [facility] 2022-05-16 2022-05-16 Outpatient [facility] [id number] [place] 06:59:44 23:59:00 CHERRY ruby 2022-05-16 2022-05-16 [facility], 1.2.840.1 [id number] [facility] 06:59:44 23:59:00 Encounter Cherry 33528.1.1 it y of 3.412.2.7 [place] .3.562437 MD Morrison8 [facility] 2022-05-15 2022-05-15 Outpatient [facility] [id number] MD 09:06:43 23:59:00 CHERRY ruby 2022-05-15 2022-05-15 [facility], 1.2.840.1 [id number] [facility] 09:06:43 23:59:00 Encounter Cherry 75951.1.1 it y of 3.412.2.7 [place] .3.096820 MD [facility]kins [facility] 2022-05-15 2022-05-15 [facility], 1.2.840.1 [id number] Univers 13:30:00 13:31:25 Cherry 99475.1.1 ity of 3.412.2.7 [place] .3.200579 MD Morrison8 [facility] 2022-05-15 2022-05-15 Outpatient AMANDA MARC MDA [facility] [id number] 11:01:41 13:31:25 CHERRY ruby 2022-05-15 2022-05-15 Office Monico, 1.2.840.1 [id number] [facility] 11:00:00 11:04:09 Visit Cherry 65758.1.1 ity of 3.412.2.7 [place] .3.724414 MD Morrison8 [facility] 2022-05-15 2022-05-15 Outpatient AMANDA MARC MDA [facility] [id number] 09:46:24 11:04:09 CHERRY ruby 2022-05-15 2022-05-15 Travel 1.2.840.1 1.2.131.567 [id number] [id number] Univers 00:00:00 00:00:00 56009.1.1 350.1.13.41 ity of 3.412.2.7 2.2.7.3.698 [place] .3.762024 084.8 MD Morrison8 [facility] 2022-05-02 2022-05-02 Office Perez, 1.2.840.1 [id number] [facility] 13:30:00 13:35:14 Visit Markel 79708.1.1 ity of 3.412.2.7 [place] .3.068686 MD Morrison8 [facility] 2022-05-02 2022-05-02 Outpatient AMANDA TODD MDA MDA [id number] 13:11:50 13:35:14 MRAKEL ruby 2022-05-02 2022-05-02 Travel 1.2.840.1 1.2.036.118 7082 [id number] Univers 00:00:00 00:00:00 54809.1.1 350.1.13.41 ity of 3.412.2.7 2.2.7.3.698 [place] .3.284979 084.8 .8 [facility] [place] 2022-04-25 2022-04-25 Outpatient AMANDA VENEGAS MDA MDA [id number] 12:47:44 12:47:44 AMY Almonte o flori 2022-04-24 2022-04-24 Outpatient MONICO LORI MDA [id number] MD 10:07:07 23:59:00 CHERRY Almonte o n 2022-04-24 2022-04-24 [facility], 1.2.840.1 [id number] [facility] 10:07:07 23:59:00 Encounter Cherry 16790.1.1 it y of 3.412.2.7 [place] .3.222301 .8 [facility] 2022-04-24 2022-04-24 [facility], 1.2.840.1 [id number] [facility] 14:30:00 17:30:00 Cherry 12972.1.1 ity of 3.412.2.7 [place] .3.162237 .8 [facility] 2022-04-24 2022-04-24 [facility], 1.2.840.1 [id number] [facility] 11:30:00 12:14:59 Visit Horace 19718.1.1 ity of 3.412.2.7 [place] .3.370806 .8 [facility] 2022-04-24 2022-04-24 Outpatient [facility], [facility] MDA [id number] 10:29:27 12:14:59 HORACE Sami so n 2022-04-24 2022-04-24 Outpatient MONICO LORI MDA [id number] MD 12:09:37 12:09:37 CHERRY Gage o n 2022-04-24 2022-04-24 Datil MelidaAmy alejandro. 1.2.840.1 [id number] [facility] 11:00:00 11:30:00 Arabella Braswell 77046.1.1 ity of 3.412.2.7 [place] .3.572060 .8 [facility] 2022-04-24 2022-04-24 Orders Wade, 1.2.840.1 [id number] Univers 00:00:00 00:00:00 Only Cristiano 22626.1.1 ity of 3.412.2.7 [place] .3.560262 .8 [facility] 2022-04-24 2022-04-24 Travel 1.2.840.1 1.2.697.694 [id number] Univers 00:00:00 00:00:00 80271.1.1 350.1.13.41 ity of 3.412.2.7 2.[place]7.3.698 [place] .3.622728 084.8 MD Morrison8 [facility] 2022-04-05 2022-04-[address] [facility], MDA MDA [id number] 13:13:40 13:34:29 MERCEDES ruby 2022-04-03 2022-04-03 Outpatient [facility], MDA MDA [id number] 12:57:19 16:55:45 CHERRY ruby 2022-04-03 2022-04-03 Outpatient [facility], MDA MDA [id number] 11:05:21 12:31:23 HORACE ruby 2022-03-31 2022-03-31 [facility] MDA [id number] 07:06:27 23:59:00 CHERRY ruby 2022-03-31 2022-03-31 [facility] MDA [id number] 07:35:16 07:35:16 CHERRY ruby 2022-03-31 2022-03-31 [facility] MDA [id number] 06:52:18 07:05:00 CHERRY ruby 2022-03-13 2022-03-13 [facility] MDA [id number] 08:45:00 23:59:00 CHERRY Almonte o n 2022-03-13 2022-03-13 Outpatient [facility], MDA MDA [id number] MD 11:22:28 13:35:10 CHERRY ruby 2022-03-13 2022-03-13 [facility] MDA [id number] MD 09:43:35 11:21:25 HORACE Gallardo so n 2022-02-20 2022-02-20 Outpatient [facility], MDA MDA [id number] MD 09:31:41 23:59:00 CHERRY Almonte o n 2022-02-20 2022-02-20 Outpatient [facility], MDA MDA [id number] MD 12:20:04 14:42:40 CHERRY Almonte o n 2022-02-20 2022-02-20 Outpatient [facility], MDA MDA [id number] MD 10:26:10 12:18:09 CHERRY Almonte o flori 2022-02-19 2022-02-19 Outpatient [facility], MDA MDA [id number] MD 15:34:57 15:51:33 CONSTANTINE Almonte o n 2022-01-30 2022-01-30 [facility] MDA [id number] MD 09:47:33 23:59:00 CHERRY Almonte o flori 2022-01-01 2022-01-01 Outpatient EL HAWK, ELROY MDA MDA [id number] MD 18:44:59 18:44:59 Gage o flori 2022-01-01 2022-01-01 Outpatient EL HAWK, ELROY MDA MDA [id number] 13:30:00 13:56:00 Gage o flori 2021-12-13 2021-12-13 Outpatient EL THOSANI, MDA MDA [id number] 08:15:16 09:06:08 AMY Almonte o flori 2021-12-12 2021-12-12 Outpatient EL THOSANI, MDA MDA [id number] MD 09:15:00 23:59:00 AMY Almonte o flori 2021-12-12 2021-12-12 Outpatient [facility], MDA MDA [id number] MD 11:54:24 13:20:17 CHERRY Almonte o n 2021-12-12 2021-12-12 Outpatient EL AUTUMN, MDA MDA [id number] 10:01:07 11:52:22 HORACE Sami so n 2021-11-29 2021-11-29 Outpatient EL SATURNINOVALB, MDA MDA [id number] 08:31:15 15:40:41 SIMEON Almonte o n 2021-11-21 2021-11-21 Outpatient EL HUSAIN, MDA MDA [id number] MD 06:21:58 23:59:00 SHELTON And erso n 2021-11-21 2021-11-21 Outpatient EL HUSAIN, MDA MDA [id number] 09:06:46 12:25:16 SHELTON And erso n 2021-11-21 2021-11-21 Outpatient EL AUTUMN, MDA MDA [id number] 07:17:24 09:12:01 HORACE Sami so n 2021-11-04 2021-11-06 Inpatient ER IBANEZ, MDA Oncology [id number] 18:31:00 21:46:00 TIM Almonte o flori 2021-10-31 2021-10-31 Outpatient EL HAWK, ELROY MDA MDA [id number] 10:00:00 23:59:00 Gage o flori 2021-10-31 2021-10-31 Outpatient EL HAWK, ELROY MDA MDA [id number] 12:00:42 12:00:42 Gage o flori 2021-10-31 2021-10-31 Outpatient [facility], MDA MDA [id number] 10:45:51 11:53:28 HORACE Sami so n 2021-10-18 2021-10-18 Outpatient EL AUTUMN, MDA MDA [id number] 07:20:46 07:20:46 HORACE Sami so n 2021-10-10 2021-10-10 Outpatient EL HAWK, ELROY MDA MDA [id number] 05:59:36 23:59:00 Gage o flori 2021-10-10 2021-10-10 Outpatient EL AUTUMN, MDA MDA [id number] 11:19:07 11:50:16 HORACE Sami so n 2021-10-10 2021-10-10 Outpatient EL AUTUMN, MDA MDA [id number] 07:17:41 10:55:09 HORACE Sami so n 2021-10-09 2021-10-09 Outpatient EL HAWK, ELROY MDA MDA [id number] MD 12:45:00 23:59:00 Gage o n 2021-10-09 2021-10-09 Outpatient EL HAWK, ELROY MDA MDA [id number] MD 15:41:21 15:41:21 Gage o n 2021-09-25 2021-09-25 Outpatient EL MAMLOUK, MDA MDA [id number] MD 13:14:26 13:20:32 CRISTIANO Rodriguezers o n 2021-09-19 2021-09-19 Outpatient EL ADRIAZOLA, MDA MDA [id number] 07:30:14 23:59:00 ASHLI Rodriguezers o n 2021-09-19 2021-09-19 Outpatient EL ADRIAZOLA, MDA MDA [id number] 09:40:14 11:07:21 ASHLI Rodriguezers o n 2021-09-19 2021-09-19 Outpatient EL AUTUMN, MDA MDA [id number] 08:06:24 09:40:36 HORACE Rodriguezer so n 2021-08-30 2021-08-30 Outpatient EL SZVALB, MDA MDA [id number] 08:41:48 10:09:46 SIMEON Rodriguezers o n 2021-08-29 2021-08-29 Outpatient EL NARVIOS, MDA MDA [id number] 09:29:37 23:59:00 ROSE Rodriguezers o n 2021-08-29 2021-08-29 Outpatient EL NARVIOS, MDA MDA [id number] 11:28:26 13:41:20 ROSE Rodriguezers o n 2021-08-29 2021-08-29 Outpatient EL AUTUMN, MDA MDA [id number] MD 10:18:57 11:21:39 HORACE Rodriguezer so n 2021-08-10 2021-08-10 Outpatient EL BIANCA, MDA MDA [id number] MD 10:30:32 10:30:32 NATA Almonte o n 2021-08-10 2021-08-10 Outpatient EL SUMMER MELENDREZ MDA MDA [id number] 08:39:58 10:25:10 Gage o flori 2021-08-09 2021-08-09 Outpatient EL PEREZ, MDA MDA [id number] MD 12:16:46 13:33:19 MARKEL Almonte o flori 2021-08-08 2021-08-08 Outpatient EL ARTURO, MDA MDA [id number] 11:23:48 23:59:00 ROSE Almonte o n 2021-08-08 2021-08-08 Outpatient EL ARTURO, MDA MDA [id number] 09:10:09 11:22:00 ROSE Almonte o flori 2021-08-08 2021-08-08 Outpatient EL AUTUMN, MDA MDA [id number] 08:48:29 11:09:54 HORACE Gallardo so flori 2021-08-08 2021-08-08 Outpatient EL KANDACE, MDA MDA [id number] 09:49:15 10:48:21 FIDEL ruby 2021-08-04 2021-08-04 Outpatient EL ARTURO, MDA MDA [id number] 16:56:46 16:56:46 ROSE ruby 2021-08-02 2021-08-02 Outpatient RYAN, MDA MDA [id number] 08:25:12 23:59:00 CONSTANTINE Almonte o flori 2021-08-01 2021-08-01 Outpatient RYAN, MDA MDA [id number] 12:00:00 23:59:00 CONSTANTINE Almonte o flori 2021-07-29 2021-07-29 Outpatient EL ARTURO, MDA MDA [id number] MD 09:46:26 23:59:00 ROSE Almonte o flori 2021-07-18 2021-07-18 Outpatient EL ARTURO, MDA MDA [id number] MD 11:27:24 13:35:03 ROSE Almonte o flori 2021-07-18 2021-07-18 Outpatient EL AUTUMN, MDA MDA [id number] 09:16:34 11:19:25 HORACE Gallardo so n 2021-07-17 2021-07-17 Outpatient EL NARVIOS, MDA MDA [id number] MD 08:45:00 23:59:00 ROSE Gage o n 2021-07-17 2021-07-17 Outpatient EL NARVIOS, MDA MDA [id number] MD 19:16:12 19:16:12 ROSE Rodriguezers o n 2021-07-17 2021-07-17 Outpatient EL NARVIOS, MDA MDA [id number] MD 13:44:06 13:44:06 ROSE Gage o n 2021-06-27 2021-06-27 Outpatient EL MDA MDA [id number] MD 10:08:58 23:59:00 Gage o n 2021-06-27 2021-06-27 Outpatient EL HAWK, ELROY MDA MDA [id number] MD 14:24:30 17:01:42 Gage o n 2021-06-27 2021-06-27 Outpatient EL AUTUMN, MDA MDA [id number] MD 12:01:07 14:33:04 HORACE Sami so n 2021-06-06 2021-06-06 Outpatient EL MDA MDA [id number] MD 10:49:43 23:59:00 Gage o flori 2021-06-06 2021-06-06 Outpatient EL KONG, MDA MDA [id number] MD 15:09:19 17:08:05 Julieta ruby 2021-06-06 2021-06-06 Outpatient EL AUTUMN, MDA MDA [id number] 12:14:33 15:11:03 HORACE Rodriguezer so n 2021-06-01 2021-06-01 Outpatient EL MDA MDA [id number] MD 10:17:17 14:56:27 Gage o n 2021-05-22 2021-05-22 Outpatient EL RYAN, MDA MDA [id number] MD 14:18:50 14:40:54 CONSTANTINE Rodriguezers o n 2021-05-16 2021-05-16 Outpatient EL NARVIOS, MDA MDA [id number] 09:55:52 23:59:00 ROSE Rodriguezers o n 2021-05-16 2021-05-16 Outpatient EL MDA MDA [id number] MD 12:33:51 14:27:45 Gage o n 2021-05-16 2021-05-16 Outpatient EL AUTUMN, MDA MDA [id number] 11:14:40 12:40:52 HORACE Rodriguezer so n 2021-04-26 2021-04-26 Outpatient EL PEREZ, MDA MDA [id number] MD 13:33:19 14:38:02 MARKEL Almonte o n 2021-04-18 2021-04-18 Outpatient EL NARVIOS, MDA MDA [id number] MD 12:19:43 13:36:52 ROSE Rodriguezers o n 2021-04-18 2021-04-18 Outpatient EL AUTUMN, MDA MDA [id number] MD 10:57:49 11:51:55 HORACE Gallardo so n 2021-04-17 2021-04-17 Outpatient EL NARVIOS, MDA MDA [id number] 07:22:25 23:59:00 ROSE Rodriguezers o n 2021-04-17 2021-04-17 Outpatient EL NARVIOS, MDA MDA [id number] 14:06:42 14:06:42 ROSE Rodriguezers o n 2021-04-17 2021-04-17 Outpatient EL NARVIOS, MDA MDA [id number] 05:54:34 05:54:34 ROSE Almonte o n 2021-03-28 2021-03-28 Outpatient EL NARVIOS, MDA MDA [id number] 06:54:12 23:59:00 ROSE Rodriguezers o flori 2021-03-28 2021-03-28 Outpatient EL NARVIOS, MDA MDA [id number] 10:14:49 16:07:46 ROSE Rodriguezers o n 2021-03-28 2021-03-28 Outpatient EL AUTUMN, MDA MDA [id number] 08:06:28 10:13:27 HORACE Rodriguezer so n 2021-03-07 2021-03-07 Outpatient EL NARVIOS, MDA MDA [id number] 08:03:25 23:59:00 ROSE Rodriguezers o n 2021-03-07 2021-03-07 Outpatient EL NARVIOS, MDA MDA [id number] 13:04:35 13:04:35 ROSE Almonte o n 2021-03-07 2021-03-07 Outpatient EL AUTUMN, MDA MDA [id number] MD 09:13:07 12:54:31 HORACE Sami so n 2021-02-28 2021-02-28 Outpatient EL NEERU, MDA MDA [id number] 06:45:16 23:59:00 ISAMAR Almonte o n 2021-02-28 2021-02-28 Outpatient EL TORRES, MDA MDA [id number] 07:41:11 09:34:09 AMOS Almonte o n 2021-02-14 2021-02-14 Outpatient EL ARTURO, MDA MDA [id number] 07:32:58 23:59:00 ROSE Almonte o n 2021-02-14 2021-02-14 Outpatient AUTUMN, MDA MDA [id number] 08:13:35 10:56:41 HORACE Gallardo so n 2021-02-08 2021-02-08 Outpatient ARTURO, MDA MDA [id number] 12:42:00 23:59:00 ROSE Almonte o n 2021-02-07 2021-02-07 Outpatient [facility], MDA MDA [id number] MD 08:16:25 09:43:21 CONSTANTINE Almonte o flori 2021-02-07 2021-02-07 Outpatient [facility], MDA MDA [id number] MD 09:40:59 09:40:59 CONSTANTINE Almonte o flori 2021-02-06 2021-02-06 Outpatient [facility], MDA MDA [id number] MD 10:17:07 23:59:00 CONSTANTINE Rodriguezers o n 2021-02-06 2021-02-06 Outpatient [facility], MDA MDA [id number] MD 14:32:06 15:02:46 CONSTANTINE Almonte o flori 2021-02-06 2021-02-06 Outpatient [facility], MDA MDA [id number] MD 10:43:36 11:32:48 CONSTANTINE Almonte o flori 2021-01-27 2021-01-27 Outpatient [facility], MDA MDA [id number] MD 08:27:05 23:59:00 CONSTANTINE Gage o n 2021-01-24 2021-01-24 Outpatient EL FANNYOS, MDA MDA [id number] MD 08:53:33 23:59:00 ROSEFÉLIX Rodriguezers o n 2021-01-24 2021-01-24 Outpatient EL AUTUMN, MDA MDA [id number] MD 09:42:51 10:58:12 HORACE Sami so n 2021-01-20 2021-01-20 Outpatient EL FANNYOS, MDA MDA [id number] MD 12:06:37 23:59:00 ROSE Gage o n 2021-01-20 2021-01-20 Outpatient EL FANNYOS, MDA MDA [id number] MD 16:33:38 16:33:38 ROSE Gage o n 2021-01-20 2021-01-20 Outpatient ARTURO, MDA MDA [id number] MD 11:30:24 12:05:00 ROSE Gage o n 2020-12-29 2020-12-29 Outpatient [facility], MDA MDA [id number] MD 10:02:04 10:02:04 CONSTANTINE Gage o n 2020-12-15 2020-12-19 Inpatient [facility], MDA Urology [id number] MD 04:51:00 13:46:00 CONSTANTINE Gage o n 2020-12-13 2020-12-13 Outpatient [facility], MDA MDA [id number] MD 09:55:00 23:59:00 CONSTANTINE Gage o n 2020-12-13 2020-12-13 Outpatient [facility], MDA MDA [id number] MD 10:35:39 11:13:16 CONSTANTINE Gage o n 2020-12-13 2020-12-13 Outpatient [facility], MDA MDA [id number] MD 09:39:38 09:55:21 CONSTANTINE Gage o n 2020-12-06 2020-12-06 Outpatient [facility], MDA MDA [id number] MD 13:30:00 23:59:00 CONSTANTINE Gage o n 2020-12-06 2020-12-06 Outpatient [facility], MDA MDA [id number] MD 13:08:24 15:45:34 CONSTANTINE Rodriguezers o n 2020-12-06 2020-12-06 Outpatient EL RYAN, MDA MDA [id number] MD 13:07:38 15:45:23 CONSTANTINE Almonte o n 2020-12-06 2020-12-06 Outpatient EL RYAN, MDA MDA [id number] MD 10:14:26 13:05:17 CONSTANTINE Rodriguezers o n 2020-11-17 2020-11-17 Outpatient EL FLO, MDA MDA [id number] MD 14:46:39 15:16:58 BERNARDINO Almonte o n 2020-11-15 2020-11-15 Outpatient EL AUTUMN, MDA MDA [id number] 11:08:43 11:08:43 HORACE Rodriguezer so n 2020-11-06 2020-11-11 Inpatient ER ALROSMERY, MDA Oncology 10 [id number] 21:38:00 10:45:00 CRISTIANO Almonte o flori 2020-11-07 2020-11-07 Inpatient EL HASSAN, MDA MDA [id number] MD 17:05:39 17:29:17 PRAFUL Almonte o flori 2020-10-26 2020-10-26 Outpatient EL AUTUMN, MDA MDA [id number] 08:52:29 08:52:29 HORACE Rodriguezer so n 2020-10-25 2020-10-25 Outpatient EL RYAN, MDA MDA [id number] 13:27:42 14:16:13 CONSTANTINE Almonte o n 2020-10-21 2020-10-21 Outpatient EL MDA MDA [id number] MD 12:58:27 12:58:27 Gage o flori 2020-10-18 2020-10-18 Outpatient EL NARVIOS, MDA MDA [id number] 07:15:00 23:59:00 ROSE Almonte o flori 2020-10-18 2020-10-18 Outpatient EL AUTUMN, MDA MDA [id number] 08:50:51 10:35:05 HORACE Rodriguezer so n 2020-10-13 2020-10-13 Outpatient EL AUTUMN, MDA MDA [id number] 11:15:46 11:15:46 HORACE ruby 2020-10-02 2020-10-08 Inpatient ER SIEFKER-RAD MDA Oncology [id number] 06:32:00 16:18:00 SULEMAN JANEfawn n 2020-10-08 2020-10-08 Inpatient ER RYAN, MDA MDA [id number] MD 15:44:09 15:59:29 CONSTANTINE ruby 2020-10-05 2020-10-05 Inpatient ER HEIDY, MDA MDA [id number] MD 11:31:38 13:06:50 DAWN ruby 2020-10-04 2020-10-04 Inpatient ER IBANEZ, MDA MDA [id number] MD 08:43:35 09:06:09 TIM ruby 2020-09-27 2020-09-29 Outpatient EL IBANEZ, MDA Oncology [id number] 18:03:00 20:24:00 TIM ruby 2020-09-27 2020-09-27 Outpatient EL IBANEZ, MDA MDA [id number] MD 18:45:17 18:59:59 TIM ruby 2020-09-27 2020-09-27 Outpatient EL AUTUMN, MDA MDA [id number] 10:58:00 13:51:54 HORACE ruby 2020-09-26 2020-09-26 Outpatient EL ASHAVICHIP, MDA MDA [id number] MD 17:58:13 23:59:00 ROSE ruby 2020-09-26 2020-09-26 Outpatient EL NARVIOS, MDA MDA [id number] 14:26:43 17:57:00 ROSE ruby 2020-09-26 2020-09-26 Outpatient EL NARVIOS, MDA MDA [id number] 14:46:44 14:46:44 ROSE ruby 2020-09-20 2020-09-20 Outpatient EL NARVIOS, MDA MDA [id number] MD 06:57:31 23:59:00 ROSE ruby 2020-09-20 2020-09-20 Outpatient EL NARVIOS, MDA MDA [id number] 08:28:39 15:12:48 ROSE ruby 2020-09-13 2020-09-15 Inpatient AMANDA DOSS, MDA Oncology [id number] 10:11:00 16:07:00 HARRY ruby 2020-09-13 2020-09-13 Inpatient AMANDA DOSS, MDA MDA [id number] MD 11:42:35 12:36:17 HARRY ruby 2020-09-13 2020-09-13 Outpatient AMANDA MORRIS, MDA MDA [id number] 06:15:38 10:10:00 ROSE ruby 2020-09-13 2020-09-13 Outpatient AMANDA MORRIS, MDA MDA [id number] 07:27:39 09:56:08 ROSE ruby 2020-09-06 2020-09-06 Outpatient AMANDA MORRIS, MDA MDA [id number] 14:19:36 23:59:00 ROSE ruby 2020-09-06 2020-09-06 Outpatient AMANDA MORIRS, MDA MDA [id number] 13:40:31 14:18:00 ROSE ruby 2020-09-06 2020-09-06 Outpatient AMANDA MORRIS, MDA MDA [id number] 10:34:43 13:39:00 ROSE ruby 2020-09-06 2020-09-06 Outpatient AMANDA LEYVA, MDA MDA [id number] 11:29:34 13:21:37 HORACE Gallardo so flori 2020-08-30 2020-08-30 Outpatient AMANDA LEYVA, MDA MDA [id number] 17:15:04 23:59:00 HORACE Gallardo so flori 2020-08-30 2020-08-30 Outpatient AMANDA MORRIS, MDA MDA [id number] 09:21:02 17:14:00 ROSE ruby 2020-08-23 2020-08-26 Inpatient AMANDA TRACEY, MDA Oncology [id number] 17:35:00 12:30:00 CHIDI ruby 2020-08-23 2020-08-23 Outpatient AMANDA LEYVA, MDA MDA [id number] 23:32:39 23:49:09 HORACE Gallardo so n 2020-08-23 2020-08-23 Outpatient EL NARVIOS, MDA MDA [id number] 10:24:48 17:34:00 ROSE Gage o n 2020-08-23 2020-08-23 Outpatient EL AUTUMN, MDA MDA [id number] MD 11:02:42 11:42:17 HORACE Sami so n 2020-08-16 2020-08-16 Outpatient EL NARVIOS, MDA MDA [id number] 09:45:00 23:59:00 ROSE Gage o n 2020-08-16 2020-08-16 Outpatient EL NARVIOS, MDA MDA [id number] MD 16:27:42 16:27:42 ROSE Rodriguezers o n 2020-08-09 2020-08-11 Outpatient EL IBANEZ, MDA Oncology 947 [id number] 18:29:00 08:11:00 TIM villavicencio n 2020-08-09 2020-08-09 Outpatient EL AUTUMN, MDA MDA [id number] 20:28:12 21:02:23 HORACE Sami so n 2020-08-09 2020-08-09 Outpatient EL NARVIOS, MDA MDA [id number] MD 11:24:03 18:28:00 ROSE Gage o n 2020-08-09 2020-08-09 Outpatient EL NARVIOS, MDA MDA [id number] MD 07:20:12 11:23:00 ROSE Rodriguezers o n 2020-08-09 2020-08-09 Outpatient EL AUTUMN, MDA MDA [id number] 08:41:36 10:34:28 HORACE Rodriguezer so n 2020-08-05 2020-08-05 Outpatient NARVIOS, MDA MDA [id number] MD 13:41:56 13:41:56 ROSE Rodriguezers o n 2020-08-05 2020-08-05 Outpatient NARVIOS, MDA MDA [id number] MD 13:41:54 13:41:54 ROSE Rodriguezers o n 2020-08-05 2020-08-05 Outpatient NARVIOS, MDA MDA [id number] MD 13:41:52 13:41:52 ROSE Rodriguezers o n 2020-08-02 2020-08-02 Outpatient EL RYAN, MDA MDA [id number] MD 14:56:45 23:59:00 CONSTANTINE Almonte o flori 2020-08-02 2020-08-02 Outpatient EL RYAN, MDA MDA [id number] 14:27:27 14:55:00 CONSTANTINE Almonte o flori 2020-08-02 2020-08-02 Outpatient EL ARTURO, MDA MDA [id number] 13:11:17 14:26:00 ROSE Gagealexi ruby 2020-08-02 2020-08-02 Outpatient EL AUTUMN, MDA MDA [id number] 11:26:32 12:41:59 HORACE Gallardo so n 2020-08-02 2020-08-02 Outpatient EL RYAN, MDA MDA [id number] 11:17:12 11:52:34 CONSTANTINE Almonte saud ruby 2020-08-02 2020-08-02 Outpatient EL RYAN, MDA MDA [id number] 08:52:06 11:33:00 CONSTANTINE Gagealexi ruby 2020-08-02 2020-08-02 Outpatient EL MDA MDA [id number] 08:45:07 08:45:17 Gage ruby 2020-07-31 2020-07-31 Outpatient EL RYAN, MDA MDA [id number] 11:30:23 12:16:19 CONSTANTINE Almonte saud ruby 2020-07-06 2020-07-06 [id number] [facility] 00:00:00 00:00:00 2020-01-27 2020-01-27 Outpatient INCAVO, [facility] [id number] [place] 00:00:00 00:00:00 ENRIQUE [address] 2020-01-27 2020-01-27 Outpatient INCAVO, [facility] [id number] [place] 00:00:00 00:00:00 ENRIQEU [address] 2020-01-27 2020-01-27 Outpatient INCAVO, [facility] [id number] [place] 00:00:00 00:00:00 ENRIQUE [address] Results Test Description Test Time Test Comments Results Result [facility] e Comments Fractionated 2023-03-26 [facility] o f Bilirubin 14:13:50 Total<0.3<=1. [place] 2 mg/dLVERNONYS [facility] Glomerular Filtration Rate 2023-03-26 14:13:49 Test Item Value Reference Range Interpretation Comme nts eGFR (test code = 09039-8) 46 See_Comment Johnny Rascon he eGFRcr is calculated with the 2020 CKD-EPI cr eatinine equation using creatinin e, patient's age, and sex for francesca lts 18 years of age and older. Othe r factors, especially musc le mass, may affect accuracy and ne ed to be considered.Acco rding to the Kidney Disease: Improv ing Global Outcomes (KDIGO) CKD Wor k Group 2012 Clinical Practi ce Guideline, chronic kidney disease (CKD) is defined as the abnormalities of kidney structur e or function, present for mor e than 3 months, with implicatio ns for health. CKD should be class ified by cause, GFR category, and a lbuminuria category. KDIGO guidelines provide the following G FR categoriesStage Description GFR mL/min/1.73 m2G1* Normal or high >= 90G2* Mildly decreased 60-89 G3a Mildly to moderately decr eased 45-59G3b Moderately to s everely decreased 30-44G4 Severel y decreased 15-29G5 Kidney failure <15*In the absence of evidence of kidney damage, neither G1 nor G2 fulfill criteria for CKD. Testin g Performed at [facility] Lab Readers' Advisory Service Librarian [facility], [address] [place] [address], [address], [place] [address] [Autom ated message] The system which ge nerated this result transmitted ref erence range: >=60 mL/min/1.73 sq. m. The reference range was not u sed to interpret this result as normal/abnormal. Lab Interpretation (test Abnormal code = 32139-6) [facility] [id number] 14:13:48 Test Item Value Reference Range Interpretation Comments Total Protein (test 7.8 g/dL 6.4-8.3 Testing Performed at [facility] code = 2885-2) Lab Ambulator y Care [facility], [address], [address], [place] [address] [facility]osphorus [id number] 14:13:47 Test Item Value Reference Range Interpretation Comments Phosphorus (test code 3.1 mg/dL 2.5-4.5 Testin g Performed at = 0435-1) [facility] Lab Ambulat ory Care Bldg, [address], [address], [place] [address] [facility]Magnesium [id number] 14:13:46 Test Item Value Reference Range Interpretation Comments Magnesium (test code = 1.9 mg/dL 1.6-2.6 [place] [address]-7) [facility] Lab Ambulat ory Care Bldg, [address], [address], [place] [address] [facility]Calcium [id number] 14:13:45 Test Item Value Reference Range Interpretation Comments Calcium Lvl (test 9.7 mg/dL 8.4-10.2 Testing Pe rformed at code = 20778-4) [facility] Lab Ambu latory Care Bl, [address], [address], [place], [place] [address] [facility] HospitalAlkaline [id number] 14:13:44 Test Item Value Reference Range Interpretation Comments Alk Phos (test code = 96 U/L 40-129 Testin g Performed at [facility] 6768-6) Lab Readers' Advisory Service Librarian [facility], [address], [place] [address] [facility] HospitalAlbumin [id number] 14:13:43 Test Item Value Reference Range Interpretation Comments Albumin Lvl (test code 4.2 See_Comment Testi ng Performed at B = 1751-7) Lab Readers' Advisory Service Librarian [facility], [address], [address], [place] [address] [Automated mess age] The system which ge nerated this result tra nsmitted reference range : 3.5 - 5.2 gm/dL. The refe rence range was not used to interpret this result as normal/abnormal . [facility] HospitalElectrolyte [id number] 14:13:42 Test Item Value Reference Range Interpretation Comments Sodium Lvl (test code = 135 See_Comment L Test ing Performed at 2951-2) [facility] Lab Ambulat ory Care Bldg, [address], [address], [place] [address] [Automate d message] The sy stem which generated this result transmit tyrell reference range : 136 - 145 mEq/L. Th e reference range was not used to int erpret this result as normal/abnormal . Potassium Lvl (test code 5.0 See_Comment Peyton ting Performed at = 2823-3) [facility] Lab Ambulat [facility], [address], [address], [place] [address] [Automate d message] The sy stem which generated this result transmit tyrell reference range : 3.5 - 5.1 mEq/L. Th e reference range was not used to int erpret this result as normal/abnormal . Chloride (test code = 100 See_Comment Testin g Performed at 2075-0) [facility], [address], [address], [place] [address] [Automate d message] The sy stem which generated this result transmit tyrell reference range : 98 - 107 mEq/L. The reference range was not used to int erpret this result as normal/abnormal . CO2 (test code = 2028-04) 23 See_Comment Peyton ting Performed at [facility], [address], [address], [place] [address] [Automate d message] The sy stem which generated this result transmit tyrell reference range : 22 - 29 mEq/L. The reference range was not used to int erpret this result as normal/abnormal . Anion Gap (test code = 12 See_[place] [address]-8) [facility], [address], [address], [place] [address] [Automate d message] The sy stem which generated this result transmit tyrell reference range : 4 - 14 mEq/L. The reference range was not used to int erpret this result as normal/abnormal . Lab Interpretation (test Abnormal code = 54927-4) [facility] HospitalAspartate Aminotransferase 2023-03-26 14:13:41 Test Item Value Reference Range Interpretation Comments AST (test code = 24 U/L <=40 Testing Per formed at [facility] 1920-8) Lab Readers' Advisory Service Librarian [facility], [address], [place] [address] [facility] HospitalALT2023-08-01 14:13:40 Test Item Value Reference Range Interpretation Comments ALT (test code = 14 U/L <=41 Testing Per formed at [facility] 1742-6) Lab Readers' Advisory Service Librarian [facility], [address], [place] [address] [facility].Serum [id number] 14:13:38 Test Item Value Reference Range Interpretation Comments Creatinine (test code = 1.58 mg/dL 0.67-1.17 H Test ing Performed 2160-0) at [facility] Lab Readers' Advisory Service Librarian [facility], [address], [place], [place] [address] Lab Interpretation (test Abnormal code = 34670-2) [facility] 14:13:37 Test Item Value Reference Range Interpretation Comments BUN (test code = 3094-0) 28 mg/dL 6-23 H Peyton ting Performed at [facility] Lab Ambulat ory Care [facility], [address], [place] [id number] Lab Interpretation (test Abnormal code = 93122-6) [facility] [id number] 14:13:36 Test Item Value Reference Range Interpretation Comments Glucose Level (test 70 mg/dL 70-99 Effectiv e 03/21/16, the code = 2345-7) glucose refer ence intervals have been updated based o n [employer] [place] [employer] rocael delines (Standards of M edical Care in Diabete s 2016. Diabetes Care 2 016; 39: S13-S22).Fastin g blood glucose:Normal: 70-99 mg/dLImpaired f asting glucose (increa sed risk for diabetes or pre-diabetes): 100-125 mg/dLDiabetes m ellitus: >/=126 mg/dL Ra ndom blood glucose:N ormal: 70-199 mg/dLNot e: Random glucose >100 mg /dL is associated with increased risk for diabetes Testin g Performed at [facility] Lab Readers' Advisory Service Librarian [facility], [address], [place] [address] [facility] 13:41:07 Test Item Value Reference Range Interpretation Comments Neutrophil % (test code 73.5 % 43.2-72.7 H As p art of = 770-8) Differential performed at [facility] Lab Readers' Advisory Service Librarian [facility], [address], [address], [place] [address] Lymphocyte % (test code 13.4 % 16.8-46.2 L = 736-9) Monocyte % (test code = 6.5 % 5.1-12.5 5905-5) Eosinophil % (test code 5.3 % 0.4-6.3 = 713-8) Basophil % (test code = 0.9 % 0.2-1.4 706-2) IGRE % (test code = 0.4 % 0.1-1.5 IGRE % c ount includes 05523-1) Metamyelocytes, Myelocytes, and Promyelocytes. As part of Differe ntial performed at [facility] Lab Readers' Advisory Service Librarian [facility], [address], [place] [address] Neutrophil Abs (test 8.31 K/uL 1.95-7.25 H code = 751-8) Lymphocyte Abs (test 1.52 K/uL 1.01-3.24 code = 731-0) Monocyte Abs (test code 0.74 K/uL 0.24-0.85 = 742-7) Eosinophil Abs (test 0.60 K/uL 0.02-0.50 H code = 711-2) Basophil Abs (test code 0.10 K/uL 0.02-0.09 H = 704-7) IG Abs (test code = 0.04 K/uL 0.01-0.12 46656-0) Lab Interpretation Abnormal (test code = 58004-8) [facility] [place].PDH2713-63-40 13:40:59 Test Item Value Reference Range Interpretation Comments WBC (test code = 11.3 K/uL 4.1-10.5 H 6690-2) RBC (test code = 789-8) 4.68 See_Comment [Au tomated message] The system [employer] generated this result transmitted ref erence range: 4.30 - 6 .04 M/uL. The refer ence range was not u sed to interpret this result as normal/abnor mal. Hgb (test code = 718-7) 14.0 See_Comment As p art of CBC or as an individual orderable testi ng performed at [facility] Readers' Advisory Service Librarian Bldg, [address], [address], [place] [address] [Automate d message] The sy stem which generated this result transmit tyrell reference range : 13.3 - 17.4 gm/dL. T he reference range was not used to int erpret this result as normal/abnormal . Hct (test code = 42.3 % 39.5-51.8 As part of CBC or as 4544-3) an individual orderable testi ng performed at [facility] Readers' Advisory Service Librarian Bldg, [address], [address], [place] [address] MCV (test code = 787-2) 90 fL 82-99 MCH (test code = 785-6) 29.9 pg 26.6-33.2 MCHC (test code = 33.1 See_Comment [Automate d message] 786-4) The system [employer] generated this result transmitted ref erence range: 31.1 - 3 5.2 gm/dL. The refe rence range was not u sed to interpret this result as normal/abnor mal. RDW-SD (test code = 47.6 fL 37.5-49.7 51892-4) RDW-CV (test code = 14.4 % 11.6-15.5 788-0) Platelet count (test 313 K/uL 160-397 As part of CBC or as code = 777-3) an individual orderable testi ng performed at [facility] Readers' Advisory Service Librarian [facility], [address], [address], [place] [address] MPV (test code = 10.6 fL 9.1-12.6 50670-5) INRBC (test code = 0.0 See_Comment The INRBC (instrument 95844-3) NRBC) value ref lects the enumeration of nucleated red b lood cells contained in a 200uL sampleof whole blood analyzed by the instrument. Thi s value maydiffer from the NRBC value reported in a m anual differential,wh ich is based on a 100 cell differential. A s part of CBC testing performed at B Lab Readers' Advisory Service Librarian [address], [place] [address] [Automated mess age] The system [employer] generated this result transmitted ref erence range: 0.0 - 0. 1 /100 WBC. The refere nce range was not u sed to interpret this result as normal/abnor mal. Lab Interpretation Abnormal (test code = 86211-8) [facility] Glucose [id number] 17:55:25 Test Item Value Reference Range Interpretation Comments POC Glucose (test 82 mg/dL 70-99 Capillary blood code = 5651) samples, e.g. o btained by fingerstick, may have inaccurate results in patients wit h decreased perip heral blood flow. All POC Glucose screen test results, includ ing critical values , must be interpreted and evaluated in th e context of the patients clinical findi ngs. It is recommended to confirm any questionable te st results by core lab methodology. Me thod description: Al l results are truong sured using Electroch emistry test methodolog y. The glucose in the sample mixes with the reagents on the test str ip. The reaction produc es an electric curren t. The amount of curre nt produced is proportional to the glucose concent ration in the blood. PO Sample Type Venous (test code = 9554) Performing Lab [facility] s (test code = [facility] jim FERRARI [address]) [facility] [address], [address], [place] [address]; Pouring Crane Operator: Wilver Beach MD [facility] Non-Restaurant Associate Interpretation 2023-02-11 19:14:40 Test Item Value Reference Range Interpretation Comments Gross Description (test z6lrgBSyGZWbnXUBSI code = 9703335565) VuFHJnKZ4pxFddlVa9 oOzxMUNfrjG9qPVtKE lhw7taTJK3h4hiytPF QpfwICRlMA7jAJplFX UnHT7lCoJcGETqMzMc XHBhcGVydzEyMjQwXH MmiMSuhOU3DTXsSM1h cmdsMTgwMFxtYXJncj H0RQLjmUQkA9ErNCYj ID7ookyvDPZ4UHUMZf jaXm5frAKlwBifRxRi ZmNoYXJzZXQwXGZuaW kbKNTcAAh4fK7VOsms M42lb3E6Lid0OBTmNY NyL0FfTC5wXQLgqKPx D44FRoczUNK1PKLLOf oyAgryoAcoe5MzkFMd XHNnIFxcaWQgNTEwMD AgXFxkYiBPVlIgIiAx CpA4ZrXlBlX0RLi0BM AHTNGdHlL1PSZ3VYH6 EGr6KFZsHV3bJQkqwD IbDRfyEnlxYAgmP191 XLsnSILkF3QuO4WmZG xzZyBcXGlkIDUxMDAy CDkuWZOvX3ISWVTgXG MjWfMtWTNzUFc6SFna Z7PFTDOcKHH8Aka6Hy Z1VgD9PZe2DMVHPk1u JDF3YXW2LRMkIwG1UK l0SBIkTH2dFOgjvOCo BVadj5RoJhYnYOIaUM ootyE7AUQhubPyACqq eVqirJ3rEREaD22nd8 TWs9UsWY7YYKw8ymFu zczakP1cCXOiuiLlJT riaPDkL4deM0GtZYWu VdIbKRHUXOFrZ4WbyR 6eO1llPNLdOBBvgdKQ LtJwKK8cJrXrsNDahY MeeAnzKhdppJO0HQxf TxeapC2dtSOTHLEELk fUMvbrjeZkOF0RGUMG WjOKWP53CvS4EnD9MF wxfXtcZmxkcnNsdCBc QoSAeI6ynFVhiuLtgL CvtPTweWM1FAOgYUkg a2waXZTqPYbha3VcJL uBRDKJCD6CYK8wfBD7 B9tSAAZCY9vGtET2w4 artKZae4s0LFhrAZR9 mDOgwZ0mxHFvb0zpXy fbfSN3OHanFeckrD6i dCBIWVBFUkxJTksgbm KjOG7UXCwOCA0DxCG2 m9yusWRxi5u2QGrzSA X7vOldrRSpxkxnyJTn bJkxbj79UDY8LJEkLK xmczIwICBmbHVpZHtc DmagjPA0WEepJicmwN 5zdCBIWVBFUkxJTksg vgFjJI8MYMQVLU0TuF P5YqNcpKE8CI33MLKp OTOvhVMePPweR341KB LpXNxmFTk5utQyVPJq MVxmczIwXHBhciANCl ohry05ROR5z8nztAEo SIqxSscldKTbwuG1HJ cFVRWTZAxVAkQfVJ1z IWdCO4KCQRaXPqjxMB U9QTtinAF5d0qrsXJu o1f3PAfrKSF6yRIrYH LtvVQtRQXje9Meq2Ac ZCBieSBUaGluUHJlcC M8KDMoouvxqAB8TYVf EMqfl9cpJBLhFVgms4 MyHCnZFDMBJX4NUE6a rIW6VCtVBYLGALjnJK C0BRltxKE9o2exgSWo i1x9CMulZYF1bXtuoY FpblxsdHJjaFxjZjFc ZnMyMCANClxlcGljTm LpvAGjAzZ1WHMdhJBo XGS6TD3qzKadRUTeV6 MnZ6NcdqB1XQBojzWC ClxwbGFpbiANCn0= Major Classification (test NFMC/benign code = 9839) Diagnosis (test code = 34) i9drsGBgOKLgdDYgVX FtI5qqfkNrPYJamKWm O7QxhxscBWoyCQ6yWD 5veGxhdHRveWVuXGRl OrTap0awg640gCRnm8 uuHNSBmkokyFj2bHkm J54rc2C7XhjaE6fbAY QwXGdyZWVuMFxibHVl EAs9RFSliQWpzwYrRr BaBQSjvTWaeIW3PMTk DX0lzbbzQOhwPIqjJO CcbdE6QDKvqQYqX1Jr AQVjNB1gfgpwIJT2OZ mkJXHyIGQ3HpPwKOHr k5Dptoz0UsPpsBr6l3 bkMSNgNNOviLrrg9im MRM4RQGrmQIoZ1cqoK 6pKEIjLB7ahktla7oz JNzeGLkwOBEnpQG5cl G1PAKjsXKtD8YufK2c NDQwXHBhcmRccGxhaW 4gOdEtQNztPbDvW9lc xuS3PVVlRZD5ZHOjyN VyIHVyZXRlciwgYnJ1 k8pngta6BAYbauvaID JcdGFiXGNmMCBObyBt FJeeE58nhgUlG1HgxA MgaWRlbnRpZmllZFxw ZJRtV2XhMFLnbj1= Informational Points (test o5ghlUEeRITxoGOaZh code = 9836) NwWNEsFOOqa9miNRQx bGFuZzEwMzNcZnRuYm dmwFFhWKYyBdLkp0xv a349kFTwx8guSTBdYp D6bRNbLNZuqFAnC178 KDYdKKzpa7wlg4CsJI FvmQUen4D1EWMDYXdl IDRMBUy7x8uiSaCeBe X5zUIpWNduM5jdyyLz cDCxJJZyVZy6iT77GS RwuB9ylDGyCEomuxKo OsI0YDtcKMDnYpU0VZ XmuRIfNDGwK7cbXPAv XGdyZWVuMFxibHVlMC P3jLeqp9G7tEBjtJJt dHtcZjBcZnMyMiBOb3 VyPUu8sUphJ8SbWXPn FqL8wBMfMTGkQAbnWN QtXVLrhuQ1mZ78NAwb mfG6oXUzf9Xwk47ui6 58sR7amKSbECW9ZYFy IUSamZXiXHLiLAA4GA GysUDjL8zkQJPcEQ6s cmdyMTgwMFxtYXJndD E7MBWlzSChG5GgCPBv LDalVWQweni9IgViKv 0zcBUsiEwsHGrbf3qs e2uqkDEoBth2ZMEePj BkPybmUKnyq2Rgy3pu KTIbqy2hGMN5xMRkyS uan2P4tLWoRJNlhFVu azDcSXKfWtH7CGvxPI 4nvy27ETLzQVP4ke0b bGNccGdicmRyaGVhZF qvC1RnSHDhz211UMOo M7VwZECnh7A9tsImHc TxPRRxmUF3rmN7KJWv JXy1bEYlnxA5qeWypL JbX7uqjB0uPWYdWT3r xjrkg1zkCUcsQXjaAR DfcWK7ogJ1KOMswSYc D6PrnT2lHNWyDJhoPA Mdpbo5RhWxLc5fpFPv eTcyMFxzYmtwYWdlXH BnbmNvbnRccGduZGVj XHBsYWluXHBsYWluXG YwXGZzMjRccWxccGxh iN7zWpXnHeOwYDfqGZ 6pJWZgR0gfwXEzGHJv RUAzB8ewPgZrtW3egY vcLFztoiD5FVafZ95r NHG8EBA4vyImEVEbiy ItZEKyPOAiGS4hcHUy TXRzKKAhOG5wPGW3LI xvcGVkIGFuZCBwZXJm b8LlYS1kMHDumQGdFQ I4AYNaj5OmD2MiKAP1 XRZqgP5uBHNxpUPVPM BNRCBBbmRlcnNvbiBQ FVUly3mcL7znXM2uTE jpXy9dLBJvjyajWPUu aWNpbmUuIFRoZXNlIH Xgb4AmVBuzfaWxou65 KQLtVL0yi5HrM6pygE DamLx7UTVySRYtRMZm h9HuGZXqrf38TQQdHt gwtFtaCNIyZx0tUk8y BZBxwwZgEQL0JwVTCI 3atfpctAPceZcwua4n XHBsYWluXGYyXGZzMj JcbGFuZzEwMzNcaGlj aFxmMlxkYmNoXGYyXG cgN7suKqIuUdPgErlb YXJ9 [facility] Surgical Interpretation 2023-02-08 14:44:29 Test Item Value Reference Range Interpretation Comments Submitted Clinical History u9cpwQGsEYTzx2llWMB (test code = 44462) mbGFuZzEwMzNcZnRuYm pcdWMxIHtccnRmMVxzc 9EfA6ZdIuVsPFbbhfLx XGRlZmxhbmcxMDMzXGZ 0bmJqXHVjMVxkZWZmMH nuUn2juAInuHwpXsZiR DWcw5zublVIfvxucMj4 e4ljEEKcIoX7jDIwXPx hF4mbvhUzbZHuMRAbVT i0wV24GQAqeM7nlYFsY VycavGiKkP7CTvnEERe RvA4FVAumQUjMCGzP3m yZWQwXGdyZWVuMFxibH OvNCF6mKode0D5oPBrq GVldHtcZjBcZnMyMiBO m5BuTCu7dKvsA4BzXOJ fRiW1xNIpXUYrHUzqRB TiMCEavjN2sK35VJrqn kQ4fZAun6Tiq92gh131 pK1odLBpAMZ0HAKrFMR sjWCzBCUhKXD3BPBbmZ MwL7ztQZQpXA5vufagU ItfOQujNZReeQN4ENYi tOGnL0FaPXTtIBtxDTC rkad0IrPtBx0gnLOqxJ miONjab2xhh8yatEVmN cq1WEYmGnIwXfnbCJvc k3Roz4nrIKLfrh8qZHV 3aDIhbRyif9H3fLKyLF UfoEBwnoQcEJVwRjF8Y KkmQO7sat69OGMpNGJ6 mh3czSWbrQzrrzRriNA zEHygH5PbMODmj774QN LiM5NpKJDzy8V4whVnZ sKqTUUnoEH4dkQ4LHQl MHh7wEOrrnL1rkJwsCJ hL4lzbX1cVXSiUA0uyw cqd7uoDQcxWSldAIVbr LG0hlU4LWYivOGyI3Hh oJ1fDPTtYXjrRBSvqbw 1DjKsFy0egVHskLppBE xzYmtwYWdlXHBnbmNvb nRccGduZGVjXHBsYWlu XHBsYWluXGYwXGZzMjR vmTtukNzxcB1xIxRuVf AgMOyjGK2vYHSaH4naz THtOPKmNIRaI9thSsBw gD2iyVghTHeirzCrPF1 dw1SybJK2vV7jVW8qPJ VyZXRlciBbTjEzLjVdX HBsYWluXGYxXGZzMjJc bGFuZzEwMzNcaGljaFx mMVxkYmNoXGYxXGxvY2 xvCvKnTnWtThwoBXZ5a Q== Diagnosis (test code = 34) b8znaAJeZCDtbWWaPNX nQ2jwonYwSBQcuMGeM9 YkyvibRAzkND5rHK9pw GxhdHRveWVuXGRlZmYw z6ekn724lBBca1elMCR QbwgntTy8fHzuY66ll4 G4VfjjT0ntUJRxYJfkY ZDrKSskuIRuZOy8JLSt cGVydzEyMjQwXHBhcGV jhQG5MKMdHI7ctvznKB meRGxkYFUkwnX9LBBtq WXiA1ZfWVZsDL9odecl DGR8GBliUSHjIIR5IaH jVJHmw4Abwiq4TvSyhB FyZFxwbGFpblxmczIwX GNmMSBBOiBLaWRuZXks IGxlZnQsIHVwcGVyIHV iHBRlsiXvZBZzz4BciW pccGFyXGxpNzIwXGxpb jcyMFxjZjAgVXJvdGhl eSrjsTZsaLVev2Joi6a 0aCBncmFudWxhdGlvbi W5zPMdjAJqKY5zXECkf XRlIGFuZCBjaHJvbmlj SOywToiazU6fjEiknjq kgf1foTOru7HrjAWgq4 VlbZ6koSBcBOFqyuxnh NKeoPhmADVSTd6OBPwz XHBhcn0= Gross Description (test b8hwuQEfYFKmdMRFOJW code = 6600358481) bGWZbDN1ffHjxbXp0zY neFWBkeeM9oXHtXVwhr 6xdHDL3x4gtypISEucb JERdPS0kZHtpLMMfUO9 nZmUwXGRlZmYxXHBhcG VydzEyMjQwXHBhcGVya GK7QYGwSI0zchorLCnf MXikYIVcrzQ6DDNybOD nP4WmWHEvQJ1yczolPI R9DAWTNalnPm2rmVDfn HtcZjFcZmNoYXJzZXQw OONqkKjhPPUlUDm8iS0 ELkafH83el6D4Cta5LT XzALCoX9NlEG7rQHScf PMuM47RFzhkWTS9VAKA QgfoCxoncFngv2EqcIC cXHNnIFxcaWQgNTEwMD AgXFxkYiBPVlIgIiAxM lO2DyljMhG0MGc0MPRF CMRgCxD5JSEhWEU6LJp 9VGZhYC2vRDtwpZHdOT fxTumdQBmzL243GUaqU CIgK2VaV6GqCIopVkIn XGlkIDUxMDAyIFxcZGI dN4ERBHQcJQAqMVu3FA KwHPq8QNvmY3BIYZAwX EK6Xvb4TnN0AeV1OXs7 KATPJz0oERX0OVCxSzF 5HAX0IJk9YNXzNBAxFa BcXHNzIDMgXFxmbCBcX B7vsHopFDVeNZ0GEUHj YWluXGJcZnMyMCBBOlx wYXIgDQpccGFyZCANCl xwbGFpblxiXGZzMjBcc JszbY1jwUAvF5baBoCy MlxlcGljTmVzdERvYzE gDQpcbHRycGFyXGxpbj BccmluMFxzYTMwXGVwa XLVf3TtMPBLDyuiRWDe EXxjtmLfJXcsBP4lhQp ubIBloFmhbLCqmGJ5xH NsnmC4raC5JFBwbXXwg C7cp7hpNAOpOHBwAL8m ydHfJTEvJ7Kdn3JdLau aTxLvO6TtKUJeLYPzIl QfNQ8kqgH2ZSwusQHsY AOog9S8EEVqypFydSFh vHKdEDFlAPY0DJTkNXO 4IDAuMSBjbSBlYWNoLC BlbnRpcmVseSBzdWJta ZM6FBQxwD7bDVAfYLBy cHJvdGVjdHtcZmllbGR 1EEpyOhdznG1nzWSACW KFGrcRAcqscyNbZZ2AK J1WItCEXL89TwSkKMF1 NElWP9BTzBZ9Yfp8HIs 8fXtcZmxkcnNsdCBcJz ZZnP8WVIglVxsxlTZ2Y PsaClnnpE1bvLJZEYNL ZldAGwvbywTuVJ4SLD4 TYJ1SeFMiHVR0hZS1BK QNPlywmYB1dDF8rT36C TLeUKXraSAvPBiwT119 EJLmGKlwHTb1hdIgRIM vOiLxHXjnSXWkS07ag9 RSy7Yae1dkuVtbl1Hkz AQoYL28SCMgsESkIYA7 ID6bzAosBNFdEPbflFV bMDNARefatbWwKW9HcL == Biomarker Block(s) (test y1aajGVuDZQezNKeGGB code = 9841) rY9xwpsQmLAQziEUpI9 LaogaxFPayWC7sQM7er GxhdHRveWVuXGRlZmYw w7gih141aPOqn6uvVAP XxscgpSb7yFjyV43bd0 N2VktwW32vjUAgMIU6X TIyNDBccGFwZXJoMTU4 DYGhfTFwG1aaMBAhMA0 hcmdyMTgwMFxtYXJndD X4IOZgzLYxO6QzAUMlO IhmXRRtufx6LzVzKo1e dGVyeTcyMFxwYXJkXHB lPMiaZCMjIxDyWd5IOH xwYXJ9 Disclaimer (test code = m1cmbFRsNODhwDSyRzF 9811) zSSSbPYEcs6ybYGXxfF FuZzEwMzNcZnRuYmpcd ORgOYXoHjGwi5uwi631 eYDhy8yfOVOyTmW9mNO gQUNcqMPcM125AMNzHK pru9pkv4EuJMYdfKTmo 6B5TEKVtojwwGv9wOyc O12gm5U4KinuD4duHMS mVZOnQ9LpSC6iINTiIk c8ELR3ENJ6CUPqHGKzV 4BrAL8wHWJidJAzHVo9 q7lbsXpkNEHsPOQ5e2u aRVskmhQwGZ0zer9kqS v3l5nmdkEgOEPwGDSmq BXFTQMdN5FbnUzqNi9g mJj0tYnqXmnkVHY5Ibc 0OZ9iye52hbg0iTkhZR FamrlfFhJ8HMjmDPTsj lvbECv5MDjnTJMbkHL9 RZImiRRdO5XwKSJsMV8 fxty6OYP6UKisFWLeAq H3ENCgsVHtVONmfAxaG Ahtl447DTE6BkVdZW8y T5Wli1M5mD4ygVWzJQM pjOHxUsQdLKKvwm9nhP HsUGxma0GnBOO4dxE9d ZMhjGLpDMWbAO06Pmcp m5RjMvtvSRF7SEGcagK wx7Pkm8llAkNmimHpE8 xeF4MoMRRcQKAjLGImP wYdhxDdf0Jgl0OtiSMd dMh7e3piBONpXMZupTr om8ibBXC7RLNaC3U0aP Yul3owFYybAVYzrBM8d qO7JJUmuLEbC9MxoU0v WFOeKN1ydeq7q5ptVTH 0YIooSGChPtR7hyH9JO BcaGVhZGVyeTcyMFxmb 947XHI1VcHaISJqc3Wg N4MvaKytS24loPwaC72 fTJBmbSnryX9dkHbuvA 5cZjBcZnMyNFxxbFxwb JVzomggGYxgqaV6CNhz lxytNDJuWWbnY0cdMfQ aLCHwnBpcLTvfg8XjWI UjVYRtImmzarR3DMFHs 23sMCMll0IaNECwgW0v tRLxGBvtvcYwkGZ4CQi hdmUgYmVlbiBkZXZlbG 9aATYbDV1jNGLzrwStl u8qsyViCASuQMPfZ6Mp cmlzdGljcyBkZXRlcm1 rmwPoCWO0HFSXJP0HBB GfAJHrg21iIJWsiVqvw I6jaYQbzbWwURXsf7Iv wO7ouFSSWLFrE3vzMV8 vUBahp9WbzJUzbHKwsL N3MJGcw2PoMqPoggMyf RQmbZUaH5WkyHcdC7ov POIyNZJwnxEciENke8B tHTUqrIR4oCPwET2ZWd KEs15lTIQrEYIJofTdY YAirOmleQE1pcY8rV3h LiBJZiBhcHBsaWNhYmx yOXIpe317dl4jpeN7JS NpWQWhsmicz4FrFSKeC JGayY50BQUsROBrjc0u mzpstYJibzDoS6Qofie 5gG0rVSDeBUifFRQqJX ZzMjJcbGFuZzEwMzNca GljaFxmMVxkYmNoXGYx PLamE5bvCzZeBhEcCkp wYXJ9 [facility] EurekaProstate Specific Antigen (PSA) [id number] 14:38:54 Test Item Value Reference Range Interpretation Comments PSA (test code = 0.0-4.0 Results gre ater than 2857-1) 4519 ng/mL may not be reliable due to matrix effect with ext ended dilution as it exceeds the manufacture r's recommended flores it. Caution should be exercised when interpreting hutton ch values and done in conjunction wit h clinical context.Testing Performed at B Lab Readers' Advisory Service Librarian [facility], [address] [place], [place] [address], [address], [place] [address] PSA Indication (test Diagnostic code = 51502-4) [facility] [id number] 17:52:23 Test Item Value Reference Range Interpretation Comments PT (test code = 15.6 See_Comment H Testing Perf ormed 5902-2) [facility] Lab Readers' Advisory Service Librarian [address] [facility], [address] [address] [Automate d message] The system which generated this result transmitted reference range : 11.9 - 14.1 second(s). The reference range was not used to interpret this result as normal/abnormal . INR (test code = 1.29 0.89-1.10 H Testing Per formed 6301-6) [facility] Readers' Advisory Service Librarian [address] [address] ASHA (test code = ASHA) This lab cannot be scheduled at the following locations due to collection/procc essing restrictions: [facility] and [facility]. Lab Interpretation Abnormal (test code = 15222-2) [facility] Interpretation Antibody Screen [id number] 17:25:24 Test Item Value Reference Range Interpretation Comments TMP Auto Neg At the present ABSC Interp time, patient (test code = plasma shows no ____NAT FRAZIER MD 7535) evidence of RBC - [id number] tyrell by: alloantibodies. NAT GARLAND MD - [id number] D ate/Time: 12.31.2022 12:2 5 PM CDT Transcribed Walter e/Time: 12.31.2022 12:2 5 PM CDTElectronical ly Signed By: NAT AGUILAR MD - [id number] on 12:25 PM [facility]Antib[facility] [id number] 16:15:07 Test Item Value Reference Range Interpretation Comments ABSC. (test code = 890-4) Negative ABSC [facility]ABORh2023-[facility] 16:15:06 Test Item Value Reference Range Interpretation Comments ABORh. (test code = 882-1) A POS [facility] HospitalClot Expiration [id number] 16:15:04 Test Item Value Reference Range Interpretation Comments T & S Expiration (test code = 01/03/2023 5318) [facility]Album[facility] Level [id number] 19:36:09 Test Item Value Reference Range Interpretation Comments Urine Albumin (test 1.92 mg/dL Normal r kenn note code = 1754-1) available for collections les s than 24 hours i n duration. U Creatinine (test code 46.4 mg/dL 40.0-278.0 The reference range = 2161-8) listed is for f irst morning urine collection. Albumin/Creatinine 41 mg/g <=29 H Reference interval: Ratio (ACR) (test code <30 m g/g = 9377) Interpretive comment: The presence of increased urina ry albumin excreti on (albuminuria) i s a clinically sens itive and predictive indicator of ch ronic kidney disease. Albuminuria is determined by urinary albumin to creatinine rati o (UACR) in a ran dom spot urine or a 24-hour collect ion. Normal: <30 mg/gModerately increased: 30-3 00 mg/gSeverely increased: >300 mg/g Lab Interpretation Abnormal (test code = 51514-6) [facility] HospitalCreatinine [id number] 19:36:05 Test Item Value Reference Range Interpretation Comments U Creatinine (test 46.4 mg/dL 40.0-278.0 The refer ence range code = 2161-8) listed is for first morning urine collection. [facility] HospitalUrinalysis Microscopic Exam 2022-12-26 19:17:22 Test Item Value Reference Range Interpretation Comments UA WBC (test code = 96 See_Comment H Some rep orting 72448-2) parameters with in the Urinalysis test have changed due to the implementation of new instrumentation in the [facility], [facility] [place] sens[place] vity of measurement. Urinalysis resu lts reported by the [facility] enters using existing instrumentation , as well as Urinaly sis testing perform ed manually or by backup methodology at the [facility] matty l remain relative ly unchanged. New reporting le eters and units will not be reported for al l campuses. [Auto mated message] The sy stem which generated this result transmit tyrell reference range : 0 - 2 /HPF. The refer ence range was not u sed to interpret this result as normal/abnor mal. UA RBC (test code = 11 See_Comment H [Automa tyrell message] 43395-0) The system [employer] generated this result transmitted ref erence range: 0 - 2 /H PF. The reference range was not used to int erpret this result as normal/abnormal . UA Mucous (test code = NOT SEEN Not Seen-Trace 05313-1) /HPF UA Bacteria (test code 1+ NOT SEEN /HPF A = 74817-2) UA Squam Epi (test NOT SEEN None-Occasional code = 98411-6) /HPF Lab Interpretation Abnormal (test code = 89770-9) [facility] HospitalUrinalysis w/Microscopic if [id number] 19:11:22 Test Item Value Reference Range Interpretation Comments UA Color (test code = 26445-4) Straw Straw-Yellow UA Appear (test code = 48704-0) Hazy Clear A UA Glucose (test code = 5792-7) NEG NEG mg/dL UA Bili (test code = 5770-3) NEG NEG UA Ketones (test code = 5797-6) NEG NEG mg/dL UA Spec Grav (test code = 5810-7) 1.008 1.003-1.035 UA Blood (test code = 5794-3) Small NEG A UA pH (test code = 5803-2) 6.0 5.0-9.0 UA Protein (test code = 5804-0) 10 mg/dL NEG A UA Urobilinogen (test code = 5818-0) NEG NEG UA Nitrite (test code = 5802-4) NEG NEG UA Leuk Est (test code = 5799-2) Large NEG A Lab Interpretation (test code = Abnormal 48057-9) [facility] HospitalPlt [id number] 17:31:12 Test Item Value Reference Range Interpretation Comments Platelet count (test 198 K/uL 140-440 As part of CBC or as an code = 777-3) individual ord erable testing perform ed at [facility] Lab Ambulat ory Care [facility], [address], [address], [place], [place] [phone] MPV (test code = 9.9 fL 4.0-10.4 16158-6) [facility] HospitalLipid [id number] 14:12:19 Test Item Value Reference Range Interpretation Comments Chol (test code = 154 mg/dL <=199 ATP III 3-3) Classification of Total Cholester ol Primary Target of Therapy (in mg/dL):<200 Jpohwtqpg712-55 9 Borderline high >=240 High Testing Performed at [facility] Lab Readers' Advisory Service Librarian [facility], [address], [address], [place], [place] [address] Trig (test code = 151 mg/dL <=149 H ATP III 2571-8) Classification of Serum Triglycer ides Primary Target of Therapy (in mg/dL):<150 Yvqswe501-849 Borderline bola311-886 High>=500 Very high Non-fasting triglycerides > 200 mg/dL may be followed up wit h a fasting Lipid P allan. Calculated LDL- C may be falsely decr eased when non-fastin g triglycerides > 200 mg/dL. Testing Performed at [facility] Lab Readers' Advisory Service Librarian [facility], [address], [place], [place] [address] HDL (test code = 38 mg/dL >=40 L Testing Per formed at 2085-9) [facility], [address], [place] [address] LDL (test code = 86 mg/dL <=100 ATP III 19497-3) Classification of LDL Cholesterol Primary Target of Therapy (in mg/dL):<100 Ivbrubt076-643 Near optimal/above ecryehy391-748 Borderline zffp731-464 High>=190 Very high Testing Perform ed at [facility] Lab [facility], [address], [place] [address] VLDL (test code = 30 mg/[place] [address]-4) [facility], [address], [place] [address] ASHA (test code = ASHA) Patient prefers video unless he is already on campus Lab Interpretation Abnormal (test code = 81821-9) [facility] Cancer [id number] 14:02:04 Test Item Value Reference Range Interpretation Comments TSH (test code 1.41 See_Comment Note: New Met hodology = 95884-1) and Reference R kenn change effectiv e 12/12/2017 at 14 00 Testing Perform ed at [facility] Lab [facility], [address], [place] [address] [Automate d message] The sy stem which generated this result transmit tyrell reference range : 0.27 - 4.20 mcunit/m L. The reference range was not used to int erpret this result as normal/abnormal . ASHA (test code Patient prefers = ASHA) video unless he is already on campus [facility] Cancer EurekaFree [id number] 14:01:59 Test Item Value Reference Range Interpretation Comments T4 Free (test 1.20 ng/dL 0.93-1.70 Testing Perfor med at code = 3024-7) B Lab Ambul atory Care [facility], [address], [place] [address] ASHA (test code Patient prefers = ASHA) video unless he is already on campus [facility] HospitalGlucose, [id number] 13:54:32 Test Item Value Reference Range Interpretation Comments Glucose Random 99 mg/dL 70-199 Effective 02/24 03/10, (test code = the glucose 2345-7) reference intervals have been updated ba sed on [place] Diabetes Association guidelines (Standards of Medical Care in Diabetes 2016. Diabetes Care 2016; 39: S13-S22)Fasting blood glucose:Normal: 70-99 mg/dLImpaired fasting glucose (increased risk for diabetes or pre-diabetes): 100-125 mg/dLDiabetes mellitus: >/= 1 26 mg/dL Random bl ood glucose:Normal: 70-199 mg/dLNot e: Random glucose >100 mg/dL is associated with increased risk for diabetes Testin g Performed at B Lab Readers' Advisory Service Librarian [facility], [address], [address], [place] [address] ASHA (test code Patient prefers video = ASHA) unless he is already on campusPerform at the same time as the C-Peptide [facility] HospitalHemoglobin [id number] 13:52:58 Test Item Value Reference Range Interpretation Comments A1C (test code = 6.6 % 4.3-5.6 H HbA1c value s 4548-4) >=6.5% are diagnostic of diabetes mellitus.Diagno si s should be confirmed by repeat testing.Therape ut ic Action suggested: >8.0 % HbA1c; Goal oftherapy: <7.0 % HbA1c ASHA (test code = ASHA) Patient prefers video unless he is already on campus Lab Interpretation Abnormal (test code = 85069-4) [facility] HospitalBlood [id number] 04:10:35 Test Item Value Reference Range Interpretation Comments Final Report (test No growth code = 8488) ASHA (test code = ASHA) If patient has a Central Venous Catheter please draw a blood culture from the line. If no central line, draw a second peripheral culture. [facility] HospitalCalcium Ionized, [id number] 07:41:02 Test Item Value Reference Range Interpretation Comments V Ion Ca (test code = 67814-3) 1.19 mmol/L 1.15-1.29 [facility] HospitalC [id number] 10:03:32 Test Item Value Reference Range Interpretation Comments C-Peptide (test code 2.54 ng/mL 1.10-4.40 = 1986-04) ASHA (test code = ASHA) Check at the same time as Fasting Blood Sugar [facility] HospitalGlucose, [id number] 09:58:44 Test Item Value Reference Range Interpretation Comments Glucose Fasting (test 113 mg/dL 70-99 H Impair ed fasting code = 1558-6) glucose (incr eased risk for diabet es or prediabetes) : 100-125 mg/dLDiabetes mellitus: >= 12 6 mg/dL Lab Interpretation (test Abnormal code = 02265-9) [facility] HospitalLDH2023-04-02 13:15:55 Test Item Value Reference Range Interpretation Comments LDH (test code = 195 U/L 135-225 Results gre ater than 1651 59564-5) U/L may not be reliable due to matrix effec t with extended diluti on as it exceeds the man ufacturer's recommended flores it. Caution should be exerc ised when interpreting hutton ch values and done in con junction with clinical c ontext. [facility] HospitalRespiratory Multiplex PCR Panel, Nasopharyngeal [id number] 02:58:21 Test Item Value Reference Range Interpretation Comments Adenovirus (test code = Not Detected Not Detected 49837-4) Coronavirus 229E (test Not Detected Not Detected code = 06166-4) Coronavirus HKU1 (test Not Detected Not Detected code = 58006-5) Coronavirus NL63 (test Not Detected Not Detected code = 44019-6) Coronavirus OC43 (test Not Detected Not Detected code = 79780-6) COVID19 (SARS-CoV-2) Not Detected Not Detected (test code = 12213-5) Human Metapneumovirus Not Detected Not Detected (test code = 67527-9) Human Not Detected Not Detected Rhinovirus/Enterovirus (test code = 17830-4) Influenza A (test code Not Detected Not Detected = 77106-0) Influenza A H1 (test Not Detected Not Detected code = 51704-5) Influenza A H1 2009 Not Detected Not Detected (test code = 66510-9) Influenza A H3 (test Not Detected Not Detected code = 13803-8) Influenza B (test code Not Detected Not Detected = 78011-3) Parainfluenza 1 (test Not Detected Not Detected code = 31117-9) Parainfluenza 2 (test Not Detected Not Detected code = 34601-9) Parainfluenza 3 (test Not Detected Not Detected code = 71042-3) Parainfluenza 4 (test Not Detected Not Detected code = 35744-4) Respiratory Syncytial Not Detected Not Detected Virus (test code = 33727-7) Bordetella Not Detected Not Detected Parapertussis (test code = 38406-4) Bordetella pertussis Not Detected Not Detected (test code = 29756-6) Chlamydiophila Not Detected Not Detected pneumoniae (test code = 20866-7) Mycoplasma pneumoniae Not Detected Not Detected (test code = 76231-4) ASHA (test code = ASHA) Has patient had a positive for COVID-19 result in the last 3 months?->No The BioFire RP2.1 is a real-time, nested multiplexed polymerase chain reaction test designed to simultaneously identify nucleic acids from 22 different viruses and bacteria associated with respiratory tract infection, including SARS-CoV-2, from a single nasopharyngeal swab (SENIOR SAS DEVELOPER) specimen obtained from individuals suspected of respiratory tract infections, including COVID-19. Results must be interpreted within the context of all relevant clinical and laboratory findings and should not form the sole basis for a diagnosis or treatment decision. Positive results do not rule out coninfection with other organisms. Negative results in the setting of a respiratory illness may be due to infection with pathogens that are not detected by this panel, or a lower respiratory tract infection that may not be detected by an SENIOR SAS DEVELOPER specimen. Internal controls are used to monitor all stages of the test process and assess for possible amplification inhibitors. If inhibition is detected, testing is repeated and if inhibition is confirmed the specimen is resulted as "Invalid". When an "Invalid" result occurs, it is recommended to wait 3 days before submitting a new specimen for testing if clinically indicated. This assay has been approved by the FDA for use in laboratories that have been CLIA-certified to perform moderate-complexity and high-complexity tests. The Microbiology Laboratory at [facility], CLIA Accreditation #[id number] and CAP Accreditation #[id number], verified the performance characteristics of this assay. Microbiology Laboratory at [facility] performs the assay using the [employer] System. [facility] HospitalCRP (C-reactive protein)2022-11-25 02:55:22 Test Item Value Reference Range Interpretation Comments CRP (test code = 72.59 mg/[place] [address]-7) CRP assay are a s follows: Reference range s when used to assess cardi ac risk: <1.00 mg/L Low cardiovascular risk 1.00-3.00 mg/L Average cardiovascular risk >3.00 mg/L High cardi ovascular risk.Reference ranges when used to assess inflammatory re sponses: Less than or eq ual to 10.00 mg/L. [facility] HospitalProcalcitonin (PCT)2022-11-25 02:43:41 Test Item Value Reference Range Interpretation Comments Procalcitonin (test 0.08 ng/mL <=0.08 Procalci tonin > 2.00 code = 63077-0) ng/mL: Proca lcitonin levels above 2. 00 ng/mL are highl y suggestive of a high risk for system atic bacterial infec tion/ severe sepsis a nd/or septic shock. Procalcitonin < 0.50 ng/mL: Procalci tonin levels below 0. 50 ng/mL are at lo w risk for progression to severe sepsis a nd/ or septic shock. Procalcitonin ( ProCT) between 0.15 an d 2.0 ng/mL do not ex clude infection, rossy use localized infec tions (without system ic signs) may be associated with such low levels. Res ults greater than 40 0 ng/mL may not b e reliable due to the matrix effect w ith extended diluti on as it exceeds the high speed printer operator's recommended flores it. Caution should be exercised when interpreting hutton ch values and done in conjunction wit roz aleman [facility] [id number] 02:16:09 Test Item Value Reference Range Interpretation Comments POC VB pH (test code 7.36 7.31-7.41 = 2746-6) POC VB pCO2 (test 40 See_Comment L [Automate d message] code = 2020-) The system [facility] generated this result transmitted ref erence range: 41 - 51 mmHg. The reference r kenn was not used to interpret this result as normal/abnor mal. POC VB pO2 (test 29 mmHg code = 2705-2) POC VB TCO2 (test 24 See_Comment [Automate d message] code = 2026-) The system [facility] generated this result transmitted ref erence range: 24 - 29 mEq/L. The reference r kenn was not used to interpret this result as normal/abnor mal. POC VB Bicarb (test 23 mmol/L 23-28 code = 90650-3) POC VB Base Ex (test -3 mmol/L -2-3 L code = 1927-3) POC VB O2 Sat (test 52 % code = 2711-0) POC VB LAC (test 1.34 mmol/L 0.90-1.70 Method desc ription: code = 2519-7) The i-STAT is an analyzer used f or in vitro quantific ation of various anal ytes in whole blood. The device uses a s shakir disposable cart ridge which contains microfabricated sensors, a calibration toma ution, fluidics system , and a waste chamber . Each test cartridge contains chemic ally sensitive biose nsors on a [employer] ip that are config ured to perform spec ific tests. The microfabricated sensors measure analyte concent ration by an electroch emical assay. POC Sample Type Venous (test code = 6690) POC Clean Dev (test Yes code = 6672) Performing Lab (test MDA Main Main Ca mpus code = 98560) [facility], [address], [facility] [place] [address]; Pouring Crane Operator: Brandy Thomas MD; Waived Point of Care Testing - Zulema fischer MD Lab Interpretation Abnormal (test code = 24445-8) [facility] HospitalEosinophil [id number] 23:09:50 Test Item Value Reference Range Interpretation Comments U Eos (test code = 7731) Many None Seen A Lab Interpretation (test code = Abnormal 59215-3) [facility] HospitalProtein/Creatinine Ratio Urine 2022-11-06 15:10:31 Test Item Value Reference Range Interpretation Comments UTP Ran (test code = 18 mg/dL Normal range not 2888-6) available for collections les s than 24 hours i n duration. U Creatinine (test code 73.3 mg/dL 40.0-278.0 The reference range = 2161-8) listed is for f irst morning urine collection. U Prot/Creat (test code 0.25 g/g <=0.14 H = 7805) Lab Interpretation Abnormal (test code = 84983-4) [facility] HospitalUrinalysis with Microscopic 2022-07-24 22:23:52 Test Item Value Reference Interpretation Comments Range UA WBC (test code = 38 See_Comment H [Automa tyrell 84484-9) message] The system which generated this result transmitted reference range : 0 - 2 /HPF. The reference range was not used to interpret this result as normal/abnormal . UA RBC (test code = 12 See_Comment H [Automa tyrell 63071-4) message] The system which generated this result transmitted reference range : 0 - 2 /HPF. The reference range was not used to interpret this result as normal/abnormal . UA Mucous (test code NOT SEEN Not Seen-Trace = 97646-4) /HPF UA Bacteria (test NOT SEEN NOT SEEN /HPF code = 49194-2) UA Squam Epi (test NOT SEEN None-Occasiona code = 49033-9) l /HPF ASHA (test code = Some reporting ASHA) parameters within the Urinalysis test have changed due to the implementation of new instrumentation in the Main [facility], allowing greater sensitivity of measurement. Urinalysis results reported by the [facility] using existing instrumentation, as well as Urinalysis testing performed manually or by backup methodology at the Main [facility] will remain relatively unchanged. New reporting parameters and units will now be reported for all campuses. Lab Interpretation Abnormal (test code = 86553-2) [facility] HospitalPTH [id number] 14:54:51 Test Item Value Reference Range Interpretation Comments PTH Intact (test code = 6769) 45.8 pg/mL 15.0-65.0 [facility] HospitalVitamin D [id number] 14:50:19 Test Item Value Reference Range Interpretation Comments Vitamin D 25 OH (test 43 ng/mL 30-100 Refere nce Range: code = 22421-7) Deficiency: <10 ng/mLInsufficie ncy: 10-29 ng/mLSuff iciency: 30-100 ng/mLPot ential toxicity: >100 ng/mL [facility] HospitalACTH2022-09-21 16:51:26 Test Item Value Reference Range Interpretation Comments ACTH (test 38 pg/mL 7-63 Results greater than code = 2141-0) 1826 pg/mL ma y not be reliable due to matrix effect w ith extended diluti on as it exceeds the high speed printer operator's recommended flores it. ACTH reference intervals are established for the morning hours f rom 7-10 am. Due to the circadian rhyth m of ACTH levels in plasma, the anoop ple collection time must be noted. Cauti on should be exerc ised when interpreti ng such values and done in conjunction with clinical contex t. ASHA (test code This lab cannot be = ASHA) scheduled at the following locations due to collection/proccess ing restrictions:[facility] DIAG LAB [facility] DIAG LAB [facility] DIAG LAB [facility] DAIG LAB [facility] DIAG LAB [facility] DIAG LAB [facility]ort[facility], [id number] 13:16:44 Test Item Value Reference Range Interpretation Comments Cortisol, Total (test 17.37 See_Comment Cortis ol reference code = 2143-6) intervals are established for the morning hours from 6-10 am and aft ernoon hours 4-8 pm. Due to circadian rhythm of corti toma levels in serum and pl asma, the sample collecti on time must be noted. Cauti on should be exercised when interpreting such values and done in conjunction wit h clinical context. Serum Cortisol Reference Range s: Morning (6-10am) (4.8 - 19.5)Afternoon (4-8pm) (2.5 - 11.9) [Automa tyrell message] The system [employer] generated this result tra nsmitted reference range : 4.80 - 19.50 mcg/dL. T he reference range was not u sed to interpret this result as normal/abnormal . [facility] EurekaTISSUE [id number] 09:33:00 Surgical Pathology Report Case: [id number] Authorizing Provider: Bonifacio Martin MD Collected: 07/08/2020 03:03 PM Ordering Location: [facility] Received: 07/08/2020 04:15 PM SERVICES Pathologist: Harvey Caldwell MD Specimens: A) - Bladder Tumor, 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 B) - Bladder Tumor, left trigone and left bladder neck C) - Bladder Tumor, 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) D) - Prostatic, TUR prostatic urethra A. URINARYBLADDER, RIGHT LATERAL WALL AND RIGHT BLADDER NECK, TURBT: - PAPILLARY UROTHELIAL CARCINOMA, HIGH GRADE (WHO GRADE 3), INVASIVE INTO MUSCULARIS PROPRIA - NEGATIVE FOR LYMPH/VASCULAR INVASIONB. URINARY BLADDER, LEFT TRIGONE AND LEFT BLADDER NECK, TURBT: - PAPILLARY UROTHELIAL CARCINOMA, HIGH GRADE (WHOGRADE 3), INVASIVE INTO MUSCULARIS PROPRIA - NEGATIVE FOR LYMPH/VASCULAR INVASIONC. URINARY BLADDER,LOW POSTERIOR WALL (WITH ONE PIECE OF PROSTATIC URETHRA, TURBT: - PAPILLARY UROTHELIAL CARCINOMA, HIGH GRADE (WHO GRADE 3), INVASIVE INTO LAMINA PROPRIA - MUSCULARIS PROPRIA IS NOT PRESENT - NEGATIVE FOR LYMPH/VASCULAR INVASION - ONE CHIP, PROSTATIC STROMA WITH NO PATHOLOGIC CHANGESD. PROSTATIC URETHRA, TUR BIOPSY: - FRAGMENTS OF BENIGN PROSTATIC STROMA WITH NO PATHOLOGIC CHANGES Signing PathologistDirect Phone Line: [phone] signed by Harvey Caldwell MD on 07/12/2020 at9:33 [id number] X 3, [id number] diagnosis: Malignant neoplasm of overlapping site of bladderA to C: Bladder tumor; D. ProstaticA. Received in formalin labeled with the patient's name, accession number and"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" [...] tissue which is entirely submitted in B1-B2. C. Received in formalin labeled with the patient's name, accession number and "low posterior wall bladder tumor with one piece of prostatic urethra" is a 1.9 x 0.7 x 0.3 cm aggregate of penny-pink rubbery tissue which is submitted in totoin C1. D. Received in formalin labeled with the patient's name, accession number and "prostatic urethral TUR" are two penny rubbery tissue measuring up to 0.8 cm in greatest dimension which are submittedin toto in D1. PA/pl Performed.POCT- GLUCOSE [id number] 11:38:00 Test Item Value Reference Range Interpretation Comments POC-GLUCOSE METER 123 mg/dL 70-110 H : TESTED A T [facility] 67[address] (BEAKER) (test code = [facility], 1538) [address]: Human Capital Consultant/Techni lyn ID = [id number] for JAMES URIARTE POCT-GLUCOSE [id number] 07:44:00 Test Item Value Reference Range Interpretation Comments POC-GLUCOSE METER 108 mg/dL 70-110 : TESTED A T [facility] 67[address] (BEAKER) (test code = [facility], 1538) 50154: Human Capital Consultant/Techni lyn ID = [id number] for JAMES URIARTE BASIC METABOLIC [id number] 07:13:00 Test Item Value Reference Range Interpretation [...] S NOT APPLICABLE FOR DIALYSIS PATIEN TS. Human Capital Consultant ID - EDASICBC W/PLT COUNT & AUTO [id number] 06:20:00 Test Item Value Reference Range Interpretation [...] PERCENT (BEAKER) (test code = 2801) POCT-GLUCOSE [id number] 23:07:00 Test Item Value Reference Range Interpretation Comments POC-GLUCOSE METER 161 mg/dL 70-110 H : TESTED A T [facility] 6720 (BEAKER) (test code = [facility], 153) 14390: Human Capital Consultant/Techni lyn ID = [id number] for MYRA ADAMSON POCT-GLUCOSE [id number] 16:56:00 Test Item Value Reference Range Interpretation Comments POC-GLUCOSE METER 181 mg/dL 70-110 H : TESTED A T [facility] 6720 (BEAKER) (test code = [facility], 153) 19479: Human Capital Consultant/Techni lyn ID = [id number] for JAMES URIARTE POCT-GLUCOSE [id number] 13:16:00 Test Item Value Reference Range Interpretation Comments POC-GLUCOSE METER 95 mg/dL 70-110 : TESTED A T [facility] 6720 (BEAKER) (test code = [facility], 153) 13006: Human Capital Consultant/Techni lyn ID = [id number] for JAMES MARIEE BASIC METABOLIC [id number] 13:11:00 Test Item Value Reference Range Interpretation [...] S NOT APPLICABLE FOR DIALYSIS PATIEN TS. Human Capital Consultant ID - IVANIA MCBC W/PLT COUNT & AUTO [id number] 12:52:00 Test Item Value Reference Range Interpretation [...] 417) IMMATURE GRANULOCYTES-RELATIVE 0 % 0-1 PERCENT (AKER) (test code = 2801) POCT-GLUCOSE [id number] 08:29:00 Test Item Value Reference Range Interpretation Comments POC-GLUCOSE METER 187 mg/dL 70-110 H : TESTED A T [facility] 67[address] ([facility]) (test code = [facility], 153) [address]147: Human Capital Consultant/Techni lyn ID = [id number] for JAMES URIARTE POCT-GLUCOSE [id number] 21:48:00 Test Item Value Reference Range Interpretation Comments POC-GLUCOSE METER 124 mg/dL 70-110 H : TESTED A [facility] 67[address] ([facility]) (test code = [facility], 153) 17768: Human Capital Consultant/Techni lyn ID = [id number] for MYRA ADAMSON POCT-GLUCOSE [id number] 17:40:00 Test Item Value Reference Range Interpretation Comments POC-GLUCOSE METER 118 mg/dL 70-110 H : Notified RN/MD: ([facility]) (test code = TESTED AT [facility] 6720 1538) [facility], [address]: Human Capital Consultant/Techni lyn ID = [id number] for Tor res, [place], FLUORO, NON-SPECIFIC, UP TO 1 [id number] 16:04:00Reason for exam:- >[facility]teral [facility] : 1950 Sex: MFluoroscopic unit utilized for a procedure performed in the OR. No interpretation was requested. Refer tothe operative report for findings. Refer to PACS for patient radiation dose information.POCT-GLUCOSE [id number] 11:36:00 Test Item Value Reference Range Interpretation Comments POC-GLUCOSE METER 90 mg/dL 70-110 : TESTED A T [facility] 6720 (LORI) (test code = [facility], 1538) [address]8734: Human Capital Consultant/Techni lyn ID = [id number] for CHRISTA HERRERA Notes Date/Time Note Provider Source 2020-07-08 16:51:47-00:00 BONIFACIO MARTIN [facility] OPERATIVE/PROCEDURE REPORT DAYSI TRINH FACILITY: [facility] Billing #: [id number] Room: [facility] MR #: [id number] : 1950 DATE OF PROCEDURE: 07/08/2020 SURGEON: Bonifacio Martin MD PREOPERATIVE DIAGNOSIS: Clinical stage Tx Nx Mx bladder cancer. POSTOPERATIVE DIAGNOSIS: Clinical stage T3 Nx Mx urothelial carcinoma of the bladder (tumor associated hydro nephrosis on the left). TITLE OF OPERATIONS: 1. Cystoscopy. 2. Pelvic exam under anesthesia. 3. Transurethral resection of large bladder tumo r (greater than 5 cm). 4. Separate transurethral resection of the apica l prostatic urethra and bladder neck 5. Separate transurethral resection of the left intramural ureter, obscured and obstruc tyrell by the primary tumor with placement of indwelling left ureteral stent. COMMUNITY OUTREACH SPECIALIST: Iman Suazo RES ANESTHESIA: General laryngeal mask. INDICATIONS: This patient is a 70-year-old male, who presented with gross hematuria. The cross-sectional imagin g with CT showed no evidence of high-grade obstruction or metastatic disease. Cystoscopy in the office was consistent with a high-grade invasive urothelial carcinoma, and he was taken to the operating room at this time for planned TURB T and EUA. FINDINGS: Pelvic exam under anesthesia suggested a three dimensional mass oriented on the base of the stephanie dder that was mobile. At cystoscopy, the anterior and posterio r urethra within normal limits of bilobar prostatic hyperp lasia. There was a large muscle invasive appearing tumor that extended from the midportion of the right lateral wall distall y to the bladder neck and from about 7 o'clock to 12 o'cl ock. This was resected as a single specimen and a portion sent to the tumor bank. There was clearly residual tumor. In the l eft low posterior wall, there was a smaller area of high -grade disease that was separately resected and then a large ar ea, although not quite as large as on the right, that extende d again to the anterior bladder neck and around to about 5 o'cl ock and completely obstructing and obscuring the left ur eteral orifice. We resected this maximally and then identified the left ureteral orifice, and subsequently we were able to place a stent. A separate TUR biopsies of the bladder ne ck and apical prostatic urethra were found. PROCEDURE IN DETAIL: The patient was brought to the cystoscopy suite. After adequate general anesthesia was obt ained, placed in the dorsal lithotomy position and his perineu m and genitalia were sterilely prepped and draped in the usual f ashion. Oral antibiotics were given for prophylaxis. Rectal b imanual examination was performed with the findings desc ribed. Cystourethroscopy was performed using going stra ight to the small continuous-flow resectoscope. We identifie d the right ureteral orifice, which was not involving the tu mor and the left colon was not visible and clearly surrounde d and obscured by invasive cancer. We then maximally resected t he tumor on the right as described above geographically and sent a portion of this to the tumor bank. These chips were all removed and sent as a single specimen. We then similarly res ected the tumor on the left side with the geography descri bed above and sent that separately. Of course, during this we were able to identify the left ureteral orifice that was roxana rly obscured by invasive cancer. We then separately resected a s maller tumor on the low posterior wall and then made a meticu lous inspection for hemostasis. We then switched to the cystoscope and using a 5 -Indian open-ended catheter and a Sensor wire, we were a ble to cannulate the left ureteral orifice and advanced this up to the renal pelvis. We passed a 6-Indian x 28 cm stent and confirmed its proximal position with irrigation to and fro . We then placed a coral in the bladder and attached to th e pusher. The bladder was left partially full, the cystoscope removed and a 20-Indian two-way coude-tip Azar catheter place d with efflux of clear irrigant. The proximal portion of the s tent was located. Location was confirmed by fluoroscopy. The patient was then returned to supine position, awakened, extubated, and taken on a stretcher to the recovery room in sat isfactory condition. SPL/MODL /[id number]
--- NOTE | 2023-04-08 16:27 | RAD REPORT ---
EXAM DESCRIPTION: RAD - Forearm Left - 04/08/2023 4:20 pm CLINICAL HISTORY: PAIN COMPARISON: <Comparisons> FINDINGS: Mildly impacted distal radius fracture is seen with extension into the radiocarpal joint. Ulnar styloid avulsion probably present as well. No dislocation. Small olecranon spur.
--- NOTE | 2023-04-08 16:56 | EDPHYS ---
Physician Documentation [facility] Name: Ronald Trinh Age: 73 yrs Sex: Male : 1950 Arrival Date: 04/08/2023 Time: 15:49 Bed 14 Private MD: ED Physician Lex Azevedo HPI: 04/08 16:18 This 73 yrs old Male presents to ER via Ambulatory with complaints of Fall Injury, kb Wrist Pain - Left. 16:18 Details of fall: The patient fell from an upright position, while walking. Onset: The kb symptoms/episode began/occurred just prior to arrival. Associated injuries: The patient sustained left wrist, decreased range of motion, painful injury, swelling. Severity of symptoms: At their worst the symptoms were moderate, in the emergency department the symptoms are unchanged. The patient has not experienced similar symptoms in the past. The patient has not recently seen a physician. 16:19 pt reports he tripped over a fence and injured his left wrist. kb Historical: - Allergies: 16:11 No Known Allergies; ph - PMHx: 16:11 Bladder CA; Diabetes - IDDM; ph - Immunization history:: Adult Immunizations unknown. - Social history:: Smoking status: Patient denies any tobacco usage or history of. - Immunization history: Last tetanus immunization: unknown. ROS: 16:17 Constitutional: Negative for fever, chills, and weight loss. kb 16:17 MS/extremity: Positive for decreased range of motion, pain, swelling, tenderness, of the left wrist. 16:17 All other systems are negative. Exam: 16:17 Constitutional: This is a well developed, well nourished patient who is awake, alert, kb and in no acute distress. Head/Face: Normocephalic, atraumatic. ENT: Moist Mucous membranes Cardiovascular: Regular rate and rhythm with a normal S1 and S2. No gallops, murmurs, or rubs. No pulse deficits. Respiratory: Respirations even and unlabored. No increased work of breathing. Talking in full sentences Skin: Warm, dry with normal turgor. Normal color. Neuro: Awake and alert, GCS 15, oriented to person, place, time, and situation. Moves all extremities. Normal gait. 16:17 Musculoskeletal/extremity: Extremities: grossly normal except: noted in the left wrist: decreased ROM, pain, swelling, tenderness, ROM: limited active range of motion due to pain, in the left wrist, Circulation is intact in all extremities. Sensation intact. Vital Signs: 16:00 BP 124 / 69; Pulse 81; Resp 16; Pulse Ox 100% on R/A; db 16:09 BP 133 / 70; Pulse 71; Resp 18; Temp 98.4; Pulse Ox 100% on R/A; Weight 90.72 kg; ph Height 6 ft. 4 in. ; 17:00 BP 142 / 78; Pulse 80; Resp 16; Pulse Ox 100% on R/A; db 16:09 Body Mass Index 24.34 (90.72 kg, 193.04 cm) ph Temple Coma Score: 17:45 Eye Response: spontaneous(4). Motor Response: obeys commands(6). Verbal Response: db oriented(5). Total: 15. Trauma Score (Adult): 17:45 Eye Response: spontaneous(1); Verbal Response: oriented(1); Motor Response: obeys db commands(2); Systolic BP: > 89 mm Hg(4); Respiratory Rate: 10 to 29 per min(4); Mary Score: 15; Trauma Score: 12 MDM: 15:55 Patient medically screened. kb 16:18 Differential diagnosis: contusion, fracture, sprain, strain. Data reviewed: vital kb signs, nurses notes. 16:55 Independent interpretation of the following test(s) in the Emergency Department X-Ray: kb My interpretation is fracture left radius. Counseling: I had a detailed discussion with the patient and/or guardian regarding: the historical points, exam findings, and any diagnostic results supporting the discharge/admit diagnosis, radiology results, the need for outpatient follow up, a orthopedic surgeon, to return to the emergency department if symptoms worsen or persist or if there are any questions or concerns that arise at home. 04/08 16:08 Order name: Forearm Left XRAY; Complete Time: 16:28 kb 04/08 16:31 Order name: Sugar Tong Forearm Splint; Complete Time: 17:27 kb 04/08 16:31 Order name: Sling; Complete Time: 17:27 kb Administered Medications: 16:58 Drug: [place] PO 10 mg-325 mg 1 tabs Route: PO; db 17:46 Follow up: Response: No adverse reaction db Disposition: 17:04 Co-signature as Attending Physician, Lex Azevedo DO I was immediately available on-site ms3 in the Emergency Department for consultation in the care of the patient. Disposition Summary: 04/08/23 16:55 Discharge Ordered Location: Home kb Condition: Stable kb Diagnosis - Fall on same level from slipping, tripping and stumbling without subsequent kb striking against object - Fracture of lower end of radius kb Followup: kb - With: Emergency Department - When: As needed - Reason: Worsening of condition Followup: kb - With: Private Physician - When: 2 - 3 days - Reason: Recheck today's complaints, Continuance of care, Re-evaluation by your physician Discharge Instructions: - Discharge Summary Sheet kb - Radial Fracture kb Forms: - Medication Reconciliation Form kb - Thank You Letter kb - Antibiotic Education kb - Prescription Opioid Use kb - Patient Portal Instructions kb - Leadership Thank You Letter kb Prescriptions: - Tramadol 50 mg Oral Tablet - take 1 tablet by ORAL route every 8 hours as needed; 12 tablet; Refills: 0, kb Product Selection Permitted Signatures: Dispatcher [employer] EDMS Wanda Corral, PAUL-C RETURN TO SERVICE INSPECTOR-Flores Pantoja, RN RN Lex Azevedo DO DO ms3 Sheila Roe, RN RN db
--- NOTE | 2023-04-08 16:56 | ER ---
Nurse's Notes [facility] Name: Ronald Trinh Age: 73 yrs Sex: Male : 1950 Arrival Date: 04/08/2023 Time: 15:49 Bed 14 Private MD: Diagnosis: Fall on same level from slipping, tripping and stumbling without subsequent striking against object;Fracture of lower end of radius Presentation: 04/08 16:09 Chief complaint: Patient states: Tripped and fell, attempt to catch himself, felt L ph wrist pop, swelling noted, denies other injury. Coronavirus screen: Vaccine status: Patient reports receiving the 2nd dose of the covid vaccine. Ebola Screen: No symptoms or risks identified at this time. Initial Sepsis Screen: Does the patient meet any 2 criteria? No. Patient's initial sepsis screen is negative. Does the patient have a suspected source of infection? No. Patient's initial sepsis screen is negative. Risk Assessment: Do you want to hurt yourself or someone else? Patient reports no desire to harm self or others. Onset of symptoms was April 08, 2023. 16:09 Method Of Arrival: Ambulatory 16:09 Acuity: SAVANA 4 ph 17:45 Care prior to arrival: None. Mechanism of Injury: Fall from standing position. Trauma db event details: Injury occurred in the [facility]. Triage Assessment: 16:11 General: Appears in no apparent distress. Behavior is calm, cooperative. Pain: ph Complains of pain in left wrist. Trauma Activation: Not Applicable Physician: ED Physician; Name: ; Notified At: ; Arrived At: Physician: General Surgeon; Name: ; Notified At: ; Arrived At: Physician: Radiology; Name: ; Notified At: ; Arrived At: Physician: Respiratory; Name: ; Notified At: ; Arrived At: Physician: Lab; Name: ; Notified At: ; Arrived At: Historical: - Allergies: 16:11 No Known Allergies; ph - PMHx: 16:11 Bladder CA; Diabetes - IDDM; ph - Immunization history:: Adult Immunizations unknown. - Social history:: Smoking status: Patient denies any tobacco usage or history of. - Immunization history: Last tetanus immunization: unknown. Screenin:00 [facility] ED Fall Risk Assessment (Adult) History of falling in the last 3 months, db including since admission Yes- single mechanical fall (1 pt) Confusion or Disorientation No (0 pts) Intoxicated or Sedated No (0 pts) Impaired Gait No (0 pts) Mobility Assist Device Used No (0 pt) Altered Elimination No (0 pt) Score/Fall Risk Level 0 - 2 = Low Risk Oriented to surroundings, Maintained a safe environment. Abuse screen: Denies threats or abuse. Denies injuries from another. Nutritional screening: No deficits noted. Tuberculosis screening: No symptoms or risk factors identified. Primary Survey: 17:45 NO uncontrolled hemorrhage observed. A: The client is awake and alert. The airway is db patent. The client is alert. Airway: patent. Breathing/Chest: Spontaneous respiratory effort, equal unlabored respirations, breath sounds clear bilaterally, regular pattern, symmetrical chest rise and fall. Circulation: No external hemorrhage present. Regular and strong central pulse, skin warm/dry/normal color. Disability Client is alert. Exposure/Environment: There is no evidence of uncontrolled external bleeding. Reassessment Alertness and Airway: Awake and alert. The airway is patent. Breathing: Spontaneous respiratory effort, equal unlabored respirations, breath sounds clear bilaterally, regular pattern with symmetrical chest rise and fall. Respiratory effort Spontaneous Unlabored Circulation: No external hemorrhage noted. Regular and strong central pulse, skin warm/dry/normal color. Disability: Pupils Alert. Assessment: 17:00 General: Appears in no apparent distress. uncomfortable, Behavior is. Pain: Complains db of pain in left arm and left wrist. 17:41 Reassessment: Patient appears in no apparent distress at this time. Patient and/or db family updated on plan of care and expected duration. Pain level reassessed. Patient is alert, oriented x 3, equal unlabored respirations, skin warm/dry/pink. Vital Signs: 16:00 BP 124 / 69; Pulse 81; Resp 16; Pulse Ox 100% on R/A; db 16:09 BP 133 / 70; Pulse 71; Resp 18; Temp 98.4; Pulse Ox 100% on R/A; Weight 90.72 kg; ph Height 6 ft. 4 in. ; 17:00 BP 142 / 78; Pulse 80; Resp 16; Pulse Ox 100% on R/A; db 16:09 Body Mass Index 24.34 (90.72 kg, 193.04 cm) ph Mary Coma Score: 17:45 Eye Response: spontaneous(4). Motor Response: obeys commands(6). Verbal Response: db oriented(5). Total: 15. Trauma Score (Adult): 17:45 Eye Response: spontaneous(1); Verbal Response: oriented(1); Motor Response: obeys db commands(2); Systolic BP: > 89 mm Hg(4); Respiratory Rate: 10 to 29 per min(4); Holcomb Score: 15; Trauma Score: 12 ED Course: 15:52 Patient arrived in ED. mg5 15:55 Wanda Corral FNP-C is [facility]. kb 15:55 Lex Azevedo DO is Attending Physician. kb 16:08 Flores Lind RN is Primary Nurse. ph 16:11 Triage completed. ph 16:11 Arm band placed on Patient placed in an exam room. ph 16:22 Forearm Left XRAY In Process Unspecified. EDMS 17:42 Patient has correct armband on for positive identification. Bed in low position. Call db light in reach. Side rails up X 1. Provided Education on: DISCHARGE. 17:42 No provider procedures requiring assistance completed. Patient did not have IV access db during this emergency room visit. 17:45 Patient maintains SpO2 saturation greater than 95% on room air. db 17:46 Thermoregulation: warm blanket given to patient. db Administered Medications: 16:58 Drug: [place] PO 10 mg-325 mg 1 tabs Route: PO; db 17:46 Follow up: Response: No adverse reaction db Medication: 17:00 VIS not applicable for this client. db Intake: 17:45 PO: 0ml; Total: 0ml. db Outcome: 16:55 Discharge ordered by MD. kb 17:42 Discharged to home ambulatory, with family. db 17:42 Condition: stable 17:42 Discharge instructions given to patient, friend, Instructed on discharge instructions, follow up and referral plans. Prescriptions given X 1. 17:46 Patient's length of stay was not longer than 2 hours. db 17:47 Patient left the ED. db Signatures: Dispatcher [employer] EDIL Wanda Corral FNP-C FNP-Ckb Hall, Patricia, RN RN Sheila Roe RN RN db Francoise Vasquez mg5
[2023-04-08] MEDS ORDERED: HYDROCODONE/APAP 10/325 TAB ONE (17:04)
[2023-04-08 18:10] VITALS: O2SAT 100
[2023-04-08 18:12] VITALS: TEMP 98.4
[2023-04-08 18:13] VITALS: BP 142/78
== END 2023-04-08 17:47 | disposition home or self-care (01) ==
LOC: ER 15:49
PROC: 2W3DX1Z Immobilization of Left Lower Arm using Splint (ICD-10-PCS; principal; 2023-04-08)
DX: S52.502A Unspecified fracture of the lower end of left radius, initial encounter for closed fracture (principal); W01.0XXA Fall on same level from slipping, tripping and stumbling without subsequent striking against object, initial encounter
CPT/HCPCS: 99285